=== PATIENT | female | born 1945 | race African-American/Black ===

== ENCOUNTER 2018-09-11 08:20 | Inpatient (IN) ==
--- NOTE | 2018-09-11 08:24 | Emergency Department Note ---
Disposition Clinical Impression: JEOVANY (acute kidney injury), Hypokalemia, Hypomagnesemia, Elevated troponin, Metabolic acidosis, Supratherapeutic INR Disposition: Admitted As Inpatient Condition: Serious Time of Disposition: 16:49 General Adult HPI - General Stated complaint: AMS Time Seen by Provider: 09/11/18 08:21 - Related Data Home Medications Medication Instructions Recorded Confirmed Adalimumab [Humira Pen 40 mg SQ Q14D 03/02/15 01/02/16 Crohn's-Uc-Hs] Alendronate Sodium [Fosamax] 70 mg PO CHA 03/02/15 01/02/16 Atorvastatin [Lipitor] 10 mg PO HS 03/02/15 01/02/16 Azelastine 0.1% Nasal [place] 137 mcg NS BID 03/02/15 01/02/16 [Astelin] Cetirizine HCl [Zyrtec] 10 mg PO DAILY 03/02/15 01/02/16 Cholecalciferol (Vitamin D3) 50,000 unit PO CHA 03/02/15 01/02/16 [Vitamin D3] Ferrous Sulfate [Iron] 325 mg PO DAILY 03/02/15 01/02/16 Glucosamine Sulfate Dipot Chlr 1,500 mg PO DAILY 03/02/15 01/02/16 [Glucosamine] Oxybutynin Chloride [Ditropan XL] 5 mg PO DAILY 03/02/15 01/02/16 Potassium Chloride [Klor-Con 10 meq PO DAILY 03/02/15 01/02/16 Sprinkle] Quetiapine Fumarate [SEROquel] 25 mg PO DAILY 03/02/15 01/02/16 Sertraline [Zoloft] 100 mg PO DAILY 03/02/15 01/02/16 Tizanidine HCl [Zanaflex] 4 - 8 mg PO HS PRN 03/02/15 01/02/16 Warfarin [Coumadin] 5 mg PO Q48H 03/02/15 01/02/16 Cholecalciferol (Vitamin D3) 2,000 unit PO DAILY 04/13/15 01/02/16 [Vitamin D] Warfarin [Coumadin] 4.5 mg PO Q48H 01/02/16 01/02/16 Allergies Allergy/AdvReac Type Severity Reaction Status Date / Time No Known Allergies Allergy Verified 01/02/16 11:33 Past Medical History - Past Medical History Medical history: Reports: arthritis, CVA, hepatitis, hyperlipidemia, renal disease Surgical history: Reports: cataract, colectomy Psychiatric history: Reports: no psych history - Social History Smoking Status: Never smoker Smokeless Tobacco Status: No Alcohol use: Reports: none Drug use: Reports: none Course Vital Signs Temperature 97.5 F L 09/11/18 08:26 Pulse Rate 85 09/11/18 08:26 Respiratory Rate 16 09/11/18 08:26 Blood Pressure 110/80 09/11/18 08:26 O2 Sat by Pulse Oximetry 100 09/11/18 08:26 Temperature 98.9 F 09/11/18 16:08 Pulse Rate 70 09/11/18 16:17 Respiratory Rate 16 09/11/18 16:17 Blood Pressure 112/63 09/11/18 16:17 O2 Sat by Pulse Oximetry 95 09/11/18 16:17 Oxygen Delivery Oxygen Delivery Room Air Medical Decision Making - Lab Data Result diagrams: 09/11/18 08:54 09/11/18 14:40 Lab Results 09/11/18 09/11/18 09/11/18 Range/Units 08:54 08:54 08:54 WBC 18.1 H (4.3-11.1) K/mcL RBC 3.56 L (3.82-4.97) M/mcL Hgb 9.7 L (11.5-15.4) g/dL Hct 29.8 L (35.3-44.9) % MCV 83.7 (83.0-100.0) fL MCH 27.2 L (28.0-33.3) pg MCHC 32.6 (31.6-35.5) g/dL RDW 16.4 H (11.5-14.5) % Plt Count 299 (140-400) K/mcL MPV 11.5 (9.4-12.4) fL PT 66.2 H* (9.4-12.1) Seconds INR 5.8 H* APTT 47.7 H (26.0-36.0) Seconds VBG pH (7.32-7.42) pH Units VBG pCO2 (41-51) mmHg VBG pO2 (25-50) mmHg VBG HCO3 (21-27) mEq/L Sodium (136-145) mEq/L Potassium (3.5-5.1) mEq/L Chloride (98-107) mEq/L Carbon Dioxide (23-29) mEq/L BUN (8-23) mg/dL Creatinine (0.60-1.20) mg/dL Est GFR ( Amer) (> 60) Est GFR (Non-Af Amer) (> 60) BUN/Creatinine Ratio (6-26) Glucose (70-105) mg/dL Calculated Osmolality (280-300) Calcium (8.6-10.3) mg/dL Magnesium (1.6-2.6) mg/dL Creatine Kinase (30-223) Units/L Troponin I (< 0.04) ng/mL Urine Color (Yellow) Urine Clarity (Clear) Urine pH (5.0-8.0) pH Units Ur Specific [place] (1.010-1.025) Urine Protein (Neg-Trace) mg/dL Urine Glucose (UA) (Normal) mg/dL Urine Ketones (Negative) mg/dL Urine Blood (Negative) Urine Nitrite (Negative) Urine Bilirubin (Negative) Urine Urobilinogen (Normal) mg/dL Ur Leukocyte Esterase (Negative) Urine Microscopic RBC (0-3) per hpf Urine Microscopic WBC (0-3) per hpf Ur Squamous Epith Cells (None-Few) per lpf Ur Transition Epith Cell (None-Few) per hpf Urine Bacteria (None-Few) per hpf Hyaline Casts (None-Few) per lpf Ur Culture Indicated? (NO) Urine Osmolality (300-1090) mOsm/kg Urine Creatinine mg/dL Urine Sodium mEq/L Urine Potassium mEq/L Urine Chloride mEq/L Urine Urea Nitrogen mg/dL Specimen Rejected Miscellaneous Person Notif of Crit 09/11/18 09/11/18 09/11/18 Range/Units 09:15 09:53 09:56 WBC (4.3-11.1) K/mcL RBC (3.82-4.97) M/mcL Hgb (11.5-15.4) g/dL Hct (35.3-44.9) % MCV (83.0-100.0) fL MCH (28.0-33.3) pg MCHC (31.6-35.5) g/dL RDW (11.5-14.5) % Plt Count (140-400) K/mcL MPV (9.4-12.4) fL PT 67.3 H* (9.4-12.1) Seconds INR 5.9 H* APTT (26.0-36.0) Seconds VBG pH (7.32-7.42) pH Units VBG pCO2 (41-51) mmHg VBG pO2 (25-50) mmHg VBG HCO3 (21-27) mEq/L Sodium 141 (136-145) mEq/L Potassium 1.7 L* (3.5-5.1) mEq/L Chloride 123 H (98-107) mEq/L Carbon Dioxide 6 L* (23-29) mEq/L BUN 31 H (8-23) mg/dL Creatinine 3.47 H (0.60-1.20) mg/dL Est GFR ( Amer) 16 L (> 60) Est GFR (Non-Af Amer) 13 L (> 60) BUN/Creatinine Ratio 9 (6-26) Glucose 87 (70-105) mg/dL Calculated Osmolality 298 (280-300) Calcium 6.5 L (8.6-10.3) mg/dL Magnesium 0.5 L (1.6-2.6) mg/dL Creatine Kinase 330 H (30-223) Units/L Troponin I 0.17 H* (< 0.04) ng/mL Urine Color Yellow (Yellow) Urine Clarity Cloudy A (Clear) Urine pH 6.0 (5.0-8.0) pH Units Ur Specific [place] 1.007 L (1.010-1.025) Urine Protein 30 H (Neg-Trace) mg/dL Urine Glucose (UA) Normal (Normal) mg/dL Urine Ketones Negative (Negative) mg/dL Urine Blood Large H (Negative) Urine Nitrite Negative (Negative) Urine Bilirubin Negative (Negative) Urine Urobilinogen Normal (Normal) mg/dL Ur Leukocyte Esterase Trace H (Negative) Urine Microscopic RBC 0-3 (0-3) per hpf Urine Microscopic WBC 3-5 H (0-3) per hpf Ur Squamous Epith Cells Many H (None-Few) per lpf Ur Transition Epith Cell Few (None-Few) per hpf Urine Bacteria None Seen (None-Few) per hpf Hyaline Casts None Seen (None-Few) per lpf Ur Culture Indicated? YES A (NO) Urine Osmolality (300-1090) mOsm/kg Urine Creatinine mg/dL Urine Sodium mEq/L Urine Potassium mEq/L Urine Chloride mEq/L Urine Urea Nitrogen mg/dL Specimen Rejected Person Notif of Crit 09/11/18 09/11/18 09/11/18 Range/Units 10:09 10:17 10:17 WBC (4.3-11.1) K/mcL RBC (3.82-4.97) M/mcL Hgb (11.5-15.4) g/dL Hct (35.3-44.9) % MCV (83.0-100.0) fL MCH (28.0-33.3) pg MCHC (31.6-35.5) g/dL RDW (11.5-14.5) % Plt Count (140-400) K/mcL MPV (9.4-12.4) fL PT (9.4-12.1) Seconds INR APTT (26.0-36.0) Seconds VBG pH 7.06 L* (7.32-7.42) pH Units VBG pCO2 18 L (41-51) mmHg VBG pO2 175 H (25-50) mmHg VBG HCO3 5 L (21-27) mEq/L Sodium (136-145) mEq/L Potassium (3.5-5.1) mEq/L Chloride (98-107) mEq/L Carbon Dioxide (23-29) mEq/L BUN (8-23) mg/dL Creatinine (0.60-1.20) mg/dL Est GFR ( Amer) (> 60) Est GFR (Non-Af Amer) (> 60) BUN/Creatinine Ratio (6-26) Glucose (70-105) mg/dL Calculated Osmolality (280-300) Calcium (8.6-10.3) mg/dL Magnesium (1.6-2.6) mg/dL Creatine Kinase (30-223) Units/L Troponin I (< 0.04) ng/mL Urine Color (Yellow) Urine Clarity (Clear) Urine pH (5.0-8.0) pH Units Ur Specific [place] (1.010-1.025) Urine Protein (Neg-Trace) mg/dL Urine Glucose (UA) (Normal) mg/dL Urine Ketones (Negative) mg/dL Urine Blood (Negative) Urine Nitrite (Negative) Urine Bilirubin (Negative) Urine Urobilinogen (Normal) mg/dL Ur Leukocyte Esterase (Negative) Urine Microscopic RBC (0-3) per hpf Urine Microscopic WBC (0-3) per hpf Ur Squamous Epith Cells (None-Few) per lpf Ur Transition Epith Cell (None-Few) per hpf Urine Bacteria (None-Few) per hpf Hyaline Casts (None-Few) per lpf Ur Culture Indicated? (NO) Urine Osmolality 143 L (300-1090) mOsm/kg Urine Creatinine 57 mg/dL Urine Sodium 16.9 mEq/L Urine Potassium mEq/L Urine Chloride mEq/L Urine Urea Nitrogen 168 mg/dL Specimen Rejected Person Notif of Pat SU 09/11/18 Range/Units 10:59 WBC (4.3-11.1) K/mcL RBC (3.82-4.97) M/mcL Hgb (11.5-15.4) g/dL Hct (35.3-44.9) % MCV (83.0-100.0) fL MCH (28.0-33.3) pg MCHC (31.6-35.5) g/dL RDW (11.5-14.5) % Plt Count (140-400) K/mcL MPV (9.4-12.4) fL PT (9.4-12.1) Seconds INR APTT (26.0-36.0) Seconds VBG pH (7.32-7.42) pH Units VBG pCO2 (41-51) mmHg VBG pO2 (25-50) mmHg VBG HCO3 (21-27) mEq/L Sodium (136-145) mEq/L Potassium (3.5-5.1) mEq/L Chloride (98-107) mEq/L Carbon Dioxide (23-29) mEq/L BUN (8-23) mg/dL Creatinine (0.60-1.20) mg/dL Est GFR ( Amer) (> 60) Est GFR (Non-Af Amer) (> 60) BUN/Creatinine Ratio (6-26) Glucose (70-105) mg/dL Calculated Osmolality (280-300) Calcium (8.6-10.3) mg/dL Magnesium (1.6-2.6) mg/dL Creatine Kinase (30-223) Units/L Troponin I (< 0.04) ng/mL Urine Color (Yellow) Urine Clarity (Clear) Urine pH (5.0-8.0) pH Units Ur Specific [place] (1.010-1.025) Urine Protein (Neg-Trace) mg/dL Urine Glucose (UA) (Normal) mg/dL Urine Ketones (Negative) mg/dL Urine Blood (Negative) Urine Nitrite (Negative) Urine Bilirubin (Negative) Urine Urobilinogen (Normal) mg/dL Ur Leukocyte Esterase (Negative) Urine Microscopic RBC (0-3) per hpf Urine Microscopic WBC (0-3) per hpf Ur Squamous Epith Cells (None-Few) per lpf Ur Transition Epith Cell (None-Few) per hpf Urine Bacteria (None-Few) per hpf Hyaline Casts (None-Few) per lpf Ur Culture Indicated? (NO) Urine Osmolality (300-1090) mOsm/kg Urine Creatinine mg/dL Urine Sodium mEq/L Urine Potassium 5.9 mEq/L Urine Chloride 29 mEq/L Urine Urea Nitrogen mg/dL Specimen Rejected Person Notif of Crit Critical Care Time Critical Care Time: Yes Total Critical Care Time: 35 Attestation: Critical care time 35 minutes, excluding separately billable procedures given the patient's acute metabolic derangements including acute kidney injury, severe metabolic acidosis and severe hypokalemia in conjunction with coordination with specialist and admission to the intensive care unit. Jim.[email or web address] - Melanie Situation: Demographics, MOA Background: Presenting Complaint, Relevant PMH, Meds, & Allergies Assessment: Course and respsone to treatment, Exam Concerns, Patient/Family Expectation, Pertinant Lab Results Recommendation: Barrier(s) to disposition, Recommendation based on pending studies, treatments, or consults [email or web address].[email or web address] Report Given to: Dr. Janet Navarro Repor Time: 12:42 Attestation Statement - Attestation Attestation: Stepan Delgado D.O., examined this patient and my medical decision-making was reviewed with the Resident Physician. I agree with the documented findings, disposition and treatment plan as described except to the extent set forth below. 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 Stroke alert was called upon arrival. The patient was home last night and laid herself down onto the ground. was unable to help move her. States she was last filling normal around 11 PM. On arrival she is complaining of weakness in both of her legs and just feels generally worn out. She reports her speech seems normal to her. Denies any head injury. She denies any pain in any place. No other complaints. General: Alert, no acute distress HENT: Normocephalic, Atraumatic Neck: No JVD Cardiovascular: Regular rate and rhythm. No appreciable murmurs Respiratory: Lungs CTAB. No wheezing/rhonchi Abdominal: Soft, non tender. No peritoneal findings Extremities: No peripheral edema Neuro: Alert, Mentating appropriately, answers questions appropriately. She has weakness with 4/5 motor strength in the upper and lower extremities. Sensation to light touch intact in the upper and lower extremities. Seems to have mild dysarthria. Skin: Warm, Dry Plan: Stroke alert, CT imaging, labs, consultation with [facility] neurology, admission. ED Procedure Note: EKG interpretation - I agree with the resident physician's documentation and interpretation of the patient's EKG. Sinus rhythm with premature atrial complexes with a rate of 67 bpm. Normal axis. Normal intervals. No gross ST elevations or depressions. No acute ischemic findings. Resident spoke with [facility] neurology. Stroke alert canceled. Labs reviewed. The patient had grossly abnormal chemistry which was recollec dwayne. On the chemistry she is noted to have a bicarbonate 7, potassium 1.7. She is also suffering from an JEOVANY with a creatinine of 3.47 which was reviewed in May was 1.58. This case was immediately discussed with nephrology, Dr. Lanza, who recommended to start half normal saline with 75mEq of sodium bicarbonate at a rate of 100 mL/hr Labs reviewed again. Her pH is 7.06. I discussed this again with the political science research assistant horizontal drill operator who recommends we start a bicarbonate drip with 150 mEq of sodium bicarbonate. He will be down to see the patient. Also recommends to start potassium replacement prior to starting bicarbonate. He agrees with expediting the patient's care with central access giving 20 mEq or potassium and 20 mEq IV potassium. States the patient might need dialysis sometime today. The patient is moved to the trauma bay for closer monitoring as she has had some ectopy on her rhythm strips. Plan to obtain femoral IV access given the patient's supratherapeutic INR. At this point the patient is deemed to be critically ill as she is having ectopy with electrolyte abnormalities and weakness to the point that she is unable to really move her legs. Although her INR is elevated I feel she is best served by having central access and initiating potassium replacement at a faster rate so we can also be in to treat her acidosis with bicarbonate. Central line was placed by the resident physician under my direct supervision. Please see their documentation for full details. No complications. We will begin to use CVC for potassium replacement. Case was discussed with the executive director contract shop, Dr. Gonzales and the patient is accepted to the intensive care unit for further management. 12:30.
--- NOTE | 2018-09-11 08:40 | Emergency Department Note ---
Disposition Clinical Impression: JEOVANY (acute kidney injury), Hypokalemia, Hypomagnesemia, Elevated troponin, Metabolic acidosis, Supratherapeutic INR Disposition: Admitted As Inpatient Condition: Critical Time of Disposition: 13:10 General Adult HPI - General Chief complaint: ED Neuro Symptoms/Deficit Stated complaint: AMS Time Seen by Provider: 09/11/18 08:21 Limitations: no limitations Nursing Notes Reviewed: Yes Vital Signs Reviewed: Yes - History of Present Illness HPI Narrative: 73-year-old female, with with a past medical history of a CVA, crohns disease, and chronic kidney disease presents with altered mental status, weakness, and neuro deficits. Patient laid down on her floor at 11 PM last night because she was too weak to to move. Patient presents via EMS, with increased weakness in her bilateral lower extremities, increased slurring of her speech, weakness in her right upper extremity. She has these deficits at baseline from a previous CVA. Pain Scale: 0 - Related Data Home Medications Medication Instructions Recorded Confirmed Adalimumab [Humira Pen 40 mg SQ Q14D 03/02/15 01/02/16 Crohn's-Uc-Hs] Alendronate Sodium [Fosamax] 70 mg PO CHA 03/02/15 01/02/16 Atorvastatin [Lipitor] 10 mg PO HS 03/02/15 01/02/16 Azelastine 0.1% Nasal [place] 137 mcg NS BID 03/02/15 01/02/16 [Astelin] Cetirizine HCl [Zyrtec] 10 mg PO DAILY 03/02/15 01/02/16 Cholecalciferol (Vitamin D3) 50,000 unit PO CHA 03/02/15 01/02/16 [Vitamin D3] Ferrous Sulfate [Iron] 325 mg PO DAILY 03/02/15 01/02/16 Glucosamine Sulfate Dipot Chlr 1,500 mg PO DAILY 03/02/15 01/02/16 [Glucosamine] Oxybutynin Chloride [Ditropan XL] 5 mg PO DAILY 03/02/15 01/02/16 Potassium Chloride [Klor-Con 10 meq PO DAILY 03/02/15 01/02/16 Sprinkle] Quetiapine Fumarate [SEROquel] 25 mg PO DAILY 03/02/15 01/02/16 Sertraline [Zoloft] 100 mg PO DAILY 03/02/15 01/02/16 Tizanidine HCl [Zanaflex] 4 - 8 mg PO HS PRN 03/02/15 01/02/16 Warfarin [Coumadin] 5 mg PO Q48H 03/02/15 01/02/16 Cholecalciferol (Vitamin D3) 2,000 unit PO DAILY 04/13/15 01/02/16 [Vitamin D] Warfarin [Coumadin] 4.5 mg PO Q48H 01/02/16 01/02/16 Allergies Allergy/AdvReac Type Severity Reaction Status Date / Time No Known Allergies Allergy Verified 01/02/16 11:33 All systems ED: reviewed and negative except as stated. Review of Systems: As Per HPI Constitutional: Reports: weakness. Denies: fever, chills Cardiovascular: Denies: chest pain Gastrointestinal: Denies: abdominal pain, nausea Musculoskeletal: Reports: other (weakness) Neurological: Reports: weakness, confusion. Denies: headache, numbness, paresthesias Endocrine: Reports: fatigue Past Medical History - Past Medical History Medical history: Reports: arthritis, CVA, hepatitis, hyperlipidemia, renal disease Surgical history: Reports: cataract, colectomy Psychiatric history: Reports: no psych history - Social History Smoking Status: Never smoker Smokeless Tobacco Status: No Alcohol use: Reports: none Drug use: Reports: none Physical Exam Vital signs noted, please see nurses notes. General: Well-developed, well-nourished patient lying in bed who appears non- toxic. Head: Atraumatic, nomrocephalic. Eyes: Sclera anicteric. ENT: Mucous membranes moist. Heart: Regular rate and rhythem, no appreciable murmur, gallops or rubs. Lungs: Clear to auscultation bilaterally with normal respiratory pattern, no respiratory distress. Abdomen: Soft, non-tender, non-distended, no guarding or peritoneal signs. Skin: Warm and dry, no appreciable rash. Neurologic: Awake, alert and oriented with normal mental status, GCS 15. Gait is untestable. Speech is slurred, no aphasia or dysarthria. Cranial nerves intact. Pupils equal, round, reactive to light. Motor and sensory function are intact and symmetrical in all nerve distributions in the extremities. Minimal pronator drift on the right upper extremity Cerebellar testing is normal. No focal deficits or lateralizing signs. Finger to nose dysmetria was not present. Heel-hein dysmetria was not present. No signs of vikas inattention or visual, tactical, auditory spatial, or personal neglect. NIH score is 3. There is increased weakness in the right upper extremity. Increased weakness bilaterally in the lower extremities Psychiatric: Normal mood and affect. Musculoskeletal: No signs of trauma or DVT. - General Limitations: no limitations General appearance: alert, in no apparent distress Course - Consultations Consultation #1: Spoke with [facility] neurology, they said that the the patient is not a TPA candidate, and they do not need to evaluate the patient via stroke camera. They stated that if the patient's creatinine is within reasonable limits a CTA is advised to rule out a large vessel occlusion, and a large vessel occlusion is found they would accept transfer. If no large vessel occlusion is found they r ecommended that she stay at [facility] for an inpatient workup with an MRI Time: 08:54 Consultation #2: Nephro, for metabolic derangements Time: 10:00 Vital Signs Temperature 97.5 F L 09/11/18 08:26 Pulse Rate 85 09/11/18 08:26 Respiratory Rate 16 09/11/18 08:26 Blood Pressure 110/80 09/11/18 08:26 O2 Sat by Pulse Oximetry 100 09/11/18 08:26 Temperature 98.9 F 09/11/18 16:08 Pulse Rate 70 09/11/18 16:17 Respiratory Rate 16 09/11/18 16:17 Blood Pressure 112/63 09/11/18 16:17 O2 Sat by Pulse Oximetry 95 09/11/18 16:17 Oxygen Delivery Oxygen Delivery Room Air Procedures - Central Line Placement Right Femoral Central Line Catheter Replacement*: No Central Line Insertion: emergent Consent Obtained: written consent Procedural Pause: verify patient name and date of , timeout performed per policy, vicky and assess the site, assemble equipment and verify supplies, perform hand hygiene Patient Placed on Monitor/Pulse Ox: Yes During the Procedure: clinician is wearing sterile gloves, cap, mask,& gown during insertion, sterile field and sterile technique are maintained, patient's face is covered with drape or mask and wearing a cap, everyone in room is wearing a mask Central Line Prep: Chlorhexidine scrub Prep the Procedure Site: apply chloraprep to the skin using a back and forth scrubbing motion, apply chloraprep for 30 seconds (upper body), 1-2 min (femoral sites), allow prep to dry, drape the patient with a full body drape Local Anesthetic: lidocaine 1% Amount of anesthesia used (mL): 5 Ultrasound Used for Placement: Yes Central Line Lumen Inserted: triple Patient Tolerated Procedure: well Complications: none Name of Clinician Inserting Central Line: Luis Alberto Drake Clinician Assisting/Completing Checklist: Orlin Delgado Date: 09/11/18 Time: 12:00 Medical Decision Making - MDM Narrative Medical decision making narrative: Patient was treated upon arrival to the emergency department, a thorough history and physical exam were performed, and initial assessment and NIH assessment were performed, and a stroke alert was called. Glucose was within normal limits. 2 IVs were placed, and cardiac monitoring was placed, and the patient was taken to the CT scan emergently. A noncontrast CT of the head was performed. CT did not show any signs of of hemorrhagic stroke. [facility] neurology was consulted with, and recommended based on the NIH score that a CTA be ordered to rule out large vessel occlusion if the patient's creatinine was wi thin normal limits. Except transfer, for retrieval if large vessel occlusion was found. Given the patient's score NIH score of 3, and clinical symptoms a large vessel occlusion is unlikely. Additionally the patient's chronic kidney disease makes IV contrast risky. The patient's labs were were redrawn, as there are multiple abnormalities that could not be explained. The redraw the labs also showed multiple critical values. The patient had multiple labs that were listed as critical including an acidotic pH, hypokalemia, extremely low bicarbonate, and other electrolyte abnormalities elevated troponin, and a markedly elevated PT and INR. Patient also was found to have ectopy on her EKG. she was found to have multiple PACs, PVCs, bigeminy, doublets and couplets. Given the patient's critical lab values, physical exam findings, we consulted with nephrology, and the intensive care unit. A central venous catheter was placed in the right groin, to replace her electrolytes. She was given prescription given 150 mEq of sodium bicarbonate, and 20 mEq of potassium chloride by mouth and 20 mEq of potassium chloride IV per nephrology recommendations. She was transferred to the care of the ICU for further management. - Medical Records Medical records reviewed: Yes I reviewed the patient's medical records. - Lab Data Lab results reviewed: Yes I reviewed the patient's lab results. Result diagrams: 09/11/18 08:54 09/11/18 14:40 Lab Results 09/11/18 09/11/18 09/11/18 Range/Units 08:54 08:54 08:54 WBC 18.1 H (4.3-11.1) K/mcL RBC 3.56 L (3.82-4.97) M/mcL Hgb 9.7 L (11.5-15.4) g/dL Hct 29.8 L (35.3-44.9) % MCV 83.7 (83.0-100.0) fL MCH 27.2 L (28.0-33.3) pg MCHC 32.6 (31.6-35.5) g/dL RDW 16.4 H (11.5-14.5) % Plt Count 299 (140-400) K/mcL MPV 11.5 (9.4-12.4) fL PT 66.2 H* (9.4-12.1) Seconds INR 5.8 H* APTT 47.7 H (26.0-36.0) Seconds VBG pH (7.32-7.42) pH Units VBG pCO2 (41-51) mmHg VBG pO2 (25-50) mmHg VBG HCO3 (21-27) mEq/L Sodium (136-145) mEq/L Potassium (3.5-5.1) mEq/L Chloride (98-107) mEq/L Carbon Dioxide (23-29) mEq/L BUN (8-23) mg/dL Creatinine (0.60-1.20) mg/dL Est GFR ( Amer) (> 60) Est GFR (Non-Af Amer) (> 60) BUN/Creatinine Ratio (6-26) Glucose (70-105) mg/dL Calculated Osmolality (280-300) Calcium (8.6-10.3) mg/dL Magnesium (1.6-2.6) mg/dL Creatine Kinase (30-223) Units/L Troponin I (< 0.04) ng/mL Urine Color (Yellow) Urine Clarity (Clear) Urine pH (5.0-8.0) pH Units Ur Specific [place] (1.010-1.025) Urine Protein (Neg-Trace) mg/dL Urine Glucose (UA) (Normal) mg/dL Urine Ketones (Negative) mg/dL Urine Blood (Negative) Urine Nitrite (Negative) Urine Bilirubin (Negative) Urine Urobilinogen (Normal) mg/dL Ur Leukocyte Esterase (Negative) Urine Microscopic RBC (0-3) per hpf Urine Microscopic WBC (0-3) per hpf Ur Squamous Epith Cells (None-Few) per lpf Ur Transition Epith Cell (None-Few) per hpf Urine Bacteria (None-Few) per hpf Hyaline Casts (None-Few) per lpf Ur Culture Indicated? (NO) Urine Osmolality (300-1090) mOsm/kg Urine Creatinine mg/dL Urine Sodium mEq/L Urine Potassium mEq/L Urine Chloride mEq/L Urine Urea Nitrogen mg/dL Specimen Rejected Miscellaneous Person Notif of Crit 09/11/18 09/11/18 09/11/18 Range/Units 09:15 09:53 09:56 WBC (4.3-11.1) K/mcL RBC (3.82-4.97) M/mcL Hgb (11.5-15.4) g/dL Hct (35.3-44.9) % MCV (83.0-100.0) fL MCH (28.0-33.3) pg MCHC (31.6-35.5) g/dL RDW (11.5-14.5) % Plt Count (140-400) K/mcL MPV (9.4-12.4) fL PT 67.3 H* (9.4-12.1) Seconds INR 5.9 H* APTT (26.0-36.0) Seconds VBG pH (7.32-7.42) pH Units VBG pCO2 (41-51) mmHg VBG pO2 (25-50) mmHg VBG HCO3 (21-27) mEq/L Sodium 141 (136-145) mEq/L Potassium 1.7 L* (3.5-5.1) mEq/L Chloride 123 H (98-107) mEq/L Carbon Dioxide 6 L* (23-29) mEq/L BUN 31 H (8-23) mg/dL Creatinine 3.47 H (0.60-1.20) mg/dL Est GFR ( Amer) 16 L (> 60) Est GFR (Non-Af Amer) 13 L (> 60) BUN/Creatinine Ratio 9 (6-26) Glucose 87 (70-105) mg/dL Calculated Osmolality 298 (280-300) Calcium 6.5 L (8.6-10.3) mg/dL Magnesium 0.5 L (1.6-2.6) mg/dL Creatine Kinase 330 H (30-223) Units/L Troponin I 0.17 H* (< 0.04) ng/mL Urine Color Yellow (Yellow) Urine Clarity Cloudy A (Clear) Urine pH 6.0 (5.0-8.0) pH Units Ur Specific [place] 1.007 L (1.010-1.025) Urine Protein 30 H (Neg-Trace) mg/dL Urine Glucose (UA) Normal (Normal) mg/dL Urine Ketones Negative (Negative) mg/dL Urine Blood Large H (Negative) Urine Nitrite Negative (Negative) Urine Bilirubin Negative (Negative) Urine Urobilinogen Normal (Normal) mg/dL Ur Leukocyte Esterase Trace H (Negative) Urine Microscopic RBC 0-3 (0-3) per hpf Urine Microscopic WBC 3-5 H (0-3) per hpf Ur Squamous Epith Cells Many H (None-Few) per lpf Ur Transition Epith Cell Few (None-Few) per hpf Urine Bacteria None Seen (None-Few) per hpf Hyaline Casts None Seen (None-Few) per lpf Ur Culture Indicated? YES A (NO) Urine Osmolality (300-1090) mOsm/kg Urine Creatinine mg/dL Urine Sodium mEq/L Urine Potassium mEq/L Urine Chloride mEq/L Urine Urea Nitrogen mg/dL Specimen Rejected Person Notif of Crit 09/11/18 09/11/18 09/11/18 Range/Units 10:09 10:17 10:17 WBC (4.3-11.1) K/mcL RBC (3.82-4.97) M/mcL Hgb (11.5-15.4) g/dL Hct (35.3-44.9) % MCV (83.0-100.0) fL MCH (28.0-33.3) pg MCHC (31.6-35.5) g/dL RDW (11.5-14.5) % Plt Count (140-400) K/mcL MPV (9.4-12.4) fL PT (9.4-12.1) Seconds INR APTT (26.0-36.0) Seconds VBG pH 7.06 L* (7.32-7.42) pH Units VBG pCO2 18 L (41-51) mmHg VBG pO2 175 H (25-50) mmHg VBG HCO3 5 L (21-27) mEq/L Sodium (136-145) mEq/L Potassium (3.5-5.1) mEq/L Chloride (98-107) mEq/L Carbon Dioxide (23-29) mEq/L BUN (8-23) mg/dL Creatinine (0.60-1.20) mg/dL Est GFR ( Amer) (> 60) Est GFR (Non-Af Amer) (> 60) BUN/Creatinine Ratio (6-26) Glucose (70-105) mg/dL Calculated Osmolality (280-300) Calcium (8.6-10.3) mg/dL Magnesium (1.6-2.6) mg/dL Creatine Kinase (30-223) Units/L Troponin I (< 0.04) ng/mL Urine Color (Yellow) Urine Clarity (Clear) Urine pH (5.0-8.0) pH Units Ur Specific [place] (1.010-1.025) Urine Protein (Neg-Trace) mg/dL Urine Glucose (UA) (Normal) mg/dL Urine Ketones (Negative) mg/dL Urine Blood (Negative) Urine Nitrite (Negative) Urine Bilirubin (Negative) Urine Urobilinogen (Normal) mg/dL Ur Leukocyte Esterase (Negative) Urine Microscopic RBC (0-3) per hpf Urine Microscopic WBC (0-3) per hpf Ur Squamous Epith Cells (None-Few) per lpf Ur Transition Epith Cell (None-Few) per hpf Urine Bacteria (None-Few) per hpf Hyaline Casts (None-Few) per lpf Ur Culture Indicated? (NO) Urine Osmolality 143 L (300-1090) mOsm/kg Urine Creatinine 57 mg/dL Urine Sodium 16.9 mEq/L Urine Potassium mEq/L Urine Chloride mEq/L Urine Urea Nitrogen 168 mg/dL Specimen Rejected Person Notif of Pat SU 09/11/18 Range/Units 10:59 WBC (4.3-11.1) K/mcL RBC (3.82-4.97) M/mcL Hgb (11.5-15.4) g/dL Hct (35.3-44.9) % MCV (83.0-100.0) fL MCH (28.0-33.3) pg MCHC (31.6-35.5) g/dL RDW (11.5-14.5) % Plt Count (140-400) K/mcL MPV (9.4-12.4) fL PT (9.4-12.1) Seconds INR APTT (26.0-36.0) Seconds VBG pH (7.32-7.42) pH Units VBG pCO2 (41-51) mmHg VBG pO2 (25-50) mmHg VBG HCO3 (21-27) mEq/L Sodium (136-145) mEq/L Potassium (3.5-5.1) mEq/L Chloride (98-107) mEq/L Carbon Dioxide (23-29) mEq/L BUN (8-23) mg/dL Creatinine (0.60-1.20) mg/dL Est GFR ( Amer) (> 60) Est GFR (Non-Af Amer) (> 60) BUN/Creatinine Ratio (6-26) Glucose (70-105) mg/dL Calculated Osmolality (280-300) Calcium (8.6-10.3) mg/dL Magnesium (1.6-2.6) mg/dL Creatine Kinase (30-223) Units/L Troponin I (< 0.04) ng/mL Urine Color (Yellow) Urine Clarity (Clear) Urine pH (5.0-8.0) pH Units Ur Specific [place] (1.010-1.025) Urine Protein (Neg-Trace) mg/dL Urine Glucose (UA) (Normal) mg/dL Urine Ketones (Negative) mg/dL Urine Blood (Negative) Urine Nitrite (Negative) Urine Bilirubin (Negative) Urine Urobilinogen (Normal) mg/dL Ur Leukocyte Esterase (Negative) Urine Microscopic RBC (0-3) per hpf Urine Microscopic WBC (0-3) per hpf Ur Squamous Epith Cells (None-Few) per lpf Ur Transition Epith Cell (None-Few) per hpf Urine Bacteria (None-Few) per hpf Hyaline Casts (None-Few) per lpf Ur Culture Indicated? (NO) Urine Osmolality (300-1090) mOsm/kg Urine Creatinine mg/dL Urine Sodium mEq/L Urine Potassium 5.9 mEq/L Urine Chloride 29 mEq/L Urine Urea Nitrogen mg/dL Specimen Rejected Person Notif of Crit - Radiology Data Radiology results reviewed: Yes I reviewed the patient's radiology results. Head CT 09/11/18 08:27 IMPRESSION: Patchy areas of old infarctions in the right cerebellar hemisphere extending to the right middle cerebellar peduncle. More recent infarction at the margin of the old infarction is less likely but cannot be excluded. Small old lacunar infarct in the right thalamus. Results were reported to Dr. Sung at 8:46 a.m. on September 11, 2018. D/ / Nikhil Romero MD / Nikhil Romero MD Interpreting Provider: Nikhil Romero MD Chest X-Ray 09/11/18 08:28 IMPRESSION: No acute process. D/ / Yanelis Page MD / Yanelis Page MD Interpreting Provider: Yanelis Page MD - EKG Data EKG #1 EKG results narrative: EKG was interpreted by me. The rhythm is normal sinus rhythm, the rate is regular and 67. The axis is normal. There is no evidence of heart block. The HI interval is 146 The QRS duration is within normal limits and 111 the QTC is within normal limits and 359 . There are no ST elevations. There are nonspecific ST depressions in lateral leads, and inferior leads. No T-wave i nversions or hyper acuity. There is no evidence of pathologic Q waves. There is no evidence of WPW, Brugada, HOCM. There is a PAC Attestation Statement - Attestation Attestation: Stepan Delgado D.O., examined this patient and my medical decision-making was reviewed with the Resident Physician. I agree with the documented findings, disposition and treatment plan as described except to the extent set forth b deborah. NIH Stroke Scale - Level of Consciousness LOC: Alert - LOC Questions LOC Questions: Answers both correctly - LOC Commands LOC Commands: Performs both correctly - Best Gaze Best Gaze: Normal - Visual Visual: No visual loss - Facial Palsy Facial Palsy: Minor asymmetry on smiling, flattened nasolabial fold - Motor Arms Motor Arm-Left: No drift for 10 seconds Motor Arm-Right: Drift, does NOT hit bed - Motor Legs Motor Leg-Left: No drift for 5 seconds Motor Leg-Right: No drift for 5 seconds - Limb Ataxia Limb Ataxia: Absent of affected limb too weak to perform exam - Sensory Sensory: Normal - Best Language Best Language: No aphasia - Dysarthria Dysarthria: Mild, slurs some words - Extinction and Inattention Extinction and Inattention: Normal - NIHSS Total Score NIHSS Total Score: 3
[2018-09-11 09:11] LABS: Hematocrit 29.8 % (35.3-44.9); Hemoglobin 9.7 g/dL (11.5-15.4); Mean Corpuscular HGB Conc 32.6 g/dL (31.6-35.5); Mean Corpuscular Hemoglobin 27.2 pg (28.0-33.3); Mean Corpuscular Volume 83.7 fL (83.0-100.0); Mean Platelet Volume 11.5 fL (9.4-12.4); Platelet Count 299 K/mcL (140-400); Red Blood Count 3.56 M/mcL (3.82-4.97); Red Cell Distribution Width 16.4 % (11.5-14.5); White Blood Count 18.1 K/mcL (4.3-11.1)
[2018-09-11 09:25] LABS: Activated Partial Thrombo Time 47.7 Seconds (26.0-36.0)
[2018-09-11 09:29] LABS: INR 5.8; Prothrombin Time 66.2 Seconds (9.4-12.1)
[2018-09-11 09:34] LABS: Bacteria,Urine None Seen per hpf (None-Few); Bilirubin,Urine Negative (Negative); Blood,Urine Large (Negative); Clarity,Urine Cloudy (Clear); Color,Urine Yellow (Yellow); Glucose,Urine (UA) Normal (Normal); Hyaline Casts,Urine None Seen per lpf (None-Few); Ketones,Urine Negative (Negative); Leukocyte Esterase,Urine Trace (Negative); Nitrite,Urine Negative (Negative); Protein,Urine 30 mg/dL (Neg-Trace); RBC,Urine 0-3 per hpf (0-3); Specific Gravity,Urine 1.007 (1.010-1.025); Squamous Epithelial Cell,Urine Many per lpf (None-Few); Urobilinogen,Urine Normal (Normal)
[2018-09-11 09:45] LABS: Transitional Epi Cells,Urine Few per hpf (None-Few)
[2018-09-11 10:15] LABS: VBG HCO3 5 mEq/L (21-27); VBG PCO2 18 mmHg (41-51); VBG PH 7.06 pH Units (7.32-7.42); VBG PO2 175 mmHg (25-50)
[2018-09-11] MEDS ORDERED: Sodium Bicarbonate 75 MEQ in 0.45 % Sodium Chloride 1,000 ML IVC SCH (10:15)
[2018-09-11 10:27] LABS: INR 5.9; Prothrombin Time 67.3 Seconds (9.4-12.1)
[2018-09-11] MEDS ORDERED: Sodium Bicarbonate 150 MEQ in 0.45 % Sodium Chloride 1,000 ML IVC SCH (10:30)
[2018-09-11] MEDS ORDERED: Potassium Chloride Elixir 20 MEQ/15 ML UDC PO ONE (10:32)
[2018-09-11 11:09] LABS: Calcium 6.5 mg/dL (8.6-10.3); Magnesium 0.5 mg/dL (1.6-2.6); Potassium 1.7 mEq/L (3.5-5.1); Troponin I 0.17 ng/mL (< 0.04)
[2018-09-11 11:30] LABS: Potassium,Urine 5.9 mEq/L
[2018-09-11 12:31] LABS: Sodium, Urine 16.9 mEq/L
[2018-09-11] MEDS ORDERED: Naloxone 0.4 MG/ML INJ IVP PRN (13:34)
--- NOTE | 2018-09-11 13:45 | Pulmonology History & Physical ---
<Sally Syed - Last Filed: 09/11/18 15:47> Date of Encounter: 09/11/18 Time of Encounter: 13:42 Assessment and Plan (1) Metabolic acidosis Current visit: Yes Status: Acute pH 7.06 on arrival with a bicarb of 6 No prior history of metabolic acidosis Not diabetic and no gap No obvious medical causes Hx of vomiting and diarrhea but not likely the sole cause of metabolic acidosis Nephro following Bicarb drip in sterile water due to hypokalemia Continue to monitor Will order urine studies CT scan abd/pelvis showed possible small bowel inflammation consistent with Hx of Crohn's disease but no other acute findings LFTs with no acute abnormalities (2) Acute kidney injury superimposed on CKD Current visit: Yes Status: Acute Baseline creatinine 1.5 - sees Dr. Perez as an outpatient Creatinine today 3.47 Likely secondary to volume depletion but there could be worsening intrinsic kidney disease Nephro following - appreciate recommendations CT scan abd/pelvis ordered and pending (3) Hypokalemia Current visit: Yes Status: Acute Potassium 1.7 on arrival Nephro consulted and following Will replace potassium and continue to trend levels (4) Hypomagnesemia Current visit: Yes Status: Acute Mag 0.5 on admission - 2g mag ordered for transfusion Continue to trend and replace as needed (5) Elevated troponin Current visit: Yes Status: Acute Troponin 0.17 No ACS history EKG without ACS findings Pt denies chest pain Likely secondary to JEOVANY on CKD Continue to trend troponins (6) Supratherapeutic INR Current visit: Yes Status: Acute INR at 5.9 on admission Hold home Coumadin until therapeutic Continue to monitor (7) DVT prophylaxis Current visit: Yes Status: Acute Pt takes Coumadin at home Hold Coumadin until INR is therapeutic History of Present Illness HPI: Ms. Kaur is a 73 year old female with PMHx of CKD, stroke, hepatitis presents to the emergency department today for a general illness that has lasted for the past 3 days, resulting in her falling last night and being unable to get up since 11am. The patient sees Dr. Perez as an outpatient for her kidney disease. Her stroke left her with chronic left-sided weakness. Upon arrival to the emergency department a stroke alert was called due to generalized weakness and slurring of the speech. Head CT obtained did not demonstrate an acute stroke and EKG was obtained which showed U waves. Once all Y panels back it was determined that the patient was severely hypokalemic and hypomagnesemic as well as acidotic at 7.06. Her renal function had severely worsened with her creatinine at 47. Creatinine kinase is 330 and troponin is elevated at 0.17. The patient states that she does not think that she has ever had problems with her electrolytes or becoming acidotic in the past. She admits to some diarrhea and intermittant vomiting over the past several weeks. She does have a past medical history of Crohn's disease. She has not been urinating as much lately as normal. She also complains of diffuse muscle cramping at this time. She follows with Dr. Thornton for GI and with Dr. Hamilton as a PCP. She has not taken Humira in over a year and has not started any new medications. The patient is full code. Past Med Surg Social Fam HX - Past Medical History Attestation: Yes The following information was validated with the patient. Medical history: arthritis, CVA, hepatitis, hyperlipidemia, renal disease Additional medical history: Stroke. Crohns Psychiatric history: no psych history - Past Surgical History Surgical History: cataract, colectomy Additional surgical history: Tubal Ligation. Colon resection small bowel - Social History Smoking Status: Never smoker Smokeless Tobacco Status: No Alcohol use: none Drug use: none - Family History Mother Living Status: Age at : 85 Cause of : heart disease Hx Family Cardiac Disorders: Yes Father Age at : 83 Cause of : heart disease Hx Family Cardiac Disorders: Yes Medications and Allergies Adalimumab [Humira Pen Crohn's-Uc-Hs] 40 mg SQ Q14D 03/02/15 [History] Alendronate Sodium [Fosamax] 70 mg PO CHA 03/02/15 [History] Atorvastatin [Lipitor] 10 mg PO HS 03/02/15 [History] Azelastine 0.1% Nasal [place] [Astelin] 137 mcg NS BID 03/02/15 [History] Cetirizine HCl [Zyrtec] 10 mg PO DAILY 03/02/15 [History] Cholecalciferol (Vitamin D3) [Vitamin D3] 50,000 unit PO CHA 03/02/15 [History] Ferrous Sulfate [Iron] 325 mg PO DAILY 03/02/15 [History] Glucosamine Sulfate Dipot Chlr [Glucosamine] 1,500 mg PO DAILY 03/02/15 [History] Oxybutynin Chloride [Ditropan XL] 5 mg PO DAILY 03/02/15 [History] Potassium Chloride [Klor-Con Sprinkle] 10 meq PO DAILY 03/02/15 [History] Quetiapine Fumarate [SEROquel] 25 mg PO DAILY 03/02/15 [History] Sertraline [Zoloft] 100 mg PO DAILY 03/02/15 [History] Tizanidine HCl [Zanaflex] 4 - 8 mg PO HS PRN 03/02/15 [History] Warfarin [Coumadin] 5 mg PO Q48H 03/02/15 [History] Cholecalciferol (Vitamin D3) [Vitamin D] 2,000 unit PO DAILY 04/13/15 [History] Warfarin [Coumadin] 4.5 mg PO Q48H 01/02/16 [History] Allergy/AdvReac Type Severity Reaction Status Date / Time No Known Allergies Allergy Verified 01/02/16 11:33 All Systems: The remainder of the systems were reviewed and are negative - Constitutional Constitutional: fatigue, no fever(s) - EENT Nose, mouth and throat: no dizziness, no vertigo - Cardiovascular Cardiovascular: no chest pain, no dyspnea, no dyspnea on exertion - Respiratory Respiratory: no cough, no dyspnea, no wheezing - Gastrointestinal Gastrointestinal: abdominal pain, diarrhea, vomiting - Genitourinary Genitourinary: other (decreased urination), no dysuria, no hematuria - Musculoskeletal Musculoskeletal: weakness, myalgias, other (cramping), no numbness - Integumentary Integumentary: no rash - Neurological Neurological: weakness, no confusion, no dizziness Physical Examination Vital Signs: Vital Signs, Last 4 Hours Pulse Resp BP Pulse Ox 09/11/18 13:25 71 16 117/74 98 09/11/18 12:34 76 16 104/86 97 09/11/18 11:24 68 16 103/71 100 09/11/18 10:59 70 16 108/60 100 09/11/18 09:58 69 16 106/66 100 General appearance: no acute distress, alert Eyes: nonicteric Neck: supple Effort: normal Auscultation: bilateral: clear Cardiovascular: regular rate and rhythm Gastrointestinal: soft, non-tender Integumentary: normal Extremities: no edema, pink and warm normal mental status, pupils equal and round, other (left hand and arm weakness) mood appropriate, affect normal Results - Laboratory Findings CBC and BMP: 09/11/18 08:54 09/11/18 14:40 PT/INR, D-dimer PT 67.3 Seconds (9.4-12.1) H* 09/11/18 09:53 Abnormal lab findings: Abnormal lab results WBC 18.1 K/mcL (4.3-11.1) H 09/11/18 08:54 RBC 3.56 M/mcL (3.82-4.97) L 09/11/18 08:54 Hgb 9.7 g/dL (11.5-15.4) L 09/11/18 08:54 Hct 29.8 % (35.3-44.9) L 09/11/18 08:54 MCH 27.2 pg (28.0-33.3) L 09/11/18 08:54 RDW 16.4 % (11.5-14.5) H 09/11/18 08:54 PT 67.3 Seconds (9.4-12.1) H* 09/11/18 09:53 INR 5.9 H* 09/11/18 09:53 APTT 47.7 Seconds (26.0-36.0) H 09/11/18 08:54 VBG pH 7.06 pH Units (7.32-7.42) L* 09/11/18 10:09 VBG pCO2 18 mmHg (41-51) L 09/11/18 10:09 VBG pO2 175 mmHg (25-50) H 09/11/18 10:09 VBG HCO3 5 mEq/L (21-27) L 09/11/18 10:09 Potassium 1.7 mEq/L (3.5-5.1) L* 09/11/18 09:56 Chloride 123 mEq/L (98-107) H 09/11/18 09:56 Carbon Dioxide 6 mEq/L (23-29) L* 09/11/18 09:56 BUN 31 mg/dL (8-23) H 09/11/18 09:56 Creatinine 3.47 mg/dL (0.60-1.20) H 09/11/18 09:56 Est GFR ( Amer) 16 (> 60) L 09/11/18 09:56 Est GFR (Non-Af Amer) 13 (> 60) L 09/11/18 09:56 Calcium 6.5 mg/dL (8.6-10.3) L 09/11/18 09:56 Magnesium 0.5 mg/dL (1.6-2.6) L 09/11/18 09:56 Creatine Kinase 330 Units/L (30-223) H 09/11/18 09:56 Troponin I 0.17 ng/mL (< 0.04) H* 09/11/18 09:56 Urine Clarity Cloudy (Clear) A 09/11/18 09:15 Ur Specific Cherry Log 1.007 (1.010-1.025) L 09/11/18 09:15 Urine Protein 30 mg/dL (Neg-Trace) H 09/11/18 09:15 Urine Blood Large (Negative) H 09/11/18 09:15 Ur Leukocyte Esterase Trace (Negative) H 09/11/18 09:15 Urine Microscopic WBC 3-5 per hpf (0-3) H 09/11/18 09:15 Ur Squamous Epith Cells Many per lpf (None-Few) H 09/11/18 09:15 Ur Culture Indicated? YES (NO) A 09/11/18 09:15 Urine Osmolality 143 mOsm/kg (300-1090) L 09/11/18 10:17 <Luly Gonzales M - Last Filed: 09/12/18 08:19> Date of Encounter: 09/11/18 History of Present Illness HPI: Ms. Kaur is a 73 year old female All Systems: The remainder of the systems were reviewed and are negative Physical Examination Vital Signs: Vital Signs, Last 4 Hours Temp Pulse Resp BP Pulse Ox 09/11/18 16:08 98.9 F 09/11/18 14:00 71 16 126/86 99 09/11/18 13:25 71 16 117/74 98 09/11/18 12:34 76 16 104/86 97 Results - Laboratory Findings CBC and BMP: 09/12/18 04:00 09/12/18 04:00 PT/INR, D-dimer PT 67.3 Seconds (9.4-12.1) H* 09/11/18 09:53 Abnormal lab findings: Abnormal lab results WBC 18.1 K/mcL (4.3-11.1) H 09/11/18 08:54 RBC 3.56 M/mcL (3.82-4.97) L 09/11/18 08:54 Hgb 9.7 g/dL (11.5-15.4) L 09/11/18 08:54 Hct 29.8 % (35.3-44.9) L 09/11/18 08:54 MCH 27.2 pg (28.0-33.3) L 09/11/18 08:54 RDW 16.4 % (11.5-14.5) H 09/11/18 08:54 PT 67.3 Seconds (9.4-12.1) H* 09/11/18 09:53 INR 5.9 H* 09/11/18 09:53 APTT 47.7 Seconds (26.0-36.0) H 09/11/18 08:54 VBG pH 7.06 pH Units (7.32-7.42) L* 09/11/18 10:09 VBG pCO2 18 mmHg (41-51) L 09/11/18 10:09 VBG pO2 175 mmHg (25-50) H 09/11/18 10:09 VBG HCO3 5 mEq/L (21-27) L 09/11/18 10:09 Potassium 1.7 mEq/L (3.5-5.1) L* 09/11/18 14:40 Chloride 124 mEq/L (98-107) H 09/11/18 14:40 Carbon Dioxide 10 mEq/L (23-29) L* 09/11/18 14:40 BUN 32 mg/dL (8-23) H 09/11/18 14:40 Creatinine 3.38 mg/dL (0.60-1.20) H 09/11/18 14:40 Est GFR ( Amer) 16 (> 60) L 09/11/18 14:40 Est GFR (Non-Af Amer) 13 (> 60) L 09/11/18 14:40 Calcium 6.5 mg/dL (8.6-10.3) L 09/11/18 14:40 Magnesium 0.5 mg/dL (1.6-2.6) L 09/11/18 09:56 Creatine Kinase 330 Units/L (30-223) H 09/11/18 09:56 Troponin I 0.19 ng/mL (< 0.04) H* 09/11/18 14:40 Serum Total Protein 5.4 g/dL (6.4-8.9) L 09/11/18 14:40 Albumin 2.6 g/dL (3.5-5.7) L 09/11/18 14:40 Albumin/Globulin Ratio 0.9 (1.1-2.2) L 09/11/18 14:40 Urine Clarity Cloudy (Clear) A 09/11/18 09:15 Ur Specific [place] 1.007 (1.010-1.025) L 09/11/18 09:15 Urine Protein 30 mg/dL (Neg-Trace) H 09/11/18 09:15 Urine Blood Large (Negative) H 09/11/18 09:15 Ur Leukocyte Esterase Trace (Negative) H 09/11/18 09:15 Urine Microscopic WBC 3-5 per hpf (0-3) H 09/11/18 09:15 Ur Squamous Epith Cells Many per lpf (None-Few) H 09/11/18 09:15 Ur Culture Indicated? YES (NO) A 09/11/18 09:15 Urine Osmolality 143 mOsm/kg (300-1090) L 09/11/18 10:17 - Attending Attestation I examined this patient and my medical decision-making was reviewed with the Resident Physician. I agree with the documented findings, disposition and treatment plan as described except to the extent set forth below. Patient seen and examined. I was called by the emergency room physician regarding this patient to be admitted to ICU with her severe hypokalemia and EKG changes. She was seen in examining the intensive care unit. Labs, radiology, chart personally reviewed. Agree with resident's history and physical, assessment, plan with following comments: PROCESS EXPERT: Patient follows commands, Pulmonary: Acceptable oxygenation and ventilation Cardiovascular: Relatively stable stable . Patient has severe hypokalemia and EKG changes is very concerning and she has been given potassium replacement with magnesium which hopefully will prevent any significant arrhythmias. GI: Nutrition per dietary and GI prophylaxis per routine. Patient has history of Crohn's disease and according to the family that she has been having nausea and vomiting for about 2 months and patient has seen progressive die maker in the past. Will have CT chest without contrast because of her renal function and pos sible consult based on the findings. However she will need to follow up with gastroenterology. Patient seems to be protein calorie malnourished which seems to be severe in nature and nutrition evaluation will be important. Heme: DVT prophylaxis per routine. Patient at risk of bleeding with her co agulopathy which is most likely from medication side effects as well as I suspect with her poor nutrition status that she needs vitamin K. Will monitor her coagulation and H&H closely. ID: There is no obvious source of infection. Renal; urine out put and renal function reviewed. Appreciate gas cutter input and management regarding Electrolytes and metabolic non-gap acidosis. Patient is going to have sodium bicarbonate drip, however be careful and plan to recheck Electrolytes frequently and tell stabilize. Endorcine: blood glucose is monitored Lines: all lines checked and no evidence of infections Skin: skin care to prevent pressure ulcers per nursing routine care Dispo: ICU Code: Full. Prognosis. Guarded I have discussed this with the son at the bedside. I spent 40 min of Critical Care time with this patient. It involved decision making of high complexity to assess, manipulate, and support vital organ system failure and/or to prevent further life threatening deterioration of the patient's condition. The time involved in the performance of separately reportable procedures was not counted toward critical care time.
--- NOTE | 2018-09-11 13:50 | Electrocardiograph Report ---
[facility] Test Date: 2018-09-11 Pat Name: Yarelis Kaur Department: EXAM1 Room: 10 Gender: F Heel Coverer: : 1945 Requested By: Iggy Sung Order Number: [id number] Reading MD: Chucho Garza Measurements Intervals Erin Rate: 67 P: 84 NJ: 146 QRS: 76 QRSD: 111 T: 268 QT: 340 QTc: 359 Interpretive Statements Sinus rhythm Ventricular premature complex Repol abnrm suggests ischemia, inferior leads Electronically Signed On 09-11-2018 13:48:59 EDT by Chucho Garza
[2018-09-11] MEDS: Sodium Bicarbonate 150 MEQ in Water for inj. (sterile) 1,000 ML IVC SCH (14:22)
--- NOTE | 2018-09-11 14:51 | Nephrology Consult Note ---
Date of Encounter: 09/11/18 Time of Encounter: 12:00 Assessment and Plan (1) JEOVANY (acute kidney injury) Current Visit: Yes Status: Acute Severe acute kidney from chronic kidney disease stage III, but she does not require urgent initiation of renal placement therapy today. Earlier today I recommended replacing potassium initially IV and orally as tolerated. She required follow up labs to ensure she is correcting the hypokalemia. Then she was to be started on a bicarbonate drip, ideally avoiding insulin and dextrose so as to minimize the risk provoking further hypokalemia. I suspect that her diminished oral intake, and history of Crohn's disease may be contributing to this JEOVANY on CKD, but she may also have a renal tubular acidosis. She will need urine studies assessed through check urine pH, and urine electrolytes. Thank you for consultation [facility] on this very pleasant patient who required a high degree of medical decision-making and evaluation and management. My colleague Dr. Kent will be on-call started tomorrow and I will provide a thorough handoff. Thank you. (2) Failure to thrive Current Visit: Yes Status: Acute This could be contributing to hypokalemia, and JEOVANY / CKD. Qualifiers: Failure to thrive age range: in adult Qualified Code(s): R62.7 - Adult failure to thrive (3) Hypocalcemia Current Visit: Yes Status: Acute Replete. Sometimes a bicarbonate drip exacerbate hypocalcemia. (4) Hypokalemia Current Visit: Yes Status: Acute (5) Hypomagnesemia Current Visit: Yes Status: Acute Replete (6) Metabolic acidosis Current Visit: Yes Status: Acute See above, regarding the bicarbonate drip. (7) Crohn disease Current Visit: No Status: Chronic As per primary Qualifiers: Gastrointestinal tract location: unspecified location Digestive disease complication type: other complication Qualified Code(s): K50.918 - Crohn's disease, unspecified, with other complication History of Present Illness - Reason for Consult Consult date: 09/11/18 Acute Kidney Injury, Chronic Kidney Disease, hyponatremia, hypokalemia Requesting physician: Orlin Delgado - Chief Complaint Fatigue with findings of hypokalemia, metabolic acidosis and JEOVANY/CKD - History of Present Illness The patient is a very pleasant 73-year-old female with a past medical history of chronic kidney disease stage IIIb (she follows with me in the clinic), hypertension, and et al who presented with severe hypokalemia, JEOVANY on chronic kidney disease and impressive metabolic acidosis. Nephrology was consulted, and I spoke with the ER earlier in the day. The patient was seen in the ICU, and reported several weeks of diminished appetite, episodic nausea and vomiting. She denied having previous renal stones, or taking [id number] NSAIDs. She did not report hospitalization and any other facilities, or recent surgeries or IV contrast exposure. She affirmed having diminished appetite, and very little oral consumption. Family history: She did not affirm having any first degree relatives with history of ESRD Past Med Surg Social Fam HX - Past Medical History Medical history: arthritis, CVA, hepatitis, hyperlipidemia, renal disease Additional medical history: Stroke. Crohns Psychiatric history: no psych history - Past Surgical History Surgical History: cataract, colectomy Additional surgical history: Tubal Ligation. Colon resection small bowel - Social History Smoking Status: Never smoker Smokeless Tobacco Status: No Alcohol use: none Drug use: none - Family History Mother Living Status: Age at : 85 Cause of : heart disease Hx Family Cardiac Disorders: Yes Father Age at : 83 Cause of : heart disease Hx Family Cardiac Disorders: Yes Medications and Allergies Adalimumab [Humira Pen Crohn's-Uc-Hs] 40 mg SQ Q14D 03/02/15 [History] Alendronate Sodium [Fosamax] 70 mg PO CHA 03/02/15 [History] Atorvastatin [Lipitor] 10 mg PO HS 03/02/15 [History] Azelastine 0.1% Nasal [place] [Astelin] 137 mcg NS BID 03/02/15 [History] Cetirizine HCl [Zyrtec] 10 mg PO DAILY 03/02/15 [History] Cholecalciferol (Vitamin D3) [Vitamin D3] 50,000 unit PO CHA 03/02/15 [History] Ferrous Sulfate [Iron] 325 mg PO DAILY 03/02/15 [History] Glucosamine Sulfate Dipot Chlr [Glucosamine] 1,500 mg PO DAILY 03/02/15 [History] Oxybutynin Chloride [Ditropan XL] 5 mg PO DAILY 03/02/15 [History] Potassium Chloride [Klor-Con Sprinkle] 10 meq PO DAILY 03/02/15 [History] Quetiapine Fumarate [SEROquel] 25 mg PO DAILY 03/02/15 [History] Sertraline [Zoloft] 100 mg PO DAILY 03/02/15 [History] Tizanidine HCl [Zanaflex] 4 - 8 mg PO HS PRN 03/02/15 [History] Warfarin [Coumadin] 5 mg PO Q48H 03/02/15 [History] Cholecalciferol (Vitamin D3) [Vitamin D] 2,000 unit PO DAILY 04/13/15 [History] Warfarin [Coumadin] 4.5 mg PO Q48H 01/02/16 [History] Allergy/AdvReac Type Severity Reaction Status Date / Time No Known Allergies Allergy Verified 01/02/16 11:33 Review of Systems All Systems: reviewed and no additional remarkable complaints except as stated Exam - Vital Signs Vital signs: Initial Vital Signs Temp Pulse Resp BP Pulse Ox 97.5 F L 85 16 110/80 100 09/11/18 08:26 09/11/18 08:26 09/11/18 08:26 09/11/18 08:26 09/11/18 08:26 Vital Signs - Last 8 Hours Temp Pulse Resp BP Pulse Ox 09/11/18 13:25 71 16 117/74 98 09/11/18 12:34 76 16 104/86 97 09/11/18 11:24 68 16 103/71 100 09/11/18 10:59 70 16 108/60 100 09/11/18 09:58 69 16 106/66 100 09/11/18 09:30 79 16 102/69 100 09/11/18 09:00 83 16 100/71 100 09/11/18 08:26 97.5 F L 85 16 110/80 100 Intake and Output 09/10/18 09/11/18 09/11/18 23:59 07:59 15:59 Other: Weight 54.431 kg Blood Glucose* 93 Patient Weight 09/11/18 23:59 Weight 54.431 kg - General Appearance General appearance: well-developed, cachectic, chronically ill, fatigue, frail EENT: ATNC, PERRL, mucous membranes dry Neck: no JVD, supple Respiratory: no kyphosis, clear Cardiology: edema, regular rate, regular rhythm, normal S1, normal S2 Gastrointestinal: normoactive bowel sounds, no tenderness, no guarding Integumentary: no rash, warm and dry Neurologic: no focal deficit, no asterixis, alert and oriented x3 Musculoskeletal: no deformities, no cyanosis, no clubbing Psychiatric: mood/affect appropriate Results - Lab Results 09/12/18 04:00 09/12/18 04:00 Most recent lab results 09/11/18 09/11/18 09:56 10:17 Calcium 6.5 L Magnesium 0.5 L Urine Creatinine 57 Urine Sodium 16.9 Consult Discharge Plan - Plan Referrals: Varinder Hamilton MD [Primary Care Provider] -
[2018-09-11 15:39] LABS: Albumin 2.6 g/dL (3.5-5.7); Albumin/Globulin Ratio 0.9 (1.1-2.2); Bilirubin,Total 0.3 mg/dL (0.3-1.0); Calcium 6.5 mg/dL (8.6-10.3); Globulin 2.8 g/dL (2.4-3.5); Potassium 1.7 mEq/L (3.5-5.1); Thyroid Stimulating Hormone 3.108 mcIU/mL (0.340-5.600); Total Protein 5.4 g/dL (6.4-8.9); Troponin I 0.19 ng/mL (< 0.04)
[2018-09-11 18:45] LABS: ABG Base Excess -21 mEq/L (-2 to 3); ABG HCO3 6 mEq/L (21-27); ABG Oxygen Saturation 97 % (95-98); ABG PCO2 18 mmHg (35-45); ABG PH 7.15 pH Units (7.32-7.45); ABG PO2 108 mmHg (85-104); ABG TCO2 7 mEq/L (20-26)
[2018-09-11 19:27] LABS: Calcium 6.4 mg/dL (8.6-10.3); Magnesium 1.2 mg/dL (1.6-2.6); Phosphorous 1.5 mg/dL (2.7-4.5); Potassium 1.8 mEq/L (3.5-5.1)
[2018-09-11] MEDS ORDERED: Potassium Chloride Elixir 20 MEQ/15 ML UDC PO STA ×2 (19:38→23:59)
[2018-09-11 23:35] LABS: VBG HCO3 8 mEq/L (21-27); VBG PCO2 23 mmHg (41-51); VBG PH 7.12 pH Units (7.32-7.42); VBG PO2 143 mmHg (25-50)
[2018-09-11 23:55] LABS: Calcium 6.2 mg/dL (8.6-10.3)
[2018-09-12] MEDS ORDERED: Potassium Chloride Elixir 20 MEQ/15 ML UDC PO ONE (00:01)
[2018-09-12 00:28] LABS: Magnesium 1.9 mg/dL (1.6-2.6)
[2018-09-12] MEDS: Sodium Bicarbonate 150 MEQ in Water for inj. (sterile) 1,000 ML IVC SCH ×2 (03:32→15:35)
[2018-09-12 04:58] LABS: ABG Base Excess -16 mEq/L (-2 to 3); ABG HCO3 9 mEq/L (21-27); ABG Oxygen Saturation 97 % (95-98); ABG PCO2 21 mmHg (35-45); ABG PH 7.27 pH Units (7.32-7.45); ABG PO2 99 mmHg (85-104); ABG TCO2 10 mEq/L (20-26)
[2018-09-12 05:33] LABS: Basophils % 0.1 %; Eosinophils % 0.1 %; Hematocrit 24.3 % (35.3-44.9); Hemoglobin 8.3 g/dL (11.5-15.4); Immature Granulocytes % 0.5 % (0-4); Lymphocytes # 1.5 K/mcL (0.6-4.6); Lymphocytes % 8.5 %; Mean Corpuscular HGB Conc 34.2 g/dL (31.6-35.5); Mean Corpuscular Hemoglobin 27.2 pg (28.0-33.3); Mean Corpuscular Volume 79.7 fL (83.0-100.0); Monocytes # 0.6 K/mcL (0.0-1.3); Monocytes % 3.7 %; Neutrophils # 15.2 K/mcL (1.6-8.9); Nucleated Red Blood Cells 0.1 /100 WBC (0); Platelet Count 271 K/mcL (140-400); Red Blood Count 3.05 M/mcL (3.82-4.97); Red Cell Distribution Width 15.9 % (11.5-14.5); Segmented Neutrophils % 87.1 %; White Blood Count 17.4 K/mcL (4.3-11.1)
[2018-09-12 05:52] LABS: Magnesium 2.4 mg/dL (1.6-2.6); Phosphorous 3.5 mg/dL (2.7-4.5); Potassium 2.9 mEq/L (3.5-5.1); Prothrombin Time 120.6 Seconds (9.4-12.1)
[2018-09-12 05:53] LABS: INR 10.6
[2018-09-12] MEDS ORDERED: Potassium Phosphate 44 MEQ in 0.9 % Sodium Chloride 250 ML IVPB PRN (06:09)
[2018-09-12] MEDS: Potassium Chloride 40 MEQ/200 ML BAG IVPB PRN ×3 (06:25→21:06)
[2018-09-12] MEDS: Calcium Gluconate 1gm/50mL 1 GM/50 ML BAG IVPB PRN ×3 (06:25→21:06)
--- NOTE | 2018-09-12 06:51 | Pulmonology Progress Note ---
<Sally Syed - Last Filed: 09/12/18 13:58> Date of Encounter: 09/12/18 Time of Encounter: 06:50 Assessment and Plan (1) Metabolic acidosis Current Visit: Yes Status: Acute pH 7.06 on arrival with a bicarb of 6 No prior history of metabolic acidosis Not diabetic and no gap No obvious medical causes Hx of vomiting and diarrhea but not likely the sole cause of metabolic acidosis Nephro following Bicarb drip in sterile water due to hypokalemia Continue to monitor Will order urine studies CT scan abd/pelvis showed possible small bowel inflammation consistent with Hx of Crohn's disease but no other acute findings LFTs with no acute abnormalities 09/12 - pH is shown significant improvement to 7.27 with a bicarbonate drip Continue the bicarbonate drip until patient's bicarbonate has improved (2) Acute kidney injury superimposed on CKD Current Visit: Yes Status: Acute Baseline creatinine 1.5 - sees Dr. Perez as an outpatient Creatinine today 2.95 Likely secondary to volume depletion but there could be worsening intrinsic kidney disease Nephro following - appreciate recommendations CT scan abd/pelvis did not demonstrate any acute renal abnormalities Kidney function appears to be improving with bicarbonate drip Continue hydration (3) Hypokalemia Current Visit: Yes Status: Acute Potassium 1.7 on arrival Nephro consulted and following Will replace potassium and continue to trend levels Potassium has increased to 2.9 after 340 mEq of potassium have been given Continue to replace (4) Hypomagnesemia Current Visit: Yes Status: Acute Mag 0.5 on admission - 2g mag ordered for transfusion Continue to trend and replace as needed Magnesium increased to 2.4 after a total of 6 g given Continue to monitor and replace as needed (5) Hypocalcemia Current Visit: Yes Status: Acute Calcium low on presentation at 6.5 Most recent lab draw potassium had decreased to 5.8 Replace as per electrolyte protocol (6) Elevated troponin Current Visit: Yes Status: Acute Troponin 0.17 No ACS history EKG without ACS findings Pt denies chest pain Likely secondary to JEOVANY on CKD Continue to trend troponins Troponins flat at 0.15 at last draw (7) Supratherapeutic INR Current Visit: Yes Status: Acute INR at 5.9 on admission Hold home Coumadin until therapeutic Continue to monitor 09/12 - INR increased to 10.6, 4 units of FFP and vitamin K were ordered Recheck INR after FFP given (8) Crohn disease Current Visit: No Status: Chronic A shunt with a history of Crohn's disease Sees Dr. Thornton as an outpatient CT scan of abdomen shows evidence of bowel inflammation pt complains of several weeks of diarrhea Will consult GI for further help with her Crohn's dx - appreciate recommendations GI recs Solu-medrol 60mg QD, stool samples, and expedited outpatient colonoscopy due to her supratherapeutic INR Qualifiers: Gastrointestinal tract location: unspecified location Digestive disease complication type: other complication Qualified Code(s): K50.918 - Crohn's disease, unspecified, with other complication (9) Failure to thrive Current Visit: Yes Status: Acute Patient presented with severe electrolyte abnormalities due to malnutrition and diarrhea Patient does have a history of Crohn's disease Reported history of weight loss greater than 30 pounds Patient appears frail and weak and does not look like she is very active at home Nutrition consulted and following PT/OT consults placed for ADLs Qualifiers: Failure to thrive age range: in adult Qualified Code(s): R62.7 - Adult failure to thrive (10) DVT prophylaxis Current Visit: Yes Status: Acute Pt takes Coumadin at home Hold Coumadin until INR is therapeutic Subjective Interval history: Patient had significant improvement in her electrolytes overnight, her potassium is now 2.9, magnesium is 2.4, and pH is 7.27. The patient has received a total of 6 g of magnesium and 340 meq of potassium. Patient is still on the bicarbonate drip. Patient's INR increased from 5.9-10.6, therefore 4 units of fresh frozen plasma and vitamin K were ordered to reverse her INR. Patient is feeling better today and states that she is hungry and wishing to eat. She also states that she has been trying to see Dr. Thornton over the past several days for a potential Crohn's flare but has not been able to get in to visit him. Patient does admit now that this has happened to her before at [facility] many years ago. She also admits that she has not been eating or drinking anything at home and has had some pretty significant diarrhea over the past several weeks. Patient admits that she has lost approximately 30 pounds over the past 3 months due to decreased eating since food taste different to her. Patient will have blood cultures drawn as she had a high white count and central line in place upon admission although she did not meet any other sepsis criteria. Objective PUL Vital signs: Last Vital Signs Temp 97.3 F L 09/12/18 03:52 Pulse 75 09/12/18 06:00 Resp 16 09/12/18 06:00 BP 91/64 09/12/18 06:00 Pulse Ox 100 09/12/18 06:00 General appearance: no acute distress, alert Eyes: nonicteric Effort: normal Auscultation: bilateral: diminished breath sounds Cardiovascular: regular rate and rhythm Gastrointestinal: soft, non-tender Integumentary: normal Extremities: no edema, pink and warm normal mental status, non-focal exam, pupils equal and round mood appropriate, affect normal Results - Laboratory Findings CBC and BMP: 09/12/18 04:00 09/12/18 12:27 ABG ABG pH 7.27 pH Units (7.32-7.45) L 09/12/18 04:55 ABG pCO2 21 mmHg (35-45) L 09/12/18 04:55 ABG pO2 99 mmHg (85-104) 09/12/18 04:55 ABG O2 Saturation 97 % (95-98) 09/12/18 04:55 PT/INR, D-dimer PT 120.6 Seconds (9.4-12.1) H* D 09/12/18 04:00 Abnormal lab findings: Abnormal lab results WBC 17.4 K/mcL (4.3-11.1) H 09/12/18 04:00 RBC 3.05 M/mcL (3.82-4.97) L 09/12/18 04:00 Hgb 8.3 g/dL (11.5-15.4) L 09/12/18 04:00 Hct 24.3 % (35.3-44.9) L 09/12/18 04:00 MCV 79.7 fL (83.0-100.0) L 09/12/18 04:00 MCH 27.2 pg (28.0-33.3) L 09/12/18 04:00 RDW 15.9 % (11.5-14.5) H 09/12/18 04:00 Neutrophils # 15.2 K/mcL (1.6-8.9) H 09/12/18 04:00 Nucleated RBCs/100 WBC 0.1 /100 WBC (0) H 09/12/18 04:00 PT 120.6 Seconds (9.4-12.1) H* D 09/12/18 04:00 INR 10.6 H* D 09/12/18 04:00 APTT 47.7 Seconds (26.0-36.0) H 09/11/18 08:54 ABG pH 7.27 pH Units (7.32-7.45) L 09/12/18 04:55 ABG pCO2 21 mmHg (35-45) L 09/12/18 04:55 ABG pO2 108 mmHg (85-104) H 09/11/18 18:40 ABG HCO3 9 mEq/L (21-27) L 09/12/18 04:55 ABG Total CO2 10 mEq/L (20-26) L 09/12/18 04:55 ABG Base Excess -16 mEq/L (-2 to 3) L 09/12/18 04:55 VBG pH 7.12 pH Units (7.32-7.42) L* 09/11/18 23:27 VBG pCO2 23 mmHg (41-51) L 09/11/18 23:27 VBG pO2 143 mmHg (25-50) H 09/11/18 23:27 VBG HCO3 8 mEq/L (21-27) L 09/11/18 23:27 Potassium 2.9 mEq/L (3.5-5.1) L D 09/12/18 04:00 Chloride 124 mEq/L (98-107) H 09/12/18 04:00 Carbon Dioxide 10 mEq/L (23-29) L* 09/12/18 04:00 BUN 28 mg/dL (8-23) H 09/12/18 04:00 Creatinine 2.95 mg/dL (0.60-1.20) H 09/12/18 04:00 Est GFR ( Amer) 19 (> 60) L 09/12/18 04:00 Est GFR (Non-Af Amer) 16 (> 60) L 09/12/18 04:00 Glucose 111 mg/dL (70-105) H 09/11/18 23:12 Calculated Osmolality 303 (280-300) H 09/12/18 04:00 Calcium 5.8 mg/dL (8.6-10.3) L* 09/12/18 04:00 Phosphorus 1.5 mg/dL (2.7-4.5) L 09/11/18 18:45 Magnesium 1.2 mg/dL (1.6-2.6) L 09/11/18 18:45 Creatine Kinase 330 Units/L (30-223) H 09/11/18 09:56 Troponin I 0.15 ng/mL (< 0.04) H* 09/11/18 20:39 Serum Total Protein 5.4 g/dL (6.4-8.9) L 09/11/18 14:40 Albumin 2.6 g/dL (3.5-5.7) L 09/11/18 14:40 Albumin/Globulin Ratio 0.9 (1.1-2.2) L 09/11/18 14:40 Urine Clarity Cloudy (Clear) A 09/11/18 09:15 Ur Specific [place] 1.007 (1.010-1.025) L 09/11/18 09:15 Urine Protein 30 mg/dL (Neg-Trace) H 09/11/18 09:15 Urine Blood Large (Negative) H 09/11/18 09:15 Ur Leukocyte Esterase Trace (Negative) H 09/11/18 09:15 Urine Microscopic WBC 3-5 per hpf (0-3) H 09/11/18 09:15 Ur Squamous Epith Cells Many per lpf (None-Few) H 09/11/18 09:15 Ur Culture Indicated? YES (NO) A 09/11/18 09:15 Urine Osmolality 143 mOsm/kg (300-1090) L 09/11/18 10:17 - Microbiology Findings Microbiology Findings: Microbiology, Last 48 Hours 09/11/18 09:15 Urine Culture - Preliminary Urine,Catheterized (Straight) Culture is incubating. - Clinical Findings Intake & Output: Intake & Output 09/11/18 09/11/18 09/12/18 15:59 23:59 07:59 Intake Total 104 / 1088 984 / 1088 2534 / 2534 Output Total 450 / 450 500 / 500 Balance 104 / 638 534 / 638 2033 / 2033 Weight 54.431 kg 54.2 kg Consult Discharge Plan - Plan Referrals: Varinder Hamilton MD [Primary Care Provider] - <Luly Gonzales - Last Filed: 09/12/18 14:50> Date of Encounter: 09/12/18 Objective PUL Vital signs: Last Vital Signs Temp 97.5 F L 09/12/18 08:30 Pulse 80 09/12/18 09:00 Resp 18 09/12/18 09:00 BP 91/79 09/12/18 09:00 Pulse Ox 99 09/12/18 09:00 Results - Laboratory Findings CBC and BMP: 09/12/18 04:00 09/12/18 12:27 ABG ABG pH 7.27 pH Units (7.32-7.45) L 09/12/18 04:55 ABG pCO2 21 mmHg (35-45) L 09/12/18 04:55 ABG pO2 99 mmHg (85-104) 09/12/18 04:55 ABG O2 Saturation 97 % (95-98) 09/12/18 04:55 PT/INR, D-dimer PT 120.6 Seconds (9.4-12.1) H* D 09/12/18 04:00 Abnormal lab findings: Abnormal lab results WBC 17.4 K/mcL (4.3-11.1) H 09/12/18 04:00 RBC 3.05 M/mcL (3.82-4.97) L 09/12/18 04:00 Hgb 8.3 g/dL (11.5-15.4) L 09/12/18 04:00 Hct 24.3 % (35.3-44.9) L 09/12/18 04:00 MCV 79.7 fL (83.0-100.0) L 09/12/18 04:00 MCH 27.2 pg (28.0-33.3) L 09/12/18 04:00 RDW 15.9 % (11.5-14.5) H 09/12/18 04:00 Neutrophils # 15.2 K/mcL (1.6-8.9) H 09/12/18 04:00 Nucleated RBCs/100 WBC 0.1 /100 WBC (0) H 09/12/18 04:00 PT 120.6 Seconds (9.4-12.1) H* D 09/12/18 04:00 INR 10.6 H* D 09/12/18 04:00 APTT 47.7 Seconds (26.0-36.0) H 09/11/18 08:54 ABG pH 7.27 pH Units (7.32-7.45) L 09/12/18 04:55 ABG pCO2 21 mmHg (35-45) L 09/12/18 04:55 ABG pO2 108 mmHg (85-104) H 09/11/18 18:40 ABG HCO3 9 mEq/L (21-27) L 09/12/18 04:55 ABG Total CO2 10 mEq/L (20-26) L 09/12/18 04:55 ABG Base Excess -16 mEq/L (-2 to 3) L 09/12/18 04:55 VBG pH 7.12 pH Units (7.32-7.42) L* 09/11/18 23:27 VBG pCO2 23 mmHg (41-51) L 09/11/18 23:27 VBG pO2 143 mmHg (25-50) H 09/11/18 23:27 VBG HCO3 8 mEq/L (21-27) L 09/11/18 23:27 Potassium 2.9 mEq/L (3.5-5.1) L D 09/12/18 04:00 Chloride 124 mEq/L (98-107) H 09/12/18 04:00 Carbon Dioxide 10 mEq/L (23-29) L* 09/12/18 04:00 BUN 28 mg/dL (8-23) H 09/12/18 04:00 Creatinine 2.95 mg/dL (0.60-1.20) H 09/12/18 04:00 Est GFR ( Amer) 19 (> 60) L 09/12/18 04:00 Est GFR (Non-Af Amer) 16 (> 60) L 09/12/18 04:00 Glucose 111 mg/dL (70-105) H 09/11/18 23:12 Calculated Osmolality 303 (280-300) H 09/12/18 04:00 Calcium 5.8 mg/dL (8.6-10.3) L* 09/12/18 04:00 Phosphorus 1.5 mg/dL (2.7-4.5) L 09/11/18 18:45 Magnesium 1.2 mg/dL (1.6-2.6) L 09/11/18 18:45 Creatine Kinase 330 Units/L (30-223) H 09/11/18 09:56 Troponin I 0.15 ng/mL (< 0.04) H* 09/11/18 20:39 Serum Total Protein 5.4 g/dL (6.4-8.9) L 09/11/18 14:40 Albumin 2.6 g/dL (3.5-5.7) L 09/11/18 14:40 Albumin/Globulin Ratio 0.9 (1.1-2.2) L 09/11/18 14:40 Urine Clarity Cloudy (Clear) A 09/11/18 09:15 Ur Specific [place] 1.007 (1.010-1.025) L 09/11/18 09:15 Urine Protein 30 mg/dL (Neg-Trace) H 09/11/18 09:15 Urine Blood Large (Negative) H 09/11/18 09:15 Ur Leukocyte Esterase Trace (Negative) H 09/11/18 09:15 Urine Microscopic WBC 3-5 per hpf (0-3) H 09/11/18 09:15 Ur Squamous Epith Cells Many per lpf (None-Few) H 09/11/18 09:15 Ur Culture Indicated? YES (NO) A 09/11/18 09:15 Urine Osmolality 143 mOsm/kg (300-1090) L 09/11/18 10:17 - Microbiology Findings Microbiology Findings: Microbiology, Last 48 Hours 09/11/18 09:15 Urine Culture - Preliminary Urine,Catheterized (Straight) Culture is incubating. - Clinical Findings Intake & Output: Intake & Output 09/11/18 09/12/18 09/12/18 23:59 07:59 15:59 Intake Total 984 / 1088 2824 / 3075 251 / 3075 Output Total 450 / 450 600 / 625 25 / 625 Balance 534 / 638 2224 / 2450 226 / 2450 Weight 54.2 kg - Attending Attestation I examined this patient and my medical decision-making was reviewed with the Resident Physician. I agree with the documented findings, disposition and treatment plan as described except to the extent set forth below. Patient seen and examined. Labs, radiology, chart personally reviewed. Agree with resident's history and physical, assessment, plan with following comments: IT PORTFOLIO MANAGER: Patient follows commands, Pulmonary: Acceptable oxygenation and ventilation Cardiovascular: Relatively stable patient still have significant electrolytes abnormalities which overall is getting better, however still at risk of arrhythmias and close monitoring is necessary with actively replacement and electrolytes. GI: Nutrition per dietary and GI prophylaxis per routine. GI consultation and needs an evaluation. Dietary has evaluated the patient. There is concern for the refeeding syndrome. Heme: DVT prophylaxis per routine and patient to receive 4 FFP and vit K. Patient is coagulopathic mainly because of side effect of medication as well as nutrition reasons and will need to replace electrolytes as well as vitamin K. ID: No evidence of any active infection. Renal; urine out put and renal function reviewed and replace electrolytes based on protocol. Nephrology is following. We will continue fluid. Will consider changing sodium bicarbonate to oral since she is significantly deficit of the electrolytes. Endorcine: blood glucose is monitored Lines: all lines checked and no evidence of infections Skin: skin care to prevent pressure ulcers per nursing routine care Dispo:possible transfer to floor if her INR improves and remains stable. Code: Full. Prognosis. Guarded to fair I spent 33 min of Critical Care time with this patient. It involved decision making of high complexity to assess, manipulate, and support vital organ system failure and/or to prevent further life threatening deterioration of the patient's condition. The time involved in the performance of separately reportable procedures was not counted toward critical care time.
[2018-09-12 06:57] LABS: Calcium 5.8 mg/dL (8.6-10.3)
[2018-09-12] MEDS ORDERED: 0.9 % Sodium Chloride 500 ML ONE ×4 (08:02→16:57)
--- NOTE | 2018-09-12 11:31 | Gastroenterology Consult Note ---
<Alexandra Mejia - Last Filed: 09/12/18 15:04> Date of Encounter: 09/12/18 Time of Encounter: 11:15 - Assessment and plan (1) Crohn disease Current Visit: No Status: Chronic Assessment and plan: 73-year-old female who presents with severe metabolic acidosis. She has history of Crohn's disease. CT of the abdomen showed some acute inflammation. She does report increased diarrhea. We will start IV Solu-Medrol. Will check stool studies for C. difficile. Last colonoscopy showed mild Crohn's at the anastomosis. She can follow up in the office with Dr. Thornton at discharge to discuss restarting Humira or other treatment for the Crohn's. Qualifiers: Gastrointestinal tract location: unspecified location Digestive disease complication type: other complication Qualified Code(s): K50.918 - Crohn's disease, unspecified, with other complication (2) CKD (chronic kidney disease) Current Visit: No Status: Chronic Qualifiers: Chronic kidney disease stage: stage 3 (moderate) Qualified Code(s): N18.3 - Chronic kidney disease, stage 3 (moderate) (3) Hypokalemia Current Visit: Yes Status: Acute (4) Metabolic acidosis Current Visit: Yes Status: Acute (5) Supratherapeutic INR Current Visit: Yes Status: Acute - Time Spent With Patient Total time spent is greater than 50% in coordination of care (as documented) at patient's floor/unit and/or counseling patient: GI History of Present Illness - Data of Consult Patient: known to practice within the last 3 years Consult date: 09/12/18 Requesting Physician: Luly Gonzales MD - Consult Narrative Reason for consult: crohns disease History of present illness: Ms. Kaur is a 73 year old female with PMHx of CKD, stroke with left sided weak ness, hepatitis and crohns disease. She presents to the emergency department today for a general illness that has lasted for the past 3 days, resulting in her falling last night and being unable to get up since 11am. The patient sees Dr. Perez as an outpatient for her kidney disease. Upon arrival to the emergency department a stroke alert was called due to generalized weakness and slurring of the speech. Head CT obtained did not demonstrate an acute stroke. Labs showed acidosis with a Ph of 7.06. Her renal function had severely worsened with her creatinine at 47. Creatinine kinase is 330 and troponin is elevated at 0.17. She has not taken Humira in over a year and has not started any new medications. Patient has an outpatient appointment with Dr. Thornton on 10/02/2018 and was in the process of getting a sooner appointment as Dr. Hamilton's office had reported a 19 pound weight loss in the past 3 months. Review of her labs show severely low potassium at 2.0 is up to 2.9 today, CO2 10, creatinine 2.95, calcium 5.8, magnesium 2.4, INR currently 10.6. She reports increased diarrhea at home, 5-6 times a day when her normal is 4-5 times a day. However she expressed to the resident that she had been having constant diarrhea. She denies increased abdominal pain, but complains of rectal pain from rectal fissure. She states she has had poor appetite and some nausea with eating. Colonoscopy 12/11/[address] Thornton showed normal mucosa in entire colon, mild Crohn's disease at the anastomosis. Internal hemorrhoids. Stricture at the ileocolonic anastomosis, dilated. EGD 12/11/2017 showed gastritis, salmon- colored mucosa, gastritis Anticoagulants: Coumadin Past Med Surg Social Fam HX - Past Medical History Medical history: arthritis, CVA, hepatitis, hyperlipidemia, renal disease Additional medical history: Stroke. Crohns Psychiatric history: no psych history - Past Surgical History Surgical History: cataract, colectomy Additional surgical history: Tubal Ligation. Colon resection small bowel - Social History Smoking Status: Never smoker Smokeless Tobacco Status: No Alcohol use: none Drug use: none - Family History Mother Living Status: Age at : 85 Cause of : heart disease Hx Family Cardiac Disorders: Yes Father Age at : 83 Cause of : heart disease Hx Family Cardiac Disorders: Yes Review of Systems: GI: as per [place] GENERAL: denies fever, has some chills EYES: denies yellow discoloration ENT: denies pain with swallowing or difficulty swallowing CARDIO: denies chest pain, palpitations RESP: Shortness of breath with exertion : denies change in color of urine NEURO: weakness HEME: Denies any bruising MS: denies joint pain, joint swelling or back pain. DERM: denies rash or itching PSYCH: Denies history of anxiety or depression - Constitutional Vitals: Temp Pulse Resp BP Pulse Ox 97.9 F 89 18 99/74 100 09/12/18 10:45 09/12/18 10:52 09/12/18 10:45 09/12/18 10:45 09/12/18 10:45 Exam: CONSTITUTIONAL:alert, no acute distress.HEAD:normocephalic.EYES:no jaundice.NECK:no obvious swelling.HEART:regular rate and rhythm, no murmurs.LUNGS:bilateral fair air entry.ABDOMEN:non distended, soft, non tender, no masses palpable, no organomegaly, scars noted.RECTAL EXAM:large ex ternal hemorrhoids noted.EXTREMITIES:no clubbing, cyanosis or edema.SKIN:pallor noted, no stigmata of chronic liver disease.NEUROLOGIC:no obvious focal defect Results - Labs CBC & Chem 7: 09/12/18 04:00 09/12/18 12:27 Labs: Last Result 09/11/18 09/12/18 23:12 04:00 Calcium 6.2 L 5.8 L* Entire Visit 09/12/18 09/12/18 04:00 04:00 Hgb 8.3 L Hct 24.3 L PT 120.6 H* D - ABG ABG results: ABG ABG pH 7.27 pH Units (7.32-7.45) L 09/12/18 04:55 ABG pCO2 21 mmHg (35-45) L 09/12/18 04:55 ABG pO2 99 mmHg (85-104) 09/12/18 04:55 ABG O2 Saturation 97 % (95-98) 09/12/18 04:55 PT/INR, D-dimer PT 120.6 Seconds (9.4-12.1) H* D 09/12/18 04:00 - Impressions Impressions Abdomen/Pelvis CT 09/11/18 14:42 IMPRESSION: Loss of haustration of the sigmoid colon compatible with history of Crohn's disease. Postsurgical changes at the right colon/terminal ileum junction. Fat stranding and increased vascularity surrounding a long segment of the terminal ileum which could represent active inflammation. 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 Cholelithiasis. Nephrolithiasis. Tiny focus of air in the urinary bladder. Correlate for recent intervention. D/ / 09/11/2018 15:35:59 Matt Webb / robert Interpreting Provider: Matt Webb Consult Discharge Plan - Plan Referrals: Varinder Hamilton MD [Primary Care Provider] - <Adriana Thornton - Last Filed: 09/12/18 23:35> Date of Encounter: 09/12/18 - Time Spent With Patient Total time spent is greater than 50% in coordination of care (as documented) at patient's floor/unit and/or counseling patient: GI History of Present Illness - Data of Consult Requesting Physician: Luly Gonzales MD - Consult Narrative History of present illness: Ms. Kaur is a 73 year old female - Constitutional Vitals: Temp Pulse Resp BP Pulse Ox 97.8 F 73 14 104/92 99 09/12/18 19:09 09/12/18 23:00 09/12/18 23:00 09/12/18 23:00 09/12/18 23:00 Results - Labs CBC & Chem 7: 09/12/18 04:00 09/12/18 20:21 Labs: Last Result 09/12/18 09/12/18 12:27 20:21 Calcium 6.1 L 6.3 L Entire Visit 09/12/18 20:23 PT 14.3 H D - ABG ABG results: ABG ABG pH 7.27 pH Units (7.32-7.45) L 09/12/18 04:55 ABG pCO2 21 mmHg (35-45) L 09/12/18 04:55 ABG pO2 99 mmHg (85-104) 09/12/18 04:55 ABG O2 Saturation 97 % (95-98) 09/12/18 04:55 PT/INR, D-dimer PT 14.3 Seconds (9.4-12.1) H D 09/12/18 20:23 - Attending Attestation I have personally performed a face to face evaluation on this patient. I have reviewed and agree with the care plan. History and Exam by me shows: Pt seen, has been complaining of Inc stool freq in last few weeks. O/E: Abd soft, perianal area large skin tags, no ulcers. A; Pt with Hx of Crohn with CT showing old hemicolectomy with inflammation of TI. Rec: IV solumedrol. Entyvio as out pt as did not do well on Humira in past
[2018-09-12 12:50] LABS: VBG Ionized Calcium 0.94 mmol/L (1.15-1.35)
[2018-09-12 13:04] LABS: Calcium 6.1 mg/dL (8.6-10.3); Potassium 2.8 mEq/L (3.5-5.1)
[2018-09-12] MEDS: methylPREDNISolone 125 MG/2 ML VIAL IVP SCH (13:55)
[2018-09-12 17:16] LABS: Adenovirus F 40/41 PCR Not detected (Not detect); Astrovirus PCR Not detected (Not detect); C.difficile Toxin A/B Gene PCR Not detected (Not detect); Campylobacter by PCR Not detected (Not detect); Cryptosporidium by PCR Not detected (Not detect); Cyclospora cayetanensis PCR Not detected (Not detect); E. coli O157 by PCR Not detected (Not detect); Entamoeba histolytica PCR Not detected (Not detect); Enteroaggregative E.coli(EAEC) Not detected (Not detect); Enteropathogenic E.coli(EPEC) Not detected (Not detect); Enterotoxigenic E.coli (ETEC) Not detected (Not detect); Giardia lamblia PCR Not detected (Not detect); Norovirus GI/GII PCR Not detected (Not detect); Plesiomonas shigelloides PCR Not detected (Not detect); Rotavirus A PCR Not detected (Not detect); Salmonella PCR Not detected (Not detect); Sapovirus PCR Not detected (Not detect); Shig/EnteroinvasiveE coli EIEC Not detected (Not detect); Shigalike tox-prod E coli STEC Not detected (Not detect); Vibrio PCR Not detected (Not detect); Vibrio cholerae PCR Not detected (Not detect); Yersinia enterocolitica PCR Not detected (Not detect)
--- NOTE | 2018-09-12 18:32 | Nephrology Progress Note ---
Date of Encounter: 09/12/18 - Assessment and Plan (1) Crohn disease Current Visit: No Status: Chronic Qualifiers: Gastrointestinal tract location: unspecified location Digestive disease complication type: other complication Qualified Code(s): K50.918 - Crohn's disease, unspecified, with other complication (2) JEOVANY (acute kidney injury) Current Visit: Yes Status: Acute (3) Hypokalemia Current Visit: Yes Status: Acute (4) Hypomagnesemia Current Visit: Yes Status: Acute (5) Metabolic acidosis Current Visit: Yes Status: Acute (6) Hypocalcemia Current Visit: Yes Status: Acute (7) Failure to thrive Current Visit: Yes Status: Acute Qualifiers: Failure to thrive age range: in adult Qualified Code(s): R62.7 - Adult failure to thrive Objective - Vital Signs Vital signs: Vital Signs Temp Pulse Resp BP Pulse Ox 09/12/18 18:00 79 18 102/69 96 09/12/18 17:20 97.8 F 81 18 103/82 100 09/12/18 17:05 97.6 F 87 18 101/76 100 09/12/18 17:02 97.6 F 80 16 102/75 100 09/12/18 17:00 82 18 101/76 100 09/12/18 16:00 85 18 106/82 100 09/12/18 15:26 97.8 F 09/12/18 15:00 87 18 99/77 97 09/12/18 14:41 97.8 F 88 18 118/79 100 09/12/18 14:00 97.8 F 83 18 103/70 97 09/12/18 13:00 86 18 99/65 97 09/12/18 12:00 85 18 95/68 97 09/12/18 11:00 97.3 F L 90 18 99/61 97 09/12/18 10:52 89 09/12/18 10:45 97.9 F 75 18 99/74 100 09/12/18 10:20 97.6 F 84 16 101/70 100 09/12/18 10:00 82 16 101/70 100 09/12/18 09:00 80 18 91/79 99 09/12/18 08:30 97.5 F L 80 16 106/76 95 09/12/18 08:15 97.2 F L 80 16 114/79 93 09/12/18 08:00 81 18 106/76 98 09/12/18 07:30 97.2 F L 09/12/18 07:00 82 16 106/82 99 09/12/18 06:00 75 16 91/64 100 09/12/18 05:00 70 14 107/73 100 09/12/18 04:00 71 18 108/67 100 09/12/18 03:52 97.3 F L 09/12/18 03:30 63 09/12/18 03:00 63 16 98/67 100 09/12/18 02:00 67 16 105/84 100 09/12/18 01:00 63 18 87/56 100 09/12/18 00:00 60 14 85/62 100 09/11/18 23:30 59 09/11/18 23:16 96.6 F L 09/11/18 23:00 66 16 107/75 100 09/11/18 22:00 60 16 84/53 100 09/11/18 21:00 67 16 104/72 100 09/11/18 20:00 64 18 109/73 100 09/11/18 19:30 66 09/11/18 19:02 97.0 F L 09/11/18 19:00 64 16 103/77 100 Intake and Output 09/12/18 09/12/18 09/12/18 07:59 15:59 23:59 Intake Total 2824 / 5465 1901 / 5465 740 / 5465 Output Total 600 / 935 275 / 935 60 / 935 Balance 2224 / 4530 1626 / 4530 680 / 4530 Intake: IV Fluids 1864 / 3515 1401 / 3515 250 / 3515 Sodium Bicarbonate 150 MEQ In 1150 / 2300 1150 / 2300 Water for inj. (sterile) 1,000 ML @ 100 mls/hr IVC .[id number] ANJELICA Rx#:[id number] Calcium Gluconate 1gm/50mL 1 gm 50 / 100 50 / 100 In 50 ml @ 50 mls/hr IVPB Q6HR PRN Rx#:[id number] Magnesium Sulfate 2 GM In 0.9 % 104 / 104 Sodium Chloride 100 ML @ 104 mls/hr IVPB ONCE ONE Rx#: [id number] AquaMephyton 10 MG In 0.9 % 51 / 51 Sodium Chloride 50 ML @ 100 mls /hr IVPB ONCE ONE Rx#: [id number] Potassium Chloride 20 mEq/100 300 / 700 200 / 700 200 / 700 mL 40 meq In 200 ml @ 100 mls/ hr IVPB Q1H PRN Rx#:[id number] Sodium Phosphate 30 MMOL In 0.9 260 / 260 % Sodium Chloride 250 ML @ 42 mls/hr IVPB ONCE ONE Rx#: [id number] Oral 960 / 1200 240 / 1200 Blood Product 500 / 750 250 / 750 Plasma Unit [id number] 0 / 0 Plasma Unit [id number] 250 / 250 Plasma Unit [id number] 0 / 250 250 / 250 Plasma Unit [id number] 250 / 250 Output: Urine 600 / 935 275 / 935 60 / 935 Other: Meal Breakfast Dinner Percent of Meal Consumed 100% 75% Stool Size Small Moderate Moderate Stool Consistency loose liquid liquid liquid Stool Color Brown Brown Brown Yellow # Bowel Movements 1 1 Blood Glucose* 92 - Lab 09/12/18 04:00 09/12/18 12:27 Most recent lab results 09/12/18 09/12/18 04:00 12:27 Calcium 5.8 L* 6.1 L Consult Discharge Plan - Plan Referrals: Varinder Hamilton MD [Primary Care Provider] -
[2018-09-12 20:41] LABS: VBG Ionized Calcium 0.92 mmol/L (1.15-1.35)
[2018-09-12 20:56] LABS: Calcium 6.3 mg/dL (8.6-10.3); Potassium 2.6 mEq/L (3.5-5.1)
[2018-09-12 21:22] LABS: INR 1.3; Prothrombin Time 14.3 Seconds (9.4-12.1)
[2018-09-13 01:55] LABS: VBG Ionized Calcium 0.88 mmol/L (1.15-1.35)
[2018-09-13] MEDS: Calcium Gluconate 1gm/50mL 1 GM/50 ML BAG IVPB PRN ×4 (02:13→23:53)
[2018-09-13] MEDS: Potassium Chloride 40 MEQ/200 ML BAG IVPB PRN ×2 (02:13→05:58)
[2018-09-13] MEDS: Sodium Bicarbonate 150 MEQ in Water for inj. (sterile) 1,000 ML IVC SCH (03:24)
[2018-09-13] MEDS ORDERED: Potassium Chloride Elixir 20 MEQ/15 ML UDC PO ONE (05:47)
--- NOTE | 2018-09-13 07:17 | Pulmonology Progress Note ---
<LindaLuly gordillo M - Last Filed: 09/13/18 09:54> Date of Encounter: 09/13/18 Objective PUL Vital signs: Last Vital Signs Temp 97.7 F 09/13/18 06:52 Pulse 95 09/13/18 09:00 Resp 16 09/13/18 09:00 BP 104/75 09/13/18 09:00 Pulse Ox 96 09/13/18 09:00 Results - Laboratory Findings CBC and BMP: 09/12/18 04:00 09/13/18 01:30 ABG ABG pH 7.27 pH Units (7.32-7.45) L 09/12/18 04:55 ABG pCO2 21 mmHg (35-45) L 09/12/18 04:55 ABG pO2 99 mmHg (85-104) 09/12/18 04:55 ABG O2 Saturation 97 % (95-98) 09/12/18 04:55 PT/INR, D-dimer PT 14.3 Seconds (9.4-12.1) H D 09/12/18 20:23 Abnormal lab findings: Abnormal lab results WBC 17.4 K/mcL (4.3-11.1) H 09/12/18 04:00 RBC 3.05 M/mcL (3.82-4.97) L 09/12/18 04:00 Hgb 8.3 g/dL (11.5-15.4) L 09/12/18 04:00 Hct 24.3 % (35.3-44.9) L 09/12/18 04:00 MCV 79.7 fL (83.0-100.0) L 09/12/18 04:00 MCH 27.2 pg (28.0-33.3) L 09/12/18 04:00 RDW 15.9 % (11.5-14.5) H 09/12/18 04:00 Neutrophils # 15.2 K/mcL (1.6-8.9) H 09/12/18 04:00 Nucleated RBCs/100 WBC 0.1 /100 WBC (0) H 09/12/18 04:00 PT 14.3 Seconds (9.4-12.1) H D 09/12/18 20:23 INR 10.6 H* D 09/12/18 04:00 APTT 47.7 Seconds (26.0-36.0) H 09/11/18 08:54 ABG pH 7.27 pH Units (7.32-7.45) L 09/12/18 04:55 ABG pCO2 21 mmHg (35-45) L 09/12/18 04:55 ABG pO2 108 mmHg (85-104) H 09/11/18 18:40 ABG HCO3 9 mEq/L (21-27) L 09/12/18 04:55 ABG Total CO2 10 mEq/L (20-26) L 09/12/18 04:55 ABG Base Excess -16 mEq/L (-2 to 3) L 09/12/18 04:55 VBG pH 7.12 pH Units (7.32-7.42) L* 09/11/18 23:27 VBG pCO2 23 mmHg (41-51) L 09/11/18 23:27 VBG pO2 143 mmHg (25-50) H 09/11/18 23:27 VBG HCO3 8 mEq/L (21-27) L 09/11/18 23:27 Sodium 146 mEq/L (136-145) H 09/12/18 20:21 Potassium 2.8 mEq/L (3.5-5.1) L 09/13/18 01:30 Chloride 120 mEq/L (98-107) H 09/12/18 20:21 Carbon Dioxide 17 mEq/L (23-29) L 09/12/18 20:21 BUN 24 mg/dL (8-23) H 09/12/18 12:27 Creatinine 2.50 mg/dL (0.60-1.20) H 09/12/18 20:21 Est GFR ( Amer) 23 (> 60) L 09/12/18 20:21 Est GFR (Non-Af Amer) 19 (> 60) L 09/12/18 20:21 Glucose 119 mg/dL (70-105) H 09/12/18 20:21 Calculated Osmolality 306 (280-300) H 09/12/18 20:21 Calcium 6.3 mg/dL (8.6-10.3) L 09/12/18 20:21 Venous Ioniz Calcium 0.88 mmol/L (1.15-1.35) L 09/13/18 01:52 Phosphorus 1.5 mg/dL (2.7-4.5) L 09/11/18 18:45 Magnesium 1.2 mg/dL (1.6-2.6) L 09/11/18 18:45 Creatine Kinase 330 Units/L (30-223) H 09/11/18 09:56 Troponin I 0.15 ng/mL (< 0.04) H* 09/11/18 20:39 Serum Total Protein 5.4 g/dL (6.4-8.9) L 09/11/18 14:40 Albumin 2.6 g/dL (3.5-5.7) L 09/11/18 14:40 Albumin/Globulin Ratio 0.9 (1.1-2.2) L 09/11/18 14:40 Urine Clarity Cloudy (Clear) A 09/11/18 09:15 Ur Specific [place] 1.007 (1.010-1.025) L 09/11/18 09:15 Urine Protein 30 mg/dL (Neg-Trace) H 09/11/18 09:15 Urine Blood Large (Negative) H 09/11/18 09:15 Ur Leukocyte Esterase Trace (Negative) H 09/11/18 09:15 Urine Microscopic WBC 3-5 per hpf (0-3) H 09/11/18 09:15 Ur Squamous Epith Cells Many per lpf (None-Few) H 09/11/18 09:15 Ur Culture Indicated? YES (NO) A 09/11/18 09:15 Urine Osmolality 143 mOsm/kg (300-1090) L 09/11/18 10:17 - Microbiology Findings Microbiology Findings: Microbiology, Last 48 Hours 09/12/18 09:45 Blood Culture - Preliminary Peripheral Venipuncture Culture is incubating and being continuously monitored for growth. Final report to follow. 09/11/18 09:15 Urine Culture - Preliminary Urine,Catheterized (Straight) Escherichia coli - Clinical Findings Intake & Output: Intake & Output 09/12/18 09/13/18 09/13/18 23:59 07:59 15:59 Intake Total 1560 / 6285 1650 / 1900 250 / 1900 Output Total 60 / 935 100 / 100 Balance 1500 / 5350 1550 / 1800 250 / 1800 Weight 57.7 kg Consult Discharge Plan - Plan Referrals: Varinder Hamilton MD [Primary Care Provider] - - Attending Attestation I examined this patient and my medical decision-making was reviewed with the Resident Physician. I agree with the documented findings, disposition and treatment plan as described except to the extent set forth below. Patient seen and examined. Labs, radiology, chart personally reviewed. Agree with resident's history and physical, assessment, plan with following comments: MANAGING DIRECTOR: Patient follows commands, patient was on Coumadin supposedly after he had a stroke, however she was coagulopathic and will hold Coumadin for now and aspirin Pulmonary: Acceptable oxygenation and ventilation Cardiovascular: stable and listed correcting electrolytes. GI: Nutrition per dietary and GI prophylaxis per routine. Patient has significant diarrhea is most likely secondary to her underlying rheumatoid lung disease and cuff turner machine operator started her on steroid. She needs to follow up with cuff turner machine operator. Heme: DVT prophylaxis per routine Renal; urine out put and renal function reviewed. Continue replacement of electrolytes. Endorcine: blood glucose is monitored Lines: all lines checked and no evidence of infections Skin: skin care to prevent pressure ulcers per nursing routine care Dispo: Transferred to floor. Code: Full. Prognosis. Fair <Sally Syed - Last Filed: 09/13/18 11:55> Date of Encounter: 09/13/18 Time of Encounter: 07:17 Assessment and Plan (1) Metabolic acidosis Current Visit: Yes Status: Acute pH 7.06 on arrival with a bicarb of 6 No prior history of metabolic acidosis Not diabetic and no gap No obvious medical causes Hx of vomiting and diarrhea but not likely the sole cause of metabolic acidosis Nephro following Bicarb drip in sterile water due to hypokalemia Continue to monitor Will order urine studies CT scan abd/pelvis showed possible small bowel inflammation consistent with Hx of Crohn's disease but no other acute findings LFTs with no acute abnormalities 09/12 - pH is shown significant improvement to 7.27 with a bicarbonate drip DC the bicarbonate drip 09/13 (2) Acute kidney injury superimposed on CKD Current Visit: Yes Status: Acute Baseline creatinine 1.5 - sees Dr. Perez as an outpatient Creatinine today 2.27 Likely secondary to volume depletion but there could be worsening intrinsic kidney disease Nephro following - appreciate recommendations CT scan abd/pelvis did not demonstrate any acute renal abnormalities Kidney function appears to be improving with bicarbonate drip Continue hydration (3) Hypokalemia Current Visit: Yes Status: Acute Potassium 1.7 on arrival Nephro consulted and following Will replace potassium and continue to trend levels Potassium has increased to 2.9 after 340 mEq of potassium have been given Continue to replace K now 3.6 Continue to replace with continued diarrhea (4) Hypomagnesemia Current Visit: Yes Status: Acute Mag 0.5 on admission - 2g mag ordered for transfusion Continue to trend and replace as needed Magnesium increased to 2.4 after a total of 6 g given Continue to monitor and replace as needed (5) Hypocalcemia Current Visit: Yes Status: Acute Calcium low on presentation at 6.5 Most recent lab draw potassium had decreased to 6.6 Replace as per electrolyte protocol (6) Elevated troponin Current Visit: Yes Status: Acute Troponin 0.17 No ACS history EKG without ACS findings Pt denies chest pain Likely secondary to JEOVANY on CKD Continue to trend troponins Troponins flat at 0.15 at last draw (7) Hypophosphatemia Current Visit: Yes Status: Acute Phos 1.5 initially Increased to 3.5 after administration of K-phos Decreased to 1.9 today Will continue to monitor and replace (8) Supratherapeutic INR Current Visit: Yes Status: Acute INR at 5.9 on admission Hold home Coumadin until therapeutic Continue to monitor 09/12 - INR increased to 10.6, 4 units of FFP and vitamin K were ordered Recheck INR after FFP given 09/13 - INR corrected to 1.1 Continue to hold Coumadin (9) Crohn disease Current Visit: No Status: Chronic A shunt with a history of Crohn's disease Sees Dr. Thornton as an outpatient CT scan of abdomen shows evidence of bowel inflammation pt complains of several weeks of diarrhea Will consult GI for further help with her Crohn's dx - appreciate recommendations GI recs Solu-medrol 60mg QD, stool samples, and expedited outpatient colonoscopy due to her supratherapeutic INR Stool samples without signs of infection Qualifiers: Gastrointestinal tract location: unspecified location Digestive disease complication type: other complication Qualified Code(s): K50.918 - Crohn's disease, unspecified, with other complication (10) Failure to thrive Current Visit: Yes Status: Acute Patient presented with severe electrolyte abnormalities due to malnutrition and diarrhea Patient does have a history of Crohn's disease Reported history of weight loss greater than 30 pounds Patient appears frail and weak and does not look like she is very active at home Nutrition consulted and following PT/OT consults placed for ADLs Qualifiers: Failure to thrive age range: in adult Qualified Code(s): R62.7 - Adult failure to thrive (11) DVT prophylaxis Current Visit: Yes Status: Acute INR now subtherapeutic EPCDs Subjective Interval history: Patient continues to do well with electrolyte replacement, her potassium is now 3.6. Phos and mag will be replaced again today. She is having significant diarrhea and her stool cultures do not show signs of infection. We will administer lomotil and start her on scheduled bentyl for abdominal pain and further decrease her stool output. She was started on steroids yesterday per GI and has had a slight leukocytosis likely secondary to this. Sodium Bicarb drip is still running and will be discontinued. Her hemoglobin has dropped since admission which is likely secondary to dilution but we will continue to monitor and transfuse for hgb less than 7. Her INR corrected last night after administration of FFP. Recommend she no longer take Coumadin due to her malnutrition and severely supratherapeutic levels and would recommend a daily aspirin instead. Pt will be stepped down to 2N to continue electrolyte protocol today. Objective PUL Vital signs: Last Vital Signs Temp 97.7 F 09/13/18 06:52 Pulse 80 09/13/18 06:00 Resp 16 09/13/18 06:00 BP 109/57 09/13/18 06:00 Pulse Ox 96 09/13/18 06:00 General appearance: no acute distress, alert Eyes: nonicteric Effort: normal Auscultation: bilateral: clear Cardiovascular: regular rate and rhythm Gastrointestinal: soft, tender (generalized tenderness) Integumentary: normal Extremities: no edema, pink and warm normal mental status, non-focal exam, pupils equal and round mood appropriate, affect normal Results - Laboratory Findings CBC and BMP: 09/13/18 09:57 09/13/18 09:57 ABG ABG pH 7.27 pH Units (7.32-7.45) L 09/12/18 04:55 ABG pCO2 21 mmHg (35-45) L 09/12/18 04:55 ABG pO2 99 mmHg (85-104) 09/12/18 04:55 ABG O2 Saturation 97 % (95-98) 09/12/18 04:55 PT/INR, D-dimer PT 14.3 Seconds (9.4-12.1) H D 09/12/18 20:23 Abnormal lab findings: Abnormal lab results WBC 17.4 K/mcL (4.3-11.1) H 09/12/18 04:00 RBC 3.05 M/mcL (3.82-4.97) L 09/12/18 04:00 Hgb 8.3 g/dL (11.5-15.4) L 09/12/18 04:00 Hct 24.3 % (35.3-44.9) L 09/12/18 04:00 MCV 79.7 fL (83.0-100.0) L 09/12/18 04:00 MCH 27.2 pg (28.0-33.3) L 09/12/18 04:00 RDW 15.9 % (11.5-14.5) H 09/12/18 04:00 Neutrophils # 15.2 K/mcL (1.6-8.9) H 09/12/18 04:00 Nucleated RBCs/100 WBC 0.1 /100 WBC (0) H 09/12/18 04:00 PT 14.3 Seconds (9.4-12.1) H D 09/12/18 20:23 INR 10.6 H* D 09/12/18 04:00 APTT 47.7 Seconds (26.0-36.0) H 09/11/18 08:54 ABG pH 7.27 pH Units (7.32-7.45) L 09/12/18 04:55 ABG pCO2 21 mmHg (35-45) L 09/12/18 04:55 ABG pO2 108 mmHg (85-104) H 09/11/18 18:40 ABG HCO3 9 mEq/L (21-27) L 09/12/18 04:55 ABG Total CO2 10 mEq/L (20-26) L 09/12/18 04:55 ABG Base Excess -16 mEq/L (-2 to 3) L 09/12/18 04:55 VBG pH 7.12 pH Units (7.32-7.42) L* 09/11/18 23:27 VBG pCO2 23 mmHg (41-51) L 09/11/18 23:27 VBG pO2 143 mmHg (25-50) H 09/11/18 23:27 VBG HCO3 8 mEq/L (21-27) L 09/11/18 23:27 Sodium 146 mEq/L (136-145) H 09/12/18 20:21 Potassium 2.8 mEq/L (3.5-5.1) L 09/13/18 01:30 Chloride 120 mEq/L (98-107) H 09/12/18 20:21 Carbon Dioxide 17 mEq/L (23-29) L 09/12/18 20:21 BUN 24 mg/dL (8-23) H 09/12/18 12:27 Creatinine 2.50 mg/dL (0.60-1.20) H 09/12/18 20:21 Est GFR ( Amer) 23 (> 60) L 09/12/18 20:21 Est GFR (Non-Af Amer) 19 (> 60) L 09/12/18 20:21 Glucose 119 mg/dL (70-105) H 09/12/18 20:21 Calculated Osmolality 306 (280-300) H 09/12/18 20:21 Calcium 6.3 mg/dL (8.6-10.3) L 09/12/18 20:21 Venous Ioniz Calcium 0.88 mmol/L (1.15-1.35) L 09/13/18 01:52 Phosphorus 1.5 mg/dL (2.7-4.5) L 09/11/18 18:45 Magnesium 1.2 mg/dL (1.6-2.6) L 09/11/18 18:45 Creatine Kinase 330 Units/L (30-223) H 09/11/18 09:56 Troponin I 0.15 ng/mL (< 0.04) H* 09/11/18 20:39 Serum Total Protein 5.4 g/dL (6.4-8.9) L 09/11/18 14:40 Albumin 2.6 g/dL (3.5-5.7) L 09/11/18 14:40 Albumin/Globulin Ratio 0.9 (1.1-2.2) L 09/11/18 14:40 Urine Clarity Cloudy (Clear) A 09/11/18 09:15 Ur Specific [place] 1.007 (1.010-1.025) L 09/11/18 09:15 Urine Protein 30 mg/dL (Neg-Trace) H 09/11/18 09:15 Urine Blood Large (Negative) H 09/11/18 09:15 Ur Leukocyte Esterase Trace (Negative) H 09/11/18 09:15 Urine Microscopic WBC 3-5 per hpf (0-3) H 09/11/18 09:15 Ur Squamous Epith Cells Many per lpf (None-Few) H 09/11/18 09:15 Ur Culture Indicated? YES (NO) A 09/11/18 09:15 Urine Osmolality 143 mOsm/kg (300-1090) L 09/11/18 10:17 - Microbiology Findings Microbiology Findings: Microbiology, Last 48 Hours 09/11/18 09:15 Urine Culture - Preliminary Urine,Catheterized (Straight) Gram Negative Gordon - Clinical Findings Intake & Output: Intake & Output 09/12/18 09/12/18 09/13/18 15:59 23:59 07:59 Intake Total 1901 / 6285 1560 / 6285 1450 / 1450 Output Total 275 / 935 60 / 935 100 / 100 Balance 1626 / 5350 1500 / 5350 1350 / 1350 Weight 57.7 kg
[2018-09-13] MEDS ORDERED: Diphenoxylate/Atropine 1 TAB TABLET PO ONE (08:47)
[2018-09-13] MEDS ORDERED: cefTRIAXone 1,000 MG in Water for inj. (sterile) 10 ML IVP ONE (08:51)
[2018-09-13] MEDS: methylPREDNISolone 125 MG/2 ML VIAL IVP SCH (09:02)
[2018-09-13] MEDS ORDERED: Ondansetron 4 MG/2 ML VIAL ONE (09:50)
[2018-09-13] MEDS ORDERED: Loratadine 10 MG TABLET PO PRN (09:52)
[2018-09-13] MEDS ORDERED: NON-FORMULARY MEDICATION 1 EACH EACH (Cholecalciferol (Vitamin D3) [Vitamin D3] 10,000 UNI PO SCH (09:52)
[2018-09-13] MEDS ORDERED: Famotidine 20 MG TABLET PO PRN (09:52)
[2018-09-13] MEDS ORDERED: Naloxone 0.4 MG/ML INJ IVP PRN (09:52)
[2018-09-13] MEDS ORDERED: Ondansetron 4 MG/2 ML VIAL IVP PRN (09:53)
[2018-09-13 10:08] LABS: Basophils % 0.1 %; Eosinophils % 0.1 %; Hematocrit 20.4 % (35.3-44.9); Hemoglobin 7.1 g/dL (11.5-15.4); Immature Granulocytes % 0.6 % (0-4); Lymphocytes # 1.9 K/mcL (0.6-4.6); Lymphocytes % 9.9 %; Mean Corpuscular HGB Conc 34.8 g/dL (31.6-35.5); Mean Corpuscular Hemoglobin 27.4 pg (28.0-33.3); Mean Corpuscular Volume 78.8 fL (83.0-100.0); Mean Platelet Volume 11.7 fL (9.4-12.4); Monocytes # 0.8 K/mcL (0.0-1.3); Monocytes % 4.1 %; Neutrophils # 16.2 K/mcL (1.6-8.9); Nucleated Red Blood Cells 0.2 /100 WBC (0); Platelet Count 241 K/mcL (140-400); Red Blood Count 2.59 M/mcL (3.82-4.97); Red Cell Distribution Width 14.8 % (11.5-14.5); Segmented Neutrophils % 85.2 %
[2018-09-13 10:16] LABS: INR 1.1; Prothrombin Time 12.4 Seconds (9.4-12.1)
[2018-09-13 10:38] LABS: Calcium 6.6 mg/dL (8.6-10.3); Magnesium 1.5 mg/dL (1.6-2.6); Phosphorous 1.9 mg/dL (2.7-4.5); Potassium 3.6 mEq/L (3.5-5.1)
[2018-09-13] MEDS: Potassium Phosphate 44 MEQ in 0.9 % Sodium Chloride 250 ML IVPB PRN (11:38)
--- NOTE | 2018-09-13 13:30 | Nephrology Progress Note ---
Date of Encounter: 09/13/18 Time of Encounter: 13:00 - Assessment and Plan (1) JEOVANY (acute kidney injury) Current Visit: Yes Status: Acute SCr improving at 2.27, GFR 21, continue fluids whether po or iv Continue to avoid nephrotoxins if possible UOP noted at 935cc in the past 24hrs (2) Crohn disease Current Visit: No Status: Chronic As per primary and GI Qualifiers: Gastrointestinal tract location: unspecified location Digestive disease c omplication type: other complication Qualified Code(s): K50.918 - Crohn's disease, unspecified, with other complication (3) Hypokalemia Current Visit: Yes Status: Acute Improved at 3.6 but still concerning for drop if diarrhea persists Continue repletion (4) Hypomagnesemia Current Visit: Yes Status: Acute Magneisum noted at 1.5, continue repletion via iv as po would aggravate diarrhea (5) Metabolic acidosis Current Visit: Yes Status: Acute can switch to po bicarb (6) Hypocalcemia Current Visit: Yes Status: Acute fair at 6.6, will monitor (7) Failure to thrive Current Visit: Yes Status: Acute This could be contributing to hypokalemia, and JEOVANY / CKD. Qualifiers: Failure to thrive age range: in adult Qualified Code(s): R62.7 - Adult failure to thrive Subjective Interval history: Pt seen and examined still with diarrhea but improving Objective - Vital Signs Vital signs: Vital Signs Temp Pulse Resp BP Pulse Ox 09/13/18 12:00 81 16 109/83 95 09/13/18 11:54 98.1 F 09/13/18 11:00 75 16 100/75 96 09/13/18 10:00 78 17 121/76 98 09/13/18 09:00 95 16 104/75 96 09/13/18 08:00 90 16 107/77 97 09/13/18 07:00 76 17 122/85 93 09/13/18 06:52 97.7 F 09/13/18 06:00 80 16 109/57 96 09/13/18 05:00 74 14 98/84 98 09/13/18 04:00 97.6 F 74 16 110/70 99 09/13/18 03:00 72 14 110/73 98 09/13/18 02:00 64 16 100/70 98 09/13/18 01:00 57 18 83/56 100 09/13/18 00:08 97.6 F 09/13/18 00:00 77 16 101/85 99 09/12/18 23:00 73 14 104/92 99 09/12/18 22:00 71 18 106/86 94 09/12/18 21:00 67 14 88/68 98 09/12/18 20:00 74 16 99/74 97 09/12/18 19:09 97.8 F 75 18 103/74 99 09/12/18 19:00 70 14 100/74 100 09/12/18 18:00 79 18 102/69 96 09/12/18 17:20 97.8 F 81 18 103/82 100 09/12/18 17:05 97.6 F 87 18 101/76 100 09/12/18 17:02 97.6 F 80 16 102/75 100 09/12/18 17:00 82 18 101/76 100 09/12/18 16:00 85 18 106/82 100 09/12/18 15:26 97.8 F 09/12/18 15:00 87 18 99/77 97 09/12/18 14:41 97.8 F 88 18 118/79 100 09/12/18 14:00 97.8 F 83 18 103/70 97 Intake and Output 09/12/18 09/13/18 09/13/18 23:59 07:59 15:59 Intake Total 1560 / 6285 1650 / 1900 250 / 1900 Output Total 60 / 935 100 / 300 200 / 300 Balance 1500 / 5350 1550 / 1600 50 / 1600 Intake: IV Fluids 500 / 3765 1650 / 1660 10 / 1660 Sodium Bicarbonate 150 MEQ In 1150 / 1150 Water for inj. (sterile) 1,000 ML @ 100 mls/hr IVC .[id number] ANJELICA Rx#:[id number] Rocephin 1,000 MG In Water for 10 / 10 inj. (sterile) 10 ML @ 600 mls/ hr IVP ONCE ONE Rx#:[id number] Calcium Gluconate 1gm/50mL 1 gm 100 / 150 100 / 100 In 50 ml @ 50 mls/hr IVPB Q6HR PRN Rx#:[id number] Potassium Chloride 20 mEq/100 400 / 600 400 / 400 mL 40 meq In 200 ml @ 100 mls/ hr IVPB Q1H PRN Rx#:[id number] Oral 560 / 1520 240 / 240 Blood Product 500 / 1000 Plasma Unit [id number] 250 / 250 Plasma Unit [id number] 250 / 250 Output: Urine 60 / 935 100 / 300 200 / 300 Other: Meal Dinner Breakfast Percent of Meal Consumed 50% 5% Stool Size Large Small Stool Consistency liquid liquid Stool Characteristics Foamy Stool Color Brown Yellow Yellow # Voids 1 # Bowel Movements 1 1 Weight 57.7 kg Patient Weight 09/13/18 23:59 Weight 57.7 kg - Lab 09/13/18 09:57 09/13/18 09:57 Most recent lab results 09/13/18 09:57 Calcium 6.6 L Phosphorus 1.9 L Magnesium 1.5 L Consult Discharge Plan - Plan Referrals: Varinder Hamilton MD [Primary Care Provider] -
[2018-09-13 14:54] LABS: Hematocrit 18.8 % (35.3-44.9); Hemoglobin 6.5 g/dL (11.5-15.4)
[2018-09-13 23:32] LABS: VBG Ionized Calcium 0.91 mmol/L (1.15-1.35)
[2018-09-13 23:38] LABS: Calcium 6.2 mg/dL (8.6-10.3); Magnesium 1.9 mg/dL (1.6-2.6); Phosphorous 4.9 mg/dL (2.7-4.5); Potassium 3.8 mEq/L (3.5-5.1)
[2018-09-13 23:41] LABS: Hematocrit 24.4 % (35.3-44.9)
[2018-09-13 23:43] LABS: Hemoglobin 8.3 g/dL (11.5-15.4)
[2018-09-14] MEDS: Potassium Chloride 40 MEQ/200 ML BAG IVPB PRN ×3 (00:01→06:51)
[2018-09-14 06:22] LABS: Basophils % 0.1 %; Eosinophils % 0.2 %; Hematocrit 24.9 % (35.3-44.9); Hemoglobin 8.3 g/dL (11.5-15.4); Immature Granulocytes % 0.8 % (0-4); Lymphocytes # 2.3 K/mcL (0.6-4.6); Mean Corpuscular HGB Conc 33.3 g/dL (31.6-35.5); Mean Corpuscular Hemoglobin 27.6 pg (28.0-33.3); Mean Corpuscular Volume 82.7 fL (83.0-100.0); Mean Platelet Volume 11.5 fL (9.4-12.4); Monocytes # 0.8 K/mcL (0.0-1.3); Neutrophils # 13.1 K/mcL (1.6-8.9); Nucleated Red Blood Cells 0.1 /100 WBC (0); Platelet Count 196 K/mcL (140-400); Red Blood Count 3.01 M/mcL (3.82-4.97); Red Cell Distribution Width 15.4 % (11.5-14.5); Segmented Neutrophils % 79.9 %; White Blood Count 16.3 K/mcL (4.3-11.1)
[2018-09-14 06:26] LABS: VBG Ionized Calcium 0.93 mmol/L (1.15-1.35)
[2018-09-14 06:28] LABS: Prothrombin Time 11.7 Seconds (9.4-12.1)
[2018-09-14] MEDS: Calcium Gluconate 1gm/50mL 1 GM/50 ML BAG IVPB PRN (06:39)
[2018-09-14 06:42] LABS: Calcium 6.4 mg/dL (8.6-10.3); Magnesium 1.7 mg/dL (1.6-2.6); Phosphorous 3.8 mg/dL (2.7-4.5); Potassium 3.6 mEq/L (3.5-5.1)
[2018-09-14] MEDS: methylPREDNISolone 125 MG/2 ML VIAL IVP SCH (08:24)
[2018-09-14] MEDS: cefTRIAXone 1,000 MG in Water for inj. (sterile) 10 ML IVP SCH (08:24)
[2018-09-14] MEDS ORDERED: Ergocalciferol (VIT D2) 50,000 UNIT (1.25MG) CAP PO SCH (08:48)
--- NOTE | 2018-09-14 09:04 | Nephrology Progress Note ---
Date of Encounter: 09/14/18 Time of Encounter: 10:00 - Assessment and Plan (1) JEOVANY (acute kidney injury) Current Visit: Yes Status: Acute SCr still improving at 2.06, GFR 24, continue fluids whether po or iv Continue to avoid nephrotoxins if possible UOP noted at 600cc in the past 24hrs (2) Crohn disease Current Visit: No Status: Chronic Qualifiers: Gastrointestinal tract location: unspecified location Digestive disease complication type: other complication Qualified Code(s): K50.918 - Crohn's dis ease, unspecified, with other complication (3) Hypokalemia Current Visit: Yes Status: Acute Improved and stable at 3.6 but still concerning for drop if diarrhea persists Continue repletion as needed (4) Hypomagnesemia Current Visit: Yes Status: Acute Magnesium normalized after repletion (5) Metabolic acidosis Current Visit: Yes Status: Acute Bicarb noted at 17, continue bicarb tabs (6) Hypocalcemia Current Visit: Yes Status: Acute (7) Failure to thrive Current Visit: Yes Status: Acute Qualifiers: Failure to thrive age range: in adult Qualified Code(s): R62.7 - Adult failure to thrive Subjective Interval history: Pt seen and examined Objective - Vital Signs Vital signs: Vital Signs Temp Pulse Resp BP Pulse Ox 09/14/18 08:00 78 09/14/18 04:21 68 20 115/84 96 09/14/18 04:00 98.0 F 09/13/18 23:19 98.0 F 66 16 120/86 97 09/13/18 20:00 97.8 F 09/13/18 19:57 72 18 101/72 98 09/13/18 18:20 97.6 F 64 16 122/83 98 09/13/18 18:00 66 16 122/83 99 09/13/18 17:00 64 16 112/83 97 09/13/18 16:00 66 16 96/73 97 09/13/18 15:55 98 F 70 17 96/73 98 09/13/18 15:40 97.6 F 62 16 85/70 96 09/13/18 15:19 97.6 F 09/13/18 15:18 57 09/13/18 15:00 64 17 93/67 97 09/13/18 14:00 60 16 94/67 96 09/13/18 13:00 60 16 91/61 96 09/13/18 12:00 81 16 109/83 95 09/13/18 11:54 98.1 F 09/13/18 11:00 75 16 100/75 96 09/13/18 10:00 78 17 121/76 98 Intake and Output 09/13/18 09/14/18 09/14/18 23:59 07:59 15:59 Intake Total 1200 / 4404 1300 / 1310 10 / 1310 Output Total 150 / 600 200 / 200 Balance 1050 / 3804 1100 / 1110 10 / 1110 Intake: IV Fluids 260 / 3224 1300 / 1310 10 / 1310 0.45% Sodium Chloride 1,000 ML 1000 / 1000 @ 100 mls/hr IVC .Q10H ANJELICA Rx#: [id number] Rocephin 1,000 MG In Water for inj. (sterile) 10 ML @ 600 mls/ hr IVP DAILY ANJELICA Rx#:[id number] Calcium Gluconate 1gm/50mL 1 gm 100 / 100 In 50 ml @ 50 mls/hr IVPB Q6HR PRN Rx#:[id number] Potassium Chloride 20 mEq/100 200 / 200 mL 40 meq In 200 ml @ 100 mls/ hr IVPB Q1H PRN Rx#:[id number] Potassium Phosphate 44 MEQ In 0 260 / 260 .9 % Sodium Chloride 250 ML @ 40 mls/hr IVPB Q10H PRN Rx#: [id number] Oral 640 / 880 Blood Product 300 / 300 Rbcs Leuko Poor As-1 Unit 300 / 300 [id number] Output: Urine 150 / 600 200 / 200 Other: Meal Dinner Percent of Meal Consumed 50% Stool Size Small Stool Consistency liquid Stool Color Brown # Voids 1 Weight 61.8 kg Patient Weight 09/14/18 23:59 Weight 61.8 kg - Lab 09/14/18 06:02 09/14/18 06:02 Most recent lab results 09/13/18 09/14/18 23:03 06:02 Calcium 6.2 L 6.4 L Phosphorus 4.9 H 3.8 Magnesium 1.9 1.7 Consult Discharge Plan - Plan Referrals: Varinder Hamilton MD [Primary Care Provider] -
--- NOTE | 2018-09-14 12:03 | Electrocardiograph Report ---
[address] [place], [place] [address] Test Date: 2018-09-11 Pat Name: Yarelis Kaur Department: [id number] Room: 2N03 Gender: F Order To Delivery Supervisor: : [id number] Requested By: Elkin Julien Order Number: [id number] Reading MD: Eliza Sen Measurements Intervals [place] Rate: 70 P: 78 CT: 150 QRS: 79 QRSD: 109 T: 54 QT: 538 QTc: 581 Interpretive Statements Sinus rhythm Nonspecific repol abnormality, diffuse leads Prolonged QT interval Electronically Signed On 09-14-2018 12:02:28 EDT by Eliza Sen
--- NOTE | 2018-09-14 12:39 | Internal Med Progress Note ---
Hospitalist Progress Note - Encounter Date of Encounter: 09/14/18 Time of Encounter: 11:30 - Subjective Interval History: Patient presented to the hospital with generalized weakness, found to have severe hyperkalemia with EKG changes. Admitted to the ICU for intervention. Electrolytes were repleted, acute kidney injury, metabolic acidosis, hyperkalemia and hypomagnesemia were monitored. His transferred to normal floor today. She denies any acute complaints at this point. He was having severe diarrhea before the presentation, now only had 1 episode yesterday, no diarrhea today. Deies fever, chills, rigors. Has been feelign much better. - Exam Vitals: Temp Pulse Resp BP Pulse Ox 98.6 F 73 18 118/80 95 09/14/18 11:30 09/14/18 11:30 09/14/18 11:30 09/14/18 11:30 09/14/18 11:30 Exam: General: Alert and oriented, no physical distress, able to follow commands. HEENT: No thyromegaly, no lymphadenopathy, no discharge. Eyes: No discharge. Respiratory: Normal vesicular breathing, no added sounds, breathing equal in both sides. CVS: Normal heart sounds, no murmurs, no edema. Extremities: No peripheral edema, peripheral pulses intact. Lymph nodes: No lymphadenopathy Gastrointestinal: Soft, nontender abdomen, normal abdominal sounds. No distent ion noted. Genitourinary: No paravertebral tenderness. Neurological: Alert and oriented. No focal deficits. Cranial nerves II-XII intact. - Assessment and Plan (1) JEOVANY (acute kidney injury) Current Visit: Yes Status: Acute Assessment and Plan: -Likely secondary to diarrhea with low oral intake. -Improving -Cr of 2.02 today -Currently on IV lfudis -Nephrology on [facility] -Defer the continuatio/discontinuation of IV fludis to nephro -Monitor kidney functions -Appreicate oral intake -Diarrhea resolving - (2) DVT prophylaxis Current Visit: Yes Status: Acute Assessment and Plan: -Will restart coumadin (3) Hypocalcemia Current Visit: Yes Status: Acute Assessment and Plan: -Low calcium still persisting -Replace as per protocol with calcium gluconate (4) Hypokalemia Current Visit: Yes Status: Acute Assessment and Plan: -K of 3.6 today -Was given IV replacement -COntinue to monitor and replace as per protocol (5) Hypomagnesemia Current Visit: Yes Status: Acute Assessment and Plan: -Mag of 1.7 -Was givne 2g today -Continue to monitor and replace as per protocol (6) Hypophosphatemia Current Visit: Yes Status: Acute Assessment and Plan: -Continue to monitor and replace as per protool (7) Metabolic acidosis Current Visit: Yes Status: Acute Assessment and Plan: -Nrmal anion gap metabolic acidosos -CO2 of 17 today -On sodium bicarbonate -Likely related to JEOVANY and severe diarrhea -Nephro on board -Appreciate recommendations (8) Supratherapeutic INR Current Visit: Yes Status: Acute Assessment and Plan: -Pesented with the INR of 5.9 -Most recent is 1.0 -Will restart on comadin now (9) Crohn disease Current Visit: No Status: Chronic Assessment and Plan: -Hx of crohn for 20 year with complications s/p small bowel resection -Usure about the home meds -had darrhea likely due to crohn exacerbation as Stool panel is neative -Currnetly on prednsione for the exacerbation -GI on board -Outpt colonscopy will be needed (10) UTI (urinary tract infection) Current Visit: Yes Status: Acute Assessment and Plan: -Urine growing E. Coli -COntinue ceftriaxone (11) Atrial fibrillation Current Visit: No Status: Chronic Assessment and Plan: Hx of atrial fibrillation -COntinue the AC with coumadin - Time Spent with Patient Total time spent is greater than 50% in coordination of care (as documented) at patient's floor/unit and/or counseling patient: Internal Medicine: Result - Labs CBC & Chem 7: 09/14/18 06:02 09/14/18 06:02 Labs: Short CBC 09/13/18 09/13/18 09/14/18 Range/Units 14:41 23:03 06:02 WBC 16.3 H (4.3-11.1) K/mcL Hgb 6.5 L 8.3 L D 8.3 L (11.5-15.4) g/dL Hct 18.8 L 24.4 L 24.9 L (35.3-44.9) % Plt Count 196 (140-400) K/mcL Neutrophils # 13.1 H (1.6-8.9) K/mcL BMP 09/13/18 09/14/18 23:03 06:02 Sodium 142 141 Potassium 3.8 3.6 Chloride 115 H 115 H Carbon Dioxide 17 L 17 L BUN 17 16 Creatinine 2.06 H 2.02 H Glucose 125 H 91 Calcium 6.2 L 6.4 L - ABG Interpretation ABG results: ABG ABG pH 7.27 pH Units (7.32-7.45) L 09/12/18 04:55 ABG pCO2 21 mmHg (35-45) L 09/12/18 04:55 ABG pO2 99 mmHg (85-104) 09/12/18 04:55 ABG O2 Saturation 97 % (95-98) 09/12/18 04:55 PT/INR, D-dimer PT 11.7 Seconds (9.4-12.1) 09/14/18 06:02 Consult Discharge Plan - Plan Referrals: Varinder Hamilton MD [Primary Care Provider] - (9) Crohn disease Qualifiers: Gastrointestinal tract location: unspecified location Digestive disease complication type: other complication Qualified Code(s): K50.918 - Crohn's disease, unspecified, with other complication (10) UTI (urinary tract infection) Qualifiers: Urinary tract infection type: acute cystitis Hematuria presence: with hematuria Qualified Code(s): N30.01 - Acute cystitis with hematuria (11) Atrial fibrillation Qualifiers: Atrial fibrillation type: paroxysmal Qualified Code(s): I48.0 - Paroxysmal a trial fibrillation
[2018-09-14 14:43] LABS: VBG Ionized Calcium 0.95 mmol/L (1.15-1.35)
[2018-09-14 14:59] LABS: Magnesium 1.9 mg/dL (1.6-2.6); Potassium 4.2 mEq/L (3.5-5.1)
[2018-09-14] MEDS ORDERED: *HR* Warfarin 4 MG TABLET PO ONE (18:00)
[2018-09-14] MEDS ORDERED: Warfarin perPT PO PRN (18:00)
[2018-09-15 04:17] LABS: Basophils % 0.1 %; Eosinophils % 0.1 %; Hematocrit 25.1 % (35.3-44.9); Hemoglobin 8.3 g/dL (11.5-15.4); Immature Granulocytes % 0.7 % (0-4); Lymphocytes # 2.5 K/mcL (0.6-4.6); Lymphocytes % 13.8 %; Mean Corpuscular HGB Conc 33.1 g/dL (31.6-35.5); Mean Corpuscular Hemoglobin 27.9 pg (28.0-33.3); Mean Corpuscular Volume 84.2 fL (83.0-100.0); Mean Platelet Volume 11.5 fL (9.4-12.4); Monocytes # 0.9 K/mcL (0.0-1.3); Monocytes % 5.3 %; Neutrophils # 14.2 K/mcL (1.6-8.9); Nucleated Red Blood Cells 0.1 /100 WBC (0); Platelet Count 182 K/mcL (140-400); Red Blood Count 2.98 M/mcL (3.82-4.97); Red Cell Distribution Width 15.8 % (11.5-14.5); White Blood Count 17.7 K/mcL (4.3-11.1)
[2018-09-15 04:26] LABS: Prothrombin Time 11.3 Seconds (9.4-12.1)
[2018-09-15 04:41] LABS: Calcium 5.9 mg/dL (8.6-10.3); Magnesium 1.6 mg/dL (1.6-2.6); Phosphorous 2.5 mg/dL (2.7-4.5); Potassium 3.3 mEq/L (3.5-5.1)
[2018-09-15] MEDS: Potassium Chloride 40 MEQ/200 ML BAG IVPB PRN (06:51)
[2018-09-15] MEDS: Calcium Gluconate 1gm/50mL 1 GM/50 ML BAG IVPB PRN ×3 (06:53→21:22)
[2018-09-15] MEDS: methylPREDNISolone 125 MG/2 ML VIAL IVP SCH (08:48)
[2018-09-15] MEDS: cefTRIAXone 1,000 MG in Water for inj. (sterile) 10 ML IVP SCH (08:48)
[2018-09-15] MEDS: Potassium Phosphate 44 MEQ in 0.9 % Sodium Chloride 250 ML IVPB PRN (08:50)
--- NOTE | 2018-09-15 09:11 | Internal Med Progress Note ---
Hospitalist Progress Note - Encounter Date of Encounter: 09/15/18 Time of Encounter: 08:15 - Subjective Interval History: Seen at bedside. Looking much comfortable. Eating her breakfast. Denies any chest pain, shortness of breath. Denied any fever, chills. Had 2-4 episodes of watery bowel movements yesterday. Had 1 bowel movement today which according to the nurse was less watery and semisolid consistency. Denies any blood in the stools. Denies hematemesis. No acute events overnight. - Exam Vitals: Temp Pulse Resp BP Pulse Ox 98.4 F 86 18 134/87 95 09/15/18 08:02 09/15/18 08:02 09/15/18 08:02 09/15/18 08:02 09/15/18 08:02 Exam: General: Alert and oriented, no physical distress, able to follow commands. Respiratory: Normal vesicular breathing, no added sounds, breathing equal in both sides. CVS: Normal heart sounds, no murmurs, no edema. Extremities: No peripheral edema, peripheral pulses intact. Lymph nodes: No lymphadenopathy Gastrointestinal: Soft, nontender abdomen, normal abdominal sounds. No distention noted. Genitourinary: No paravertebral tenderness. Neurological: Alert and oriented. No focal deficits. Cranial nerves II-XII intact. - Assessment and Plan (1) JEOVANY (acute kidney injury) Current Visit: Yes Status: Acute Assessment and Plan: -Likely secondary to diarrhea with low oral intake. -Improving -Cr of 1.57 today -Currently on IV lfudis -Nephrology on [facility] -Defer the continuatio/discontinuation of IV fludis to nephro -Monitor kidney functions -Appreicate oral intake -Diarrhea resolving - (2) DVT prophylaxis Current Visit: Yes Status: Acute Assessment and Plan: -Got the sign out from the ICU that she Was not srarted on coumadin as the nutiotionla inatake is poor. WIll discuss the needd to restarted once she is stable and doing well. (3) Hypocalcemia Current Visit: Yes Status: Acute Assessment and Plan: -Low calcium still persisting. Toady reported to be ionized ca of 0.9 -Replace as per protocol with calcium gluconate (4) Hypokalemia Current Visit: Yes Status: Acute Assessment and Plan: -K of 3.3 today -Was given IV replacement -COntinue to monitor and replace as per protocol (5) Hypomagnesemia Current Visit: Yes Status: Acute Assessment and Plan: -Mag of 1.7 -Given 2g today -Continue to monitor and replace as per protocol (6) Hypophosphatemia Current Visit: Yes Status: Acute Assessment and Plan: -Phosphorous low today with 2.5 -Continue to monitor and replace as per protocol (7) Metabolic acidosis Current Visit: Yes Status: Acute Assessment and Plan: -Nrmal anion gap metabolic acidosos -CO2 of 15 today -On sodium bicarbonate -Likely related to JEOVANY and severe diarrhea -Nephro on board -Appreciate recommendations (8) Supratherapeutic INR Current Visit: Yes Status: Acute Assessment and Plan: -Pesented with the INR of 5.9 -Most recent is 1.0 Hold coumadin for the reasons mentined above (9) Crohn disease Current Visit: No Status: Chronic Assessment and Plan: -Hx of crohn for 20 year with complications s/p small bowel resection -Usure about the home meds -had darrhea likely due to crohn exacerbation as Stool panel is neative -Currnetly on prednsione for the exacerbation -GI on board -Outpt colonscopy will be needed (10) UTI (urinary tract infection) Current Visit: Yes Status: Acute Assessment and Plan: -Urine growing E. Coli, sensitivites noted -COntinue ceftriaxone (11) Atrial fibrillation Current Visit: No Status: Chronic Assessment and Plan: Hx of atrial fibrillation -HR controlled at this point - Time Spent with Patient Total time spent is greater than 50% in coordination of care (as documented) at patient's floor/unit and/or counseling patient: Internal Medicine: Result - Labs CBC & Chem 7: 09/15/18 03:53 09/15/18 03:53 Labs: Short CBC 09/15/18 Range/Units 03:53 WBC 17.7 H (4.3-11.1) K/mcL Hgb 8.3 L (11.5-15.4) g/dL Hct 25.1 L (35.3-44.9) % Plt Count 182 (140-400) K/mcL Neutrophils # 14.2 H (1.6-8.9) K/mcL BMP 09/14/18 09/15/18 14:00 03:53 Sodium 141 Potassium 4.2 3.3 L Chloride 117 H Carbon Dioxide 15 L BUN 14 Creatinine 1.57 H Glucose 80 Calcium 5.9 L* - ABG Interpretation ABG results: ABG ABG pH 7.27 pH Units (7.32-7.45) L 09/12/18 04:55 ABG pCO2 21 mmHg (35-45) L 09/12/18 04:55 ABG pO2 99 mmHg (85-104) 09/12/18 04:55 ABG O2 Saturation 97 % (95-98) 09/12/18 04:55 PT/INR, D-dimer PT 11.3 Seconds (9.4-12.1) 09/15/18 03:53 Consult Discharge Plan - Plan Referrals: Varinder Hamilton MD [Primary Care Provider] - (9) Crohn disease Qualifiers: Gastrointestinal tract location: unspecified location Digestive disease complication type: other complication Qualified Code(s): K50.918 - Crohn's disease, unspecified, with other complication (10) UTI (urinary tract infection) Qualifiers: Urinary tract infection type: acute cystitis Hematuria presence: with hematuria Qualified Code(s): N30.01 - Acute cystitis with hematuria (11) Atrial fibrillation Qualifiers: Atrial fibrillation type: paroxysmal Qualified Code(s): I48.0 - Paroxysmal atrial fibrillation
[2018-09-15] MEDS: *HR* Heparin 5,000 UNIT/ML VIAL SQ SCH ×2 (11:33→17:10)
[2018-09-15 12:03] LABS: VBG Ionized Calcium 0.95 mmol/L (1.15-1.35)
[2018-09-15] MEDS ORDERED: Calcium Gluconate 1gm/50mL 1 GM/50 ML BAG IVPB ONE (13:45)
--- NOTE | 2018-09-15 14:36 | Nephrology Progress Note ---
Date of Encounter: 09/15/18 Time of Encounter: 14:34 - Assessment and Plan (1) JEOVANY (acute kidney injury) Current Visit: Yes Status: Acute SCr and GFR both improved at 1.57, GFR 32. Encourage PO intake. Continue to avoid nephrotoxins if possible UOP noted at 400 cc in the past 24hrs and 1350 for today. (2) Crohn disease Current Visit: No Status: Chronic As per primary and GI Qualifiers: Gastrointestinal tract location: unspecified location Digestive disease complication type: other complication Qualified Code(s): K50.918 - Crohn's disease, unspecified, with other complication (3) Hypokalemia Current Visit: Yes Status: Acute Continue repletion, is 3.3 at this time. (4) Hypomagnesemia Current Visit: Yes Status: Acute Magnesium normalized after repletion, continue to correct if indicated. (5) Metabolic acidosis Current Visit: Yes Status: Acute Sodium bicarb tabs increased to TID. Carbon dioxide is 15. (6) Hypocalcemia Current Visit: Yes Status: Acute 2 grams ordered for replacement per electrolyte protocol. Ionized Ca noted at .95 today. Vitamin D and PTH ordered for tomorrow. Consider adding calcium acetate tomorrow. (7) Failure to thrive Current Visit: Yes Status: Acute This could be contributing to hypokalemia, and JEOVANY / CKD. Qualifiers: Failure to thrive age range: in adult Qualified Code(s): R62.7 - Adult failure to thrive Subjective Principal diagnosis: AMS Interval history: Pt seen and examined, doing well. States overall she feels better. Denies nausea, vomiting, admits to 1 episode of diarrhea in the last couple of hours. Denies chest pain or shortness of breath. Objective - Vital Signs Vital signs: Vital Signs Temp Pulse Resp BP Pulse Ox 09/15/18 12:10 98.5 F 69 18 136/88 95 09/15/18 08:02 98.4 F 86 18 134/87 95 09/15/18 04:04 98.5 F 73 17 132/85 96 09/14/18 23:52 98.3 F 71 18 125/98 94 09/14/18 20:13 98.3 F 82 17 148/94 96 09/14/18 16:16 97.7 F 60 18 125/85 96 Intake and Output 0709/15/18 09/15/18 23:59 07:59 15:59 Intake Total 1120 / 3974 1963 / 1964 Output Total 1100 / 2200 1100 / 2200 Balance 1120 / 3324 -1100 / -236 864 / -236 Intake: IV Fluids 1000 / 3614 1364 / 1364 0.45% Sodium Chloride 1,000 ML 1000 / 3000 1000 / 1000 @ 100 mls/hr IVC .Q10H ANJELICA Rx#: [id number] Rocephin 1,000 MG In Water for inj. (sterile) 10 ML @ 600 mls/ hr IVP DAILY ANJELICA Rx#:[id number] Calcium Gluconate 1gm/50mL 1 gm 50 / 50 In 50 ml @ 50 mls/hr IVPB Q6HR PRN Rx#:[id number] Magnesium Sulfate 2 GM In 0.9 % 104 / 104 Sodium Chloride 100 ML @ 104 mls/hr IVPB ONCE PRN Rx#: [id number] Potassium Chloride 20 mEq/100 200 / 200 mL 40 meq In 200 ml @ 100 mls/ hr IVPB Q1H PRN Rx#:[id number] Oral 120 / 360 600 / 600 Output: Urine 250 / 1350 1100 / 1350 Urine/Stool Mix 850 / 850 Other: Meal Dinner Lunch Percent of Meal Consumed 100% 15% Stool Size Moderate Small Stool Consistency liquid loose Stool Characteristics Normal for Patient Stool Color Brown Brown Yellow # Voids 1 1 # Bowel Movements 1 Weight 67.8 kg Patient Weight 09/15/18 23:59 Weight 67.8 kg - General Appearance General appearance: Present: well-developed, well-nourished EENT: Present: ATNC, hearing intact, vision intact Neck: Present: supple Respiratory: Present: clear Cardiology: Present: no edema, normal S1, normal S2 Gastrointestinal: Present: normoactive bowel sounds, no tenderness, no guarding Integumentary: Present: no rash, warm and dry Neurologic: Present: alert and oriented x3 Musculoskeletal: Present: no deformities, no erythema Psychiatric: Present: mood/affect appropriate, cooperative - Lab 09/15/18 03:53 09/15/18 14:07 Most recent lab results 09/15/18 03:53 Calcium 5.9 L* Phosphorus 2.5 L Magnesium 1.6 Consult Discharge Plan - Plan Referrals: Viktor Greenberg MD [Partnered Physician] - 09/25/18 10:15 am (Dr. Hamilton is out of the office this week) Adriana Thornton MD [Partnered Physician] - 10/01/18 4:10 pm
[2018-09-15 20:44] LABS: VBG Ionized Calcium 1.01 mmol/L (1.15-1.35)
[2018-09-16 03:01] LABS: VBG Ionized Calcium 1.06 mmol/L (1.15-1.35)
[2018-09-16] MEDS: Calcium Gluconate 1gm/50mL 1 GM/50 ML BAG IVPB PRN ×2 (03:53→12:57)
[2018-09-16] MEDS: *HR* Heparin 5,000 UNIT/ML VIAL SQ SCH ×2 (04:52→17:56)
[2018-09-16 05:04] LABS: Basophils % 0.1 %; Eosinophils % 0.2 %; Hematocrit 27.3 % (35.3-44.9); Hemoglobin 8.8 g/dL (11.5-15.4); Immature Granulocytes % 0.7 % (0-4); Lymphocytes # 2.4 K/mcL (0.6-4.6); Lymphocytes % 14.3 %; Mean Corpuscular HGB Conc 32.2 g/dL (31.6-35.5); Mean Corpuscular Hemoglobin 27.4 pg (28.0-33.3); Mean Platelet Volume 12.2 fL (9.4-12.4); Monocytes # 0.9 K/mcL (0.0-1.3); Monocytes % 5.3 %; Neutrophils # 13.3 K/mcL (1.6-8.9); Platelet Count 180 K/mcL (140-400); Red Blood Count 3.21 M/mcL (3.82-4.97); Red Cell Distribution Width 15.9 % (11.5-14.5); Segmented Neutrophils % 79.4 %; White Blood Count 16.8 K/mcL (4.3-11.1)
[2018-09-16 05:12] LABS: INR 0.9; Prothrombin Time 10.5 Seconds (9.4-12.1)
[2018-09-16 05:21] LABS: VBG Ionized Calcium 1.15 mmol/L (1.15-1.35)
[2018-09-16 05:22] LABS: Calcium 7.4 mg/dL (8.6-10.3); Phosphorous 3.8 mg/dL (2.7-4.5); Potassium 3.2 mEq/L (3.5-5.1)
[2018-09-16] MEDS: Potassium Chloride 40 MEQ/200 ML BAG IVPB PRN ×3 (05:35→17:56)
[2018-09-16] MEDS: methylPREDNISolone 125 MG/2 ML VIAL IVP SCH (08:25)
[2018-09-16] MEDS: cefTRIAXone 1,000 MG in Water for inj. (sterile) 10 ML IVP SCH (08:27)
[2018-09-16 10:56] LABS: VBG Ionized Calcium 0.99 mmol/L (1.15-1.35)
--- NOTE | 2018-09-16 11:53 | Internal Med Progress Note ---
Hospitalist Progress Note - Encounter Date of Encounter: 09/16/18 Time of Encounter: 08:40 - Subjective Interval History: Seen at bedside. Looking much more comfortable today. Denies any pain. Chest pain, shortness of breath. Denies any fever, chills. Had 3-4 episodes of watery bowel movements yesterday. Denies any abdominal pain at this point. - Exam Vitals: Temp Pulse Resp BP Pulse Ox 98.4 F 69 14 140/108 95 09/16/18 07:24 09/16/18 07:24 09/16/18 07:24 09/16/18 07:24 09/16/18 07:24 Exam: General: Alert and oriented, no physical distress, able to follow commands. Respiratory: Normal vesicular breathing, no added sounds, breathing equal in gabriella th sides. CVS: Normal heart sounds, no murmurs, no edema. Extremities: No peripheral edema, peripheral pulses intact. Lymph nodes: No lymphadenopathy Gastrointestinal: Soft, nontender abdomen, normal abdominal sounds. No distention noted. Genitourinary: No paravertebral tenderness. Neurological: Alert and oriented. No focal deficits. Cranial nerves II-XII intact. - Assessment and Plan (1) JEOVANY (acute kidney injury) Current Visit: Yes Status: Acute Assessment and Plan: -Likely secondary to diarrhea with low oral intake. -Improving -Cr of 1.25 today -Currently on IV lfudis -Nephrology on [facility] [place] -Defer the continuatio/discontinuation of IV fludis to nephro -Monitor kidney functions -Appreicate oral intake -Diarrhea resolving - (2) DVT prophylaxis Current Visit: Yes Status: Acute Assessment and Plan: -Restarted on coumadin (3) Hypocalcemia Current Visit: Yes Status: Acute Assessment and Plan: -Low calcium still persisting. Toady reported to be ionized ca of 0.99 -Replace as per protocol with calcium gluconate (4) Hypokalemia Current Visit: Yes Status: Acute Assessment and Plan: -K of 3.2 today -Was given IV replacement -COntinue to monitor and replace as per protocol (5) Hypomagnesemia Current Visit: Yes Status: Acute Assessment and Plan: -Mag of 2.8 -Continue to monitor and replace as per protocol (6) Hypophosphatemia Current Visit: Yes Status: Acute Assessment and Plan: -Phosphorous 3.8 -Continue to monitor and replace as per protocol (7) Metabolic acidosis Current Visit: Yes Status: Acute Assessment and Plan: -Nrmal anion gap metabolic acidosos -CO2 of 15 today -On sodium bicarbonate -Likely related to JEOVANY and severe diarrhea -Nephro on board -Appreciate recommendations (8) Supratherapeutic INR Current Visit: Yes Status: Acute Assessment and Plan: -Pesented with the INR of 5.9 -Most recent is 1.0 -Restart the pt backon coumadin (9) Crohn disease Current Visit: No Status: Chronic Assessment and Plan: -Hx of crohn for 20 year with complications s/p small bowel resection -Usure about the home meds -had darrhea likely due to crohn exacerbation as Stool panel is neative -Currnetly on prednsione for the exacerbation -GI on board, defer the dose of prednsione to GI -Outpt colonscopy will be needed (10) UTI (urinary tract infection) Current Visit: Yes Status: Acute Assessment and Plan: -Urine growing E. Coli, sensitivites noted -COntinue ceftriaxone, day 3, will prefer to do 5 days (11) Atrial fibrillation Current Visit: No Status: Chronic Assessment and Plan: Hx of atrial fibrillation -HR controlled at this point -Restart coumadin (12) Malnourished Current Visit: Yes Status: Acute Assessment and Plan: -Pt seems malnourished with severe electrolyte abnormalities. -COuld be related ti the pt crohn disease -COntinue to replace electrolytes (13) Anemia Current Visit: Yes Status: Acute Assessment and Plan: -During the hospitalization , came with the hgb of 8.3 which dropped t0 6.[address] day 1, etiolgoy unclear. Could be dilutonal or preocedural blood loss. -PT hgb improved after 1 unit of PRBCs and has been stable since -NO active signs of bleeding -OUtpt follow up recommeded - Time Spent with Patient Total time spent is greater than 50% in coordination of care (as documented) at patient's floor/unit and/or counseling patient: Internal Medicine: Result - Labs CBC & Chem 7: 09/16/18 04:38 09/16/18 04:38 Labs: Short CBC 09/16/18 Range/Units 04:38 WBC 16.8 H (4.3-11.1) K/mcL Hgb 8.8 L (11.5-15.4) g/dL Hct 27.3 L (35.3-44.9) % Plt Count 180 (140-400) K/mcL Neutrophils # 13.3 H (1.6-8.9) K/mcL BMP 09/15/18 09/16/18 14:07 04:38 Sodium 143 Potassium 4.1 3.2 L Chloride 114 H Carbon Dioxide 15 L BUN 11 Creatinine 1.25 H Glucose 87 Calcium 7.4 L - ABG Interpretation ABG results: ABG ABG pH 7.27 pH Units (7.32-7.45) L 09/12/18 04:55 ABG pCO2 21 mmHg (35-45) L 09/12/18 04:55 ABG pO2 99 mmHg (85-104) 09/12/18 04:55 ABG O2 Saturation 97 % (95-98) 09/12/18 04:55 PT/INR, D-dimer PT 10.5 Seconds (9.4-12.1) 09/16/18 04:38 Consult Discharge Plan - Plan Referrals: Viktor Greenberg MD [Partnered Physician] - 09/25/18 10:15 am (Dr. Hamilton is out of the office this week) Adriana Thornton MD [Partnered Physician] - 10/01/18 4:10 pm (9) Crohn disease Qualifiers: Gastrointestinal tract location: unspecified location Digestive disease complication type: other complication Qualified Code(s): K50.918 - Crohn's disease, unspecified, with other complication (10) UTI (urinary tract infection) Qualifiers: Urinary tract infection type: acute cystitis Hematuria presence: with hematuria Qualified Code(s): N30.01 - Acute cystitis with hematuria (11) Atrial fibrillation Qualifiers: Atrial fibrillation type: paroxysmal Qualified Code(s): I48.0 - Paroxysmal atrial fibrillation (12) Malnourished Qualifiers: Malnutrition type: unspecified type Qualified Code(s): E46 - Unspecified protein-calorie malnutrition (13) Anemia Qualifiers: Anemia type: unspecified type Qualified Code(s): D64.9 - Anemia, unspecified
--- NOTE | 2018-09-16 14:23 | Nephrology Progress Note ---
Date of Encounter: 09/16/18 Time of Encounter: 14:23 - Assessment and Plan (1) JEOVANY (acute kidney injury) Current Visit: Yes Status: Acute SCr and GFR both improved at 1.25 and 42. Encourage PO intake. Continue to avoid nephrotoxins if possible Uop adequate at 1750 for 24 hour period yesterday. F/U with Dr. Lanza in 4-6 weeks. BMP 7 days after discharge. (2) Crohn disease Current Visit: No Status: Chronic As per primary and GI Qualifiers: Gastrointestinal tract location: unspecified location Digestive disease complication type: other complication Qualified Code(s): K50.918 - Crohn's disease, unspecified, with other complication (3) Hypokalemia Current Visit: Yes Status: Acute 3.2, continue repletion. (4) Hypomagnesemia Current Visit: Yes Status: Acute Magnesium normalized after repletion, continue to correct if indicated. (5) Metabolic acidosis Current Visit: Yes Status: Acute Sodium bicarb tabs increased to TID. Carbon dioxide is 15. (6) Hypocalcemia Current Visit: Yes Status: Acute Ionized Ca noted at 1.15 today. Vitamin D 46. PTH 274.7 Calcitriol started today. (7) Failure to thrive Current Visit: Yes Status: Acute This could be contributing to hypokalemia, and JEOVANY / CKD. Qualifiers: Failure to thrive age range: in adult Qualified Code(s): R62.7 - Adult fa ilure to thrive Subjective Principal diagnosis: AMS Interval history: Pt seen and examined, doing well. States overall she feels better. Denies nausea, vomiting, admits to 3-4 episodes of diarrhea today. Denies chest pain or shortness of breath. Objective - Vital Signs Vital signs: Vital Signs Temp Pulse Resp BP Pulse Ox 09/16/18 12:19 98.6 F 70 14 137/90 95 09/16/18 07:24 98.4 F 69 14 140/108 95 09/15/18 23:30 98.3 F 63 16 135/89 95 09/15/18 20:08 70 09/15/18 16:24 98.3 F 95 18 138/86 95 Intake and Output 09/15/18 09/16/18 09/16/18 23:59 07:59 15:59 Intake Total 1704 / 3718 1230 / 1240 10 / 1240 Output Total 400 / 2600 950 / 950 Balance 1304 / 1118 1230 / 290 -940 / 290 Intake: IV Fluids 1464 / 2878 1230 / 1240 10 / 1240 0.45% Sodium Chloride 1,000 ML 1000 / 2000 980 / 980 @ 100 mls/hr IVC .Q10H ANJELICA Rx#: [id number] Rocephin 1,000 MG In Water for inj. (sterile) 10 ML @ 600 mls/ hr IVP DAILY ANJELICA Rx#:[id number] Calcium Gluconate 1gm/50mL 1 gm 100 / 150 50 / 50 In 50 ml @ 50 mls/hr IVPB Q6HR PRN Rx#:[id number] Magnesium Sulfate 2 GM In 0.9 % 104 / 208 Sodium Chloride 100 ML @ 104 mls/hr IVPB ONCE PRN Rx#: [id number] Potassium Chloride 20 mEq/100 200 / 200 mL 40 meq In 200 ml @ 100 mls/ hr IVPB Q1H PRN Rx#:[id number] Potassium Phosphate 44 MEQ In 0 260 / 260 .9 % Sodium Chloride 250 ML @ 40 mls/hr IVPB Q10H PRN Rx#: [id number] Oral 240 / 840 Output: Urine 400 / 1750 950 / 950 Other: Stool Size Large Small Stool Consistency liquid loose Stool Color Yellow Yellow # Voids 1 - General Appearance General appearance: Present: well-developed, well-nourished EENT: Present: ATNC, hearing intact, vision intact Neck: Present: supple Respiratory: Present: clear Cardiology: Present: no edema, normal S1, normal S2 Gastrointestinal: Present: normoactive bowel sounds, no tenderness, no guarding Integumentary: Present: no rash, warm and dry Neurologic: Present: alert and oriented x3 Musculoskeletal: Present: no deformities, no erythema Psychiatric: Present: mood/affect appropriate, cooperative - Lab 09/16/18 04:38 09/16/18 11:20 Most recent lab results 09/16/18 04:38 Calcium 7.4 L Phosphorus 3.8 Magnesium 2.0 Consult Discharge Plan - Plan Referrals: Viktor Greenberg MD [Partnered Physician] - 09/25/18 10:15 am (Dr. Hamilton is out of the office this week) Adriana Thornton MD [Partnered Physician] - 10/01/18 4:10 pm
[2018-09-16] MEDS ORDERED: *HR* Warfarin 1 MG TABLET PO ONE (18:00)
[2018-09-16] MEDS ORDERED: Warfarin perPT PO PRN (18:00)
[2018-09-16 18:56] LABS: VBG Ionized Calcium 1.17 mmol/L (1.15-1.35)
[2018-09-17 05:12] LABS: VBG Ionized Calcium 1.18 mmol/L (1.15-1.35)
[2018-09-17 05:12] LABS: Basophils % 0.1 %; Eosinophils % 0.1 %; Hematocrit 26.8 % (35.3-44.9); Hemoglobin 8.8 g/dL (11.5-15.4); Immature Granulocytes % 0.5 % (0-4); Lymphocytes % 10.1 %; Mean Corpuscular HGB Conc 32.8 g/dL (31.6-35.5); Mean Corpuscular Hemoglobin 27.8 pg (28.0-33.3); Mean Corpuscular Volume 84.5 fL (83.0-100.0); Mean Platelet Volume 12.3 fL (9.4-12.4); Monocytes # 1.3 K/mcL (0.0-1.3); Monocytes % 6.3 %; Neutrophils # 16.6 K/mcL (1.6-8.9); Platelet Count 170 K/mcL (140-400); Red Blood Count 3.17 M/mcL (3.82-4.97); Red Cell Distribution Width 15.7 % (11.5-14.5); Segmented Neutrophils % 82.9 %; White Blood Count 20.1 K/mcL (4.3-11.1)
[2018-09-17 05:18] LABS: Prothrombin Time 11.1 Seconds (9.4-12.1)
[2018-09-17 05:32] LABS: BUN/Creatinine Ratio 11 (6-26); Blood Urea Nitrogen 11 mg/dL (8-23); Calcium 7.7 mg/dL (8.6-10.3); Carbon Dioxide 14 mEq/L (23-29); Chloride 117 mEq/L (98-107); Glucose 81 mg/dL (70-105); Magnesium 1.5 mg/dL (1.6-2.6); Osmolality,Calculated 286 (280-300); Phosphorous 2.8 mg/dL (2.7-4.5); Potassium 3.2 mEq/L (3.5-5.1); Sodium 139 mEq/L (136-145); eGFR For African Americans > 60 (> 60); eGFR For Non-African Americans 52 (> 60)
[2018-09-17] MEDS: cefTRIAXone 1,000 MG in Water for inj. (sterile) 10 ML IVP SCH (07:46)
[2018-09-17] MEDS: methylPREDNISolone 125 MG/2 ML VIAL IVP SCH (07:49)
[2018-09-17 10:32] LABS: Magnesium 2.1 mg/dL (1.6-2.6); Phosphorous 3.3 mg/dL (2.7-4.5)
--- NOTE | 2018-09-17 10:54 | Discharge Summary ---
- NOTES TO OUTPATIENT PROVIDER Notes to Outpatient Provider: Patient was admitted to the hospital for Crohn's disease exacerbation and found to have supratherapeutic INR. Warfarin was hold and then restarted back. Patient will need repeat INR checkup done within 1 week. Patient will also need repeat of potassium, magnesium and phosphorus level. Orders not resulted at time of discharge: Pending orders 09/12/18 09:52 Culture,Blood [BC] Stat Date of Encounter: 09/17/18 Time of Encounter: 10:52 - Discharge Diagnosis (1) Crohn disease Priority: Primary Status: Chronic Qualifiers: Gastrointestinal tract location: unspecified location Digestive disease complication type: other complication Qualified Code(s): K50.918 - Crohn's disease, unspecified, with other complication (2) JEOVANY (acute kidney injury) Priority: Secondary Status: Resolved (3) Hypokalemia Priority: Secondary Status: Chronic (4) Hypomagnesemia Priority: Secondary Status: Resolved (5) Metabolic acidosis Priority: Secondary Status: Resolved (6) Supratherapeutic INR Priority: Secondary Status: Resolved (7) DVT prophylaxis Priority: Secondary Status: Resolved (8) Hypocalcemia Priority: Secondary Status: Chronic (9) Hypophosphatemia Priority: Secondary Status: Resolved (10) UTI (urinary tract infection) Priority: Secondary Status: Resolved Qualifiers: Urinary tract infection type: acute cystitis Hematuria presence: with hem aturia Qualified Code(s): N30.01 - Acute cystitis with hematuria (11) Atrial fibrillation Priority: Secondary Status: Chronic Qualifiers: Atrial fibrillation type: paroxysmal Qualified Code(s): I48.0 - Paroxysmal atrial fibrillation (12) Malnourished Priority: Secondary Status: Chronic Qualifiers: Malnutrition type: unspecified type Qualified Code(s): E46 - Unspecified protein-calorie malnutrition (13) Anemia Priority: Secondary Status: Chronic Qualifiers: Anemia type: unspecified type Qualified Code(s): D64.9 - Anemia, unspecified Hospital course: Ms. Kaur is a 73 year old female with past medical history of Crohn's disease and atrial fibrillation presented to the hospital with complaining of weakness and diarrhea for few days. Patient was found to be in Crohn's disease exacerbation. Patient was severely malnourished. And patient also found to have electrolyte abnormalities on presentation. Patient's hospital course was complicated by acute kidney injury and acidosis which was due to diarrhea and volume loss. Patient got adequate electrolyte replacement and fluid replacement. Patient found to have supratherapeutic INR on admission so Coumadin was held. Patient did not have any bleed from supratherapeutic INR. Coumadin was restarted back again and INR at the time of discharge was around 1. Patient was advised to continue her home warfarin regimen. And follow-up with primary care provider within one week to get INR checked. Patient is to follow-up with primary care provider within one week to repeat INR label. Patient also need to follow up with primary care provider for repeat electrolyte and chem panel. Patient was discharged home in stable condition. Discharge discussed with: patient, family, nurse - Time Spent with Patient Total time spent providing and/or coordinating discharge services: 40 Time spent: Greater than 30 minutes - Discharge Medications Prescriptions: New Dicyclomine [Bentyl] 20 mg PO TID #21 capsule PredniSONE [Deltasone] 10 mg PO DAILY #41 tablet Potassium Chloride 20 meq PO DAILY #10 tab.er.prt Continued Sertraline [Zoloft] 100 mg PO DAILY Glucosamine Sulfate Dipot Chlr [Glucosamine] 1,000 mg PO DAILY Cetirizine HCl [Zyrtec] 10 mg PO DAILY PRN PRN Reason: Allergy Symptoms Atorvastatin [Lipitor] 10 mg PO DAILY Colesevelam HCl [Welchol] 1,250 mg PO DAILY Ipratropium [place] 1 spray NS BID Cholecalciferol (Vitamin D3) [Vitamin D3] 10,000 unit PO DAILY Ergocalciferol (VITAMIN D2) [Vitamin D2] 50,000 unit PO CHA Ferrous Sulfate 325 mg PO DAILY Lisinopril 2.5 mg PO DAILY Famotidine [Pepcid] 20 mg PO DAILY PRN PRN Reason: GERD Warfarin [Coumadin] 2 mg PO DAILY Discontinued Potassium Chloride [K-Tab ER] 20 meq PO DAILY Home Medications: Atorvastatin [Lipitor] 10 mg PO DAILY 03/02/15 [History] Cetirizine HCl [Zyrtec] 10 mg PO DAILY PRN 03/02/15 [History] Glucosamine Sulfate Dipot Chlr [Glucosamine] 1,000 mg PO DAILY 03/02/15 [History] Sertraline [Zoloft] 100 mg PO DAILY 03/02/15 [History] Cholecalciferol (Vitamin D3) [Vitamin D3] 10,000 unit PO DAILY 09/12/18 [History] Colesevelam HCl [Welchol] 1,250 mg PO DAILY 09/12/18 [History] Ergocalciferol (VITAMIN D2) [Vitamin D2] 50,000 unit PO CHA 09/12/18 [History] Famotidine [Pepcid] 20 mg PO DAILY PRN 09/12/18 [History] Ferrous Sulfate 325 mg PO DAILY 09/12/18 [History] Ipratropium [place] 1 spray NS BID 09/12/18 [History] Lisinopril 2.5 mg PO DAILY 09/12/18 [History] Warfarin [Coumadin] 2 mg PO DAILY 09/15/18 [History] Dicyclomine [Bentyl] 20 mg PO TID #21 capsule 09/17/18 [Rx] Potassium Chloride 20 meq PO DAILY #10 tab.er.prt 09/17/18 [Rx] PredniSONE [Deltasone] 10 mg PO DAILY #41 tablet 09/17/18 [Rx] Allergies/Adverse Reactions: Allergy/AdvReac Type Severity Reaction Status Date / Time No Known Allergies Allergy Verified 09/12/18 17:58 Date of admission: 09/11/18 12:31 Primary care physician: Varinder Hamilton MD Consults: 09/11/18 11:59 Consult to Nephrology [CONS] Stat Consulting Provider: Kidney Marilin/YECENIA/BERNY/MANUEL Reason for Consult: JEOVANY, Acidosis, Hypokalemia Call Completed: Yes 09/11/18 14:13 Consult to Nutrition [CONS] Routine Comment: Consulting Provider: NUTRITION Reason for Dietary Consult: Other 09/12/18 09:58 Consult to Occupational Therapy [CONS] Stat Comment: Evaluate, develop and implement POC Reason for Consult: evaluate ADLs Does patient have active BEDREST order?: No Is patient medically & hemodynamically stable?: Yes Consult to Physical Therapy [CONS] Stat Comment: Evaluate, develop and implement POC Reason for Consult: evaluate ADLs Does patient have active BEDREST order?: No Is patient medically & hemodynamically stable?: Yes 09/12/18 10:43 Consult to Gastroenterology [CONS] Stat Consulting Provider: [facility] [place] Reason for Consult: Hx crohn's, metabolic acidosis with diarrhea, FTT Call Completed: Yes Discharging clinician: Julio C Ray Anticipated date of discharge: 09/17/18 - Constitutional Vitals: Temp Pulse Resp BP Pulse Ox 98.5 F 98 18 146/103 97 09/17/18 07:33 09/17/18 07:33 09/17/18 07:33 09/17/18 07:33 09/17/18 07:33 General appearance: Present: cooperative, A&O X 3 Exam: General: Alert and oriented, no physical distress, able to follow commands. Respiratory: Normal vesicular breathing, no added sounds, breathing equal in both sides. CVS: Normal heart sounds, no murmurs, no edema. Extremities: No peripheral edema, peripheral pulses intact. Gastrointestinal: Soft, nontender abdomen, normal abdominal sounds. No distention noted. Genitourinary: No paravertebral tenderness. Neurological: Alert and oriented. No focal deficits. Cranial nerves II-XII intact. - Head Head exam: Present: atraumatic - Patient Status Disposition: Home, Self-Care Condition: Good Functional capacity at discharge: independent ambulation Overall status at discharge: patient is progressing back to baseline - Discharge Instructions Follow Up With: Viktor Greenberg MD [Partnered Physician] - 09/25/18 10:15 am (Dr. Hamilton is out of the office this week) Adriana Thornton MD [Partnered Physician] - 10/01/18 4:10 pm Additional Instructions: Patient is to follow up with primary care provider in 1 week to get her INR recheck and also electrolyte to be checked with chem panel. - Diet and Activity Activity: increase activity as tolerated Diet: advance to your usual diet
[2018-09-17 11:57] VITALS: BP 136/79
== END 2018-09-17 13:48 | disposition home or self-care (01) | DRG 385 ==
LOC: EMEROOARM 08:20 → SUATTDRO 12:31 → ICNU 12:31 → 2NNU 09-14 07:50
PROVIDERS: ADMIT Internal Medicine Pulmonary Disease; ATTEND Family Medicine

== ENCOUNTER 2018-10-29 14:39 | Inpatient (IN) ==
[2018-10-29] MEDS ORDERED: 0.9 % Sodium Chloride 1,000 ML IVC ONE (15:02)
--- NOTE | 2018-10-29 15:26 | Emergency Department Note ---
Disposition Clinical Impression: JEOVANY (acute kidney injury), Hypokalemia, Elevated troponin, Dehydration Leukocytosis Qualifiers: Leukocytosis type: other Qualified Code(s): D72.828 - Other elevated white blood cell count Anemia Qualifiers: Anemia type: unspecified type Qualified Code(s): D64.9 - Anemia, unspecified Failure to thrive Qualifiers: Failure to thrive age range: in adult Qualified Code(s): R62.7 - Adult failure to thrive Disposition: Admitted As Inpatient Condition: Critical Time of Disposition: 23:00 Weakness HPI - General Chief complaint: ED Weakness Stated complaint: ams Time Seen by Provider: 10/29/18 14:44 Source: patient, EMS Limitations: altered mental status Nursing Notes Reviewed: Yes Vital Signs Reviewed: Yes - History of Present Illness HPI Narrative: Patient is 73-year-old female who presents with concerns of 4 days of generalized weakness, decreased appetite, chills, multiple doses of nonbloody diarrhea as well as increasing difficulty with ambulation secondary to generalized weakness. The patient states that she was also hospitalized about 2 weeks ago for similar symptoms. She does admit to chills, denies taking her temperature. She is also unsure of any recent sick contacts. She denies any recent traumas or falls. She denies any associated chest pain, shortness of breath, abdominal pain, nausea or vomiting. Pain Scale: 0 - Related Data Home Medications Medication Instructions Recorded Confirmed Atorvastatin [Lipitor] 10 mg PO DAILY 03/02/15 10/29/18 Cetirizine HCl [Zyrtec] 10 mg PO DAILY PRN 03/02/15 10/29/18 Glucosamine Sulfate Dipot Chlr 1,000 mg PO DAILY 03/02/15 10/29/18 [Glucosamine] Sertraline [Zoloft] 100 mg PO DAILY 03/02/15 10/29/18 Colesevelam HCl [Welchol] 1,250 mg PO DAILY 09/12/18 10/29/18 Ergocalciferol (VITAMIN D2) 50,000 unit PO CHA 09/12/18 10/29/18 [Vitamin D2] Famotidine [Pepcid] 20 mg PO DAILY PRN 09/12/18 10/29/18 Ferrous Sulfate 325 mg PO DAILY 09/12/18 10/29/18 Ipratropium [place] 2 spray NS BID 09/12/18 10/29/18 Lisinopril 2.5 mg PO DAILY 09/12/18 10/29/18 Warfarin [Coumadin] 2 mg PO AD 09/15/18 09/15/18 Sodium Bicarbonate 325 mg PO BID 10/29/18 10/29/18 Tizanidine HCl [Zanaflex] 4 - 8 mg PO HS 10/29/18 10/29/18 Previous Rx's Medication Instructions Recorded Dicyclomine [Bentyl] 20 mg PO TID #21 capsule 09/17/18 Potassium Chloride 20 meq PO DAILY #10 tab.er.prt 09/17/18 Allergies Allergy/AdvReac Type Severity Reaction Status Date / Time No Known Allergies Allergy Verified 09/12/18 17:58 Review of Systems: REVIEW OF SYSTEMS: Constitutional: Admits to generalized fatigue, chills Eye: No acute visual changes HENT: No sore throat, No rhinorrhea Resp: No SOB, No cough Cardio: No palpitations, No chest pain GI: No abdominal pain, No nausea, No vomiting, No constipation, No diarrhea, No melena or hematochezia : No dysuria, No hematuria Musculoskeletal: No new joint swelling, No back pain Neuro: No isolated numbness or weakness, No headaches Skin: No skin yellowing/jaundice, No pruritus Past Medical History - Past Medical History Attestation: Yes The following information was validated with the patient. Medical history: Reports: arthritis, CVA, hepatitis, hyperlipidemia, renal disease Surgical history: Reports: cataract, colectomy Psychiatric history: Reports: no psych history - Social History Smoking Status: Never smoker Smokeless Tobacco Status: No Alcohol use: Reports: none Drug use: Reports: none Physical Exam PHYSICAL EXAM: Constitutional: Cachectic appearing, Stated Age HENT: NC/AT, Mucous membranes moist Eyes: No scleral icterus, No photophobia, EOMI Neck: No nuchal rigidity, Supple, Trachea midline Cardiac: Regular rate and rhythm, S1 and S2 normal, no S3, S4, no murmurs gallops or rubs Thorax & Lungs: Clear to auscultation bilaterally, no wheezes, crackles or rhonchi, No chest tenderness Abdomen: Soft, non-tender, non-distended, no rebound or guarding Skin: Warm, dry, pink, No mottling Extremities: No deformities Musculoskeletal: Normal tone Neurologic: CN II-XII intact, negative Romberg, sensory and motor strength fully intact in all extremities, no aphasia or dysarthria Psychiatric: appropriately oriented for baseline - General Limitations: altered mental status General appearance: alert, in no apparent distress Course Vital Signs Temperature 98.3 F 10/29/18 14:41 Pulse Rate 77 10/29/18 14:41 Respiratory Rate 16 10/29/18 14:41 Blood Pressure 114/75 10/29/18 14:41 O2 Sat by Pulse Oximetry 98 10/29/18 14:41 Temperature 98.3 F 10/29/18 14:41 Pulse Rate 82 10/29/18 23:48 Respiratory Rate 13 10/29/18 23:00 Blood Pressure 121/77 10/29/18 23:00 O2 Sat by Pulse Oximetry 100 10/29/18 23:00 Oxygen Delivery Oxygen Delivery Room Air Weakness - MDM Narrative Medical decision making narrative: Patient is a 73-year-old female who presents today with concerns of generalized weakness, confusion, decreased appetite and difficulty with stimulation today to weakness over the past 4 days. On physical exam, she is calm and cooperative at appearing. She is afebrile, hemodynamically stable. On workup as performed today, she did have an irritable leukocytosis as well as was found to be anemic at 7.7. She had multiple I upper maladies including hypokalemia and low calcium. She had a notable metabolic acidosis as well as an JEOVANY. She was given normal saline IV fluids as well as ultralight repletion. Based on the patient's overall concerning workup as performed today, do feel that she warrants hospitalization, the hospitalist was contacted and the patient will be hospitalized in the ICU at this time for continued evaluation and management. - Lab Data Result diagrams: 10/29/18 20:38 10/29/18 20:38 Lab Results 10/29/18 10/29/18 10/29/18 Range/Units 15:20 15:20 17:41 WBC 16.5 H (4.3-11.1) K/mcL RBC 3.17 L (3.82-4.97) M/mcL Hgb 8.7 L (11.5-15.4) g/dL Hct 26.1 L (35.3-44.9) % MCV 82.3 L (83.0-100.0) fL MCH 27.4 L (28.0-33.3) pg MCHC 33.3 (31.6-35.5) g/dL RDW 17.2 H (11.5-14.5) % Plt Count 248 (140-400) K/mcL MPV 12.1 (9.4-12.4) fL Immature Gran % 0.5 (0-4) % Seg Neutrophils % 86.5 % Lymphocytes % 8.8 % Monocytes % 4.1 % Eosinophils % 0.0 % Basophils % 0.1 % Neutrophils # 14.2 H (1.6-8.9) K/mcL Lymphocytes # 1.5 (0.6-4.6) K/mcL Monocytes # 0.7 (0.0-1.3) K/mcL Eosinophils # 0.0 (0.0-0.6) K/mcL Basophils # 0.0 (0.0-0.2) K/mcL Nucleated RBCs/100 WBC 0.2 H (0) /100 WBC PT (9.4-12.1) Seconds INR VBG pH (7.32-7.42) pH Units VBG pCO2 (41-51) mmHg VBG pO2 (25-50) mmHg VBG HCO3 (21-27) mEq/L Sodium 146 H (136-145) mEq/L Potassium 2.2 L* (3.5-5.1) mEq/L Chloride 125 H (98-107) mEq/L Carbon Dioxide 8 L* (23-29) mEq/L BUN 42 H (8-23) mg/dL Creatinine 3.53 H (0.60-1.20) mg/dL Est GFR ( Amer) 15 L (> 60) Est GFR (Non-Af Amer) 13 L (> 60) BUN/Creatinine Ratio 12 (6-26) Glucose 99 (70-105) mg/dL Calculated Osmolality 313 H (280-300) Lactic Acid (0.5-2.2) mmol/L Calcium 5.9 L* (8.6-10.3) mg/dL Venous Ioniz Calcium (1.15-1.35) mmol/L Magnesium 0.5 L (1.6-2.6) mg/dL Troponin I 0.11 H* (< 0.04) ng/mL TSH 6.246 H (0.340-5.600) mcIU/mL Urine Color (Yellow) Urine Clarity (Clear) Urine pH (5.0-8.0) pH Units Ur Specific [place] (1.010-1.025) Urine Protein (Neg-Trace) mg/dL Urine Glucose (UA) (Normal) mg/dL Urine Ketones (Negative) mg/dL Urine Blood (Negative) Urine Nitrite (Negative) Urine Bilirubin (Negative) Urine Urobilinogen (Normal) mg/dL Ur Leukocyte Esterase (Negative) Urine Microscopic RBC (0-3) per hpf Urine Microscopic WBC (0-3) per hpf Ur Squamous Epith Cells (None-Few) per lpf Ur Renal Epithelial Cell (None-Few) per hpf Amorphous Sediment (Few) Urine Bacteria (None-Few) per hpf Hyaline Casts (None-Few) per lpf Urine Mucus (Few) Ur Oval Fat Bodies (Not Present) Ur Culture Indicated? (NO) Person Notif of Crit 10/29/18 10/29/18 10/29/18 Range/Units 17:41 17:41 18:01 WBC (4.3-11.1) K/mcL RBC (3.82-4.97) M/mcL Hgb (11.5-15.4) g/dL Hct (35.3-44.9) % MCV (83.0-100.0) fL MCH (28.0-33.3) pg MCHC (31.6-35.5) g/dL RDW (11.5-14.5) % Plt Count (140-400) K/mcL MPV (9.4-12.4) fL Immature Gran % (0-4) % Seg Neutrophils % % Lymphocytes % % Monocytes % % Eosinophils % % Basophils % % Neutrophils # (1.6-8.9) K/mcL Lymphocytes # (0.6-4.6) K/mcL Monocytes # (0.0-1.3) K/mcL Eosinophils # (0.0-0.6) K/mcL Basophils # (0.0-0.2) K/mcL Nucleated RBCs/100 WBC (0) /100 WBC PT 70.0 H* (9.4-12.1) Seconds INR 6.1 H* VBG pH 7.06 L* (7.32-7.42) pH Units VBG pCO2 15 L (41-51) mmHg VBG pO2 129 H (25-50) mmHg VBG HCO3 4 L (21-27) mEq/L Sodium (136-145) mEq/L Potassium (3.5-5.1) mEq/L Chloride (98-107) mEq/L Carbon Dioxide (23-29) mEq/L BUN (8-23) mg/dL Creatinine (0.60-1.20) mg/dL Est GFR ( Amer) (> 60) Est GFR (Non-Af Amer) (> 60) BUN/Creatinine Ratio (6-26) Glucose (70-105) mg/dL Calculated Osmolality (280-300) Lactic Acid 0.7 (0.5-2.2) mmol/L Calcium (8.6-10.3) mg/dL Venous Ioniz Calcium (1.15-1.35) mmol/L Magnesium (1.6-2.6) mg/dL Troponin I (< 0.04) ng/mL TSH (0.340-5.600) mcIU/mL Urine Color (Yellow) Urine Clarity (Clear) Urine pH (5.0-8.0) pH Units Ur Specific [place] (1.010-1.025) Urine Protein (Neg-Trace) mg/dL Urine Glucose (UA) (Normal) mg/dL Urine Ketones (Negative) mg/dL Urine Blood (Negative) Urine Nitrite (Negative) Urine Bilirubin (Negative) Urine Urobilinogen (Normal) mg/dL Ur Leukocyte Esterase (Negative) Urine Microscopic RBC (0-3) per hpf Urine Microscopic WBC (0-3) per hpf Ur Squamous Epith Cells (None-Few) per lpf Ur Renal Epithelial Cell (None-Few) per hpf Amorphous Sediment (Few) Urine Bacteria (None-Few) per hpf Hyaline Casts (None-Few) per lpf Urine Mucus (Few) Ur Oval Fat Bodies (Not Present) Ur Culture Indicated? (NO) Person Notif of Pat REECE 10/29/18 10/29/18 Range/Units 18:12 18:40 WBC (4.3-11.1) K/mcL RBC (3.82-4.97) M/mcL Hgb (11.5-15.4) g/dL Hct (35.3-44.9) % MCV (83.0-100.0) fL MCH (28.0-33.3) pg MCHC (31.6-35.5) g/dL RDW (11.5-14.5) % Plt Count (140-400) K/mcL MPV (9.4-12.4) fL Immature Gran % (0-4) % Seg Neutrophils % % Lymphocytes % % Monocytes % % Eosinophils % % Basophils % % Neutrophils # (1.6-8.9) K/mcL Lymphocytes # (0.6-4.6) K/mcL Monocytes # (0.0-1.3) K/mcL Eosinophils # (0.0-0.6) K/mcL Basophils # (0.0-0.2) K/mcL Nucleated RBCs/100 WBC (0) /100 WBC PT (9.4-12.1) Seconds INR VBG pH (7.32-7.42) pH Units VBG pCO2 (41-51) mmHg VBG pO2 (25-50) mmHg VBG HCO3 (21-27) mEq/L Sodium (136-145) mEq/L Potassium (3.5-5.1) mEq/L Chloride (98-107) mEq/L Carbon Dioxide (23-29) mEq/L BUN (8-23) mg/dL Creatinine (0.60-1.20) mg/dL Est GFR ( Amer) (> 60) Est GFR (Non-Af Amer) (> 60) BUN/Creatinine Ratio (6-26) Glucose (70-105) mg/dL Calculated Osmolality (280-300) Lactic Acid (0.5-2.2) mmol/L Calcium (8.6-10.3) mg/dL Venous Ioniz Calcium 0.68 L (1.15-1.35) mmol/L Magnesium (1.6-2.6) mg/dL Troponin I (< 0.04) ng/mL TSH (0.340-5.600) mcIU/mL Urine Color Yellow (Yellow) Urine Clarity Cloudy A (Clear) Urine pH 6.0 (5.0-8.0) pH Units Ur Specific [place] 1.009 L (1.010-1.025) Urine Protein 30 H (Neg-Trace) mg/dL Urine Glucose (UA) Normal (Normal) mg/dL Urine Ketones Negative (Negative) mg/dL Urine Blood Large H (Negative) Urine Nitrite Negative (Negative) Urine Bilirubin Negative (Negative) Urine Urobilinogen Normal (Normal) mg/dL Ur Leukocyte Esterase Large H (Negative) Urine Microscopic RBC 30-50 H (0-3) per hpf Urine Microscopic WBC 5-15 H (0-3) per hpf Ur Squamous Epith Cells Many H (None-Few) per lpf Ur Renal Epithelial Cell Few (None-Few) per hpf Amorphous Sediment Moderate H (Few) Urine Bacteria Moderate H (None-Few) per hpf Hyaline Casts None Seen (None-Few) per lpf Urine Mucus Few (Few) Ur Oval Fat Bodies Present A (Not Present) Ur Culture Indicated? YES A (NO) Person Notif of Crit
[2018-10-29 15:34] LABS: Basophils % 0.1 %; Hematocrit 26.1 % (35.3-44.9); Hemoglobin 8.7 g/dL (11.5-15.4); Immature Granulocytes % 0.5 % (0-4); Lymphocytes # 1.5 K/mcL (0.6-4.6); Lymphocytes % 8.8 %; Mean Corpuscular HGB Conc 33.3 g/dL (31.6-35.5); Mean Corpuscular Hemoglobin 27.4 pg (28.0-33.3); Mean Corpuscular Volume 82.3 fL (83.0-100.0); Mean Platelet Volume 12.1 fL (9.4-12.4); Monocytes # 0.7 K/mcL (0.0-1.3); Monocytes % 4.1 %; Neutrophils # 14.2 K/mcL (1.6-8.9); Nucleated Red Blood Cells 0.2 /100 WBC (0); Platelet Count 248 K/mcL (140-400); Red Blood Count 3.17 M/mcL (3.82-4.97); Red Cell Distribution Width 17.2 % (11.5-14.5); Segmented Neutrophils % 86.5 %; White Blood Count 16.5 K/mcL (4.3-11.1)
[2018-10-29 16:03] LABS: Calcium 5.9 mg/dL (8.6-10.3); Potassium 2.2 mEq/L (3.5-5.1)
[2018-10-29 16:05] LABS: Troponin I 0.11 ng/mL (< 0.04)
[2018-10-29] MEDS ORDERED: Ringers Solution, Lactated 1,000 ML IVC ONE (16:11)
[2018-10-29 16:12] LABS: Thyroid Stimulating Hormone 6.246 mcIU/mL (0.340-5.600)
[2018-10-29] MEDS ORDERED: Calcium Gluconate 1gm/50mL 1 GM/50 ML BAG IVPB ONE ×2 (16:13→16:28)
[2018-10-29 18:09] LABS: VBG HCO3 4 mEq/L (21-27); VBG PCO2 15 mmHg (41-51); VBG PH 7.06 pH Units (7.32-7.42); VBG PO2 129 mmHg (25-50)
[2018-10-29 18:10] LABS: INR 6.1
[2018-10-29 18:15] LABS: VBG Ionized Calcium 0.68 mmol/L (1.15-1.35)
[2018-10-29 18:51] LABS: Bilirubin,Urine Negative (Negative); Clarity,Urine Cloudy (Clear); Color,Urine Yellow (Yellow); Glucose,Urine (UA) Normal (Normal); Ketones,Urine Negative (Negative); Specific Gravity,Urine 1.009 (1.010-1.025)
[2018-10-29 18:52] LABS: Blood,Urine Large (Negative); Leukocyte Esterase,Urine Large (Negative); Nitrite,Urine Negative (Negative); Protein,Urine 30 mg/dL (Neg-Trace); Urobilinogen,Urine Normal (Normal)
[2018-10-29 18:55] LABS: Bacteria,Urine Moderate per hpf (None-Few); Hyaline Casts,Urine None Seen per lpf (None-Few); RBC,Urine 30-50 per hpf (0-3); Squamous Epithelial Cell,Urine Many per lpf (None-Few)
[2018-10-29 19:08] LABS: Renal Epithelial Cells,Urine Few per hpf (None-Few)
[2018-10-29 19:09] LABS: Amorphous Sediment,Urine Moderate (Few); Mucus,Urine Few (Few); Oval Fat Bodies,Urine Present (Not Present)
[2018-10-29] MEDS ORDERED: Sodium Bicarbonate 150 MEQ in D5% in Water 1,000 ML IVC SCH (19:45)
[2018-10-29] MEDS ORDERED: Ondansetron ODT 4 MG TAB.RAPDIS SL PRN (19:48)
[2018-10-29] MEDS ORDERED: Naloxone 0.4 MG/ML INJ IVP PRN (19:48)
--- NOTE | 2018-10-29 20:15 | Internal Med History&Physical ---
Date of Encounter: 10/30/18 Time of Encounter: 20:11 Internal Medicine - H&P: HPI Chief complaint: Weakness Admitted From: Home Plans for Post Hospital Care: Home History of present illness: Ms. Kaur is a 73 year old female with past medical history of Crohn's disease status post ileal resection, CKD, CVA presented to the ED for weakness. [id number] encounter of : 7:45 PM Patient reported about 1 year ago she has had ileal resection on 7 feet and since then has been having at least 5 bowel movements are mostly watery. Patient reported 30 pounds of weight loss. Last colonoscopy done in November was normal patient reported on the past 1 week she has not been eating or drinking and staying in bed due to concern for fall. Patient reported that the fluid has tasted very different and thus did not eat. The weakness has been progressing for over a year worsening and is now unable to ambulate even stand up. Patient lives at home, with her spouse and feels safe. Patient denied smoking, drinking or drugs. Personally reviewed patient's past medical, surgical, family and social history. CODE STATUS was discussed and the patient proceeded with a focal. Past Med Surg Social Fam HX - Past Medical History Medical history: arthritis, CVA, hepatitis, hyperlipidemia, renal disease Additional medical history: Stroke. Crohns Psychiatric history: no psych history - Past Surgical History Surgical History: cataract, colectomy Additional surgical history: Tubal Ligation. Colon resection small bowel - Social History Smoking Status: Never smoker Smokeless Tobacco Status: No Alcohol use: none Drug use: none - Family History Mother Living Status: Hx Family Cardiac Disorders: Yes Father Hx Family Cardiac Disorders: Yes Internal Medicine - H&P: Meds Atorvastatin [Lipitor] 10 mg PO DAILY 03/02/15 [History] Cetirizine HCl [Zyrtec] 10 mg PO DAILY PRN 03/02/15 [History] Glucosamine Sulfate Dipot Chlr [Glucosamine] 1,000 mg PO DAILY 03/02/15 [History] Sertraline [Zoloft] 100 mg PO DAILY 03/02/15 [History] Colesevelam HCl [Welchol] 1,250 mg PO DAILY 09/12/18 [History] Ergocalciferol (VITAMIN D2) [Vitamin D2] 50,000 unit PO CHA 09/12/18 [History] Famotidine [Pepcid] 20 mg PO DAILY PRN 09/12/18 [History] Ferrous Sulfate 325 mg PO DAILY 09/12/18 [History] Ipratropium [place] 2 spray NS BID 09/12/18 [History] Lisinopril 2.5 mg PO DAILY 09/12/18 [History] Warfarin [Coumadin] 2 mg PO AD 09/15/18 [History] Dicyclomine [Bentyl] 20 mg PO TID #21 capsule 09/17/18 [Rx] Potassium Chloride 20 meq PO DAILY #10 tab.er.prt 09/17/18 [Rx] Sodium Bicarbonate 325 mg PO BID 10/29/18 [History] Tizanidine HCl [Zanaflex] 4 - 8 mg PO HS 10/29/18 [History] Allergy/AdvReac Type Severity Reaction Status Date / Time No Known Allergies Allergy Verified 09/12/18 17:58 All Systems PM: A 10-system review of systems was performed and is negative for pertinent findings except as documented above in the HPI. Review of systems: General: + unintentional weightloss, No fever Head: No headahce, No injury. Ears: No discharge, No earache Eyes: No drainage, No eye pain Mouth and Throat: No new ulcers, No pain Nose and Sinus: No new congestion, No pain, Respiratory: No cough, No sputum production, No dyspnea Cardiovascular: No chest pain, No palpitations. Gastrointestinal: No nausea, No vomiting. No abdominal pain. Genital Tract: No discharge, No pain Urinary Tract: No dysuria, No discharge. MSK: No new/worsening joint pain, No new/worsening muscle ache. Endocrine: No cold intolerance, No polyuria Psychological: No suicidal, No homocidal ideation. - Constitutional Vitals: Temp Pulse Resp BP Pulse Ox 98.3 F 74 18 119/80 98 10/29/18 14:41 10/29/18 19:25 10/29/18 19:25 10/29/18 19:25 10/29/18 19:25 Exam: General Appearance: Appearing older than age, malnourished frail Head: Atraumatic normocephalic Skin: Normal texture, normal turgor, warm, dry. Eyes: Conjunctivae not pale with no erythema, drainage, or ulcers. Anicteric. Neck: No Lymphadenopathy in the anterior/posterior cervical chain. No thyromegaly, masses or ulcers. Trachea midline. Heart: RRR, no murmurs. Capillary refill 3 seconds Lungs: No accessory muscle usage, lungs clear to auscultation bilaterally, no wheezes or crackles. Extremities: No pitting edema, No clubbing, No cyanosis. Abdomen: Non-distended, normoactive bowel sounds. non-tender to palpation, no hepatomegally. No guarding. Neuro: AOx3 with no new sensory loss or focal deficits. MSK: Strength 5/5 Upper extremity equal bilaterally. Strength 5/5 Lower extremity equal bilaterally Internal Med - H&P Results - Labs CBC & Chem 7: 10/30/18 04:00 10/30/18 04:00 Labs: Short CBC 10/29/18 Range/Units 15:20 WBC 16.5 H (4.3-11.1) K/mcL Hgb 8.7 L (11.5-15.4) g/dL Hct 26.1 L (35.3-44.9) % Plt Count 248 (140-400) K/mcL Neutrophils # 14.2 H (1.6-8.9) K/mcL BMP 10/29/18 15:20 Sodium 146 H Potassium 2.2 L* Chloride 125 H Carbon Dioxide 8 L* BUN 42 H Creatinine 3.53 H Glucose 99 Calcium 5.9 L* Cardiac Enzymes 10/29/18 Range/Units 15:20 Troponin I 0.11 H* (< 0.04) ng/mL Urine 10/29/18 Range/Units 18:40 Urine Color Yellow (Yellow) Urine Clarity Cloudy A (Clear) Urine pH 6.0 (5.0-8.0) pH Units Ur Specific [place] 1.009 L (1.010-1.025) Urine Protein 30 H (Neg-Trace) mg/dL Urine Glucose (UA) Normal (Normal) mg/dL - ABG Interpretation ABG results: 10/29/18 18:01 VBG pH 7.06 L* VBG pCO2 15 L VBG pO2 129 H VBG HCO3 4 L - Impressions ITS Impressions Chest X-Ray 10/29/18 15:02 IMPRESSION: No radiographic evidence of acute cardiopulmonary disease. D/ / Asad Rangel / Asad Rangel Interpreting Provider: Asad Rangel - Summary of Assessment and Plan Summary of Assessment and Plan: 1. Severe Hypokalemia: Secondary to Metabolic acidosis, malbsorption(chrons), and low oral intake. Replacing IV and oral K separate from Bicarb. 2.Mixed NAG and AG metabolic acidosis with respiratory alkalosis: Mixed etiology. Salicylate ordered. No OG. Fluid with (Bicarb/Mg/K) at a low dose 50ml/hr with BMP q2hour. 3.Acute renal failure on CKD stage 3 : Continue IVF. Nephrology consultation. 4.HypoCalcemia: IV replacing. 5.HypoMagnesium: replaced. 6.High risk of refeeding syndrome Continue recheck phospharus and replace as needed. 7.Elevated INR: no evidence of bleeding Hold warfarin. 8.Anemia: Chronic disease. Retic count pending. 9.elevated troponin: demand ischemia. no chest pain,or sob. Continue to monitor. DVT prophyalxi: not indicated Dispo: > 2 day stay. - Time Spent With Patient Total time spent is greater than 39 minutes 50% in coordination of care (as documented) at patient's floor/unit and/or counseling patient: Greater than 35 minutes - VTE Reasons for not Prescribing Prophylaxis: Not indicated-Anticoagulated or INR therapeutic
[2018-10-29] MEDS ORDERED: Potassium Chloride Elixir 20 MEQ/15 ML UDC PO ONE (20:20)
[2018-10-29] MEDS: Calcium Gluconate 1gm/50mL 1 GM/50 ML BAG IVPB SCH ×3 (20:36→21:36)
[2018-10-29 20:53] LABS: ABG Base Excess -20 mEq/L (-2 to 3); ABG HCO3 6 mEq/L (21-27); ABG Oxygen Saturation 98 % (95-98); ABG PCO2 14 mmHg (35-45); ABG PH 7.22 pH Units (7.32-7.45); ABG PO2 120 mmHg (85-104); ABG TCO2 6 mEq/L (20-26)
[2018-10-29 20:55] LABS: Basophils % 0.1 %; Hematocrit 23.2 % (35.3-44.9); Hemoglobin 7.7 g/dL (11.5-15.4); Immature Granulocytes % 0.5 % (0-4); Lymphocytes # 3.6 K/mcL (0.6-4.6); Lymphocytes % 19.9 %; Mean Corpuscular HGB Conc 33.2 g/dL (31.6-35.5); Mean Corpuscular Hemoglobin 27.6 pg (28.0-33.3); Mean Corpuscular Volume 83.2 fL (83.0-100.0); Mean Platelet Volume 11.6 fL (9.4-12.4); Monocytes # 0.8 K/mcL (0.0-1.3); Monocytes % 4.4 %; Neutrophils # 13.5 K/mcL (1.6-8.9); Platelet Count 233 K/mcL (140-400); Red Blood Count 2.79 M/mcL (3.82-4.97); Red Cell Distribution Width 17.2 % (11.5-14.5); Segmented Neutrophils % 75.1 %; White Blood Count 17.9 K/mcL (4.3-11.1)
[2018-10-29 21:14] LABS: Phosphorous 4.4 mg/dL (2.7-4.5)
[2018-10-29 21:17] LABS: Albumin 2.4 g/dL (3.5-5.7); Albumin/Globulin Ratio 1.1 (1.1-2.2); Bilirubin,Total 0.3 mg/dL (0.3-1.0); Calcium 5.9 mg/dL (8.6-10.3); Globulin 2.1 g/dL (2.4-3.5); Potassium 2.7 mEq/L (3.5-5.1); Total Protein 4.5 g/dL (6.4-8.9)
[2018-10-29 21:29] LABS: Triiodothyronine (T3) Free 1.42 pg/mL (2.50-3.90)
[2018-10-29] MEDS: MAGNESIUM SULFATE IVC SCH (22:22)
[2018-10-29] MEDS: POTASSIUM CHLORIDE IVC SCH (22:22)
[2018-10-29] MEDS: [UNRECOGNIZED DRUG - OTHER] IVC SCH (22:22)
[2018-10-29] MEDS: SODIUM BICARBONATE IVC SCH (22:22)
[2018-10-30] MEDS: SODIUM BICARBONATE IVC SCH (00:10)
[2018-10-30] MEDS: POTASSIUM CHLORIDE IVC SCH (00:10)
[2018-10-30] MEDS: MAGNESIUM SULFATE IVC SCH (00:10)
[2018-10-30] MEDS: [UNRECOGNIZED DRUG - OTHER] IVC SCH (00:10)
[2018-10-30 01:30] LABS: Albumin 2.5 g/dL (3.5-5.7); Albumin/Globulin Ratio 1.3 (1.1-2.2); Bilirubin,Total 0.4 mg/dL (0.3-1.0); Calcium 6.1 mg/dL (8.6-10.3); Magnesium 1.5 mg/dL (1.6-2.6); Phosphorous 3.7 mg/dL (2.7-4.5); Total Protein 4.5 g/dL (6.4-8.9)
[2018-10-30] MEDS ORDERED: Potassium Chloride Elixir 20 MEQ/15 ML UDC PO ONE (01:45)
[2018-10-30] MEDS ORDERED: Calcium Gluconate 1gm/50mL 1 GM/50 ML BAG IVPB ONE ×2 (01:47→06:55)
[2018-10-30 03:08] LABS: Bilirubin,Urine Negative (Negative); Blood,Urine Moderate (Negative); Clarity,Urine Clear (Clear); Color,Urine Yellow (Yellow); Glucose,Urine (UA) Normal (Normal); Ketones,Urine Negative (Negative); Leukocyte Esterase,Urine Negative (Negative); Nitrite,Urine Negative (Negative); Protein,Urine 30 mg/dL (Neg-Trace); Urobilinogen,Urine Normal (Normal)
[2018-10-30 03:10] LABS: Bacteria,Urine None Seen per hpf (None-Few); Hyaline Casts,Urine None Seen per lpf (None-Few); RBC,Urine 0-3 per hpf (0-3); Squamous Epithelial Cell,Urine Few per lpf (None-Few); WBC,Urine 0-3 per hpf (0-3)
[2018-10-30 04:49] LABS: Basophils % 0.1 %; Eosinophils % 0.1 %; Hematocrit 22.1 % (35.3-44.9); Hemoglobin 7.3 g/dL (11.5-15.4); Immature Granulocytes % 0.5 % (0-4); Lymphocytes # 2.2 K/mcL (0.6-4.6); Lymphocytes % 13.8 %; Mean Corpuscular Hemoglobin 27.9 pg (28.0-33.3); Mean Corpuscular Volume 84.4 fL (83.0-100.0); Mean Platelet Volume 11.6 fL (9.4-12.4); Monocytes # 0.8 K/mcL (0.0-1.3); Monocytes % 4.9 %; Nucleated Red Blood Cells 0.1 /100 WBC (0); Platelet Count 207 K/mcL (140-400); Red Blood Count 2.62 M/mcL (3.82-4.97); Red Cell Distribution Width 17.2 % (11.5-14.5); Segmented Neutrophils % 80.6 %; White Blood Count 16.1 K/mcL (4.3-11.1)
[2018-10-30 05:08] LABS: INR 5.1; Prothrombin Time 57.8 Seconds (9.4-12.1)
[2018-10-30 05:28] LABS: Albumin 2.4 g/dL (3.5-5.7); Albumin/Globulin Ratio 1.3 (1.1-2.2); Bilirubin,Total 0.3 mg/dL (0.3-1.0); Calcium 6.4 mg/dL (8.6-10.3); Globulin 1.9 g/dL (2.4-3.5); Magnesium 1.5 mg/dL (1.6-2.6); Phosphorous 3.1 mg/dL (2.7-4.5); Potassium 3.1 mEq/L (3.5-5.1); Total Protein 4.3 g/dL (6.4-8.9)
[2018-10-30] MEDS ORDERED: SODIUM BICARBONATE IVC SCH (06:22)
[2018-10-30] MEDS ORDERED: MAGNESIUM SULFATE IVC SCH (06:22)
[2018-10-30] MEDS ORDERED: POTASSIUM CHLORIDE IVC SCH (06:22)
[2018-10-30] MEDS ORDERED: [UNRECOGNIZED DRUG - OTHER] IVC SCH (06:22)
[2018-10-30] MEDS: Folic Acid 1 MG TABLET PO SCH (08:56)
[2018-10-30] MEDS: Vitamin B Complex/Vit C/Vit E 1 EACH TABLET PO SCH (08:56)
[2018-10-30] MEDS: Thiamine (B-1) 100 MG TABLET PO SCH (08:56)
--- NOTE | 2018-10-30 09:10 | Nephrology Consult Note ---
Date of Encounter: 10/30/18 Time of Encounter: 08:48 Assessment and Plan (1) JEOVANY (acute kidney injury) Current Visit: Yes Status: Acute Currently has D5 with 150 meq bicarb, 2gm Mg, and 40 meq K+ running at 50ml/hour. When current IVF bag complete advise D5 with 150 meq bicarb to run at 100m//hour Continue BMP every 2 hours Encourage patient to push water intake when p.o. (2) CKD (chronic kidney disease) stage 3, GFR 30-59 ml/min Current Visit: Yes Status: Acute Baseline Scr 1.[address] Lanza (3) Hypokalemia Current Visit: Yes Status: Chronic Being replaced (4) Hypocalcemia Current Visit: No Status: Chronic Being replaced (5) Hypomagnesemia Current Visit: No Status: Resolved Being replaced (6) Crohn disease Current Visit: No Status: Chronic per primary team Qualifiers: Gastrointestinal tract location: unspecified location Digestive disease complication type: other complication Qualified Code(s): K50.918 - Crohn's disease, unspecified, with other complication History of Present Illness - Reason for Consult Consult date: 10/30/18 - Chief Complaint weakness, CKD stage 3 - History of Present Illness Ms. Kaur is a 73 year old female who follows with Dr Hess for her CKD stage 3, with past medical history of Crohn's disease status post ileal resection, CKD, CVA who presented to the ED for weakness. Patient reported about 1 year ago she has had ileal resection on 7 feet and since then has been having at least 5 bowel movements are mostly watery. Patient reported 30 pounds of weight loss. For past week she has not been eating or drinking and staying in bed due to concern for fall. Patient developed an JEOVANY on CKD and nephrology has been consulted to manage this. Past Med Surg Social Fam HX - Past Medical History Medical history: arthritis, CVA, hepatitis, hyperlipidemia, renal disease Additional medical history: Stroke. Crohns Psychiatric history: no psych history - Past Surgical History Surgical History: cataract, colectomy Additional surgical history: Tubal Ligation. Colon resection small bowel - Social History Smoking Status: Never smoker Smokeless Tobacco Status: No Alcohol use: none Drug use: none - Family History Mother Living Status: Hx Family Cardiac Disorders: Yes Father Hx Family Cardiac Disorders: Yes Medications and Allergies Atorvastatin [Lipitor] 10 mg PO DAILY 03/02/15 [History] Cetirizine HCl [Zyrtec] 10 mg PO DAILY PRN 03/02/15 [History] Glucosamine Sulfate Dipot Chlr [Glucosamine] 1,000 mg PO DAILY 03/02/15 [History] Sertraline [Zoloft] 100 mg PO DAILY 03/02/15 [History] Colesevelam HCl [Welchol] 1,250 mg PO DAILY 09/12/18 [History] Ergocalciferol (VITAMIN D2) [Vitamin D2] 50,000 unit PO CHA 09/12/18 [History] Famotidine [Pepcid] 20 mg PO DAILY PRN 09/12/18 [History] Ferrous Sulfate 325 mg PO DAILY 09/12/18 [History] Ipratropium [place] 2 spray NS BID 09/12/18 [History] Lisinopril 2.5 mg PO DAILY 09/12/18 [History] Warfarin [Coumadin] 2 mg PO AD 09/15/18 [History] Dicyclomine [Bentyl] 20 mg PO TID #21 capsule 09/17/18 [Rx] Potassium Chloride 20 meq PO DAILY #10 tab.er.prt 09/17/18 [Rx] Sodium Bicarbonate 325 mg PO BID 10/29/18 [History] Tizanidine HCl [Zanaflex] 4 - 8 mg PO HS 10/29/18 [History] Allergy/AdvReac Type Severity Reaction Status Date / Time No Known Allergies Allergy Verified 09/12/18 17:58 Review of Systems All Systems: reviewed and no additional remarkable complaints except as stated Constitutional: anorexia, weakness, weight loss Cardiovascular: no chest pain Neurological: no confusion Exam - Vital Signs Vital signs: Initial Vital Signs Temp Pulse Resp BP Pulse Ox 98.3 F 77 16 114/75 98 10/29/18 14:41 10/29/18 14:41 10/29/18 14:41 10/29/18 14:41 10/29/18 14:41 Vital Signs - Last 8 Hours Temp Pulse Resp BP Pulse Ox 10/30/18 08:00 82 15 112/70 100 10/30/18 07:28 97.4 F L 10/30/18 07:00 81 18 94/64 99 10/30/18 06:01 70 16 118/78 100 10/30/18 05:03 65 15 93/58 100 10/30/18 04:00 71 15 102/66 100 10/30/18 03:07 97.4 F L 76 12 112/77 100 10/30/18 02:51 82 10/30/18 02:00 75 16 117/88 99 10/30/18 01:03 81 16 121/102 100 Intake and Output 10/29/18 10/30/18 10/30/18 23:59 07:59 15:59 Intake Total 2795 / 2795 1487 / 1487 Output Total 550 / 550 Balance 2795 / 2795 937 / 937 Intake: IV Fluids 2595 / 2595 1287 / 1287 0.9 % Sodium Chloride 1,000 ML 1000 / 1000 @ 500 mls/hr IVC .Q2H ONE Rx#: [id number] Lactated Ringers 1,000 ML @ 999 1000 / 1000 mls/hr IVC .Q1H1M ONE Rx#: [id number] Sodium Bicarbonate 150 MEQ 637 / 637 Potassium Chloride 40 MEQ Magnesium Sulfate 2 GM In Dextrose 5% 1,000 ML @ 100 mls/ hr IVC .[id number] [facility] Rx#: [id number] Calcium Gluconate 1gm/50mL 1 gm 150 / 150 50 / 50 In 50 ml @ 50 mls/hr IVPB ONCE ONE Rx#:[id number] Magnesium Sulfate Premix 2gm/ 50 / 50 50mL 2 gm In 50 ml @ 25 mls/hr IVPB Q6H PRN Rx#:[id number] Potassium Chloride 10 mEq/100mL 200 / 200 600 / 600 10 meq In 100 ml @ 100 mls/hr IVPB Q1H [facility] Rx#:[id number] Potassium Phosphate 22 MEQ In 0 195 / 195 .9 % Sodium Chloride 250 ML @ 40 mls/hr IVPB ONCE ONE Rx#: [id number] Oral 200 / 200 200 / 200 Output: Catheter 550 / 550 Other: Weight 51.9 kg Blood Glucose* 75 Patient Weight 10/30/18 23:59 Weight 51.9 kg - General Appearance General appearance: cachectic EENT: ATNC, mucous membranes moist, hearing intact, vision intact Neck: supple Respiratory: clear Cardiology: no edema, normal S1, normal S2 Gastrointestinal: no tenderness Neurologic: alert and oriented x3 Results - Lab Results 10/30/18 04:00 10/30/18 04:00 Most recent lab results 10/29/18 10/29/18 10/29/18 20:38 20:38 20:40 ABG pH 7.22 L ABG pCO2 14 L* ABG pO2 120 H ABG HCO3 6 L ABG O2 Saturation 98 Calcium 5.9 L* Phosphorus 4.4 Magnesium Urine Creatinine Urine Sodium 10/30/18 10/30/18 10/30/18 00:55 02:25 04:00 ABG pH ABG pCO2 ABG pO2 ABG HCO3 ABG O2 Saturation Calcium 6.1 L 6.4 L Phosphorus 3.7 3.1 Magnesium 1.5 L 1.5 L Urine Creatinine 38 Urine Sodium 58.0 Consult Discharge Plan - Plan Referrals: Varinder Hamilton MD [Primary Care Provider] -
--- NOTE | 2018-10-30 09:49 | Pulmonology Consult Note ---
<Juan M Meyer - Last Filed: 10/30/18 11:21> Date of Encounter: 10/30/18 Time of Encounter: 09:48 Assessment and Plan (1) Failure to thrive Current Visit: Yes Status: Acute Presented with failure to thrive, multiple electrolyte deficiencies. Likely malabsorption d/t Crohn's disease and chronic diarrhea. Also poor PO intake. Monitor for increased risk of refeeding syndrome. EPIV placed for improved access. Plan: - Repleting with MIVFs with bicarb/mg/K - Started electrolyte protocol - Trending BMP q4hrs - Nutrition consulted Qualifiers: Failure to thrive age range: in adult Qualified Code(s): R62.7 - Adult failure to thrive (2) Metabolic acidosis Current Visit: Yes Status: Acute Metabolic acidosis with resp alkalosis. No anion gap. Salicylates negative. Plan: - Giving fluids with bicarb (3) Anemia Current Visit: Yes Status: Chronic Chronic issue. No source of active bleeding. Plan: - Cont to monitor - Transfuse if hgb <7 - F/u retic count Qualifiers: Anemia type: unspecified type Qualified Code(s): D64.9 - Anemia, unspecified (4) Supratherapeutic INR Current Visit: Yes Status: Acute Takes warfarin at home. Plan: - Hold warfarin for now - Reverse with 5mg vit K (5) CKD (chronic kidney disease) Current Visit: Yes Status: Chronic Plan: - Cont IVFs - Nephrology consulted Qualifiers: Chronic kidney disease stage: stage 3 (moderate) Qualified Code(s): N18.3 - Chronic kidney disease, stage 3 (moderate) (6) Crohn disease Current Visit: Yes Status: Chronic Stable, likely contributing to diarrhea and malabsorption. Plan: - Cont to monitor Qualifiers: Gastrointestinal tract location: unspecified location Digestive disease complication type: other complication Qualified Code(s): K50.918 - Crohn's disease, unspecified, with other complication (7) Hypokalemia Current Visit: Yes Status: Acute Plan: - Cont to monitor - On electrolyte protocol (8) Hypocalcemia Current Visit: Yes Status: Acute Plan: - Cont to monitor - On electrolyte protocol (9) Hypomagnesemia Current Visit: Yes Status: Acute Plan: - Cont to monitor - On electrolyte protocol (10) Atrial fibrillation Current Visit: Yes Status: Chronic Chronic issue. On warfarin. Plan: - Supratherapeutic INR - Holding warfarin for now - Gave 5mg vit K to reverse Qualifiers: Atrial fibrillation type: paroxysmal Qualified Code(s): I48.0 - Paroxysmal atrial fibrillation (11) Elevated troponin Current Visit: Yes Status: Acute Likely demand ischemia, no chest pain/palps/dyspnea. Plan: - Cont to trend/monitor (12) DVT prophylaxis Current Visit: Yes Status: Acute Plan: - Hold warfarin for now History of Present Illness Consult date: 10/30/18 Requesting physician: Mari Aparicio Reason for consult: other Chief complaint: weakness History of present illness: Patient is a 73-year-old female with a past medical history of CAD, Crohn's disease that is post ileal resection, remote CVA, atrial fibrillation presents with failure to thrive, severe hypokalemia, supratherapeutic INR. She initially endorsed approximately 4 days of generalized weakness, decreased appetite, chills, chronic diarrhea due to her Crohn's disease. She says that she has about 5-6 bowel movements per day. She was also expressing increasing difficulty with ambulation secondary to generalized weakness. She was hospitalized about 2 weeks ago for similar symptoms. Denies having any recent sick contacts. Did not endorse any recent traumas or falls. Otherwise no chest pain, palpitations, syncope, dyspnea, abdominal pain, nausea or vomiting. Upon admission the previous night, patient was started on maintenance fluids with bicarbonate/MG/K to replete her electrolytes. She was found to have a metabolic acidosis with respiratory alkalosis. Likely due to poor oral intake, malabsorption. She also had a supratherapeutic INR of 6.1. Significant labs WBC 16, Hgb 7.3, PLT 207, pH 7.22, bicarbonate 6, potassium of 2.7. At bedside this morning, patient reports improvement in her symptoms. However she continues to endorse a decreased appetite and does not feel like eating food. She also mentions that she has not taken many of her medications, except for her warfarin. She denies any smoking, alcohol use or recreational drug use. She lives at home with her spouse who helps keep track of her medications with her. Past Med Surg Social Fam HX - Past Medical History Attestation: Yes The following information was validated with the patient. Source: patient Medical history: arthritis, CVA, hepatitis, hyperlipidemia, renal disease Additional medical history: Stroke. Crohns Psychiatric history: no psych history - Past Surgical History Surgical History: cataract, colectomy Additional surgical history: Tubal Ligation. Colon resection small bowel - Social History Smoking Status: Never smoker Smokeless Tobacco Status: No Alcohol use: none Drug use: none - Family History Mother Living Status: Hx Family Cardiac Disorders: Yes Father Hx Family Cardiac Disorders: Yes Medications and Allergies Atorvastatin [Lipitor] 10 mg PO DAILY 03/02/15 [History] Cetirizine HCl [Zyrtec] 10 mg PO DAILY PRN 03/02/15 [History] Glucosamine Sulfate Dipot Chlr [Glucosamine] 1,000 mg PO DAILY 03/02/15 [History] Sertraline [Zoloft] 100 mg PO DAILY 03/02/15 [History] Colesevelam HCl [Welchol] 1,250 mg PO DAILY 09/12/18 [History] Ergocalciferol (VITAMIN D2) [Vitamin D2] 50,000 unit PO CHA 09/12/18 [History] Famotidine [Pepcid] 20 mg PO DAILY PRN 09/12/18 [History] Ferrous Sulfate 325 mg PO DAILY 09/12/18 [History] Ipratropium [place] 2 spray NS BID 09/12/18 [History] Lisinopril 2.5 mg PO DAILY 09/12/18 [History] Warfarin [Coumadin] 2 mg PO AD 09/15/18 [History] Dicyclomine [Bentyl] 20 mg PO TID #21 capsule 09/17/18 [Rx] Potassium Chloride 20 meq PO DAILY #10 tab.er.prt 09/17/18 [Rx] Sodium Bicarbonate 325 mg PO BID 10/29/18 [History] Tizanidine HCl [Zanaflex] 4 - 8 mg PO HS 10/29/18 [History] Allergy/AdvReac Type Severity Reaction Status Date / Time No Known Allergies Allergy Verified 09/12/18 17:58 All Systems: The remainder of the systems were reviewed and are negative - Constitutional Constitutional: as per HPI - EENT Eyes: as per HPI Ears: as per HPI Nose, mouth and throat: no disequilibrium, no dizziness, no headache(s) - Cardiovascular Cardiovascular: no chest pain, no dyspnea, no dyspnea on exertion - Respiratory Respiratory: no cough, no dyspnea, no hemoptysis - Gastrointestinal Gastrointestinal: no abdominal pain, no cramping, no diarrhea - Genitourinary Genitourinary: no difficulty urinating, no difficulty voiding, no dysuria - Musculoskeletal Musculoskeletal: no abnormal gait, no arthralgias, no back pain - Integumentary Integumentary: no erythema, no rash, no jaundice - Neurological Neurological: no abnormal gait, no confusion, no dizziness - Psychiatric Psychiatric: no anxiety, no depression, no mood swings - Endocrine Endocrine: fatigue, no polydipsia, no polyphagia, no polyuria - Hematologic/Lymphatic Hematologic/Lymphatic: no easy bleeding, no easy bruising, no lymphadenopathy Physical Examination Vital Signs: Vital Signs, Last 4 Hours Temp Pulse Resp BP Pulse Ox 10/30/18 09:00 71 16 126/84 100 10/30/18 08:00 71 15 112/70 100 10/30/18 07:28 97.4 F L 10/30/18 07:00 81 18 94/64 99 10/30/18 06:01 70 16 118/78 100 General appearance: no acute distress Eyes: nonicteric ENT: oropharynx moist Neck: supple Effort: normal Inspection: normal Auscultation: bilateral: clear Cardiovascular: regular rate and rhythm Gastrointestinal: normoactive bowel sounds, non-distended Integumentary: normal Extremities: no cyanosis, no edema, no clubbing Musculoskeletal: no deformities, ROM normal normal mental status, non-focal exam mood appropriate, affect normal Results - Laboratory Findings CBC and BMP: 10/30/18 04:00 10/30/18 09:10 ABG ABG pH 7.22 pH Units (7.32-7.45) L 10/29/18 20:40 ABG pCO2 14 mmHg (35-45) L* 10/29/18 20:40 ABG pO2 120 mmHg (85-104) H 10/29/18 20:40 ABG O2 Saturation 98 % (95-98) 10/29/18 20:40 PT/INR, D-dimer PT 57.8 Seconds (9.4-12.1) H* 10/30/18 04:00 Abnormal lab findings: Abnormal lab results WBC 16.1 K/mcL (4.3-11.1) H 10/30/18 04:00 RBC 2.62 M/mcL (3.82-4.97) L 10/30/18 04:00 Hgb 7.3 g/dL (11.5-15.4) L 10/30/18 04:00 Hct 22.1 % (35.3-44.9) L 10/30/18 04:00 MCV 82.3 fL (83.0-100.0) L 10/29/18 15:20 MCH 27.9 pg (28.0-33.3) L 10/30/18 04:00 RDW 17.2 % (11.5-14.5) H 10/30/18 04:00 Neutrophils # 13.0 K/mcL (1.6-8.9) H 10/30/18 04:00 Nucleated RBCs/100 WBC 0.1 /100 WBC (0) H 10/30/18 04:00 PT 57.8 Seconds (9.4-12.1) H* 10/30/18 04:00 INR 5.1 H* 10/30/18 04:00 ABG pH 7.22 pH Units (7.32-7.45) L 10/29/18 20:40 ABG pCO2 14 mmHg (35-45) L* 10/29/18 20:40 ABG pO2 120 mmHg (85-104) H 10/29/18 20:40 ABG HCO3 6 mEq/L (21-27) L 10/29/18 20:40 ABG Total CO2 6 mEq/L (20-26) L 10/29/18 20:40 ABG Base Excess -20 mEq/L (-2 to 3) L 10/29/18 20:40 VBG pH 7.06 pH Units (7.32-7.42) L* 10/29/18 18:01 VBG pCO2 15 mmHg (41-51) L 10/29/18 18:01 VBG pO2 129 mmHg (25-50) H 10/29/18 18:01 VBG HCO3 4 mEq/L (21-27) L 10/29/18 18:01 Sodium 148 mEq/L (136-145) H 10/30/18 00:55 Potassium 3.1 mEq/L (3.5-5.1) L 10/30/18 04:00 Chloride 126 mEq/L (98-107) H 10/30/18 04:00 Carbon Dioxide 8 mEq/L (23-29) L* 10/30/18 04:00 BUN 37 mg/dL (8-23) H 10/30/18 04:00 Creatinine 2.92 mg/dL (0.60-1.20) H 10/30/18 04:00 Est GFR ( Amer) 19 (> 60) L 10/30/18 04:00 Est GFR (Non-Af Amer) 16 (> 60) L 10/30/18 04:00 Glucose 110 mg/dL (70-105) H 10/30/18 04:00 Calculated Osmolality 309 (280-300) H 10/30/18 04:00 Calcium 6.4 mg/dL (8.6-10.3) L 10/30/18 04:00 Venous Ioniz Calcium 0.68 mmol/L (1.15-1.35) L 10/29/18 18:12 Magnesium 1.5 mg/dL (1.6-2.6) L 10/30/18 04:00 Alkaline Phosphatase 123 Units/L (34-104) H 10/30/18 04:00 Troponin I 0.09 ng/mL (< 0.04) H* 10/30/18 00:55 Serum Total Protein 4.3 g/dL (6.4-8.9) L 10/30/18 04:00 Albumin 2.4 g/dL (3.5-5.7) L 10/30/18 04:00 Globulin 1.9 g/dL (2.4-3.5) L 10/30/18 04:00 TSH 6.246 mcIU/mL (0.340-5.600) H 10/29/18 15:20 Free T4 0.54 ng/dl (0.70-2.00) L 10/29/18 20:38 Free T3 1.42 pg/mL (2.50-3.90) L 10/29/18 20:38 Urine Clarity Cloudy (Clear) A 10/29/18 18:40 Ur Specific Chama 1.009 (1.010-1.025) L 10/29/18 18:40 Urine Protein 30 mg/dL (Neg-Trace) H 10/30/18 02:25 Urine Blood Moderate (Negative) H 09/12/19 02:25 Ur Leukocyte Esterase Large (Negative) H 10/29/18 18:40 Urine Microscopic RBC 30-50 per hpf (0-3) H 10/29/18 18:40 Urine Microscopic WBC 5-15 per hpf (0-3) H 10/29/18 18:40 Ur Squamous Epith Cells Many per lpf (None-Few) H 10/29/18 18:40 Amorphous Sediment Moderate (Few) H 10/29/18 18:40 Urine Bacteria Moderate per hpf (None-Few) H 10/29/18 18:40 Ur Oval Fat Bodies Present (Not Present) A 10/29/18 18:40 Ur Culture Indicated? YES (NO) A 10/29/18 18:40 - Microbiology Findings Microbiology Findings: Microbiology, Last 48 Hours 10/29/18 18:40 Urine Culture - Preliminary Urine,Clean Catch Culture is incubating. 10/29/18 16:25 Blood Culture - Preliminary Peripheral Venipuncture Culture is incubating and being continuously monit ored for growth. Final report to follow. 10/29/18 16:30 Blood Culture - Preliminary Peripheral Venipuncture Culture is incubating and being continuously monitored for growth. Final report to follow. - Clinical Findings Intake & Output: Intake & Output 10/29/18 10/30/18 10/30/18 23:59 07:59 15:59 Intake Total 2795 / 2795 1487 / 1587 100 / 1587 Output Total 550 / 550 Balance 2795 / 2795 937 / 1037 100 / 1037 Weight 51.9 kg Consult Discharge Plan - Plan Referrals: Varinder Hamilton MD [Primary Care Provider] - <Marita Holbrook - Last Filed: 10/30/18 22:40> Date of Encounter: 10/30/18 All Systems: The remainder of the systems were reviewed and are negative Physical Examination Vital Signs: Vital Signs, Last 4 Hours Temp Pulse Resp BP Pulse Ox 10/30/18 22:00 77 18 99/62 96 10/30/18 21:00 86 18 117/75 96 10/30/18 20:00 97.4 F L 83 18 148/85 96 10/30/18 19:00 81 16 102/89 100 Results - Laboratory Findings CBC and BMP: 10/30/18 11:55 10/30/18 11:55 ABG ABG pH 7.22 pH Units (7.32-7.45) L 10/29/18 20:40 ABG pCO2 14 mmHg (35-45) L* 10/29/18 20:40 ABG pO2 120 mmHg (85-104) H 10/29/18 20:40 ABG O2 Saturation 98 % (95-98) 10/29/18 20:40 PT/INR, D-dimer PT 57.8 Seconds (9.4-12.1) H* 10/30/18 04:00 Abnormal lab findings: Abnormal lab results WBC 17.7 K/mcL (4.3-11.1) H 10/30/18 11:55 RBC 2.90 M/mcL (3.82-4.97) L 10/30/18 11:55 Hgb 8.0 g/dL (11.5-15.4) L 10/30/18 11:55 Hct 23.9 % (35.3-44.9) L 10/30/18 11:55 MCV 82.4 fL (83.0-100.0) L 10/30/18 11:55 MCH 27.6 pg (28.0-33.3) L 10/30/18 11:55 RDW 17.2 % (11.5-14.5) H 10/30/18 11:55 Neutrophils # 14.3 K/mcL (1.6-8.9) H 10/30/18 11:55 Nucleated RBCs/100 WBC 0.2 /100 WBC (0) H 10/30/18 11:55 PT 57.8 Seconds (9.4-12.1) H* 10/30/18 04:00 INR 5.1 H* 10/30/18 04:00 ABG pH 7.22 pH Units (7.32-7.45) L 10/29/18 20:40 ABG pCO2 14 mmHg (35-45) L* 10/29/18 20:40 ABG pO2 120 mmHg (85-104) H 10/29/18 20:40 ABG HCO3 6 mEq/L (21-27) L 10/29/18 20:40 ABG Total CO2 6 mEq/L (20-26) L 10/29/18 20:40 ABG Base Excess -20 mEq/L (-2 to 3) L 10/29/18 20:40 VBG pH 7.11 pH Units (7.32-7.42) L* 10/30/18 09:35 VBG pCO2 26 mmHg (41-51) L 10/30/18 09:35 VBG pO2 152 mmHg (25-50) H 10/30/18 09:35 VBG HCO3 8 mEq/L (21-27) L 10/30/18 09:35 Sodium 146 mEq/L (136-145) H 10/30/18 09:10 Potassium 3.3 mEq/L (3.5-5.1) L 10/30/18 11:55 Chloride 125 mEq/L (98-107) H 10/30/18 11:55 Carbon Dioxide 10 mEq/L (23-29) L* 10/30/18 11:55 BUN 35 mg/dL (8-23) H 10/30/18 11:55 Creatinine 2.82 mg/dL (0.60-1.20) H 10/30/18 11:55 Est GFR ( Amer) 20 (> 60) L 10/30/18 11:55 Est GFR (Non-Af Amer) 17 (> 60) L 10/30/18 11:55 Glucose 145 mg/dL (70-105) H 10/30/18 11:55 Calculated Osmolality 311 (280-300) H 10/30/18 11:55 Calcium 6.6 mg/dL (8.6-10.3) L 10/30/18 11:55 Venous Ioniz Calcium 1.14 mmol/L (1.15-1.35) L 10/30/18 12:18 Phosphorus 2.3 mg/dL (2.7-4.5) L 10/30/18 11:55 Magnesium 1.5 mg/dL (1.6-2.6) L 10/30/18 04:00 Alkaline Phosphatase 123 Units/L (34-104) H 10/30/18 04:00 Troponin I 0.07 ng/mL (< 0.04) H* 10/30/18 09:10 Serum Total Protein 4.3 g/dL (6.4-8.9) L 10/30/18 04:00 Albumin 2.4 g/dL (3.5-5.7) L 10/30/18 04:00 Globulin 1.9 g/dL (2.4-3.5) L 10/30/18 04:00 TSH 6.246 mcIU/mL (0.340-5.600) H 10/29/18 15:20 Free T4 0.54 ng/dl (0.70-2.00) L 10/29/18 20:38 Free T3 1.42 pg/mL (2.50-3.90) L 10/29/18 20:38 Urine Clarity Cloudy (Clear) A 10/29/18 18:40 Ur Specific Chama 1.009 (1.010-1.025) L 10/29/18 18:40 Urine Protein 30 mg/dL (Neg-Trace) H 10/30/18 02:25 Urine Blood Moderate (Negative) H 10/30/18 02:25 Ur Leukocyte Esterase Large (Negative) H 10/29/18 18:40 Urine Microscopic RBC 30-50 per hpf (0-3) H 10/29/18 18:40 Urine Microscopic WBC 5-15 per hpf (0-3) H 10/29/18 18:40 Ur Squamous Epith Cells Many per lpf (None-Few) H 10/29/18 18:40 Amorphous Sediment Moderate (Few) H 10/29/18 18:40 Urine Bacteria Moderate per hpf (None-Few) H 10/29/18 18:40 Ur Oval Fat Bodies Present (Not Present) A 10/29/18 18:40 Ur Culture Indicated? YES (NO) A 10/29/18 18:40 Salicylates < 2.5 mg/dL (15.0-30.0) L 10/30/18 09:10 - Microbiology Findings Microbiology Findings: Microbiology, Last 48 Hours 10/29/18 18:40 Urine Culture - Preliminary Urine,Clean Catch Gram Negative Gordon 10/29/18 16:25 Blood Culture - Preliminary Peripheral Venipuncture Culture is incubating and being continuously monitored for growth. Final report to follow. 10/29/18 16:30 Blood Culture - Preliminary Peripheral Venipuncture Culture is incubating and being continuously monitored for growth. Final report to follow. - Clinical Findings Intake & Output: Intake & Output 10/30/18 10/30/18 10/30/18 07:59 15:59 23:59 Intake Total 1487 / 3124.5 1050.5 / 3124.5 587 / 3124.5 Output Total 550 / 800 250 / 800 Balance 937 / 2324.5 800.5 / 2324.5 587 / 2324.5 Weight 51.9 kg - Attending Attestation I saw and evaluated this patient and my medical decision-making was reviewed with the Resident Physician. I agree with the documented findings, disposition and treatment plan as described except to the extent set forth below. We i ndependently had [id number] contact with the patient Patient seen and examined at bedside Labs, radiology, chart personally reviewed. Management was reviewed during multidisciplinary critical care rounds. STAFF MECHANICAL ENGINEER: Patient conscious oriented 3 no evidence of focal neurological deficit no evidence of encephalopathy. Pulm: Patient has acceptable oxygenation and ventilation no evidence of pn eumonia or hydrostatic pulmonary edema Cards: Patient is hemodynamically stable. FEN-GI: Patient has significant chronic disease with a high output diarrhea causing this multiple electrolytes abnormalities with the non-gap acidosis. Renal: Patient has acute on chronic kidney injury with multiple electrolyte abnormalities as read non-gap acidosis ID: No active infectious issues will culture the stool for possible any gastrointestinal infection Heme/Onc: Patient has chronic anemia most likely due to kidney disease will monitor hemoglobin any bleeding. Endo: Glucose Monitored Integ/MSK: Skin Care per routine ICU Nursing Protocol to prevent ulcers. Lines: All lines examined without evidence of infection : Dispo: to stay in the ICU for multiple electrolyte abnormalities once stable we will transfer her out CODE: Full Code
[2018-10-30 09:50] LABS: VBG HCO3 8 mEq/L (21-27); VBG PCO2 26 mmHg (41-51); VBG PH 7.11 pH Units (7.32-7.42); VBG PO2 152 mmHg (25-50)
[2018-10-30 09:56] LABS: Salicylate < 2.5 mg/dL (15.0-30.0)
[2018-10-30 10:10] LABS: BUN/Creatinine Ratio 13 (6-26); Blood Urea Nitrogen 36 mg/dL (8-23); Calcium 6.3 mg/dL (8.6-10.3); Carbon Dioxide 8 mEq/L (23-29); Chloride 126 mEq/L (98-107); Glucose 100 mg/dL (70-105); Osmolality,Calculated 310 (280-300); Potassium 3.7 mEq/L (3.5-5.1); Sodium 146 mEq/L (136-145); Troponin I 0.07 ng/mL (< 0.04); eGFR For African Americans 20 (> 60); eGFR For Non-African Americans 17 (> 60)
[2018-10-30] MEDS ORDERED: Calcium Gluconate 1gm/50mL 1 GM/50 ML BAG IVPB PRN (10:50)
[2018-10-30] MEDS ORDERED: Potassium Phosphate 44 MEQ in 0.9 % Sodium Chloride 250 ML IVPB PRN (10:50)
[2018-10-30] MEDS: Pantoprazole 40 MG VIAL IVP SCH (11:59)
[2018-10-30 12:16] LABS: Basophils % 0.2 %; Eosinophils % 0.1 %; Hematocrit 23.9 % (35.3-44.9); Immature Granulocytes % 0.7 % (0-4); Lymphocytes # 2.4 K/mcL (0.6-4.6); Lymphocytes % 13.8 %; Mean Corpuscular HGB Conc 33.5 g/dL (31.6-35.5); Mean Corpuscular Hemoglobin 27.6 pg (28.0-33.3); Mean Corpuscular Volume 82.4 fL (83.0-100.0); Mean Platelet Volume 11.9 fL (9.4-12.4); Monocytes # 0.8 K/mcL (0.0-1.3); Monocytes % 4.6 %; Neutrophils # 14.3 K/mcL (1.6-8.9); Nucleated Red Blood Cells 0.2 /100 WBC (0); Platelet Count 179 K/mcL (140-400); Red Cell Distribution Width 17.2 % (11.5-14.5); Segmented Neutrophils % 80.6 %; White Blood Count 17.7 K/mcL (4.3-11.1)
[2018-10-30 12:21] LABS: VBG Ionized Calcium 1.14 mmol/L (1.15-1.35)
[2018-10-30 12:42] LABS: Calcium 6.6 mg/dL (8.6-10.3); Magnesium 1.6 mg/dL (1.6-2.6); Phosphorous 2.3 mg/dL (2.7-4.5); Potassium 3.3 mEq/L (3.5-5.1)
--- NOTE | 2018-10-30 17:48 | Electrocardiograph Report ---
[place] [id number] Test Date: 2018-10-29 Pat Name: Yarelis Kaur Department: EXAM20 Room: [facility] Gender: F Warp Tester: : 1945 Requested By: [id number] Order Number: [id number] Reading MD: Eliza Sen Measurements Intervals [place] Rate: 80 P: 67 [place]: 125 QRS: 74 QRSD: 98 T: -70 QT: 363 QTc: 419 Interpretive Statements Sinus rhythm Borderline repolarization abnormality Baseline wander Electronically Signed On 10-30-2018 17:46:42 EDT by Eliza Sen
[2018-10-30] MEDS: Sodium Bicarbonate 150 MEQ in D5% in Water 1,000 ML IVC SCH (20:54)
[2018-10-31 03:26] LABS: Basophils % 0.1 %; Eosinophils # 0.1 K/mcL (0.0-0.6); Eosinophils % 0.4 %; Hematocrit 21.9 % (35.3-44.9); Hemoglobin 7.4 g/dL (11.5-15.4); Immature Granulocytes % 0.4 % (0-4); Lymphocytes # 3.2 K/mcL (0.6-4.6); Lymphocytes % 19.2 %; Mean Corpuscular HGB Conc 33.8 g/dL (31.6-35.5); Mean Corpuscular Hemoglobin 27.3 pg (28.0-33.3); Mean Corpuscular Volume 80.8 fL (83.0-100.0); Mean Platelet Volume 11.3 fL (9.4-12.4); Monocytes # 0.8 K/mcL (0.0-1.3); Monocytes % 4.6 %; Neutrophils # 12.4 K/mcL (1.6-8.9); Nucleated Red Blood Cells 0.1 /100 WBC (0); Platelet Count 197 K/mcL (140-400); Red Blood Count 2.71 M/mcL (3.82-4.97); Red Cell Distribution Width 16.4 % (11.5-14.5); Segmented Neutrophils % 75.3 %; White Blood Count 16.4 K/mcL (4.3-11.1)
[2018-10-31 03:34] LABS: VBG Ionized Calcium 1.04 mmol/L (1.15-1.35)
[2018-10-31 03:37] LABS: INR 1.7; Prothrombin Time 18.9 Seconds (9.4-12.1)
[2018-10-31 03:53] LABS: Albumin 2.2 g/dL (3.5-5.7); Albumin/Globulin Ratio 1.2 (1.1-2.2); Bilirubin,Total 0.6 mg/dL (0.3-1.0); Calcium 6.1 mg/dL (8.6-10.3); Globulin 1.9 g/dL (2.4-3.5); Magnesium 1.9 mg/dL (1.6-2.6); Phosphorous 3.6 mg/dL (2.7-4.5); Potassium 3.2 mEq/L (3.5-5.1); Total Protein 4.1 g/dL (6.4-8.9)
[2018-10-31 03:58] LABS: Troponin I 0.04 ng/mL (< 0.04)
[2018-10-31] MEDS ORDERED: Potassium Chloride 40 MEQ, Lidocaine 1% 2 ML in 0.9 % Sodium Chloride 500 ML IVPB ONE (07:46)
[2018-10-31] MEDS: Sodium Bicarbonate 150 MEQ in D5% in Water 1,000 ML IVC SCH ×2 (08:33→20:23)
[2018-10-31] MEDS: Thiamine (B-1) 100 MG TABLET PO SCH (08:33)
[2018-10-31] MEDS: Pantoprazole 40 MG VIAL IVP SCH (08:33)
[2018-10-31] MEDS: Vitamin B Complex/Vit C/Vit E 1 EACH TABLET PO SCH (08:33)
[2018-10-31] MEDS: Folic Acid 1 MG TABLET PO SCH (08:33)
--- NOTE | 2018-10-31 09:54 | Nephrology Progress Note ---
Date of Encounter: 10/31/18 Time of Encounter: 09:53 - Assessment and Plan (1) JEOVANY (acute kidney injury) Current Visit: Yes Status: Acute The patient multifactorial acute kidney injury superimposed on chronic kidney disease. Her renal function appears to be improving slightly. She still has a metabolic acidosis and I recommend continuing hydration and continue with bicarbonate supplementation. Replace potassium as needed. She is not acutely need dialysis. We will continue to monitor.. (2) Crohn disease Current Visit: Yes Status: Chronic Qualifiers: Gastrointestinal tract location: unspecified location Digestive disease complication type: other complication Qualified Code(s): K50.918 - Crohn's disease, unspecified, with other complication (3) Hypokalemia Current Visit: Yes Status: Acute Being replaced (4) Hypomagnesemia Current Visit: Yes Status: Acute (5) CKD (chronic kidney disease) stage 3, GFR 30-59 ml/min Current Visit: Yes Status: Acute Baseline Scr 1.[address] Lanza (6) Hypocalcemia Current Visit: Yes Status: Acute Subjective Principal diagnosis: jeovany/ckd Interval history: The patient was seen. She feels better. She denies chest pain or shortness of breath. Review of system otherwise appears to be stable. Objective - Vital Signs Vital signs: Vital Signs Temp Pulse Resp BP Pulse Ox 10/31/18 09:00 79 12 104/69 91 10/31/18 08:50 75 10/31/18 08:16 77 13 122/98 100 10/31/18 07:45 97.5 F L 68 8 100/67 100 10/31/18 06:00 66 12 94/65 100 10/31/18 05:00 64 12 84/57 100 10/31/18 04:00 97.5 F L 79 12 89/59 100 10/31/18 03:28 81 10/31/18 03:00 69 12 83/58 100 10/31/18 02:00 75 18 89/56 96 10/31/18 01:00 76 18 95/65 96 10/31/18 00:00 79 18 87/67 96 10/30/18 23:56 85 10/30/18 23:00 77 18 79/65 96 10/30/18 22:00 77 18 99/62 96 10/30/18 21:00 86 18 117/75 96 10/30/18 20:00 97.4 F L 83 18 148/85 96 10/30/18 19:00 81 16 102/89 100 10/30/18 18:00 79 16 123/92 100 10/30/18 17:17 72 15 118/96 98 10/30/18 15:51 71 10/30/18 15:00 79 15 103/70 100 10/30/18 14:00 72 16 108/95 100 10/30/18 13:00 71 17 108/66 100 10/30/18 12:00 72 15 100 10/30/18 11:45 97.2 F L 70 10/30/18 11:00 70 14 136/80 96 10/30/18 10:00 74 14 110/73 98 Intake and Output 10/30/18 10/31/18 10/31/18 23:59 07:59 15:59 Intake Total 847 / 3384.5 640 / 1740 1100 / 1740 Output Total 150 / 950 900 / 900 Balance 697 / 2434.5 -260 / 840 1100 / 840 Intake: IV Fluids 847 / 2434.5 400 / 1500 1100 / 1500 Sodium Bicarbonate 150 MEQ In 1000 / 1000 Dextrose 5% 1,000 ML @ 100 mls/ hr IVC .[id number] [facility] Rx#: [id number] Sodium Bicarbonate 150 MEQ 537 / 1174 Potassium Chloride 40 MEQ Magnesium Sulfate 2 GM In Dextrose 5% 1,000 ML @ 100 mls/ hr IVC .[id number] [facility] Rx#: [id number] Calcium Gluconate 1gm/50mL 1 gm 50 / 50 In 50 ml @ 50 mls/hr IVPB Q6HR PRN Rx#:[id number] Magnesium Sulfate Premix 2gm/ 50 / 50 50 / 50 50mL 2 gm In 50 ml @ 25 mls/hr IVPB Q6H PRN Rx#:[id number] Potassium Chloride 10 mEq/100mL 300 / 400 100 / 400 10 meq In 100 ml @ 100 mls/hr IVPB Q1H PRN Rx#:[id number] Potassium Phosphate 44 MEQ In 0 260 / 260 .9 % Sodium Chloride 250 ML @ 40 mls/hr IVPB Q10H PRN Rx#: [id number] Oral 240 / 240 Output: Catheter 150 / 950 900 / 900 Other: Stool Size Moderate Small Stool Consistency liquid formed Stool Color Brown # Bowel Movements 1 Weight 53 kg Patient Weight 10/31/18 23:59 Weight 53 kg - General Appearance General appearance: Present: well-developed, well-nourished EENT: Present: ATNC Neck: Present: supple Respiratory: Present: course breath sounds Cardiology: Present: regular rate Neurologic: Present: alert and oriented x3 Psychiatric: Present: mood/affect appropriate - Lab 10/31/18 03:18 10/31/18 09:52 Most recent lab results 10/31/18 03:18 Calcium 6.1 L Phosphorus 3.6 Magnesium 1.9 - VTE Reasons for not Prescribing Prophylaxis: Not indicated-Anticoagulated or INR therapeutic Consult Discharge Plan - Plan Referrals: Varinder Hamilton MD [Primary Care Provider] -
[2018-10-31] MEDS ORDERED: cefTRIAXone 2,000 MG in Water for inj. (sterile) 20 ML IVP SCH (10:00)
[2018-10-31 10:31] LABS: Calcium 6.7 mg/dL (8.6-10.3); Magnesium 2.7 mg/dL (1.6-2.6); Potassium 3.7 mEq/L (3.5-5.1)
[2018-10-31] MEDS ORDERED: Sodium Bicarbonate 150 MEQ in D5% in Water 1,000 ML IVC SCH (10:53)
[2018-10-31] MEDS ORDERED: Potassium Chloride Elixir 20 MEQ/15 ML UDC PO PRN (11:30)
[2018-10-31] MEDS ORDERED: Water for inj. (sterile) 20 ML IV ONE (11:34)
[2018-10-31] MEDS ORDERED: *HR* Heparin 5,000 UNIT/ML VIAL SQ SCH (14:00)
--- NOTE | 2018-10-31 15:32 | Internal Med Progress Note ---
Hospitalist Progress Note - Encounter Date of Encounter: 10/31/18 Time of Encounter: 09:25 - Subjective Interval History: Patient denies any complaints other than chronic diarrhea/loose BM's. She has history of Crohn's and had bowel resection in the 1969's She has lost weight unintentionally over the years. She does not follow with GI. She denies any GI bleeding. Hgb drop likely due to dilutional effect. Patient is hungry and would like to try to eat something. I asked dietary to suggest formula/supplement and dietary guidance given her short gut. Patient remains hemodynamically stable and can transfer to step down unit. - Exam Vitals: Temp Pulse Resp BP Pulse Ox 97.0 F L 81 13 115/87 91 10/31/18 12:09 10/31/18 14:23 10/31/18 14:23 10/31/18 14:23 10/31/18 14:23 Exam: General: NAD; cachectic HEENT: neck supple, dry mucosa Chest: CTA B, No WRRR, RRR, NO MTR Abd: soft, NT, ND, NO HSMG, + hyperactive BS Ext: no calf pain, No CCE, equal pulses Skin: warm, dry Neuro: no focal deficits, A&Ox3 - Assessment and Plan (1) Failure to thrive Current Visit: Yes Status: Acute Assessment and Plan: 1. Continue IVF. 2. Dietary consultation for nutrition guidance in the setting of short gut syndrome. 3. Consult GI for assistance given Crohns and short gut syndrome. 4. Transfer to step down unit for ongoing care. (2) Metabolic acidosis Current Visit: Yes Status: Acute Assessment and Plan: 1. Non-gap acidosis due to GI losses. 2. On IVF with Bicarb per nephrology. 3. Monitor electrolytes and correct as necessary. (3) Acute kidney injury superimposed on CKD Current Visit: Yes Status: Acute Assessment and Plan: 1. Nephrology following. 2. IVF and bicarbonate infusion per nephrology. 3. Monitor renal function closely. (4) Malnourished Current Visit: Yes Status: Chronic Assessment and Plan: 1. Will start feeds per nutrition guidance. 2. Consult GI for assistance given her history of Crohn's and short gut. (5) DVT prophylaxis Current Visit: Yes Status: Acute Assessment and Plan: 1. Heparin SQ. - Time Spent with Patient Total time spent is greater than 50% in coordination of care (as documented) at patient's floor/unit and/or counseling patient: Plan of Care Discussed with: other (Dr. Holbrook and MDR team) Internal Medicine: Result - Labs CBC & Chem 7: 10/31/18 03:18 10/31/18 09:52 Labs: Short CBC 10/31/18 Range/Units 03:18 WBC 16.4 H (4.3-11.1) K/mcL Hgb 7.4 L (11.5-15.4) g/dL Hct 21.9 L (35.3-44.9) % Plt Count 197 (140-400) K/mcL Neutrophils # 12.4 H (1.6-8.9) K/mcL BMP 10/31/18 10/31/18 03:18 09:52 Sodium 146 H 146 H Potassium 3.2 L 3.7 Chloride 125 H 119 H Carbon Dioxide 12 L 15 L BUN 30 H 28 H Creatinine 2.46 H 2.22 H Glucose 116 H 138 H Calcium 6.1 L 6.7 L Cardiac Enzymes 10/31/18 Range/Units 03:18 Troponin I 0.04 H* (< 0.04) ng/mL Liver Function 10/31/18 Range/Units 03:18 Total Bilirubin 0.6 (0.3-1.0) mg/dL AST 17 (13-39) Units/L ALT 22 (7-52) Units/L Alkaline Phosphatase 119 H (34-104) Units/L Albumin 2.2 L (3.5-5.7) g/dL - ABG Interpretation ABG results: ABG ABG pH 7.22 pH Units (7.32-7.45) L 10/29/18 20:40 ABG pCO2 14 mmHg (35-45) L* 10/29/18 20:40 ABG pO2 120 mmHg (85-104) H 10/29/18 20:40 ABG O2 Saturation 98 % (95-98) 10/29/18 20:40 PT/INR, D-dimer PT 18.9 Seconds (9.4-12.1) H D 10/31/18 03:18 - VTE Reasons for not Prescribing Prophylaxis: Not indicated-Anticoagulated or INR therapeutic Consult Discharge Plan - Plan Referrals: Varinder Hamilton MD [Primary Care Provider] - (1) Failure to thrive Qualifiers: Failure to thrive age range: in adult Qualified Code(s): R62.7 - Adult failure to thrive (4) Malnourished Qualifiers: Malnutrition type: unspecified type Qualified Code(s): E46 - Unspecified protein-calorie malnutrition
[2018-10-31] MEDS ORDERED: 0.9 % Sodium Chloride 250 ML ONE (18:26)
[2018-10-31] MEDS ORDERED: Ondansetron ODT 4 MG TAB.RAPDIS SL PRN (20:54)
[2018-10-31] MEDS ORDERED: Naloxone 0.4 MG/ML INJ IVP PRN (20:54)
[2018-10-31] MEDS: *HR* Heparin 5,000 UNIT/ML VIAL SQ SCH (23:25)
[2018-11-01 00:58] LABS: VBG Ionized Calcium 1.03 mmol/L (1.15-1.35)
[2018-11-01] MEDS: Calcium Gluconate 1gm/50mL 1 GM/50 ML BAG IVPB PRN ×4 (01:37→23:19)
[2018-11-01] MEDS: Potassium Chloride Elixir 20 MEQ/15 ML UDC PO PRN ×2 (01:51→09:11)
[2018-11-01] MEDS: *HR* Heparin 5,000 UNIT/ML VIAL SQ SCH ×3 (06:08→20:26)
[2018-11-01] MEDS: Sodium Bicarbonate 150 MEQ in D5% in Water 1,000 ML IVC SCH ×3 (06:08→23:10)
[2018-11-01 06:32] LABS: Hematocrit 27.6 % (35.3-44.9); Mean Corpuscular HGB Conc 34.4 g/dL (31.6-35.5); Mean Corpuscular Hemoglobin 27.6 pg (28.0-33.3); Mean Corpuscular Volume 80.2 fL (83.0-100.0); Mean Platelet Volume 12.8 fL (9.4-12.4); Platelet Count 171 K/mcL (140-400); Red Blood Count 3.44 M/mcL (3.82-4.97); Red Cell Distribution Width 15.7 % (11.5-14.5)
[2018-11-01 06:34] LABS: Calcium 6.5 mg/dL (8.6-10.3); Potassium 3.2 mEq/L (3.5-5.1)
[2018-11-01 06:42] LABS: Hemoglobin 9.5 g/dL (11.5-15.4)
[2018-11-01 07:46] LABS: Magnesium 1.9 mg/dL (1.6-2.6); Phosphorous 2.9 mg/dL (2.7-4.5)
[2018-11-01] MEDS: Pantoprazole 40 MG VIAL IVP SCH (09:04)
[2018-11-01] MEDS: Vitamin B Complex/Vit C/Vit E 1 EACH TABLET PO SCH (09:05)
[2018-11-01] MEDS: Folic Acid 1 MG TABLET PO SCH (09:05)
[2018-11-01] MEDS: Thiamine (B-1) 100 MG TABLET PO SCH (09:05)
[2018-11-01] MEDS: cefTRIAXone 2,000 MG in Water for inj. (sterile) 20 ML IVP SCH (09:05)
[2018-11-01] MEDS: Potassium Phosphate 44 MEQ in 0.9 % Sodium Chloride 250 ML IVPB PRN (10:27)
--- NOTE | 2018-11-01 11:37 | Internal Med Progress Note ---
Hospitalist Progress Note - Encounter Date of Encounter: 11/01/18 Time of Encounter: 11:34 - Subjective Interval History: Patient seen and examined. Patient states she has no acute complaints. She says she is feeling better and eating a little better. Nutrition is seeing the patient. - Exam Vitals: Temp Pulse Resp BP Pulse Ox 97.8 F 75 16 109/77 99 11/01/18 07:16 11/01/18 07:16 11/01/18 07:16 11/01/18 07:16 11/01/18 07:16 Exam: General: NAD; poorly nourished HEENT: neck supple, dry mucosa Chest: CTA B, No WRRR, RRR, NO MTR Abd: soft, NT, ND, NO HSMG, + hyperactive BS Ext: no calf pain, No CCE, equal pulses Skin: warm, dry Neuro: no focal deficits, A&Ox3 - Assessment and Plan (1) Failure to thrive Current Visit: Yes Status: Acute Assessment and Plan: Patient presenting with several week history of extremely poor oral intake Several electrolyte abnormalities on admission Significant weight loss in the last year 1. Continue IVF. 2. Dietary consultation for nutrition guidance in the setting of short gut syndrome. 3. Consult GI for assistance given Crohns and short gut syndrome. 4. Monitor closely for refeeding syndrome: recheck and replace phosphorous as needed (2) Metabolic acidosis Current Visit: Yes Status: Acute Assessment and Plan: Patient presenting with metabolic acidosis Nephrology has been consulted: continue bicarb GTT for now (3) Acute kidney injury superimposed on CKD Current Visit: Yes Status: Acute Assessment and Plan: On admission, Cr was 3.1 which has improved to 1.94; likely 2/2 severe dehydration Continue IVF Nephrology on board (4) Hypocalcemia Current Visit: Yes Status: Acute (5) Hypokalemia Current Visit: Yes Status: Acute Assessment and Plan: Replace and monitor per electrolyte replacement protocol (6) Hypomagnesemia Current Visit: Yes Status: Acute Assessment and Plan: Replace and monitor per electrolyte replacement protocol (7) Supratherapeutic INR Current Visit: Yes Status: Acute Assessment and Plan: INR on admission 6.1 has now normalized Patient is on sub q heprain for DVT prophylaxis (8) Atrial fibrillation Current Visit: Yes Status: Chronic Assessment and Plan: see above (9) Elevated troponin Current Visit: Yes Status: Acute Assessment and Plan: Patient's troponins 0.09, 0.07, 0.04; likely 2/2 demand ischemia; no chest pain or other symptoms suggestive of cardiac etiology Continue to monitor clinical picture (10) DVT prophylaxis Current Visit: Yes Status: Acute Assessment and Plan: Replace and monitor per electrolyte replacement protocol - Time Spent with Patient Total time spent is greater than 50% in coordination of care (as documented) at patient's floor/unit and/or counseling patient: 45 Plan of Care Discussed with: patient Internal Medicine: Result - Labs CBC & Chem 7: 11/01/18 06:00 11/01/18 06:00 Labs: Short CBC 11/01/18 Range/Units 06:00 WBC 17.0 H (4.3-11.1) K/mcL Hgb 9.5 L D (11.5-15.4) g/dL Hct 27.6 L (35.3-44.9) % Plt Count 171 (140-400) K/mcL BMP 10/31/18 11/01/18 23:20 06:00 Sodium 145 Potassium 3.1 L 3.2 L Chloride 118 H Carbon Dioxide 17 L BUN 24 H Creatinine 1.94 H Glucose 106 H Calcium 6.5 L - ABG Interpretation ABG results: ABG ABG pH 7.22 pH Units (7.32-7.45) L 10/29/18 20:40 ABG pCO2 14 mmHg (35-45) L* 10/29/18 20:40 ABG pO2 120 mmHg (85-104) H 10/29/18 20:40 ABG O2 Saturation 98 % (95-98) 10/29/18 20:40 PT/INR, D-dimer PT 18.9 Seconds (9.4-12.1) H D 10/31/18 03:18 - VTE Reasons for not Prescribing Prophylaxis: Not indicated-Anticoagulated or INR therapeutic Consult Discharge Plan - Plan Referrals: Varinder Hamilton MD [Primary Care Provider] - (1) Failure to thrive Qualifiers: Failure to thrive age range: in adult Qualified Code(s): R62.7 - Adult failure to thrive (8) Atrial fibrillation Qualifiers: Atrial fibrillation type: paroxysmal Qualified Code(s): I48.0 - Paroxysmal atrial fibrillation
--- NOTE | 2018-11-01 11:43 | Nephrology Progress Note ---
Date of Encounter: 11/01/18 Time of Encounter: 11:43 - Assessment and Plan (1) JEOVANY (acute kidney injury) Current Visit: Yes Status: Acute The patient multifactorial acute kidney injury superimposed on chronic kidney disease. Her renal function appears to be improving slightly. She still has a metabolic acidosis and I recommend continuing hydration and continue with bicarbonate supplementation. Replace potassium as needed. She does not acutely need dialysis. We will continue to monitor.. (2) Crohn disease Current Visit: Yes Status: Chronic Qualifiers: Gastrointestinal tract location: unspecified location Digestive disease complication type: other complication Qualified Code(s): K50.918 - Crohn's disease, unspecified, with other complication (3) Hypokalemia Current Visit: Yes Status: Acute (4) Hypomagnesemia Current Visit: Yes Status: Acute (5) CKD (chronic kidney disease) stage 3, GFR 30-59 ml/min Current Visit: Yes Status: Acute (6) Hypocalcemia Current Visit: Yes Status: Acute Subjective Principal diagnosis: jeovany/ckd Interval history: The patient was seen. She was asleep. Objective - Vital Signs Vital signs: Vital Signs Temp Pulse Resp BP Pulse Ox 11/01/18 11:40 99.2 F 97 16 118/84 99 11/01/18 07:16 97.8 F 75 16 109/77 99 10/31/18 23:26 98.7 F 80 20 126/101 92 10/31/18 21:40 97.7 F 84 18 105/74 99 10/31/18 19:52 97.7 F 83 20 122/83 100 10/31/18 19:03 98.7 F 85 18 119/88 97 10/31/18 19:02 98.7 F 85 18 119/88 97 10/31/18 18:48 98.0 F 83 18 133/97 100 10/31/18 17:21 90 10/31/18 14:23 81 13 115/87 91 10/31/18 12:09 97.0 F L 10/31/18 11:52 71 10/31/18 11:46 68 16 113/90 100 Intake and Output 10/31/18 11/01/18 11/01/18 23:59 07:59 15:59 Intake Total 777 / 2997 1050 / 1120 70 / 1120 Balance 777 / 1797 1050 / 1120 70 / 1120 Intake: IV Fluids 1050 / 1120 70 / 1120 Sodium Bicarbonate 150 MEQ In 1000 / 1000 Dextrose 5% 1,000 ML @ 150 mls/ hr IVC .Q7H40M [facility] Rx#: [id number] Rocephin 2,000 MG In Water for 20 / 20 inj. (sterile) 20 ML @ 600 mls/ hr IVP Q24H [facility] Rx#:[id number] Calcium Gluconate 1gm/50mL 1 gm 50 / 100 50 / 100 In 50 ml @ 50 mls/hr IVPB Q6HR PRN Rx#:[id number] Oral 120 / 840 Blood Product 657 / 657 Rbcs Leuko Poor As-1 Unit 657 / 657 [id number] Other: Stool Size Large Stool Consistency liquid Stool Characteristics Normal for Patient Stool Color Pale # Voids 6 # Bowel Movements 3 Weight 60.1 kg Patient Weight 11/01/18 23:59 Weight 60.1 kg - General Appearance General appearance: Present: well-developed, well-nourished EENT: Present: ATNC Neck: Present: supple Cardiology: Present: regular rate Integumentary: Present: warm and dry - Lab 11/01/18 06:00 11/01/18 06:00 Most recent lab results 11/01/18 06:00 Calcium 6.5 L Phosphorus 2.9 Magnesium 1.9 - VTE Reasons for not Prescribing Prophylaxis: Not indicated-Anticoagulated or INR therapeutic Consult Discharge Plan - Plan Referrals: Varinder Hamilton MD [Primary Care Provider] -
[2018-11-01 15:42] LABS: VBG Ionized Calcium 0.94 mmol/L (1.15-1.35)
[2018-11-01 22:06] LABS: VBG Ionized Calcium 0.89 mmol/L (1.15-1.35)
[2018-11-02 03:53] LABS: Hematocrit 25.8 % (35.3-44.9); Hemoglobin 8.8 g/dL (11.5-15.4); Mean Corpuscular HGB Conc 34.1 g/dL (31.6-35.5); Mean Corpuscular Hemoglobin 27.5 pg (28.0-33.3); Mean Corpuscular Volume 80.6 fL (83.0-100.0); Mean Platelet Volume 12.4 fL (9.4-12.4); Platelet Count 115 K/mcL (140-400); White Blood Count 14.6 K/mcL (4.3-11.1)
[2018-11-02 03:58] LABS: VBG Ionized Calcium 0.89 mmol/L (1.15-1.35)
[2018-11-02 04:17] LABS: Calcium 5.7 mg/dL (8.6-10.3); Potassium 2.8 mEq/L (3.5-5.1)
[2018-11-02] MEDS: Calcium Gluconate 1gm/50mL 1 GM/50 ML BAG IVPB PRN ×3 (05:10→21:45)
[2018-11-02] MEDS: Potassium Chloride Elixir 20 MEQ/15 ML UDC PO PRN (05:15)
[2018-11-02] MEDS: Levothyroxine 25 MCG TABLET PO SCH (05:16)
[2018-11-02] MEDS: *HR* Heparin 5,000 UNIT/ML VIAL SQ SCH ×3 (05:16→19:53)
[2018-11-02] MEDS: Sodium Bicarbonate 150 MEQ in D5% in Water 1,000 ML IVC SCH ×3 (07:23→19:54)
--- NOTE | 2018-11-02 08:59 | Nephrology Progress Note ---
Date of Encounter: 11/02/18 Time of Encounter: 08:57 - Assessment and Plan (1) JEOVANY (acute kidney injury) Current Visit: Yes Status: Acute The patient multifactorial acute kidney injury superimposed on chronic kidney disease. Her renal function appears to be improving Her metabolic acidosis has resolved. Okay to discontinue supplemental intraveno us fluid. Replace potassium as needed. She does not acutely need dialysis. We will continue to monitor.. (2) Crohn disease Current Visit: Yes Status: Chronic Qualifiers: Gastrointestinal tract location: unspecified location Digestive disease complication type: other complication Qualified Code(s): K50.918 - Crohn's disease, unspecified, with other complication (3) Hypokalemia Current Visit: Yes Status: Acute Being replaced (4) Hypomagnesemia Current Visit: Yes Status: Acute (5) CKD (chronic kidney disease) stage 3, GFR 30-59 ml/min Current Visit: Yes Status: Acute (6) Hypocalcemia Current Visit: Yes Status: Acute Subjective Principal diagnosis: jeovany/ckd Interval history: The patient was seen. She was asleep. Objective - Vital Signs Vital signs: Vital Signs Temp Pulse Resp BP Pulse Ox 11/02/18 07:04 98.0 F 82 16 129/76 94 11/02/18 04:04 97.4 F L 90 16 107/70 94 11/02/18 00:37 99.2 F 80 16 113/64 98 11/01/18 19:31 98.8 F 85 16 115/85 96 11/01/18 15:55 99.9 F H 106 18 116/85 96 11/01/18 11:40 99.2 F 97 16 118/84 99 Intake and Output 11/01/18 11/02/18 11/02/18 23:59 07:59 15:59 Intake Total 1460 / 3780 1300 / 1300 Balance 1460 / 3780 1300 / 1300 Intake: IV Fluids 1460 / 3780 1300 / 1300 Sodium Bicarbonate 150 MEQ In 1150 / 3300 1150 / 1150 Dextrose 5% 1,000 ML @ 150 mls/ hr IVC .Q7H40M [facility] Rx#: [id number] Calcium Gluconate 1gm/50mL 1 gm 50 / 150 50 / 50 In 50 ml @ 50 mls/hr IVPB Q6HR PRN Rx#:[id number] Potassium Chloride 10 mEq/100mL 100 / 100 10 meq In 100 ml @ 100 mls/hr IVPB Q1H PRN Rx#:[id number] Potassium Phosphate 44 MEQ In 0 260 / 260 .9 % Sodium Chloride 250 ML @ 40 mls/hr IVPB Q10H PRN Rx#: [id number] Other: Stool Size Small Moderate Stool Consistency liquid liquid soft Stool Color Brown Yellow # Voids 1 # Bowel Movement Diapers 1 Weight 59.6 kg Patient Weight 11/02/18 23:59 Weight 59.6 kg - General Appearance General appearance: Present: well-developed, well-nourished EENT: Present: ATNC Cardiology: Present: regular rate - Lab 11/02/18 03:34 11/02/18 03:34 Most recent lab results 11/01/18 11/02/18 11/02/18 21:30 03:34 03:34 Calcium 5.7 L* Phosphorus 4.0 Magnesium 1.8 - VTE Reasons for not Prescribing Prophylaxis: Not indicated-Anticoagulated or INR therapeutic Consult Discharge Plan - Plan Referrals: Varinder Hamilton MD [Primary Care Provider] -
--- NOTE | 2018-11-02 09:42 | Internal Med Progress Note ---
Hospitalist Progress Note - Encounter Date of Encounter: 11/02/18 Time of Encounter: 09:40 - Subjective Interval History: Patient seen and examined. No acute events overnight. Patient still having diarrhea. Patient reports she is feeling better. Tolerating PO diet well. - Exam Vitals: Temp Pulse Resp BP Pulse Ox 98.0 F 82 16 129/76 94 11/02/18 07:04 11/02/18 07:04 11/02/18 07:04 11/02/18 07:04 11/02/18 07:04 Exam: General: NAD; poorly nourished HEENT: neck supple, dry mucosa Chest: CTA B, No WRRR, RRR, NO MTR Abd: soft, NT, ND, NO HSMG, + hyperactive BS Ext: no calf pain, No CCE, equal pulses Skin: warm, dry Neuro: no focal deficits, A&Ox3 - Assessment and Plan (1) Failure to thrive Current Visit: Yes Status: Acute Assessment and Plan: Patient presenting with several week history of extremely poor oral intake Several electrolyte abnormalities on admission Significant weight loss in the last year 1. Continue IVF. 2. Dietary consultation for nutrition guidance in the setting of short gut syndrome. 3. Consult GI for assistance given Crohns and short gut syndrome. 4. Monitor closely for refeeding syndrome: recheck and replace phosphorous as needed (2) Metabolic acidosis Current Visit: Yes Status: Acute Assessment and Plan: Patient presenting with metabolic acidosis; now resolved; Fluids stopped per nephro Plan: nephrology on board (3) Acute kidney injury superimposed on CKD Current Visit: Yes Status: Acute Assessment and Plan: On admission, Cr was 3.1 which has improved to 1.94; likely 2/2 severe dehydration Nephrology on board (4) Crohns disease Current Visit: Yes Status: Acute Assessment and Plan: Patient with history of Crohn's Persistent diarrhea during admission Malabsoroption complicating electorlyte disturbances Plan: GI on board Check C. diff (5) Hypocalcemia Current Visit: Yes Status: Acute Assessment and Plan: Persistent hypocalcemia (see Crohn's above) Replace and monitor per electrolyte replacement protocol (6) Hypokalemia Current Visit: Yes Status: Acute Assessment and Plan: Replace and monitor per electrolyte replacement protocol (7) Hypomagnesemia Current Visit: Yes Status: Acute Assessment and Plan: Replace and monitor per electrolyte replacement protocol (8) Supratherapeutic INR Current Visit: Yes Status: Acute Assessment and Plan: INR on admission 6.1 has now normalized Patient is on sub q heprain for DVT prophylaxis (9) Atrial fibrillation Current Visit: Yes Status: Chronic Assessment and Plan: see above (10) Elevated troponin Current Visit: Yes Status: Acute Assessment and Plan: Patient's troponins 0.09, 0.07, 0.04; likely 2/2 demand ischemia; no chest pain or other symptoms suggestive of cardiac etiology Continue to monitor clinical picture (11) DVT prophylaxis Current Visit: Yes Status: Acute Assessment and Plan: Subq heprain - Time Spent with Patient Total time spent is greater than 50% in coordination of care (as documented) at patient's floor/unit and/or counseling patient: 35 minutes Plan of Care Discussed with: patient Internal Medicine: Result - Labs CBC & Chem 7: 11/02/18 03:34 11/02/18 03:34 Labs: Short CBC 11/02/18 Range/Units 03:34 WBC 14.6 H (4.3-11.1) K/mcL Hgb 8.8 L (11.5-15.4) g/dL Hct 25.8 L (35.3-44.9) % Plt Count 115 L (140-400) K/mcL BMP 11/01/18 11/02/18 21:30 03:34 Sodium 146 H Potassium 3.2 L 2.8 L Chloride 113 H Carbon Dioxide 24 BUN 17 Creatinine 1.49 H Glucose 110 H Calcium 5.7 L* - ABG Interpretation ABG results: ABG ABG pH 7.22 pH Units (7.32-7.45) L 10/29/18 20:40 ABG pCO2 14 mmHg (35-45) L* 10/29/18 20:40 ABG pO2 120 mmHg (85-104) H 10/29/18 20:40 ABG O2 Saturation 98 % (95-98) 10/29/18 20:40 PT/INR, D-dimer PT 18.9 Seconds (9.4-12.1) H D 10/31/18 03:18 - VTE Reasons for not Prescribing Prophylaxis: Not indicated-Anticoagulated or INR therapeutic Consult Discharge Plan - Plan Referrals: Varinder Hamilton MD [Primary Care Provider] - (1) Failure to thrive Qualifiers: Failure to thrive age range: in adult Qualified Code(s): R62.7 - Adult failure to thrive (9) Atrial fibrillation Qualifiers: Atrial fibrillation type: paroxysmal Qualified Code(s): I48.0 - Paroxysmal atrial fibrillation
[2018-11-02] MEDS: Thiamine (B-1) 100 MG TABLET PO SCH (09:43)
[2018-11-02] MEDS: Folic Acid 1 MG TABLET PO SCH (09:44)
[2018-11-02] MEDS: Vitamin B Complex/Vit C/Vit E 1 EACH TABLET PO SCH (09:44)
[2018-11-02] MEDS: Pantoprazole 40 MG VIAL IVP SCH (09:45)
[2018-11-02] MEDS: cefTRIAXone 2,000 MG in Water for inj. (sterile) 20 ML IVP SCH (09:45)
[2018-11-02] MEDS ORDERED: Ergocalciferol (VIT D2) 50,000 UNIT (1.25MG) CAP PO SCH (10:10)
[2018-11-02 11:12] LABS: VBG Ionized Calcium 0.84 mmol/L (1.15-1.35)
[2018-11-02 11:22] LABS: Potassium 3.3 mEq/L (3.5-5.1)
[2018-11-02 17:56] LABS: Potassium 3.5 mEq/L (3.5-5.1)
[2018-11-02 18:12] LABS: Calcium 6.4 mg/dL (8.6-10.3)
[2018-11-02 21:08] LABS: VBG Ionized Calcium 0.93 mmol/L (1.15-1.35)
[2018-11-03] MEDS ORDERED: 0.9 % Sodium Chloride 500 ML IV ONE (01:25)
[2018-11-03 04:00] LABS: VBG Ionized Calcium 1.02 mmol/L (1.15-1.35)
[2018-11-03 04:18] LABS: Calcium 6.5 mg/dL (8.6-10.3); Magnesium 1.8 mg/dL (1.6-2.6); Phosphorous 2.5 mg/dL (2.7-4.5); Potassium 3.9 mEq/L (3.5-5.1)
--- NOTE | 2018-11-03 05:13 | Event Note ---
Date of Encounter: 11/02/18 Time of Encounter: 19:44 Alerted by pts. nurse JEFFERSON Billings the patient was admitted for AMS and electrolyte imbalance. Patient is currently experiencing Crohn's flareup. Reports from today recommend DC fluids which have now been DCd. Alerted by pts. nurse at 21:25 that the pt. was having repeated episodes of diarrhea r/t her Crohn's disease. Pt. stated she did not want to eat or drink d/t repeated diarrhea episodes. I reviewed current research regarding the use of Imodium in Crohn's patients experiencing flareups with diarrhea and electrolyte imbalances. Recommendation that Imodium may help these patients reabsorb electrolytes better and reduce imbalances. One time dose of 2 mg Imodium ordered which helped to slow the pts diarrhea and volume loss. Pt. was hypotensive overnight and closely monitored. Nurse instructed to hold all BP and opioid pain medications if BP <120/70. No boluses given d/t pts. current 2+ pitting edema in LEs. Nurse instructed to cycle BPs Q15MIN and give me the results. Patient maintained 80s over 50s overnight w/no acute changes in assessments. Imodium 2 mg ordered Q8HR. Will continue to monitor output and electrolytes in f/u labs. Nurse instructed to continue monitoring this pt. very closely and alert me immediately of any adverse changes or increases in diarrhea.
[2018-11-03] MEDS: Calcium Gluconate 1gm/50mL 1 GM/50 ML BAG IVPB PRN (05:18)
[2018-11-03] MEDS: Potassium Phosphate 44 MEQ in 0.9 % Sodium Chloride 250 ML IVPB PRN (06:06)
[2018-11-03] MEDS: *HR* Heparin 5,000 UNIT/ML VIAL SQ SCH ×3 (06:10→20:27)
[2018-11-03] MEDS: Levothyroxine 25 MCG TABLET PO SCH (06:15)
[2018-11-03 08:09] LABS: Hematocrit 25.2 % (35.3-44.9); Hemoglobin 8.4 g/dL (11.5-15.4); Mean Corpuscular HGB Conc 33.3 g/dL (31.6-35.5); Mean Corpuscular Hemoglobin 27.6 pg (28.0-33.3); Mean Corpuscular Volume 82.9 fL (83.0-100.0); Mean Platelet Volume 13.4 fL (9.4-12.4); Platelet Count 112 K/mcL (140-400); Red Blood Count 3.04 M/mcL (3.82-4.97); Red Cell Distribution Width 16.2 % (11.5-14.5); White Blood Count 13.8 K/mcL (4.3-11.1)
[2018-11-03] MEDS: Thiamine (B-1) 100 MG TABLET PO SCH (08:33)
[2018-11-03] MEDS: Vitamin B Complex/Vit C/Vit E 1 EACH TABLET PO SCH (08:33)
[2018-11-03] MEDS: Folic Acid 1 MG TABLET PO SCH (08:33)
[2018-11-03] MEDS: Pantoprazole 40 MG VIAL IVP SCH (08:34)
--- NOTE | 2018-11-03 10:08 | Gastroenterology Consult Note ---
<Montse Kaura - Last Filed: 11/03/18 14:34> Date of Encounter: 11/03/18 Time of Encounter: 09:58 - Assessment and plan (1) Crohn disease Current Visit: Yes Status: Chronic Assessment and plan: History of Crohn's disease diagnosis over 20 years ago Colonoscopy on 12/12/17 which showed mild inflammation throughout colon Complaining of 6-7 episodes of watery diarrhea ongoing since her discharge from the hospital on 09/17/18 Denies any hematochezia or melena Due to ongoing episodes of diarrhea will start IV Solu-Medrol Continue to replete electrolytes given low calcium, potassium and phosphorus Continue protein replacement supplemental drinks given significant weight loss due to poor oral intake prior to admission Plan for EGD and colonoscopy tomorrow to rule out Crohn's flare Fecal calprotectin ordered Qualifiers: Gastrointestinal tract location: unspecified location Digestive disease complication type: other complication Qualified Code(s): K50.918 - Crohn's disease, unspecified, with other complication (2) Malnourished Current Visit: Yes Status: Chronic Assessment and plan: Likely secondary to poor oral intake and prefuse diarrhea Reports 30 pound unintentional weight loss due to poor appetite Continue nutritional supplement Continue electrolyte repletion Plan for EGD and colonoscopy tomorrow Qualifiers: Malnutrition type: unspecified type Qualified Code(s): E46 - Unspecified protein-calorie malnutrition - Time Spent With Patient Total time spent is greater than 50% in coordination of care (as documented) at patient's floor/unit and/or counseling patient: GI History of Present Illness - Data of Consult Requesting Physician: Jacky Culp MD - Consult Narrative History of present illness: Ms. Kaur is a 73 year old female with past medical history of Crohn's, CTD stage III, CVA, hyperlipidemia who presented to the ED on 10/19/18 complaining of diffuse weakness. She has history of hemicolectomy with ileocolonic anastomosis. Reported her the past 2 weeks she has had decreased oral intake due to loss of appetite. Also complaining of 6-7 watery bowel movements daily ongoing since her discharge from hospital on 09/17/18. She had colonoscopy and EGD on 12/12/17, colonoscopy showed mild inflammation. She reports diagnosis of Crohn's for the past 20 years used to be on Humira 2 years to call but stopped taking it 6 months ago. Does report Wilver aided in having decreased frequency of bowel movements when she did take it. She is denying any hematochezia or melena. Outpatient she followed with Dr. Thornton on 10/13/18 was recommended to obtain fecal count protected and pancreatic elastase. Additionally during previous colonoscopy she was noted to have external hemorrhoids was recommended to follow outpatient with colorectal surgeon to Dr. Tafoya. She denies following outpatient with [facility] at this point. At this time she is continuing to complain of bowel frequent episodes of watery bowel movement, poor appetite as well as 30 pound weight loss. Denying any emesis, hematochezia, melena, abdominal pain, chest pain or shortness of breath. Past Med Surg Social Fam HX - Past Medical History Medical history: arthritis, CVA, hepatitis, hyperlipidemia, renal disease Additional medical history: Stroke. Crohns Psychiatric history: no psych history - Past Surgical History Surgical History: cataract, colectomy Additional surgical history: Tubal Ligation. Colon resection small bowel - Social History Smoking Status: Never smoker Smokeless Tobacco Status: No Alcohol use: none Drug use: none - Family History Mother Living Status: Hx Family Cardiac Disorders: Yes Father Hx Family Cardiac Disorders: Yes - Gastrointestinal Gastrointestinal: Present: diarrhea, other (decreased appetite). Absent: abdominal pain, melena, nausea, vomiting - Constitutional Constitutional: anorexia, weight loss (30 lbs, unintentional), no fatigue - EENT Nose, mouth and throat: Absent: dysphagia, sore throat - Cardiovascular Cardiovascular ROS: Absent: chest pain, palpitations - Respiratory Respiratory IM: Absent: cough, dyspnea, wheezing - Neurological ROS Neurological GI: Present: weakness (diffuse). Absent: confusion, frequent falls - Hematologic/Lymphatic Hematologic/Lymphatic pediatric: Absent: easy bleeding - Musculoskeletal Musculoskeletal ROS GI: Absent: back pain - Integumentary Integumentary GI: Absent: pruritis, rash - Constitutional Vitals: Temp Pulse Resp BP Pulse Ox 98.3 F 73 18 103/82 95 11/03/18 07:28 11/03/18 08:55 11/03/18 07:28 11/03/18 07:28 11/03/18 07:28 - Head Head exam: Present: atraumatic, normal inspection - Eye Eye exam: Present: EOMI, normal appearance, sclera anicteric - ENT ENT exam: Present: mucous membranes moist, normal oropharynx - Neck Neck exam general surgery: Present: trachea midline. Absent: tenderness - Respiratory Respiratory exam: Present: CTAB. Absent: rhonchi, wheezes - Cardiovascular Cardiovascular exam: Present: RRR, +S1, +S2 - GI/Abdominal GI/Abdominal exam: Present: normal bowel sounds, soft. Absent: firm, tenderness - Psychiatric Psychiatric exam: Present: flat affect, normal affect - Skin Skin exam: Present: dry, intact Results - Labs CBC & Chem 7: 11/03/18 03:45 11/03/18 03:45 Labs: Last Result 11/03/18 03:45 Calcium 6.5 L Entire Visit 11/03/18 03:45 Hgb 8.4 L Hct 25.2 L - ABG ABG results: ABG ABG pH 7.22 pH Units (7.32-7.45) L 10/29/18 20:40 ABG pCO2 14 mmHg (35-45) L* 10/29/18 20:40 ABG pO2 120 mmHg (85-104) H 10/29/18 20:40 ABG O2 Saturation 98 % (95-98) 10/29/18 20:40 PT/INR, D-dimer PT 18.9 Seconds (9.4-12.1) H D 10/31/18 03:18 Consult Discharge Plan - Plan Referrals: Varinder Hamilton MD [Primary Care Provider] - <NorbertoAdriana - Last Filed: 11/03/18 14:47> Date of Encounter: 11/03/18 Time of Encounter: 13:00 - Time Spent With Patient Total time spent is greater than 50% in coordination of care (as documented) at patient's floor/unit and/or counseling patient: GI History of Present Illness - Data of Consult Requesting Physician: Jacky Culp MD - Consult Narrative History of present illness: Ms. Kaur is a 73 year old female - Constitutional Vitals: Temp Pulse Resp BP Pulse Ox 98.4 F 90 16 98/74 95 11/03/18 11:18 11/03/18 11:18 11/03/18 11:18 11/03/18 11:18 11/03/18 11:18 Results - Labs CBC & Chem 7: 11/03/18 03:45 11/03/18 03:45 Labs: Last Result 11/03/18 03:45 Calcium 6.5 L Entire Visit 11/03/18 03:45 Hgb 8.4 L Hct 25.2 L - ABG ABG results: ABG ABG pH 7.22 pH Units (7.32-7.45) L 10/29/18 20:40 ABG pCO2 14 mmHg (35-45) L* 10/29/18 20:40 ABG pO2 120 mmHg (85-104) H 10/29/18 20:40 ABG O2 Saturation 98 % (95-98) 10/29/18 20:40 PT/INR, D-dimer PT 18.9 Seconds (9.4-12.1) H D 10/31/18 03:18 - Attending Attestation I have personally performed a face to face evaluation on this patient. I have reviewed and agree with the care plan. History and Exam by me shows: Patient with a history of Crohn disease she is having the intractable diarrhea on and off for the last couple of months. Examination abdomen is benign. Assessment: Patient will have enteroscopy and colonoscopy to make sure she does not have active Crohn disease.
--- NOTE | 2018-11-03 10:17 | Nephrology Progress Note ---
Date of Encounter: 11/03/18 Time of Encounter: 10:15 - Assessment and Plan (1) JEOVANY (acute kidney injury) Current Visit: Yes Status: Acute The patient multifactorial acute kidney injury superimposed on chronic kidney disease. Her renal function appears to be improving Her metabolic acidosis has resolved. Okay to discontinue supplemental intraveno us fluid. Replace potassium as needed. She does not acutely need dialysis. We will continue to monitor.. Patient also has periodic low blood pressures. We will check an echocardiogram. Patient's multiple electrolyte abnormalities the potassium is being replaced the calcium is being replaced will check magnesium as well as parathyroid hormone and vitamin D levels. (2) Crohn disease Current Visit: Yes Status: Chronic Qualifiers: Qualified Code(s): K50.918 - Crohn's disease, unspecified, with other complication (3) Hypokalemia Current Visit: Yes Status: Acute Being replaced (4) Hypomagnesemia Current Visit: Yes Status: Acute (5) CKD (chronic kidney disease) stage 3, GFR 30-59 ml/min Current Visit: Yes Status: Acute (6) Hypocalcemia Current Visit: Yes Status: Acute Being replaced Check vitamin D and parathyroid hormone Subjective Principal diagnosis: jeovany/ckd Interval history: The patient was seen. She has no new complaint. Objective - Vital Signs Vital signs: Vital Signs Temp Pulse Resp BP Pulse Ox 11/03/18 08:55 73 11/03/18 07:28 98.3 F 83 18 103/82 95 11/03/18 05:15 85 88/65 11/03/18 04:33 88 91/61 11/03/18 04:00 85 93/60 11/03/18 03:47 99.1 F 84 16 82/59 92 11/03/18 03:17 85 88/56 11/03/18 03:00 85 80/57 11/03/18 02:45 80 82/54 11/03/18 02:30 80 88/52 11/03/18 02:15 85 84/56 11/03/18 02:00 84 86/57 11/03/18 01:45 83 80/52 11/03/18 01:30 79 73/50 11/03/18 01:15 79 78/58 11/03/18 01:00 89 84/62 11/03/18 00:45 80 85/54 11/03/18 00:30 98.1 F 88 16 88/60 96 11/02/18 20:00 97.6 F 84 16 101/64 94 11/02/18 16:44 98.3 F 81 18 94/62 95 11/02/18 15:55 81 11/02/18 12:50 84 11/02/18 11:40 98.1 F 83 18 139/92 96 Intake and Output 11/02/18 11/03/18 11/03/18 23:59 07:59 15:59 Intake Total 835 / 3705 600 / 960 360 / 960 Balance 835 / 2780 600 / 960 360 / 960 Intake: IV Fluids 595 / 3465 600 / 600 0.9 % Sodium Chloride 500 ML @ 500 / 500 500 mls/hr IV ONCE ONE Rx#: [id number] Calcium Gluconate 1gm/50mL 1 gm 100 / 200 50 / 50 In 50 ml @ 50 mls/hr IVPB Q6HR PRN Rx#:[id number] Magnesium Sulfate Premix 2gm/ 50 / 50 50mL 2 gm In 50 ml @ 25 mls/hr IVPB Q6H PRN Rx#:[id number] Potassium Chloride 10 mEq/100mL 495 / 895 10 meq In 100 ml @ 100 mls/hr IVPB Q1H PRN Rx#:[id number] Oral 240 / 240 360 / 360 Other: Meal Dinner Breakfast Percent of Meal Consumed 10% Stool Size Moderate Moderate Stool Consistency liquid liquid Stool Color Brown Brown # Bowel Movements 1 - General Appearance General appearance: Present: well-developed, well-nourished EENT: Present: ATNC Cardiology: Present: regular rate Neurologic: Present: alert and oriented x3 Musculoskeletal: Present: no cyanosis Psychiatric: Present: mood/affect appropriate - Lab 11/03/18 03:45 11/03/18 03:45 Most recent lab results 11/03/18 03:45 Calcium 6.5 L Phosphorus 2.5 L Magnesium 1.8 - VTE Reasons for not Prescribing Prophylaxis: Not indicated-Anticoagulated or INR the rapeutic Consult Discharge Plan - Plan Referrals: Varinder Hamilton MD [Primary Care Provider] -
[2018-11-03] MEDS ORDERED: Calcium Gluconate 2,000 MG in 0.9 % Sodium Chloride 100 ML IVPB ONE (10:20)
[2018-11-03] MEDS: MethylPREDNISolone 40 MG/ML VIAL IVP SCH (11:19)
[2018-11-03] MEDS: cefTRIAXone 2,000 MG in Water for inj. (sterile) 20 ML IVP SCH (11:20)
[2018-11-03 12:51] LABS: VBG Ionized Calcium 1.09 mmol/L (1.15-1.35)
--- NOTE | 2018-11-03 13:15 | Internal Med Progress Note ---
Hospitalist Progress Note - Encounter Date of Encounter: 11/03/18 Time of Encounter: 13:13 - Subjective Interval History: Patient seen and examined. Patient did have multiple episodes of diarrhea overnight as well as some low BP. Patient was started on immodium and midodrine. BP and diarrhea have improved. Patient states she feels better. - Exam Vitals: Temp Pulse Resp BP Pulse Ox 98.4 F 90 16 98/74 95 11/03/18 11:18 11/03/18 11:18 11/03/18 11:18 11/03/18 11:18 11/03/18 11:18 Exam: General: NAD; poorly nourished HEENT: neck supple, dry mucosa Chest: CTA B, No WRRR, RRR, NO MTR Abd: soft, NT, ND, NO HSMG, + hyperactive BS Ext: no calf pain, No CCE, equal pulses Skin: warm, dry Neuro: no focal deficits, A&Ox3 - Assessment and Plan (1) Crohns disease Current Visit: Yes Status: Acute Assessment and Plan: Patient with history of Crohn's Persistent diarrhea during admission; improved with immodium Patient deniies any melena or hematochezia Malabsoroption complicating electorlyte disturbances Patient has reportedly been on Humira in the past Plan: GI on board: started methylprednisolone Check C. diff (2) Failure to thrive Current Visit: Yes Status: Acute Assessment and Plan: Patient presenting with several week history of extremely poor oral intake Several electrolyte abnormalities on admission Significant weight loss in the last year Patient is now eating and tolerating diet but with significant diarrhea (see above) 1. IVF discontinued per nephro 2. Dietary consultation for nutrition guidance in the setting of short gut synd tawanda. 4. Monitor closely for refeeding syndrome: recheck and replace phosphorous as needed (3) Metabolic acidosis Current Visit: Yes Status: Acute Assessment and Plan: Patient presenting with metabolic acidosis; now resolved; Fluids stopped per nephro Plan: nephrology on board (4) Acute kidney injury superimposed on CKD Current Visit: Yes Status: Acute Assessment and Plan: On admission, Cr was 3.1; likely 2/2 severe dehydration Cr improving daily; IVF have been discontinued as acidosis has resolved Continue electrolyte imbalances (see below) Nephrology on board (5) Hypocalcemia Current Visit: Yes Status: Acute Assessment and Plan: Persistent hypocalcemia (see Crohn's above) Replace and monitor per electrolyte replacement protocol (6) Hypokalemia Current Visit: Yes Status: Acute Assessment and Plan: Replace and monitor per electrolyte replacement protocol (7) Hypomagnesemia Current Visit: Yes Status: Acute Assessment and Plan: Replace and monitor per electrolyte replacement protocol (8) Supratherapeutic INR Current Visit: Yes Status: Acute Assessment and Plan: INR on admission 6.1 has now normalized Patient is on sub q heprain for DVT prophylaxis Consider transition to coumadin as we get closer to discharge (9) Atrial fibrillation Current Visit: Yes Status: Chronic Assessment and Plan: stable; continue home meds (10) DVT prophylaxis Current Visit: Yes Status: Acute Assessment and Plan: Subq heprain - Time Spent with Patient Total time spent is greater than 50% in coordination of care (as documented) at patient's floor/unit and/or counseling patient: 45 minutes Plan of Care Discussed with: patient Internal Medicine: Result - Labs CBC & Chem 7: 11/03/18 03:45 11/03/18 03:45 Labs: Short CBC 11/03/18 Range/Units 03:45 WBC 13.8 H (4.3-11.1) K/mcL Hgb 8.4 L (11.5-15.4) g/dL Hct 25.2 L (35.3-44.9) % Plt Count 112 L (140-400) K/mcL BMP 11/02/18 11/03/18 17:09 03:45 Sodium 143 143 Potassium 3.5 3.9 Chloride 107 110 H Carbon Dioxide 29 28 BUN 14 14 Creatinine 1.59 H 1.57 H Glucose 128 H 81 Calcium 6.4 L 6.5 L - ABG Interpretation ABG results: ABG ABG pH 7.22 pH Units (7.32-7.45) L 10/29/18 20:40 ABG pCO2 14 mmHg (35-45) L* 10/29/18 20:40 ABG pO2 120 mmHg (85-104) H 10/29/18 20:40 ABG O2 Saturation 98 % (95-98) 10/29/18 20:40 PT/INR, D-dimer PT 18.9 Seconds (9.4-12.1) H D 10/31/18 03:18 - VTE Reasons for not Prescribing Prophylaxis: Not indicated-Anticoagulated or INR therapeutic Consult Discharge Plan - Plan Referrals: Varinder Hamilton MD [Primary Care Provider] - (2) Failure to thrive Qualifiers: Failure to thrive age range: in adult Qualified Code(s): R62.7 - Adult failure to thrive (9) Atrial fibrillation Qualifiers: Atrial fibrillation type: paroxysmal Qualified Code(s): I48.0 - Paroxysmal atrial fibrillation
[2018-11-03] MEDS ORDERED: SODIUM CHLORIDE/NAHCO3/KCL/PEG 4,000 ML SOLN.RECON PO ONE (17:00)
[2018-11-03 17:53] LABS: Phosphorous 4.8 mg/dL (2.7-4.5); Potassium 4.5 mEq/L (3.5-5.1)
[2018-11-03 20:35] LABS: VBG Ionized Calcium 1.19 mmol/L (1.15-1.35)
[2018-11-04 06:08] LABS: Hemoglobin 9.4 g/dL (11.5-15.4); Red Cell Distribution Width 15.8 % (11.5-14.5)
[2018-11-04 06:10] LABS: VBG Ionized Calcium 1.27 mmol/L (1.15-1.35)
[2018-11-04 06:10] LABS: Hematocrit 29.3 % (35.3-44.9); Immature Platelets 18.9 % (1.1-6.1); Immature Reticulocyte % 10.9 % (11.0-38.0); Mean Corpuscular HGB Conc 32.1 g/dL (31.6-35.5); Mean Corpuscular Hemoglobin 27.3 pg (28.0-33.3); Mean Corpuscular Volume 85.2 fL (83.0-100.0); Platelet Count 105 K/mcL (140-400); Red Blood Count 3.44 M/mcL (3.82-4.97); Retculocyte # 0.04 M/mcL (0.05-0.10); White Blood Count 24.4 K/mcL (4.3-11.1)
[2018-11-04 06:47] LABS: Creatine Kinase 22 Units/L (30-223); Ferritin 783 ng/mL (10-120); Iron 80 mcg/dL (50-170); Magnesium 2.1 mg/dL (1.6-2.6); Transferrin < 75 mg/dL (203-362)
[2018-11-04 08:12] LABS: Folate 8.7 ng/mL (3.0-16.0)
[2018-11-04] MEDS: Levothyroxine 25 MCG TABLET PO SCH (08:27)
[2018-11-04] MEDS: *HR* Heparin 5,000 UNIT/ML VIAL SQ SCH (08:27)
[2018-11-04] MEDS: Folic Acid 1 MG TABLET PO SCH (08:28)
[2018-11-04] MEDS: MethylPREDNISolone 40 MG/ML VIAL IVP SCH (08:28)
[2018-11-04] MEDS: Pantoprazole 40 MG VIAL IVP SCH (08:28)
[2018-11-04] MEDS: Vitamin B Complex/Vit C/Vit E 1 EACH TABLET PO SCH (08:28)
[2018-11-04] MEDS: Thiamine (B-1) 100 MG TABLET PO SCH (08:29)
[2018-11-04 09:51] LABS: Albumin/Globulin Ratio 1.1 (1.1-2.2); Bilirubin,Total 0.5 mg/dL (0.3-1.0); Calcium 8.2 mg/dL (8.6-10.3); Globulin 1.9 g/dL (2.4-3.5); Phosphorous 4.7 mg/dL (2.7-4.5); Potassium 3.8 mEq/L (3.5-5.1); Total Protein 3.9 g/dL (6.4-8.9)
[2018-11-04] MEDS ORDERED: Propofol 500 MG/50 ML INFUS..BTL ONE (12:36)
[2018-11-04] MEDS ORDERED: Lidocaine -MPF 2% 2 ML VIAL ONE (12:36)
[2018-11-04] MEDS: cefTRIAXone 2,000 MG in Water for inj. (sterile) 20 ML IVP SCH (12:55)
--- NOTE | 2018-11-04 13:08 | Internal Med Progress Note ---
Hospitalist Progress Note - Encounter Date of Encounter: 11/04/18 Time of Encounter: 13:06 - Subjective Interval History: Patient seen and examined. No acute events overnight. Patient has no acute complaints. She is hungry and has not eaten in anticipation of EGD/colonoscopy per GI. - Exam Vitals: Temp Pulse Resp BP Pulse Ox 98.2 F 71 16 90/68 93 11/04/18 11:09 11/04/18 11:11/04/18 11:09 11/04/18 11:11/04/18 11:09 Exam: General: NAD; poorly nourished HEENT: neck supple, dry mucosa Chest: CTA B, No WRRR, RRR, NO MTR Abd: soft, NT, ND, NO HSMG, + hyperactive BS Ext: no calf pain, No CCE, equal pulses Skin: warm, dry Neuro: no focal deficits, A&Ox3 - Assessment and Plan (1) Crohns disease Current Visit: Yes Status: Acute Assessment and Plan: Patient with history of Crohn's Persistent diarrhea during admission; improved with immodium Patient deniies any melena or hematochezia Malabsoroption complicating electorlyte disturbances Patient has reportedly been on Humira in the past C. diff negative Plan: GI on board: started methylprednisolone; EGD/Colonoscopy today (2) Failure to thrive Current Visit: Yes Status: Acute Assessment and Plan: Patient presenting with several week history of extremely poor oral intake Several electrolyte abnormalities on admission Significant weight loss in the last year Patient is now eating and tolerating diet; NPO right now for EGD/Colonoscopy -Dietary consultation for nutrition guidance in the setting of short gut syndrome. (3) Metabolic acidosis Current Visit: Yes Status: Acute Assessment and Plan: Patient presenting with metabolic acidosis; now resolved; Fluids stopped per nephro Plan: nephrology on board (4) Acute kidney injury superimposed on CKD Current Visit: Yes Status: Acute Assessment and Plan: On admission, Cr was 3.1; likely 2/2 severe dehydration Cr initially improving daily but today trending back up; IVF have been discontinued as acidosis has resolved; patient has had diarrhea since admission Continue electrolyte imbalances (see below) Nephrology on board (5) Hypocalcemia Current Visit: Yes Status: Acute Assessment and Plan: Persistent hypocalcemia (see Crohn's above) PTH found to be elevated: potentially secondary to CKD Replace and monitor per electrolyte replacement protocol Follow nephro recommendations with regards to PTH (6) Hypokalemia Current Visit: Yes Status: Acute Assessment and Plan: Replace and monitor per electrolyte replacement protocol (7) Atrial fibrillation Current Visit: Yes Status: Chronic Assessment and Plan: stable; continue home meds (8) DVT prophylaxis Current Visit: Yes Status: Acute Assessment and Plan: Subq heprain (9) Leukocytosis Current Visit: Yes Status: Acute Assessment and Plan: Worsening leukocytosis this am at 24.4 Patient was started on methylprednisolone yesterday but this jump is still quite exaggerated no fever; vitals stable Plan: check ESR, CRP, repeat UA (10) UTI (urinary tract infection) Current Visit: No Status: Resolved Assessment and Plan: Patient admitted with UA showing UTI Urine culture grew E. Coli Patient has completed course of rocephin after today No further urinary symptoms - Time Spent with Patient Total time spent is greater than 50% in coordination of care (as documented) at patient's floor/unit and/or counseling patient: 40 minutes Plan of Care Discussed with: patient Internal Medicine: Result - Labs CBC & Chem 7: 11/04/18 05:51 11/04/18 09:19 Labs: Short CBC 11/04/18 Range/Units 05:51 WBC 24.4 H D (4.3-11.1) K/mcL Hgb 9.4 L (11.5-15.4) g/dL Hct 29.3 L (35.3-44.9) % Plt Count 105 L (140-400) K/mcL BMP 11/03/18 11/04/18 17:01 09:19 Sodium 140 Potassium 4.5 3.8 Chloride 108 H Carbon Dioxide 25 BUN 15 Creatinine 1.89 H Glucose 79 Calcium 8.2 L Liver Function 11/04/18 Range/Units 09:19 Total Bilirubin 0.5 (0.3-1.0) mg/dL AST 15 (13-39) Units/L ALT 20 (7-52) Units/L Alkaline Phosphatase 111 H (34-104) Units/L Albumin 2.0 L (3.5-5.7) g/dL - ABG Interpretation ABG results: ABG ABG pH 7.22 pH Units (7.32-7.45) L 10/29/18 20:40 ABG pCO2 14 mmHg (35-45) L* 10/29/18 20:40 ABG pO2 120 mmHg (85-104) H 10/29/18 20:40 ABG O2 Saturation 98 % (95-98) 10/29/18 20:40 PT/INR, D-dimer PT 18.9 Seconds (9.4-12.1) H D 10/31/18 03:18 - Impressions Impressions Echocardiogram 11/04/18 10:15 Impressions: LVEF 65%. Indeterminate diastolic function. Normal right ventricular structure and function. Mild tricuspid regurgitation. No pulmonary hypertension. Left Ventricular Wall Motion: Rest Echo Findings All wall segments showed normal motion. Findings: Study Quality * Technically adequate exam. ECG Findings * Normal sinus rhythm. Left Ventricle * LVEF 65%. * Normal LV chamber size, wall thickness and function. * Indeterminate diastolic function. Right Ventricle * Normal right ventricular structure and function. Left Atrium * Mildly dilated left atrium. Right Atrium * Normal right atrial size. Mitral Valve * Normal mitral valve structure. * No mitral stenosis. * No mitral regurgitation. Aortic Valve * No aortic regurgitation. * Trileaflet aortic valve. * Mildly thickened aortic valve leaflets. * No aortic stenosis. Tricuspid Valve * Normal tricuspid valve structure. * Mild tricuspid regurgitation. * Estimated RA pressure is 3 mmHg. * Estimated RVSP is 26 mmHg. * No pulmonary hypertension. Pulmonic Valve * Pulmonic valve is not well visualized. * No pulmonic stenosis. * Trace pulmonic regurgitation. Pulmonary Artery * Pulmonary artery not well visualized. Aorta * Normally sized aortic root. Pericardium * There is no pericardial effusion present. Interatrial Septum * No evidence of PFO by color Doppler. IVC * Normal IVC dimensions and inspiratory collapse. - VTE Reasons for not Prescribing Prophylaxis: Not indicated-Anticoagulated or INR therapeutic Consult Discharge Plan - Plan Referrals: Varinder Hamilton MD [Primary Care Provider] - (2) Failure to thrive Qualifiers: Failure to thrive age range: in adult Qualified Code(s): R62.7 - Adult failure to thrive (7) Atrial fibrillation Qualifiers: Atrial fibrillation type: paroxysmal Qualified Code(s): I48.0 - Paroxysmal atrial fibrillation (10) UTI (urinary tract infection) Qualifiers: Urinary tract infection type: acute cystitis Hematuria presence: with hematuria Qualified Code(s): N30.01 - Acute cystitis with hematuria
--- NOTE | 2018-11-04 13:29 | Anesthesia Evaluation PreOp ---
Date of Encounter: 11/04/18 Time of Encounter: 13:27 - Past History Planned Operation: EGD Cardiac History: HTN, Hyperlipidemia Pulmonary History: Denies Any Significant HX DISTRICT CLAIMS MANAGER History: CVA (denies residual deficit) Other Medical History: Hepatic, Renal (stage 3 CKD), Thyroid, GERD Anesthesia History: No Prior Anesthetic Complications, Past Anesthesia Alcohol Use: none Drug use: none Medications and Allergies Atorvastatin [Lipitor] 10 mg PO DAILY 03/02/15 [History] Cetirizine HCl [Zyrtec] 10 mg PO DAILY PRN 03/02/15 [History] Glucosamine Sulfate Dipot Chlr [Glucosamine] 1,000 mg PO DAILY 03/02/15 [History] Sertraline [Zoloft] 100 mg PO DAILY 03/02/15 [History] Colesevelam HCl [Welchol] 1,250 mg PO DAILY 09/12/18 [History] Ergocalciferol (VITAMIN D2) [Vitamin D2] 50,000 unit PO CHA 09/12/18 [History] Famotidine [Pepcid] 20 mg PO DAILY PRN 09/12/18 [History] Ferrous Sulfate 325 mg PO DAILY 09/12/18 [History] Ipratropium [place] 2 spray NS BID 09/12/18 [History] Lisinopril 2.5 mg PO DAILY 09/12/18 [History] Warfarin [Coumadin] 2 mg PO AD 09/15/18 [History] Dicyclomine [Bentyl] 20 mg PO TID #21 capsule 09/17/18 [Rx] Potassium Chloride 20 meq PO DAILY #10 tab.er.prt 09/17/18 [Rx] Sodium Bicarbonate 325 mg PO BID 10/29/18 [History] Tizanidine HCl [Zanaflex] 4 - 8 mg PO HS 10/29/18 [History] Allergy/AdvReac Type Severity Reaction Status Date / Time No Known Allergies Allergy Verified 09/12/18 17:58 - Meds/Allergy Pre-op Review Medications Reviewed: Yes Allergies Reviewed: Yes Beta Blockers on Current Med List: No Anesthesia Results - Labs 11/04/18 05:51 11/04/18 09:19 - Imaging EKG: report reviewed (10/29/2018 Sinus rhythm Borderline repolarization abnormality Baseline wander) Additional studies: 11/04/2018 Echo Impressions: LVEF 65%. Indeterminate diastolic function. Normal right ventricular structure and function. Mild tricuspid regurgitation. No pulmonary hypertension. Anesthesia Exam Vital Signs/O2 Sat/Glucose, Most Recent Temp Pulse Resp BP Pulse Ox 98.2 F 71 16 90/68 93 11/04/18 11:09 11/04/18 11:09 11/04/18 11:09 11/04/18 11:09 11/04/18 11:09 Blood Glucose* 75 Blood glucose: 97 Height: 5'6''/1.68m Weight: 131 lbs/59.6 kg NPO (# of Hours): 8 Pain Scale: 0 Pain Scale Used: Numeric (1 - 10) - HEENT Pupil (Motor): EOMI Mallampati: II Teeth: Normal Oral Opening: Greater than 3 - DISTRICT CLAIMS MANAGER LOC: Oriented DISTRICT CLAIMS MANAGER Motor: Normal RUE, Normal LUE, Normal RLE, Normal LLE, Normal Face DISTRICT CLAIMS MANAGER Sensory: Normal: RUE, LUE, RLE, LLE, Face - Cardiac Rhythm: Regular Murmur: None - Pulmonary Breath Sounds: bilateral Clear Respiratory Effort: Symmetrical Anesthesia Assess/Plan ASA Score: 3 Level of consciousness: Cooperative, Oriented, Tranquil Anesthetic Plan: MAC Monitoring Plan: Standard Monitors
[2018-11-04] MEDS: Potassium Chloride Elixir 20 MEQ/15 ML UDC PO PRN (16:26)
--- NOTE | 2018-11-04 23:42 | Nephrology Progress Note ---
Date of Encounter: 11/04/18 Time of Encounter: 23:39 - Assessment and Plan (1) JEOVANY (acute kidney injury) Current Visit: Yes Status: Acute The patient multifactorial acute kidney injury superimposed on chronic kidney disease. Her renal function appears to be improving until today, but this may be related to NPO status. Will resume iv fluid. Her metabolic acidosis has resolved. Replace potassium as needed. She does not acutely need dialysis. We will continue to monitor.. Patient also has periodic low blood pressures. We will check an echocardiogram. Patient's multiple electrolyte abnormalities the potassium is being replaced the calcium is being replaced will check magnesium as well as parathyroid hormone and vitamin D levels. (2) Crohn disease Current Visit: Yes Status: Chronic Qualifiers: Gastrointestinal tract location: unspecified location Digestive disease complication type: other complication Qualified Code(s): K50.918 - Crohn's disease, unspecified, with other complication (3) Hypokalemia Current Visit: Yes Status: Acute (4) Hypomagnesemia Current Visit: Yes Status: Acute (5) CKD (chronic kidney disease) stage 3, GFR 30-59 ml/min Current Visit: Yes Status: Acute (6) Hypocalcemia Current Visit: Yes Status: Acute Subjective Principal diagnosis: jeovany/ckd Interval history: The patient was seen. She has no new complaint. Objective - Vital Signs Vital signs: Vital Signs Temp Pulse Resp BP Pulse Ox 11/04/18 20:25 65 11/04/18 19:06 97.9 F 76 18 104/72 95 11/04/18 14:53 97.4 F L 65 16 110/74 95 11/04/18 13:33 71 16 96/58 92 11/04/18 11:30 71 11/04/18 11:09 98.2 F 71 16 90/68 93 11/04/18 08:30 75 11/04/18 07:32 97.9 F 84 16 93/61 93 11/04/18 04:44 98.3 F 65 16 87/62 92 11/04/18 00:19 98.3 F 67 18 99/68 94 Intake and Output 11/04/18 11/04/18 11/04/18 07:59 15:59 23:59 Intake Total 20 / 500 480 / 500 Balance / 480 / 500 Intake: IV Fluids Rocephin 2,000 MG In Water for 20 / 20 inj. (sterile) 20 ML @ 600 mls/ hr IVP Q24H [facility] Rx#:[id number] Oral 480 / 480 Other: Stool Size Moderate Moderate Stool Consistency loose liquid # Voids 1 1 # Bowel Movements 1 1 Blood Glucose* 97 - General Appearance General appearance: Present: well-developed, well-nourished EENT: Present: ATNC Neck: Present: supple Respiratory: Present: course breath sounds Cardiology: Present: edema (trace edema), regular rate Additional Comments: sinus on telemetry Gastrointestinal: Present: no tenderness Integumentary: Present: warm and dry Neurologic: Present: alert and oriented x3 Musculoskeletal: Present: no cyanosis Psychiatric: Present: mood/affect appropriate - Lab 11/04/18 05:51 11/04/18 09:19 - VTE Reasons for not Prescribing Prophylaxis: Not indicated-Anticoagulated or INR therapeutic Consult Discharge Plan - Plan Referrals: Varinder Hamilton MD [Primary Care Provider] -
[2018-11-05] MEDS: 0.9 % Sodium Chloride 1,000 ML IVC SCH ×2 (00:11→09:35)
[2018-11-05] MEDS: *HR* Heparin 5,000 UNIT/ML VIAL SQ SCH ×3 (00:11→13:31)
[2018-11-05 04:52] LABS: Hematocrit 24.9 % (35.3-44.9); Mean Corpuscular HGB Conc 31.3 g/dL (31.6-35.5); Mean Corpuscular Hemoglobin 27.2 pg (28.0-33.3); Mean Corpuscular Volume 86.8 fL (83.0-100.0); Mean Platelet Volume 13.8 fL (9.4-12.4); Platelet Count 116 K/mcL (140-400); Red Blood Count 2.87 M/mcL (3.82-4.97); White Blood Count 15.5 K/mcL (4.3-11.1)
[2018-11-05 04:54] LABS: Hemoglobin 7.8 g/dL (11.5-15.4)
[2018-11-05 05:06] LABS: Calcium 7.8 mg/dL (8.6-10.3); Potassium 3.9 mEq/L (3.5-5.1)
[2018-11-05] MEDS: Levothyroxine 25 MCG TABLET PO SCH (06:28)
[2018-11-05] MEDS: Potassium Chloride Elixir 20 MEQ/15 ML UDC PO PRN (06:28)
[2018-11-05 06:39] LABS: VBG Ionized Calcium 1.19 mmol/L (1.15-1.35)
[2018-11-05] MEDS: Vitamin B Complex/Vit C/Vit E 1 EACH TABLET PO SCH (07:50)
[2018-11-05] MEDS: Thiamine (B-1) 100 MG TABLET PO SCH (07:50)
[2018-11-05] MEDS: Folic Acid 1 MG TABLET PO SCH (07:50)
[2018-11-05] MEDS: Pantoprazole 40 MG VIAL IVP SCH (07:50)
[2018-11-05] MEDS: MethylPREDNISolone 40 MG/ML VIAL IVP SCH (07:50)
[2018-11-05 09:10] LABS: Hematocrit 28.7 % (35.3-44.9); Hemoglobin 8.9 g/dL (11.5-15.4)
--- NOTE | 2018-11-05 11:38 | Discharge Summary ---
- NOTES TO OUTPATIENT PROVIDER Notes to Outpatient Provider: Presented with altered mental status; found to have UTI as well as diarrhea and dehydration w several electrolyte abnormalities; rehydrated/repleted and will d/c to SNF for rehab. Needs follow up for renal function and electrolytes. Also had new hypothyroidism and is now on synthroid; recheck TFTs 4 weeks. Also had elevated PTH and needs Neph follow up. Orders not resulted at time of discharge: Pending orders 11/03/18 14:33 Calprotectin, Fecal Routine 11/04/18 14:17 Surgical Pathology [PTH] Routine Date of Encounter: 11/05/18 Time of Encounter: 11:33 Hospital course: Dear Doctors, I recently had the opportunity to care for this patient during their recent hospital stay at [facility]. Yarelis Kaur is a 73 F w hx Crohn's, CKD4, A-Fib on AC, CVA without deficits, who presented at time of admission with weakness in the context of several days poor PO and worsening diarrhea. She was found to have JEOVANY and several electrolyte abnormalities; these were repleted and pt was rehydrated with improvement in Cr and symptoms. Also had UTI treated with 5 days Rocephin. Nephrology and GI were consulted. GI tood patient for colonoscopy which showed anastomotic ulcers at site of previous ileal resection for Crohn's but without other inflammation. On day of discharge, patient able to maintain PO, not having significant diarrhea, and able to ambulate with minimal assistance. She will transition to SNF for rehab. Dx: generalized weakness, chronic diarrhea possibly 2/2 Crohn's, dehydration, hypokalemia, hypocalcemia, metabolic acidosis, UTI, secondary hyperparathyroidism Pertinent tests/consults: GI performed EGD/colon on 11/04, Neph consulted Follow up: - to SNF - PCP 1 week - GI 2 weeks - Neph 3-4 weeks Tests pending: - SurgPath from colonoscopy biopsies - fecal calprotectin Med changes: - new calcium carbonate 500 mg tid - increase potassium from 20 to 40 meq daily - new multivitamin - new Synthroid 88 mcg daily, needs outpatient TFTs in ~4 weeks - continue warfarin - decrease bentyl from 20 tid to 10 tid - stop zyrtec Mental status: awake, fully oriented Code status: Full code Time spent on discharge: 35 minutes It has been my pleasure participating in this patient's care. Please contact me with any questions or concerns regarding their hospital stay. Sincerely, Brent Tamayo MD - Discharge Medications Prescriptions: New Levothyroxine Sodium 88 mcg PO DAILY #30 tablet Multivitamin [One Daily] 1 each PO DAILY #30 tablet Calcium Carbonate [Tums] 500 mg PO TID #90 tab.chew Continued Sertraline [Zoloft] 100 mg PO DAILY Glucosamine Sulfate Dipot Chlr [Glucosamine] 1,000 mg PO DAILY Atorvastatin [Lipitor] 10 mg PO DAILY Colesevelam HCl [Welchol] 1,250 mg PO DAILY Ipratropium [place] 2 spray NS BID Ferrous Sulfate 325 mg PO DAILY Lisinopril 2.5 mg PO DAILY Famotidine [Pepcid] 20 mg PO DAILY PRN PRN Reason: GERD Warfarin [Coumadin] 2 mg PO AD Sodium Bicarbonate 325 mg PO BID Changed Dicyclomine [Bentyl] 10 mg PO TID #21 capsule Potassium Chloride 40 meq PO DAILY #10 tab.er.prt Discontinued Cetirizine HCl [Zyrtec] 10 mg PO DAILY PRN PRN Reason: Allergy Symptoms Ergocalciferol (VITAMIN D2) [Vitamin D2] 50,000 unit PO CHA Tizanidine HCl [Zanaflex] 4 - 8 mg PO HS Home Medications: Atorvastatin [Lipitor] 10 mg PO DAILY 03/02/15 [History] Glucosamine Sulfate Dipot Chlr [Glucosamine] 1,000 mg PO DAILY 03/02/15 [History] Sertraline [Zoloft] 100 mg PO DAILY 03/02/15 [History] Colesevelam HCl [Welchol] 1,250 mg PO DAILY 09/12/18 [History] Famotidine [Pepcid] 20 mg PO DAILY PRN 09/12/18 [History] Ferrous Sulfate 325 mg PO DAILY 09/12/18 [History] Ipratropium [place] 2 spray NS BID 09/12/18 [History] Lisinopril 2.5 mg PO DAILY 09/12/18 [History] Warfarin [Coumadin] 2 mg PO AD 09/15/18 [History] Sodium Bicarbonate 325 mg PO BID 10/29/18 [History] Calcium Carbonate [Tums] 500 mg PO TID #90 tab.chew 11/05/18 [Rx] Dicyclomine [Bentyl] 10 mg PO TID #21 capsule 11/05/18 [Rx] Levothyroxine Sodium 88 mcg PO DAILY #30 tablet 11/05/18 [Rx] Multivitamin [One Daily] 1 each PO DAILY #30 tablet 11/05/18 [Rx] Potassium Chloride 40 meq PO DAILY #10 tab.er.prt 11/05/18 [Rx] Allergies/Adverse Reactions: Allergy/AdvReac Type Severity Reaction Status Date / Time No Known Allergies Allergy Verified 09/12/18 17:58 Date of admission: 10/29/18 18:42 Primary care physician: Varinder Hamilton MD Consults: 10/29/18 20:00 Consult to Dialysis [CONS] ONCE 10/30/18 06:00 Consult to Nephrology [CONS] Routine Consulting Provider: Kidney Marilin/YECENIA/BERNY/MANUEL Reason for Consult: ESRD, anemia Call Completed: No 10/30/18 09:28 Consult to Nutrition [CONS] Routine Comment: Poor appetite, hx of crohns, diarrhea Consulting Provider: NUTRITION Reason for Dietary Consult: Diet Education 10/30/18 16:07 Consult to Pulmonology [CONS] Routine Consulting Provider: Pulm Crit Care & Sleep [place] Reason for Consult: medical managment in icu Call Completed: No 10/31/18 15:33 Consult to Gastroenterology [CONS] Routine Consulting Provider: Gastroenterology Marilin Reason for Consult: Crohns with short gut syndrome Call Completed: No 11/01/18 09:32 Consult to Occupational Therapy [CONS] Routine Comment: Evaluate, develop and implement POC Reason for Consult: discharge planning Does patient have active BEDREST order?: No Is patient medically & hemodynamically stable?: Yes Patient assessed for mobility or mobilized this visit?: Yes Consult to Physical Therapy [CONS] Routine Comment: Evaluate, develop and implement POC Reason for Consult: discharge planning Does patient have active BEDREST order?: No Is patient medically & hemodynamically stable?: Yes Patient assessed for mobility or mobilized this visit?: Yes - Constitutional Vitals: Temp Pulse Resp BP Pulse Ox 97.9 F 78 18 111/74 91 11/05/18 06:44 11/05/18 08:02 11/05/18 06:44 11/05/18 06:44 11/05/18 06:44 Exam: General: NAD; poorly nourished HEENT: neck supple, dry mucosa Chest: CTA B, No WRRR, RRR, NO MTR Abd: soft, NT, ND, no HSMG, normal BS Ext: no calf pain, no edema, equal pulses Skin: warm, dry Neuro: no focal deficits, A&Ox3, able to ambulate well w 1p assistance - Patient Status Disposition: Transfer SNF Condition: Fair Functional capacity at discharge: uses cane/walker Overall status at discharge: patient is progressing back to baseline - Discharge Instructions Instructions: Levothyroxine (By mouth), Warfarin (By mouth), Multivitamins, Adult Formula (By mouth), Calcium Supplement (By mouth), Atrial Fibrillation (DC), Acute Kidney Injury (DC), Urinary Tract Infection in Women (DC), Vitamin K in Foods (DC), Anemia (GEN) Follow Up With: Varinder Hamilton MD [Primary Care Provider] - (Patient is going to [facility] no PCP appointment) Adriana Thornton MD [Partnered Physician] - (2 weeks Sent Web request on 11-05-18 @ [phone]) Maxx Sung MD [Partnered Physician] - (3-4 weeks) - Diet and Activity Activity: as per physical therapy, increase activity as tolerated Diet: advance to your usual diet - VTE Reasons for not Prescribing Prophylaxis: Not indicated-Anticoagulated or INR therapeutic
[2018-11-05 11:42] VITALS: BP 105/71
--- NOTE | 2018-11-05 15:24 | Physician Discharge Referral ---
ExtendedCare Referral Info Transfer To: SNF Provider in Charge after Transfer: PCP Institutional Level of Care: Skilled Prognosis: Good - Transfer Medications Prescriptions: Levothyroxine Sodium 88 mcg PO DAILY #30 tablet Multivitamin [One Daily] 1 each PO DAILY #30 tablet Calcium Carbonate [Tums] 500 mg PO TID #90 tab.chew Home Medications: Atorvastatin [Lipitor] 10 mg PO DAILY 03/02/15 [History] Glucosamine Sulfate Dipot Chlr [Glucosamine] 1,000 mg PO DAILY 03/02/15 [History] Sertraline [Zoloft] 100 mg PO DAILY 03/02/15 [History] Colesevelam HCl [Welchol] 1,250 mg PO DAILY 09/12/18 [History] Famotidine [Pepcid] 20 mg PO DAILY PRN 09/12/18 [History] Ferrous Sulfate 325 mg PO DAILY 09/12/18 [History] Ipratropium [place] 2 spray NS BID 09/12/18 [History] Lisinopril 2.5 mg PO DAILY 09/12/18 [History] Warfarin [Coumadin] 2 mg PO AD 09/15/18 [History] Sodium Bicarbonate 325 mg PO BID 10/29/18 [History] Calcium Carbonate [Tums] 500 mg PO TID #90 tab.chew 11/05/18 [Rx] Dicyclomine [Bentyl] 10 mg PO TID #21 capsule 11/05/18 [Rx] Levothyroxine Sodium 88 mcg PO DAILY #30 tablet 11/05/18 [Rx] Multivitamin [One Daily] 1 each PO DAILY #30 tablet 11/05/18 [Rx] Potassium Chloride 40 meq PO DAILY #10 tab.er.prt 11/05/18 [Rx] Allergies/Adverse Reactions: Allergy/AdvReac Type Severity Reaction Status Date / Time No Known Allergies Allergy Verified 09/12/18 17:58 - Respiratory Orders Smoking Cessation: Smoking cessation has been advised. For more information, call the [employer] Tobacco Quit Line at 8-555-SWMM-NOW. - Ancillary Orders May use pressure relief devices daily prn, May go on KEN w/family/respon alliance party w/meds at nurse discretion PRN, May consult with Dentist, Ink Grinder, Office Messenger Helper PRN - Advance Directives Code Status: Full Code - Mobility Orders Ambulate - Rehabiliation Orders Rehab Potential: Good Rehab Orders: Evaluation for Physical Therapy, Evaluation for Occupational Therapy - Treatments Skin tear care topically daily PRN per policy - Diet Orders Regular CERTIFICATION: I certify that the transfer of the above named patient to an Extended Care Facility is necessary for the continuing treatment of the diagnosis listed. The above information is true and accurate reflection of patient's current condition. Confidential - Redisclosure prohibited without a patient's written consent.
--- NOTE | 2018-11-05 17:38 | Nephrology Progress Note ---
Date of Encounter: 11/05/18 Time of Encounter: 12:00 - Assessment and Plan (1) JEOVANY (acute kidney injury) Status: Acute The patient multifactorial acute kidney injury superimposed on chronic kidney disease. Scr fairly stable today at 1.92, GFR 26, will monitor Lytes stabilized Continue to avoid nephrotoxins if possible Continue fluids whether iv or po as tolerated Followup with nephrology on discharge (2) Crohn disease Status: Chronic per primary team Qualifiers: Gastrointestinal tract location: unspecified location Digestive disease complication type: other complication Qualified Code(s): K50.918 - Crohn's disease, unspecified, with other complication (3) Hypokalemia Status: Acute Normalized, continue supplements (4) Hypomagnesemia Status: Acute Normalized, continue supplements (5) CKD (chronic kidney disease) stage 3, GFR 30-59 ml/min Status: Acute Baseline Scr 1.[address] Lanza (6) Hypocalcemia Status: Acute Improving. Vitamin D WNL and elevated PTH. continue supplements Subjective Principal diagnosis: jeovany/ckd Interval history: Interim noted with improving JEOVANY, pt seen and examined feeling better and denies any diarrhea in the past 2 days. Objective - Vital Signs Vital signs: Vital Signs Temp Pulse Resp BP Pulse Ox 11/05/18 11:39 97.6 F 18 105/71 11/05/18 08:02 78 11/05/18 06:44 97.9 F 73 18 111/74 91 11/05/18 04:13 98.2 F 67 19 105/72 91 11/05/18 00:36 71 11/05/18 00:11 98.1 F 71 18 93/56 93 11/04/18 20:25 65 11/04/18 19:06 97.9 F 76 18 104/72 95 Intake and Output 11/05/18 11/05/18 11/05/18 07:59 15:59 23:59 Intake Total 1622 / 1622 Output Total 300 / 300 Balance -300 / 1322 1622 / 1322 Intake: IV Fluids 1262 / 1262 0.9 % Sodium Chloride 1,000 ML 1212 / 1212 @ 100 mls/hr IVC .Q10H [facility] Rx#: [id number] Magnesium Sulfate Premix 2gm/ 50 / 50 50mL 2 gm In 50 ml @ 25 mls/hr IVPB Q6H PRN Rx#:[id number] Oral 360 / 360 Output: Urine 100 / 100 Urine/Stool Mix 200 / 200 Other: Meal Lunch Percent of Meal Consumed 5% # Voids 1 Blood Glucose* 78 78 - General Appearance General appearance: Present: chronically ill, fatigue, frail EENT: Present: ATNC, mucous membranes moist Neck: Present: no JVD, supple Respiratory: Present: clear Cardiology: Present: edema, normal S1, normal S2 Gastrointestinal: Present: no tenderness, no guarding Integumentary: Present: warm and dry Neurologic: Present: no focal deficit Musculoskeletal: Present: no deformities Psychiatric: Present: mood/affect appropriate, cooperative - Lab 11/05/18 08:53 11/05/18 04:25 Most recent lab results 11/05/18 11/05/18 06:18 06:18 Phosphorus 4.1 Magnesium 1.8 - VTE Reasons for not Prescribing Prophylaxis: Not indicated-Anticoagulated or INR therapeutic Consult Discharge Plan - Plan Instructions: Levothyroxine (By mouth), Warfarin (By mouth), Multivitamins, Adult Formula (By mouth), Calcium Supplement (By mouth), Atrial Fibrillation (DC), Acute Kidney Injury (DC), Urinary Tract Infection in Women (DC), Vitamin K in Foods (DC), Anemia (GEN) Referrals: Varinder Hamilton MD [Primary Care Provider] - (Patient is going to [facility] no PCP appointment) Maxx Sung MD [Partnered Physician] - (3-4 weeks) Adriana Thornton MD [Partnered Physician] - (2 weeks Sent Web request on 11-05-18 @ [phone]) Prescriptions: Levothyroxine Sodium 88 mcg PO DAILY #30 tablet Multivitamin [One Daily] 1 each PO DAILY #30 tablet Calcium Carbonate [Tums] 500 mg PO TID #90 tab.chew
== END 2018-11-05 16:18 | DRG 682 ==
LOC: EMEROOARM 14:39 → ICNU 18:42 → SUATTDRO 18:42 → ICNU 19:40 → 2NNU 10-31 17:15
PROVIDERS: ADMIT Internal Medicine; ATTEND Internal Medicine
PROC: ENDOCBX (2018-11-04 13:00)
PROC: ENDOEBX (2018-11-04 13:00)

== ENCOUNTER 2018-11-25 11:10 | Inpatient (IN) ==
[2018-11-25 13:20] LABS: INR 6.9; Prothrombin Time 78.7 Seconds (9.4-12.1)
[2018-11-25 13:28] LABS: Bilirubin,Urine Negative (Negative); Blood,Urine Negative (Negative); Clarity,Urine Turbid (Clear); Color,Urine Yellow (Yellow); Glucose,Urine (UA) Normal (Normal); Ketones,Urine Negative (Negative); Leukocyte Esterase,Urine Small (Negative); Nitrite,Urine Negative (Negative); Protein,Urine Trace mg/dL (Neg-Trace); Specific Gravity,Urine 1.016 (1.010-1.025); Urobilinogen,Urine Normal (Normal)
[2018-11-25 13:30] LABS: Bacteria,Urine Few per hpf (None-Few); Hyaline Casts,Urine Few per lpf (None-Few); Squamous Epithelial Cell,Urine Many per lpf (None-Few); WBC,Urine 15-30 per hpf (0-3)
[2018-11-25 13:30] LABS: BUN/Creatinine Ratio 10 (6-26); Blood Urea Nitrogen 38 mg/dL (8-23); Calcium 8.5 mg/dL (8.6-10.3); Carbon Dioxide 11 mEq/L (23-29); Chloride 121 mEq/L (98-107); Glucose 96 mg/dL (70-105); Magnesium 1.3 mg/dL (1.6-2.6); Osmolality,Calculated 299 (280-300); Phosphorous 4.3 mg/dL (2.7-4.5); Sodium 140 mEq/L (136-145); Troponin I < 0.03 ng/mL (< 0.04); eGFR For African Americans 15 (> 60); eGFR For Non-African Americans 12 (> 60)
[2018-11-25 13:41] LABS: Thyroid Stimulating Hormone 8.545 mcIU/mL (0.340-5.600)
[2018-11-25 13:55] LABS: Calcium Oxalate Crystals,Urine Present
[2018-11-25 14:00] LABS: Hematocrit 25.6 % (35.3-44.9); Hemoglobin 8.2 g/dL (11.5-15.4); Mean Corpuscular Hemoglobin 27.2 pg (28.0-33.3); Mean Corpuscular Volume 84.8 fL (83.0-100.0); Mean Platelet Volume 12.2 fL (9.4-12.4); Platelet Count 277 K/mcL (140-400); Red Blood Count 3.02 M/mcL (3.82-4.97); Red Cell Distribution Width 16.8 % (11.5-14.5); White Blood Count 25.9 K/mcL (4.3-11.1)
[2018-11-25] MEDS ORDERED: 0.9 % Sodium Chloride 500 ML IVC ONE ×2 (14:55→15:15)
[2018-11-25] MEDS ORDERED: Sodium Bicarbonate 150 MEQ in D5% in Water 1,000 ML IVC SCH (16:15)
[2018-11-25] MEDS ORDERED: Acetaminophen 325 MG TABLET PO PRN (16:25)
[2018-11-25] MEDS ORDERED: Ondansetron 4 MG/2 ML VIAL IVP PRN (16:25)
[2018-11-25 16:47] LABS: VBG HCO3 8 mEq/L (21-27); VBG PCO2 19 mmHg (41-51); VBG PH 7.24 pH Units (7.32-7.42); VBG PO2 167 mmHg (25-50)
[2018-11-25] MEDS ORDERED: Warfarin perPT PO PRN (18:00)
[2018-11-25] MEDS ORDERED: Saline Nasal Spray 44 ML BOTTLE NS PRN (19:31)
[2018-11-25] MEDS ORDERED: NON-FORMULARY MEDICATION 1 EACH EACH (Ipratropium Bromide 2 SPRAY) NS SCH (21:00)
[2018-11-25] MEDS: Fluticasone Propionate Nasal 50 MCG/SPRAY BOTTLE NS SCH (22:59)
[2018-11-26 04:31] LABS: Basophils % 0.1 %; Hematocrit 24.3 % (35.3-44.9); Hemoglobin 7.9 g/dL (11.5-15.4); Immature Granulocytes % 0.8 % (0-4); Lymphocytes % 4.9 %; Mean Corpuscular HGB Conc 32.5 g/dL (31.6-35.5); Mean Corpuscular Hemoglobin 27.4 pg (28.0-33.3); Mean Corpuscular Volume 84.4 fL (83.0-100.0); Mean Platelet Volume 12.3 fL (9.4-12.4); Monocytes # 0.4 K/mcL (0.0-1.3); Monocytes % 1.7 %; Nucleated Red Blood Cells 0.1 /100 WBC (0); Platelet Count 244 K/mcL (140-400); Red Blood Count 2.88 M/mcL (3.82-4.97); Red Cell Distribution Width 16.7 % (11.5-14.5); Segmented Neutrophils % 92.5 %; White Blood Count 23.3 K/mcL (4.3-11.1)
[2018-11-26 04:32] LABS: VBG HCO3 10 mEq/L (21-27); VBG PCO2 27 mmHg (41-51); VBG PH 7.18 pH Units (7.32-7.42); VBG PO2 65 mmHg (25-50)
[2018-11-26 04:39] LABS: Lymphocytes # 1.1 K/mcL (0.6-4.6); Neutrophils # 21.6 K/mcL (1.6-8.9)
[2018-11-26 04:50] LABS: INR 6.9; Prothrombin Time 78.3 Seconds (9.4-12.1)
[2018-11-26 04:51] LABS: Albumin 1.8 g/dL (3.5-5.7); Albumin/Globulin Ratio 0.8 (1.1-2.2); Bilirubin,Direct 0.2 mg/dL (0.0-0.2); Bilirubin,Indirect 0.2 mg/dL (0.0-1.2); Bilirubin,Total 0.4 mg/dL (0.3-1.0); Calcium 8.7 mg/dL (8.6-10.3); Globulin 2.2 g/dL (2.4-3.5); Magnesium 2.3 mg/dL (1.6-2.6); Potassium 4.1 mEq/L (3.5-5.1)
[2018-11-26 05:04] LABS: Hypochromasia Present (Not Present); Platelet Estimate Normal (Normal); Poikilocytosis 1+ (Not Present)
[2018-11-26 05:05] LABS: Burr Cells 1+ (Not Present); Ovalocytes 1+ (Not Present)
[2018-11-26] MEDS: Fluticasone Propionate Nasal 50 MCG/SPRAY BOTTLE NS SCH (10:10)
[2018-11-26] MEDS ORDERED: Furosemide 20 MG/2 ML VIAL IVP ONE (14:58)
[2018-11-26 15:55] LABS: Uric Acid 7.6 mg/dL (2.3-7.6)
[2018-11-26] MEDS: Albumin 25% 25gram/100mL 25 GM/100 ML IV.SOLN IVC SCH ×3 (17:52→22:48)
[2018-11-26] MEDS ORDERED: *HR* Phytonadione 5 MG TABLET PO ONE (20:00)
[2018-11-26] MEDS ORDERED: cefTRIAXone 2,000 MG in Water for inj. (sterile) 20 ML IVP SCH (20:00)
[2018-11-27] MEDS ORDERED: Furosemide 20 MG/2 ML VIAL IVP ONE (00:24)
[2018-11-27 00:25] LABS: ABG Base Excess -13 mEq/L (-2 to 3); ABG HCO3 12 mEq/L (21-27); ABG Oxygen Saturation 98 % (95-98); ABG PCO2 25 mmHg (35-45); ABG PH 7.28 pH Units (7.32-7.45); ABG PO2 122 mmHg (85-104); ABG TCO2 13 mEq/L (20-26)
[2018-11-27] MEDS: Albumin 25% 25gram/100mL 25 GM/100 ML IV.SOLN IVC SCH (00:28)
[2018-11-27 01:01] LABS: Hematocrit 18.1 % (35.3-44.9); Mean Corpuscular HGB Conc 33.1 g/dL (31.6-35.5); Mean Corpuscular Hemoglobin 27.1 pg (28.0-33.3); Mean Corpuscular Volume 81.9 fL (83.0-100.0); Mean Platelet Volume 11.3 fL (9.4-12.4); Platelet Count 171 K/mcL (140-400); Red Blood Count 2.21 M/mcL (3.82-4.97); Red Cell Distribution Width 16.3 % (11.5-14.5); White Blood Count 19.1 K/mcL (4.3-11.1)
[2018-11-27 01:21] LABS: Calcium 8.9 mg/dL (8.6-10.3); Magnesium 2.2 mg/dL (1.6-2.6); Potassium 3.9 mEq/L (3.5-5.1)
[2018-11-27 01:22] LABS: Albumin 2.8 g/dL (3.5-5.7); Phosphorous 4.6 mg/dL (2.7-4.5); Potassium 4.1 mEq/L (3.5-5.1)
[2018-11-27 01:34] LABS: INR 10.7; Prothrombin Time 122.2 Seconds (9.4-12.1)
[2018-11-27] MEDS ORDERED: *HR* Phytonadione 5 MG TABLET PO ONE (01:36)
[2018-11-27] MEDS ORDERED: 0.9 % Sodium Chloride 250 ML ONE ×4 (01:49→07:27)
[2018-11-27] MEDS ORDERED: Levalbuterol Neb 1.25 MG/3 ML IH ONE (04:21)
[2018-11-27] MEDS ORDERED: Levalbuterol Neb 1.25 MG/3 ML ONE (04:23)
[2018-11-27] MEDS ORDERED: Furosemide 40 MG/4 ML VIAL IVP ONE (04:53)
[2018-11-27] MEDS ORDERED: 0.9 % Sodium Chloride 250 ML IVC SCH (07:45)
[2018-11-27] MEDS ORDERED: Bumetanide 1 MG/4 ML VIAL IVP ONE (08:04)
[2018-11-27] MEDS ORDERED: Artificial Tears SOLN 15 ML BOTTLE BOTH EYES PRN (09:10)
[2018-11-27] MEDS ORDERED: *HR* Midazolam HCl 5 MG/5 ML VIAL IVP ONE (09:14)
[2018-11-27] MEDS ORDERED: *HR* Midazolam HCl 2 MG/2 ML VIAL IV ONE (09:14)
[2018-11-27] MEDS ORDERED: *HR* Rocuronium Bromide 100 MG/10 ML VIAL IVC ONE (09:14)
[2018-11-27] MEDS ORDERED: *HR* Etomidate 20 MG/10 ML AMPUL IVP ONE (09:14)
[2018-11-27 09:57] LABS: ABG Base Excess -14 mEq/L (-2 to 3); ABG HCO3 16 mEq/L (21-27); ABG Oxygen Saturation 94 % (95-98); ABG PCO2 63 mmHg (35-45); ABG PH 7.03 pH Units (7.32-7.45); ABG PO2 105 mmHg (85-104); ABG TCO2 18 mEq/L (20-26); Blood Gas Modality AF; Blood Gas VT 400 cc
[2018-11-27] MEDS ORDERED: *HR* Norepinephrine 4 MG/4 ML VIAL IVC ONE (09:59)
[2018-11-27] MEDS ORDERED: D5% in Water 250 ML IV BAG IV ONE (09:59)
[2018-11-27] MEDS: FentaNYL (PF) 1,000 MCG in 0.9 % Sodium Chloride 80 ML IVC SCH (10:00)
[2018-11-27 10:01] LABS: Basophils % 0.1 %; Eosinophils % 0.2 %; Hematocrit 28.9 % (35.3-44.9); Immature Granulocytes % 0.4 % (0-4); Lymphocytes % 7.7 %; Mean Corpuscular HGB Conc 31.5 g/dL (31.6-35.5); Mean Corpuscular Hemoglobin 26.1 pg (28.0-33.3); Mean Platelet Volume 12.1 fL (9.4-12.4); Monocytes # 0.1 K/mcL (0.0-1.3); Monocytes % 0.6 %; Neutrophils # 12.2 K/mcL (1.6-8.9); Nucleated Red Blood Cells 0.2 /100 WBC (0); Platelet Count 187 K/mcL (140-400); Red Blood Count 3.48 M/mcL (3.82-4.97); Red Cell Distribution Width 17.5 % (11.5-14.5); White Blood Count 13.4 K/mcL (4.3-11.1)
[2018-11-27 10:17] LABS: Fibrinogen 152 mg/dL (169-393)
[2018-11-27 10:19] LABS: Activated Partial Thrombo Time 44.7 Seconds (26.0-36.0)
[2018-11-27 10:22] LABS: Calcium 9.1 mg/dL (8.6-10.3); Potassium 3.7 mEq/L (3.5-5.1)
[2018-11-27 10:26] LABS: INR 2.2; Prothrombin Time 25.1 Seconds (9.4-12.1)
[2018-11-27 10:27] LABS: D-Dimer 2441 ng/mLFEU (0-500)
[2018-11-27 10:39] LABS: Hemoglobin 9.1 g/dL (11.5-15.4)
[2018-11-27 11:00] LABS: Anisocytosis 1+ (Not Present); Burr Cells 1+ (Not Present); Platelet Estimate Normal (Normal); Poikilocytosis 1+ (Not Present); Schistocytes 1+ (Not Present)
[2018-11-27 11:01] LABS: Hypochromasia Present (Not Present)
[2018-11-27] MEDS ORDERED: *HR* FentaNYL (PF) 100 MCG/2 ML VIAL IVP ONE (11:36)
[2018-11-27] MEDS: Budesonide/Formoterol 160/4.5 1 PUFF INH IH SCH ×2 (11:41→20:03)
[2018-11-27] MEDS: Pantoprazole 40 MG VIAL IVP SCH ×2 (12:25→19:54)
[2018-11-27] MEDS: Artificial Tears SOLN 15 ML BOTTLE BOTH EYES SCH ×4 (12:25→23:15)
[2018-11-27] MEDS: Chlorhexidine Rinse 15 ML MOUTHWASH MM SCH ×2 (12:25→19:54)
[2018-11-27 13:39] LABS: Hematocrit 31.1 % (35.3-44.9); Hemoglobin 9.9 g/dL (11.5-15.4)
[2018-11-27] MEDS: Norepinephrine 4 MG in 0.9 % Sodium Chloride 250 ML IVC SCH ×4 (13:42→23:19)
[2018-11-27] MEDS: Fluticasone Propionate Nasal 50 MCG/SPRAY BOTTLE NS SCH (14:52)
[2018-11-27] MEDS: Piperacillin/Tazobactam 3.375 GM in 0.9 % Sodium Chloride Mini Bag 100 ML IVPB SCH ×2 (14:52→23:15)
[2018-11-27 16:09] LABS: ABG Base Excess -16 mEq/L (-2 to 3); ABG HCO3 14 mEq/L (21-27); ABG Oxygen Saturation 100 % (95-98); ABG PCO2 48 mmHg (35-45); ABG PH 7.07 pH Units (7.32-7.45); ABG PO2 366 mmHg (85-104); ABG TCO2 15 mEq/L (20-26); Blood Gas VT 430 cc
[2018-11-27] MEDS ORDERED: Sodium Bicarbonate 50 MEQ/50 ML VIAL IVP STA (16:09)
[2018-11-27] MEDS ORDERED: Sodium Bicarbonate 50 MEQ/50 ML VIAL ONE (16:13)
[2018-11-27] MEDS: Sodium Bicarbonate 150 MEQ in D5% in Water 1,000 ML IVC SCH ×2 (16:51→23:17)
[2018-11-27 16:59] LABS: VBG Ionized Calcium 1.43 mmol/L (1.15-1.35)
[2018-11-27] MEDS: PrismaSATE BGK 4/2.5 5,000 ML CRRT SCH ×4 (17:07→22:24)
[2018-11-27] MEDS: 0.9 % Sodium Chloride 1,000 ML PRIME SCH ×9 (17:48→23:50)
[2018-11-27] MEDS: Vasopressin 40 UNIT in D5% in Water 100 ML IVC SCH (18:00)
[2018-11-27 20:24] LABS: Hematocrit 26.8 % (35.3-44.9); Hemoglobin 8.7 g/dL (11.5-15.4)
[2018-11-27] MEDS ORDERED: *HR* Heparin 5,000 UNIT/ML VIAL ONE (22:26)
[2018-11-27] MEDS: *HR* Heparin 5,000 UNIT/ML VIAL IVP PRN (23:23)
[2018-11-28] MEDS: Norepinephrine 4 MG in 0.9 % Sodium Chloride 250 ML IVC SCH ×5 (02:11→22:04)
[2018-11-28] MEDS: 0.9 % Sodium Chloride 1,000 ML PRIME SCH ×10 (03:24→22:57)
[2018-11-28 03:44] LABS: Lymphocytes % 4.4 %; Monocytes % 0.5 %; Nucleated Red Blood Cells 0.4 /100 WBC (0)
[2018-11-28 03:45] LABS: Basophils % 0.1 %; Eosinophils % 0.2 %; Hematocrit 25.6 % (35.3-44.9); Hemoglobin 8.6 g/dL (11.5-15.4); Immature Granulocytes % 0.9 % (0-4); Immature Platelets 14.2 % (1.1-6.1); Lymphocytes # 0.8 K/mcL (0.6-4.6); Mean Corpuscular HGB Conc 33.6 g/dL (31.6-35.5); Mean Corpuscular Volume 80.3 fL (83.0-100.0); Monocytes # 0.1 K/mcL (0.0-1.3); Neutrophils # 16.3 K/mcL (1.6-8.9); Red Blood Count 3.19 M/mcL (3.82-4.97); Red Cell Distribution Width 17.7 % (11.5-14.5); Segmented Neutrophils % 93.9 %; White Blood Count 17.4 K/mcL (4.3-11.1)
[2018-11-28 03:58] LABS: Calcium 7.7 mg/dL (8.6-10.3); Potassium 3.7 mEq/L (3.5-5.1)
[2018-11-28] MEDS: Artificial Tears SOLN 15 ML BOTTLE BOTH EYES SCH ×6 (03:59→23:01)
[2018-11-28 04:17] LABS: Prothrombin Time 22.9 Seconds (9.4-12.1)
[2018-11-28 04:33] LABS: Platelet Count 87 K/mcL (140-400)
[2018-11-28 04:37] LABS: Acanthocytes 1+ (Not Present); Anisocytosis 1+ (Not Present); Platelet Estimate Decreased (Normal); Target Cells 1+ (Not Present)
[2018-11-28 05:09] LABS: ABG Base Excess -5 mEq/L (-2 to 3); ABG HCO3 22 mEq/L (21-27); ABG Oxygen Saturation 96 % (95-98); ABG PCO2 49 mmHg (35-45); ABG PH 7.26 pH Units (7.32-7.45); ABG PO2 99 mmHg (85-104); ABG TCO2 23 mEq/L (20-26); Blood Gas Modality ASSIST CONTROL; Blood Gas VT 430 cc
[2018-11-28] MEDS: PrismaSATE BGK 4/2.5 5,000 ML CRRT SCH ×8 (05:14→21:23)
[2018-11-28] MEDS: Fluticasone Propionate Nasal 50 MCG/SPRAY BOTTLE NS SCH (07:37)
[2018-11-28] MEDS: Budesonide/Formoterol 160/4.5 1 PUFF INH IH SCH ×2 (07:40→21:30)
[2018-11-28] MEDS ORDERED: *HR* Heparin 5,000 UNIT/ML VIAL ONE (08:05)
[2018-11-28] MEDS: Chlorhexidine Rinse 15 ML MOUTHWASH MM SCH ×2 (08:50→19:50)
[2018-11-28] MEDS: Piperacillin/Tazobactam 3.375 GM in 0.9 % Sodium Chloride Mini Bag 100 ML IVPB SCH ×3 (08:50→23:01)
[2018-11-28] MEDS: Pantoprazole 40 MG VIAL IVP SCH ×2 (08:51→19:50)
[2018-11-28] MEDS ORDERED: Levothyroxine Sodium 100 MCG VIAL IVP SCH (09:00)
[2018-11-28] MEDS: Albumin 25% 25gram/100mL 25 GM/100 ML IV.SOLN IVPB SCH ×2 (10:01→17:20)
[2018-11-28 10:36] LABS: ABG Base Excess -5 mEq/L (-2 to 3); ABG HCO3 21 mEq/L (21-27); ABG Oxygen Saturation 89 % (95-98); ABG PCO2 39 mmHg (35-45); ABG PH 7.33 pH Units (7.32-7.45); ABG PO2 61 mmHg (85-104); ABG TCO2 22 mEq/L (20-26); Blood Gas Modality AF; Blood Gas VT 430 cc
[2018-11-28 12:12] LABS: Phosphorous 3.6 mg/dL (2.7-4.5)
[2018-11-28 12:19] LABS: VBG Base Excess -7 mEq/L; VBG Chloride 109 mEq/L (98-107); VBG Glucose 99 mg/dl (65-95); VBG HCO3 20 mEq/L (21-27); VBG Oxygen Saturation 98 %; VBG PCO2 43 mmHg (41-51); VBG PH 7.27 pH Units (7.32-7.42); VBG PO2 116 mmHg (25-50); VBG Total CO2 21 mEq/L
[2018-11-28] MEDS: Vasopressin 40 UNIT in D5% in Water 100 ML IVC SCH (19:22)
[2018-11-28] MEDS: FentaNYL (PF) 1,000 MCG in 0.9 % Sodium Chloride 80 ML IVC SCH ×2 (19:22→19:27)
[2018-11-28] MEDS: Sodium Bicarbonate 150 MEQ in D5% in Water 1,000 ML IVC SCH (19:23)
[2018-11-29] MEDS: 0.9 % Sodium Chloride 1,000 ML PRIME SCH ×10 (00:10→21:19)
[2018-11-29] MEDS: Albumin 25% 25gram/100mL 25 GM/100 ML IV.SOLN IVPB SCH ×3 (00:27→23:03)
[2018-11-29] MEDS: PrismaSATE BGK 4/2.5 5,000 ML CRRT SCH ×10 (02:18→21:05)
[2018-11-29] MEDS: Artificial Tears SOLN 15 ML BOTTLE BOTH EYES SCH ×6 (03:41→23:03)
[2018-11-29] MEDS ORDERED: *HR* Heparin 5,000 UNIT/ML VIAL ONE (03:49)
[2018-11-29 03:58] LABS: Hematocrit 17.6 % (35.3-44.9); Mean Corpuscular HGB Conc 33.5 g/dL (31.6-35.5); Mean Corpuscular Hemoglobin 26.5 pg (28.0-33.3); Mean Corpuscular Volume 78.9 fL (83.0-100.0); Nucleated Red Blood Cells 0.4 /100 WBC (0); Red Blood Count 2.23 M/mcL (3.82-4.97); Red Cell Distribution Width 17.2 % (11.5-14.5); White Blood Count 18.1 K/mcL (4.3-11.1)
[2018-11-29 04:04] LABS: INR 2.2; Prothrombin Time 24.8 Seconds (9.4-12.1)
[2018-11-29 04:12] LABS: Calcium 7.6 mg/dL (8.6-10.3); Magnesium 2.1 mg/dL (1.6-2.6); Phosphorous 1.3 mg/dL (2.7-4.5); Potassium 3.7 mEq/L (3.5-5.1)
[2018-11-29 04:28] LABS: Platelet Count 45 K/mcL (140-400)
[2018-11-29 04:30] LABS: Hemoglobin 5.9 g/dL (11.5-15.4)
[2018-11-29 04:41] LABS: Lymphocytes # 0.7 K/mcL (0.6-4.6); Monocytes # 0.4 K/mcL (0.0-1.3); Neutrophils # 16.7 K/mcL (1.6-8.9); Platelet Estimate Decreased (Normal)
[2018-11-29 04:42] LABS: Anisocytosis 1+ (Not Present)
[2018-11-29] MEDS: Norepinephrine 4 MG in 0.9 % Sodium Chloride 250 ML IVC SCH ×3 (04:57→17:13)
[2018-11-29 05:36] LABS: ABG Base Excess 1 mEq/L (-2 to 3); ABG HCO3 27 mEq/L (21-27); ABG Oxygen Saturation 93 % (95-98); ABG PCO2 51 mmHg (35-45); ABG PH 7.33 pH Units (7.32-7.45); ABG PO2 72 mmHg (85-104); ABG TCO2 29 mEq/L (20-26); Blood Gas Modality AF; Blood Gas VT 430 cc
[2018-11-29] MEDS: Budesonide/Formoterol 160/4.5 1 PUFF INH IH SCH ×2 (07:19→21:25)
[2018-11-29] MEDS: Pantoprazole 40 MG VIAL IVP SCH ×2 (08:47→20:03)
[2018-11-29] MEDS: Chlorhexidine Rinse 15 ML MOUTHWASH MM SCH ×2 (08:47→20:04)
[2018-11-29] MEDS: Levothyroxine Sodium 100 MCG VIAL IVP SCH (08:47)
[2018-11-29] MEDS: Fluticasone Propionate Nasal 50 MCG/SPRAY BOTTLE NS SCH (08:49)
[2018-11-29] MEDS: Piperacillin/Tazobactam 3.375 GM in 0.9 % Sodium Chloride Mini Bag 100 ML IVPB SCH ×3 (08:49→23:04)
[2018-11-29 09:06] LABS: Albumin/Globulin Ratio 2.5 (1.1-2.2); Bilirubin,Direct 1.3 mg/dL (0.0-0.2); Bilirubin,Indirect 0.5 mg/dL (0.0-1.2); Bilirubin,Total 1.8 mg/dL (0.3-1.0); Globulin 1.2 g/dL (2.4-3.5); Total Protein 4.2 g/dL (6.4-8.9)
[2018-11-29] MEDS: FentaNYL (PF) 1,000 MCG in 0.9 % Sodium Chloride 80 ML IVC SCH ×2 (12:33→21:05)
[2018-11-29] MEDS: Vasopressin 40 UNIT in D5% in Water 100 ML IVC SCH (18:51)
[2018-11-30] MEDS: Norepinephrine 4 MG in 0.9 % Sodium Chloride 250 ML IVC SCH ×3 (00:08→20:00)
[2018-11-30] MEDS: PrismaSATE BGK 4/2.5 5,000 ML CRRT SCH ×10 (02:25→20:40)
[2018-11-30] MEDS: Artificial Tears SOLN 15 ML BOTTLE BOTH EYES SCH ×6 (03:07→23:41)
[2018-11-30 03:25] LABS: Basophils % 0.1 %; Monocytes % 0.8 %
[2018-11-30 03:27] LABS: Hematocrit 24.1 % (35.3-44.9); Hemoglobin 7.9 g/dL (11.5-15.4); Immature Granulocytes % 1.6 % (0-4); Immature Platelets 30.5 % (1.1-6.1); Lymphocytes % 4.1 %; Mean Corpuscular HGB Conc 32.8 g/dL (31.6-35.5); Mean Corpuscular Hemoglobin 26.6 pg (28.0-33.3); Mean Corpuscular Volume 81.1 fL (83.0-100.0); Monocytes # 0.1 K/mcL (0.0-1.3); Red Blood Count 2.97 M/mcL (3.82-4.97); Red Cell Distribution Width 17.5 % (11.5-14.5); Segmented Neutrophils % 91.3 %; White Blood Count 14.5 K/mcL (4.3-11.1)
[2018-11-30 03:28] LABS: Eosinophils # 0.3 K/mcL (0.0-0.6); Eosinophils % 2.1 %; Lymphocytes # 0.6 K/mcL (0.6-4.6); Neutrophils # 13.2 K/mcL (1.6-8.9); Nucleated Red Blood Cells 1.1 /100 WBC (0)
[2018-11-30 03:42] LABS: INR 1.8; Prothrombin Time 20.9 Seconds (9.4-12.1)
[2018-11-30 03:45] LABS: Alanine Aminotransferase 20 Units/L (7-52); Albumin 3.3 g/dL (3.5-5.7); Alkaline Phosphatase 66 Units/L (34-104); Aspartate Amino Transferase 27 Units/L (13-39); BUN/Creatinine Ratio 9 (6-26); Bilirubin,Total 2.1 mg/dL (0.3-1.0); Blood Urea Nitrogen 9 mg/dL (8-23); Calcium 7.3 mg/dL (8.6-10.3); Carbon Dioxide 27 mEq/L (23-29); Chloride 108 mEq/L (98-107); Globulin 1.1 g/dL (2.4-3.5); Glucose 102 mg/dL (70-105); Osmolality,Calculated 289 (280-300); Phosphorous 1.3 mg/dL (2.7-4.5); Potassium 3.5 mEq/L (3.5-5.1); Sodium 140 mEq/L (136-145); Total Protein 4.4 g/dL (6.4-8.9); eGFR For African Americans > 60 (> 60); eGFR For Non-African Americans 58 (> 60)
[2018-11-30 04:06] LABS: Platelet Count 16 K/mcL (140-400)
[2018-11-30 04:09] LABS: Anisocytosis 1+ (Not Present); Hypochromasia Present (Not Present); Platelet Estimate Marked Decrease (Normal)
[2018-11-30 05:40] LABS: ABG Base Excess 3 mEq/L (-2 to 3); ABG HCO3 30 mEq/L (21-27); ABG Oxygen Saturation 91 % (95-98); ABG PCO2 60 mmHg (35-45); ABG PO2 69 mmHg (85-104); ABG TCO2 31 mEq/L (20-26); Blood Gas Modality AF; Blood Gas VT 430 cc
[2018-11-30] MEDS: Budesonide/Formoterol 160/4.5 1 PUFF INH IH SCH ×2 (07:28→19:46)
[2018-11-30] MEDS: 0.9 % Sodium Chloride 1,000 ML PRIME SCH ×15 (07:41→23:00)
[2018-11-30] MEDS: Fluticasone Propionate Nasal 50 MCG/SPRAY BOTTLE NS SCH (07:42)
[2018-11-30] MEDS: Chlorhexidine Rinse 15 ML MOUTHWASH MM SCH ×2 (08:16→20:26)
[2018-11-30] MEDS: Levothyroxine Sodium 100 MCG VIAL IVP SCH (08:16)
[2018-11-30] MEDS: Pantoprazole 40 MG VIAL IVP SCH (08:16)
[2018-11-30] MEDS: Piperacillin/Tazobactam 3.375 GM in 0.9 % Sodium Chloride Mini Bag 100 ML IVPB SCH (08:16)
[2018-11-30] MEDS: Albumin 25% 25gram/100mL 25 GM/100 ML IV.SOLN IVPB SCH (08:18)
[2018-11-30] MEDS ORDERED: Pantoprazole 40 MG VIAL IVP SCH (09:00)
[2018-11-30] MEDS: Dexmedetomidine HCl 400 MCG/100 ML MLS IVC SCH (09:17)
[2018-11-30] MEDS: Ertapenem 1,000 MG in 0.9 % Sodium Chloride Mini Bag 100 ML IVPB SCH (09:17)
[2018-11-30] MEDS: Vasopressin 40 UNIT in D5% in Water 100 ML IVC SCH (09:39)
[2018-11-30] MEDS: FentaNYL (PF) 1,000 MCG in 0.9 % Sodium Chloride 80 ML IVC SCH (18:50)
[2018-11-30] MEDS ORDERED: *HR* Heparin 5,000 UNIT/ML VIAL ONE (19:33)
[2018-11-30] MEDS: *HR* Heparin 5,000 UNIT/ML VIAL IVP PRN (23:00)
[2018-12-01] MEDS: 0.9 % Sodium Chloride 1,000 ML PRIME SCH ×20 (00:02→22:26)
[2018-12-01] MEDS ORDERED: *HR* Heparin 5,000 UNIT/ML VIAL ONE ×2 (00:10→17:02)
[2018-12-01] MEDS: PrismaSATE BGK 4/2.5 5,000 ML CRRT SCH ×6 (02:00→11:53)
[2018-12-01] MEDS: Norepinephrine 4 MG in 0.9 % Sodium Chloride 250 ML IVC SCH ×5 (02:00→21:10)
[2018-12-01] MEDS: Artificial Tears SOLN 15 ML BOTTLE BOTH EYES SCH ×5 (03:12→21:10)
[2018-12-01 05:03] LABS: Hematocrit 25.3 % (35.3-44.9); Hemoglobin 8.4 g/dL (11.5-15.4); Immature Platelets 41.9 % (1.1-6.1); Mean Corpuscular HGB Conc 33.2 g/dL (31.6-35.5); Mean Corpuscular Hemoglobin 26.9 pg (28.0-33.3); Mean Corpuscular Volume 81.1 fL (83.0-100.0); Nucleated Red Blood Cells 1.2 /100 WBC (0); Red Blood Count 3.12 M/mcL (3.82-4.97); Red Cell Distribution Width 18.3 % (11.5-14.5); White Blood Count 18.4 K/mcL (4.3-11.1)
[2018-12-01 05:04] LABS: BUN/Creatinine Ratio 10 (6-26); Blood Urea Nitrogen 8 mg/dL (8-23); Calcium 7.6 mg/dL (8.6-10.3); Carbon Dioxide 28 mEq/L (23-29); Chloride 108 mEq/L (98-107); Glucose 102 mg/dL (70-105); Magnesium 2.1 mg/dL (1.6-2.6); Osmolality,Calculated 291 (280-300); Phosphorous 1.4 mg/dL (2.7-4.5); Potassium 4.1 mEq/L (3.5-5.1); Sodium 141 mEq/L (136-145); eGFR For African Americans > 60 (> 60); eGFR For Non-African Americans > 60 (> 60)
[2018-12-01 05:08] LABS: Platelet Count 7 K/mcL (140-400)
[2018-12-01 05:20] LABS: Anisocytosis 1+ (Not Present); Hypochromasia Present (Not Present); Lymphocytes # 1.8 K/mcL (0.6-4.6); Monocytes # 0.4 K/mcL (0.0-1.3); Neutrophils # 16.2 K/mcL (1.6-8.9); Target Cells 1+ (Not Present)
[2018-12-01 05:21] LABS: Microcytosis Present (Not Present); Platelet Estimate Marked Decrease (Normal)
[2018-12-01 05:35] LABS: ABG Base Excess 1 mEq/L (-2 to 3); ABG HCO3 29 mEq/L (21-27); ABG Oxygen Saturation 99 % (95-98); ABG PCO2 59 mmHg (35-45); ABG PH 7.29 pH Units (7.32-7.45); ABG PO2 135 mmHg (85-104); ABG TCO2 30 mEq/L (20-26); Blood Gas Modality ASSIST CONTROL; Blood Gas VT 430 cc
[2018-12-01] MEDS ORDERED: 0.9 % Sodium Chloride 250 ML ONE ×2 (06:24→12:13)
[2018-12-01] MEDS: Ertapenem 1,000 MG in 0.9 % Sodium Chloride Mini Bag 100 ML IVPB SCH (07:42)
[2018-12-01] MEDS: Pantoprazole 40 MG VIAL IVP SCH (07:42)
[2018-12-01] MEDS: Levothyroxine Sodium 100 MCG VIAL IVP SCH (07:42)
[2018-12-01] MEDS: Chlorhexidine Rinse 15 ML MOUTHWASH MM SCH ×2 (07:42→20:55)
[2018-12-01] MEDS: Fluticasone Propionate Nasal 50 MCG/SPRAY BOTTLE NS SCH (07:44)
[2018-12-01] MEDS: Budesonide/Formoterol 160/4.5 1 PUFF INH IH SCH ×2 (07:55→21:24)
[2018-12-01 08:42] LABS: INR 1.8; Prothrombin Time 20.6 Seconds (9.4-12.1)
[2018-12-01 08:44] LABS: Activated Partial Thrombo Time 46.1 Seconds (26.0-36.0)
[2018-12-01] MEDS: Dexmedetomidine HCl 400 MCG/100 ML MLS IVC SCH (09:26)
[2018-12-01] MEDS: Vasopressin 40 UNIT in D5% in Water 100 ML IVC SCH (09:50)
[2018-12-01] MEDS: Sennosides/Docusate Sodium TABLET PO SCH ×2 (14:23→20:55)
[2018-12-01] MEDS: Meropenem 1,000 MG in 0.9 % Sodium Chloride Mini Bag 100 ML IVPB SCH (16:12)
[2018-12-01 20:34] LABS: Basophils % 0.2 %; Eosinophils % 0.9 %
[2018-12-01 20:36] LABS: Hematocrit 21.6 % (35.3-44.9); Hemoglobin 7.2 g/dL (11.5-15.4); Immature Granulocytes % 1.7 % (0-4); Mean Corpuscular HGB Conc 33.3 g/dL (31.6-35.5); Mean Corpuscular Hemoglobin 27.6 pg (28.0-33.3); Mean Corpuscular Volume 82.8 fL (83.0-100.0); Mean Platelet Volume 10.5 fL (9.4-12.4); Monocytes # 0.4 K/mcL (0.0-1.3); Monocytes % 2.5 %; Neutrophils # 14.4 K/mcL (1.6-8.9); Nucleated Red Blood Cells 0.8 /100 WBC (0); Red Blood Count 2.61 M/mcL (3.82-4.97); Segmented Neutrophils % 88.7 %; White Blood Count 16.2 K/mcL (4.3-11.1)
[2018-12-01 20:39] LABS: Eosinophils # 0.2 K/mcL (0.0-0.6)
[2018-12-01 20:41] LABS: Platelet Count 22 K/mcL (140-400)
[2018-12-01 20:49] LABS: INR 1.3; Prothrombin Time 14.9 Seconds (9.4-12.1)
[2018-12-01 21:04] LABS: Anisocytosis 1+ (Not Present); Hypochromasia Present (Not Present); Platelet Estimate Marked Decrease (Normal)
[2018-12-01 23:21] LABS: Protein/Creatinine Ratio,Urine 10.65 mg/mg (0.00-0.20); Sodium, Urine 78.1 mEq/L
[2018-12-02] MEDS: Meropenem 1,000 MG in 0.9 % Sodium Chloride Mini Bag 100 ML IVPB SCH ×2 (00:14→11:32)
[2018-12-02] MEDS: 0.9 % Sodium Chloride 1,000 ML PRIME SCH ×3 (00:14→00:28)
[2018-12-02] MEDS: Artificial Tears SOLN 15 ML BOTTLE BOTH EYES SCH ×6 (00:15→20:08)
[2018-12-02] MEDS: *HR* Dextrose 50 % in Water (Syg) 50 ML SYRINGE IVP PRN ×5 (00:29→23:30)
[2018-12-02 04:24] LABS: ABG Base Excess 6 mEq/L (-2 to 3); ABG HCO3 32 mEq/L (21-27); ABG Oxygen Saturation 93 % (95-98); ABG PCO2 56 mmHg (35-45); ABG PH 7.36 pH Units (7.32-7.45); ABG PO2 72 mmHg (85-104); ABG TCO2 33 mEq/L (20-26); Blood Gas Modality ASSIST CONTROL; Blood Gas VT 430 cc
[2018-12-02 04:48] LABS: Basophils % 0.1 %; Immature Granulocytes % 1.8 % (0-4); Nucleated Red Blood Cells 0.8 /100 WBC (0)
[2018-12-02 04:50] LABS: Eosinophils # 0.1 K/mcL (0.0-0.6); Eosinophils % 0.5 %; Hematocrit 20.2 % (35.3-44.9); Hemoglobin 6.6 g/dL (11.5-15.4); Immature Platelets 24.3 % (1.1-6.1); Lymphocytes # 0.7 K/mcL (0.6-4.6); Lymphocytes % 5.6 %; Mean Corpuscular HGB Conc 32.7 g/dL (31.6-35.5); Mean Corpuscular Hemoglobin 27.5 pg (28.0-33.3); Mean Corpuscular Volume 84.2 fL (83.0-100.0); Monocytes % 4.1 %; Neutrophils # 11.7 K/mcL (1.6-8.9); Segmented Neutrophils % 87.9 %; White Blood Count 13.3 K/mcL (4.3-11.1)
[2018-12-02 04:59] LABS: INR 1.4; Prothrombin Time 15.8 Seconds (9.4-12.1)
[2018-12-02 05:07] LABS: Monocytes # 0.6 K/mcL (0.0-1.3)
[2018-12-02 05:09] LABS: Calcium 8.9 mg/dL (8.6-10.3); Platelet Count 18 K/mcL (140-400)
[2018-12-02 05:26] LABS: Anisocytosis 1+ (Not Present)
[2018-12-02 05:27] LABS: Hypochromasia Present (Not Present); Macrocytosis Present (Not Present); Microcytosis Present (Not Present); Platelet Estimate Marked Decrease (Normal); Target Cells 1+ (Not Present)
[2018-12-02] MEDS: Budesonide/Formoterol 160/4.5 1 PUFF INH IH SCH ×2 (07:28→21:40)
[2018-12-02] MEDS: Vasopressin 40 UNIT in D5% in Water 100 ML IVC SCH (08:21)
[2018-12-02] MEDS: Dexmedetomidine HCl 400 MCG/100 ML MLS IVC SCH (08:33)
[2018-12-02] MEDS: Sennosides/Docusate Sodium TABLET PO SCH ×2 (08:52→21:21)
[2018-12-02] MEDS: Chlorhexidine Rinse 15 ML MOUTHWASH MM SCH ×2 (08:52→20:11)
[2018-12-02] MEDS: Levothyroxine Sodium 100 MCG VIAL IVP SCH (08:52)
[2018-12-02] MEDS: Pantoprazole 40 MG VIAL IVP SCH (08:52)
[2018-12-02] MEDS: Fluticasone Propionate Nasal 50 MCG/SPRAY BOTTLE NS SCH (08:54)
[2018-12-02 09:02] LABS: Magnesium 2.3 mg/dL (1.6-2.6); Phosphorous 3.8 mg/dL (2.7-4.5)
[2018-12-02] MEDS: FentaNYL (PF) 1,000 MCG in 0.9 % Sodium Chloride 80 ML IVC SCH (09:22)
[2018-12-02] MEDS ORDERED: 0.9 % Sodium Chloride 250 ML ONE (10:35)
[2018-12-02] MEDS: Metoclopramide 10 MG/10 ML UD.LIQ GTUBE SCH ×2 (11:37→16:49)
[2018-12-02] MEDS ORDERED: *HR* Midazolam HCl 2 MG/2 ML VIAL IVP PRN (16:33)
[2018-12-02 16:46] LABS: Calcium 9.3 mg/dL (8.6-10.3); Potassium 4.1 mEq/L (3.5-5.1)
[2018-12-02 17:28] LABS: INR 1.4; Prothrombin Time 15.9 Seconds (9.4-12.1)
[2018-12-02 18:30] LABS: Basophils % 0.3 %; Red Cell Distribution Width 17.8 % (11.5-14.5)
[2018-12-02 18:32] LABS: Basophils # 0.1 K/mcL (0.0-0.2); Eosinophils # 0.1 K/mcL (0.0-0.6); Eosinophils % 0.6 %; Hematocrit 24.5 % (35.3-44.9); Hemoglobin 7.9 g/dL (11.5-15.4); Immature Granulocytes % 2.4 % (0-4); Immature Platelets 14.4 % (1.1-6.1); Lymphocytes # 0.9 K/mcL (0.6-4.6); Lymphocytes % 5.9 %; Mean Corpuscular HGB Conc 32.2 g/dL (31.6-35.5); Mean Corpuscular Hemoglobin 27.6 pg (28.0-33.3); Mean Corpuscular Volume 85.7 fL (83.0-100.0); Mean Platelet Volume 10.2 fL (9.4-12.4); Monocytes % 3.6 %; Nucleated Red Blood Cells 0.5 /100 WBC (0); Red Blood Count 2.86 M/mcL (3.82-4.97); Segmented Neutrophils % 87.2 %; White Blood Count 15.2 K/mcL (4.3-11.1)
[2018-12-02 18:41] LABS: Monocytes # 0.6 K/mcL (0.0-1.3); Neutrophils # 13.3 K/mcL (1.6-8.9); Platelet Count 43 K/mcL (140-400)
[2018-12-02 19:06] LABS: Anisocytosis 1+ (Not Present); Hypochromasia Present (Not Present); Platelet Estimate Decreased (Normal)
[2018-12-03] MEDS: Nystatin Cream 15 GM TUBE TP SCH ×4 (00:04→20:11)
[2018-12-03] MEDS: Artificial Tears SOLN 15 ML BOTTLE BOTH EYES SCH ×7 (00:05→23:16)
[2018-12-03] MEDS: Metoclopramide 10 MG/10 ML UD.LIQ GTUBE SCH ×5 (00:27→23:16)
[2018-12-03] MEDS: Meropenem 1,000 MG in 0.9 % Sodium Chloride Mini Bag 100 ML IVPB SCH ×4 (00:30→23:16)
[2018-12-03] MEDS: *HR* Dextrose 50 % in Water (Syg) 50 ML SYRINGE IVP PRN ×2 (03:20→08:45)
[2018-12-03] MEDS: Vasopressin 40 UNIT in D5% in Water 100 ML IVC SCH ×2 (03:28→23:57)
[2018-12-03 03:51] LABS: Basophils % 0.2 %; Red Blood Count 2.77 M/mcL (3.82-4.97)
[2018-12-03 03:53] LABS: Eosinophils # 0.1 K/mcL (0.0-0.6); Eosinophils % 0.6 %; Hematocrit 23.4 % (35.3-44.9); Hemoglobin 7.6 g/dL (11.5-15.4); Immature Granulocytes % 4.1 % (0-4); Immature Platelets 27.8 % (1.1-6.1); Lymphocytes # 0.8 K/mcL (0.6-4.6); Mean Corpuscular HGB Conc 32.5 g/dL (31.6-35.5); Mean Corpuscular Hemoglobin 27.4 pg (28.0-33.3); Mean Corpuscular Volume 84.5 fL (83.0-100.0); Monocytes # 0.6 K/mcL (0.0-1.3); Monocytes % 4.8 %; Nucleated Red Blood Cells 0.3 /100 WBC (0); Red Cell Distribution Width 17.7 % (11.5-14.5); Segmented Neutrophils % 84.3 %
[2018-12-03 03:56] LABS: Platelet Count 19 K/mcL (140-400)
[2018-12-03 04:00] LABS: INR 1.5; Prothrombin Time 17.4 Seconds (9.4-12.1)
[2018-12-03 04:10] LABS: Albumin 2.5 g/dL (3.5-5.7); Albumin/Globulin Ratio 1.3 (1.1-2.2); Bilirubin,Total 1.9 mg/dL (0.3-1.0); Calcium 9.6 mg/dL (8.6-10.3); Magnesium 2.3 mg/dL (1.6-2.6); Phosphorous 4.4 mg/dL (2.7-4.5); Potassium 3.8 mEq/L (3.5-5.1); Total Protein 4.5 g/dL (6.4-8.9)
[2018-12-03 04:27] LABS: Hypochromasia Present (Not Present); Platelet Estimate Marked Decrease (Normal)
[2018-12-03 04:41] LABS: ABG Base Excess 7 mEq/L (-2 to 3); ABG HCO3 32 mEq/L (21-27); ABG Oxygen Saturation 95 % (95-98); ABG PCO2 48 mmHg (35-45); ABG PH 7.43 pH Units (7.32-7.45); ABG PO2 74 mmHg (85-104); ABG TCO2 33 mEq/L (20-26); Blood Gas Modality ASSIST CONTROL; Blood Gas VT 430 cc
[2018-12-03] MEDS ORDERED: Aminoglycoside Consult 1 EACH MC ONE (07:51)
[2018-12-03] MEDS: Budesonide/Formoterol 160/4.5 1 PUFF INH IH SCH ×2 (07:55→19:54)
[2018-12-03] MEDS: Dexmedetomidine HCl 400 MCG/100 ML MLS IVC SCH ×2 (08:00→17:57)
[2018-12-03] MEDS ORDERED: 0.9 % Sodium Chloride 250 ML ONE (08:15)
[2018-12-03] MEDS: Sennosides/Docusate Sodium TABLET PO SCH ×2 (08:38→20:10)
[2018-12-03] MEDS: Levothyroxine Sodium 100 MCG VIAL IVP SCH (08:39)
[2018-12-03] MEDS: Pantoprazole 40 MG VIAL IVP SCH (08:39)
[2018-12-03] MEDS: Chlorhexidine Rinse 15 ML MOUTHWASH MM SCH ×2 (08:39→20:10)
[2018-12-03] MEDS ORDERED: Vancomycin 1 EACH in 0.9 % Sodium Chloride 250 ML IVPB PRN (09:00)
[2018-12-03] MEDS: Fluticasone Propionate Nasal 50 MCG/SPRAY BOTTLE NS SCH (11:53)
[2018-12-03 12:54] LABS: Basophils % 0.2 %; Eosinophils % 0.7 %; Nucleated Red Blood Cells 0.4 /100 WBC (0); Red Cell Distribution Width 17.8 % (11.5-14.5)
[2018-12-03 12:55] LABS: Eosinophils # 0.1 K/mcL (0.0-0.6); Hematocrit 24.2 % (35.3-44.9); Hemoglobin 7.9 g/dL (11.5-15.4); Immature Granulocytes % 4.7 % (0-4); Immature Platelets 21.7 % (1.1-6.1); Lymphocytes # 0.8 K/mcL (0.6-4.6); Lymphocytes % 6.5 %; Mean Corpuscular HGB Conc 32.6 g/dL (31.6-35.5); Mean Corpuscular Volume 85.8 fL (83.0-100.0); Monocytes # 0.6 K/mcL (0.0-1.3); Monocytes % 5.1 %; Neutrophils # 10.1 K/mcL (1.6-8.9); Red Blood Count 2.82 M/mcL (3.82-4.97); Segmented Neutrophils % 82.8 %; White Blood Count 12.2 K/mcL (4.3-11.1)
[2018-12-03 12:57] LABS: Platelet Count 32 K/mcL (140-400)
[2018-12-03] MEDS ORDERED: Bisacodyl 10 MG RECTAL SUPPOSITORY RC PRN (15:42)
[2018-12-03 18:22] LABS: Calcium 9.9 mg/dL (8.6-10.3)
[2018-12-03 20:42] LABS: Hematocrit 24.3 % (35.3-44.9); Hemoglobin 7.9 g/dL (11.5-15.4)
[2018-12-04 04:09] LABS: Immature Granulocytes % 4.9 % (0-4); Mean Corpuscular HGB Conc 32.9 g/dL (31.6-35.5); Mean Corpuscular Hemoglobin 28.4 pg (28.0-33.3); Nucleated Red Blood Cells 0.3 /100 WBC (0)
[2018-12-04 04:11] LABS: Basophils % 0.3 %; Eosinophils # 0.1 K/mcL (0.0-0.6); Eosinophils % 0.9 %; Hematocrit 24.3 % (35.3-44.9); Immature Platelets 30.8 % (1.1-6.1); Lymphocytes % 9.3 %; Mean Corpuscular Volume 86.2 fL (83.0-100.0); Monocytes # 0.6 K/mcL (0.0-1.3); Neutrophils # 8.4 K/mcL (1.6-8.9); Red Blood Count 2.82 M/mcL (3.82-4.97); Red Cell Distribution Width 17.9 % (11.5-14.5); Segmented Neutrophils % 78.6 %; White Blood Count 10.7 K/mcL (4.3-11.1)
[2018-12-04 04:15] LABS: Platelet Count 28 K/mcL (140-400)
[2018-12-04] MEDS: Artificial Tears SOLN 15 ML BOTTLE BOTH EYES SCH ×6 (04:15→23:52)
[2018-12-04] MEDS: Desitin (Zinc Oxide) 56 GM TUBE TP PRN ×2 (04:16→08:37)
[2018-12-04 04:24] LABS: Magnesium 2.3 mg/dL (1.6-2.6); Phosphorous 5.4 mg/dL (2.7-4.5)
[2018-12-04 04:25] LABS: Calcium 9.8 mg/dL (8.6-10.3); Potassium 3.5 mEq/L (3.5-5.1)
[2018-12-04 04:27] LABS: INR 1.4; Prothrombin Time 16.3 Seconds (9.4-12.1)
[2018-12-04 04:53] LABS: ABG Base Excess 4 mEq/L (-2 to 3); ABG HCO3 29 mEq/L (21-27); ABG Oxygen Saturation 96 % (95-98); ABG PCO2 41 mmHg (35-45); ABG PH 7.46 pH Units (7.32-7.45); ABG PO2 77 mmHg (85-104); ABG TCO2 30 mEq/L (20-26); Blood Gas Modality AF; Blood Gas VT 430 cc
[2018-12-04] MEDS: Dexmedetomidine HCl 400 MCG/100 ML MLS IVC SCH ×2 (05:07→22:25)
[2018-12-04] MEDS: Metoclopramide 10 MG/10 ML UD.LIQ GTUBE SCH (05:08)
[2018-12-04] MEDS: Budesonide/Formoterol 160/4.5 1 PUFF INH IH SCH ×2 (07:18→19:53)
[2018-12-04] MEDS: Fluticasone Propionate Nasal 50 MCG/SPRAY BOTTLE NS SCH (08:37)
[2018-12-04] MEDS: Pantoprazole 40 MG VIAL IVP SCH ×2 (08:38→17:28)
[2018-12-04] MEDS: Chlorhexidine Rinse 15 ML MOUTHWASH MM SCH ×2 (08:38→21:14)
[2018-12-04] MEDS: Sennosides/Docusate Sodium TABLET PO SCH ×2 (08:39→21:14)
[2018-12-04] MEDS: Levothyroxine Sodium 100 MCG VIAL IVP SCH (08:39)
[2018-12-04] MEDS: Nystatin Cream 15 GM TUBE TP SCH ×3 (08:40→21:15)
[2018-12-04] MEDS ORDERED: D10% in Water 500 ML IVC PRN (10:59)
[2018-12-04] MEDS: FentaNYL (PF) 1,000 MCG in 0.9 % Sodium Chloride 80 ML IVC SCH (11:33)
[2018-12-04] MEDS: Thiamine (B-1) 100 MG in 0.9 % Sodium Chloride 50 ML IVPB SCH (11:48)
[2018-12-04] MEDS: Meropenem 1,000 MG in 0.9 % Sodium Chloride Mini Bag 100 ML IVPB SCH ×2 (11:48→23:52)
[2018-12-04 12:24] LABS: Basophils % 0.2 %; Eosinophils # 0.1 K/mcL (0.0-0.6); Hematocrit 23.8 % (35.3-44.9); Hemoglobin 7.9 g/dL (11.5-15.4); Immature Granulocytes % 4.8 % (0-4); Lymphocytes # 1.1 K/mcL (0.6-4.6); Lymphocytes % 9.4 %; Mean Corpuscular HGB Conc 33.2 g/dL (31.6-35.5); Mean Corpuscular Hemoglobin 27.6 pg (28.0-33.3); Mean Corpuscular Volume 83.2 fL (83.0-100.0); Monocytes # 0.8 K/mcL (0.0-1.3); Monocytes % 6.7 %; Neutrophils # 8.8 K/mcL (1.6-8.9); Nucleated Red Blood Cells 0.2 /100 WBC (0); Red Blood Count 2.86 M/mcL (3.82-4.97); Red Cell Distribution Width 18.2 % (11.5-14.5); Segmented Neutrophils % 77.9 %; White Blood Count 11.3 K/mcL (4.3-11.1)
[2018-12-04 12:31] LABS: Platelet Count 28 K/mcL (140-400)
[2018-12-04] MEDS ORDERED: Clinimix E 5%-15% SOLUTION 2,000 ML with MVI, adult with vitamin K 10 ML IVC SCH (17:00)
[2018-12-04 17:39] LABS: Calcium 9.7 mg/dL (8.6-10.3); Potassium 3.3 mEq/L (3.5-5.1)
[2018-12-04] MEDS: Norepinephrine 4 MG in 0.9 % Sodium Chloride 250 ML IVC SCH (22:23)
[2018-12-04] MEDS: Vasopressin 40 UNIT in D5% in Water 100 ML IVC SCH (23:52)
[2018-12-05] MEDS: Artificial Tears SOLN 15 ML BOTTLE BOTH EYES SCH ×5 (03:25→21:20)
[2018-12-05 04:00] LABS: Basophils % 0.1 %; Nucleated Red Blood Cells 0.3 /100 WBC (0); Red Cell Distribution Width 18.8 % (11.5-14.5)
[2018-12-05 04:02] LABS: Eosinophils # 0.2 K/mcL (0.0-0.6); Eosinophils % 1.7 %; Hematocrit 22.7 % (35.3-44.9); Hemoglobin 7.6 g/dL (11.5-15.4); Immature Granulocytes % 3.5 % (0-4); Lymphocytes # 0.9 K/mcL (0.6-4.6); Lymphocytes % 9.5 %; Mean Corpuscular HGB Conc 33.5 g/dL (31.6-35.5); Mean Corpuscular Hemoglobin 28.3 pg (28.0-33.3); Mean Corpuscular Volume 84.4 fL (83.0-100.0); Monocytes # 0.6 K/mcL (0.0-1.3); Monocytes % 6.3 %; Neutrophils # 7.1 K/mcL (1.6-8.9); Red Blood Count 2.69 M/mcL (3.82-4.97); Segmented Neutrophils % 78.9 %
[2018-12-05 04:05] LABS: Platelet Count 28 K/mcL (140-400)
[2018-12-05 04:11] LABS: INR 1.4
[2018-12-05 04:20] LABS: Calcium 9.5 mg/dL (8.6-10.3); Potassium 3.4 mEq/L (3.5-5.1)
[2018-12-05 04:21] LABS: Magnesium 2.4 mg/dL (1.6-2.6); Phosphorous 5.2 mg/dL (2.7-4.5)
[2018-12-05] MEDS: Pantoprazole 40 MG VIAL IVP SCH ×2 (05:03→18:41)
[2018-12-05 05:41] LABS: ABG Base Excess 4 mEq/L (-2 to 3); ABG HCO3 28 mEq/L (21-27); ABG Oxygen Saturation 95 % (95-98); ABG PCO2 39 mmHg (35-45); ABG PH 7.47 pH Units (7.32-7.45); ABG PO2 73 mmHg (85-104); ABG TCO2 29 mEq/L (20-26); Blood Gas Modality AF; Blood Gas VT 430 cc
[2018-12-05] MEDS: Budesonide/Formoterol 160/4.5 1 PUFF INH IH SCH ×2 (07:07→19:50)
[2018-12-05] MEDS: Chlorhexidine Rinse 15 ML MOUTHWASH MM SCH ×2 (07:55→21:20)
[2018-12-05] MEDS: Levothyroxine Sodium 100 MCG VIAL IVP SCH (07:55)
[2018-12-05] MEDS: Sennosides/Docusate Sodium TABLET PO SCH ×2 (07:55→21:21)
[2018-12-05] MEDS: Nystatin Cream 15 GM TUBE TP SCH ×3 (07:56→21:20)
[2018-12-05] MEDS: Thiamine (B-1) 100 MG in 0.9 % Sodium Chloride 50 ML IVPB SCH (09:05)
[2018-12-05] MEDS ORDERED: Potassium Chloride 40 MEQ/200 ML BAG IVPB ONE (10:53)
[2018-12-05] MEDS ORDERED: 0.9 % Sodium Chloride 250 ML IVC PRN (11:16)
[2018-12-05] MEDS ORDERED: 0.9 % Sodium Chloride 1,000 ML PRIME SCH (11:30)
[2018-12-05] MEDS: Meropenem 1,000 MG in 0.9 % Sodium Chloride Mini Bag 100 ML IVPB SCH (12:35)
[2018-12-05] MEDS: FentaNYL (PF) 1,000 MCG in 0.9 % Sodium Chloride 80 ML IVC SCH (12:36)
[2018-12-05] MEDS ORDERED: *HR* FentaNYL (PF) 100 MCG/2 ML VIAL EP ONE (13:03)
[2018-12-05] MEDS ORDERED: *HR* FentaNYL (PF) 100 MCG/2 ML VIAL ONE (13:04)
[2018-12-05] MEDS ORDERED: *HR* FentaNYL (PF) 100 MCG/2 ML VIAL IVP ONE (13:48)
[2018-12-05] MEDS: Dexmedetomidine HCl 400 MCG/100 ML MLS IVC SCH ×2 (15:18→22:58)
[2018-12-05] MEDS ORDERED: Ondansetron 4 MG/2 ML VIAL IVP PRN (15:29)
[2018-12-05 16:29] LABS: Basophils % 0.2 %; Mean Corpuscular HGB Conc 33.3 g/dL (31.6-35.5)
[2018-12-05 16:30] LABS: Eosinophils # 0.2 K/mcL (0.0-0.6); Eosinophils % 1.3 %; Immature Granulocytes % 2.2 % (0-4); Lymphocytes # 1.3 K/mcL (0.6-4.6); Lymphocytes % 9.3 %; Mean Corpuscular Hemoglobin 28.1 pg (28.0-33.3); Mean Corpuscular Volume 84.2 fL (83.0-100.0); Monocytes # 0.8 K/mcL (0.0-1.3); Monocytes % 6.1 %; Neutrophils # 10.9 K/mcL (1.6-8.9); Nucleated Red Blood Cells 0.2 /100 WBC (0); Red Blood Count 2.85 M/mcL (3.82-4.97); Red Cell Distribution Width 18.9 % (11.5-14.5); Segmented Neutrophils % 80.9 %; White Blood Count 13.5 K/mcL (4.3-11.1)
[2018-12-05 16:41] LABS: Platelet Count 36 K/mcL (140-400)
[2018-12-05 16:46] LABS: Calcium 9.6 mg/dL (8.6-10.3); Potassium 4.2 mEq/L (3.5-5.1)
[2018-12-05] MEDS ORDERED: Clinimix E 5%-15% SOLUTION 2,000 ML, Parenteral Amino Acid 10% 0 ML with MVI, adult wi... IVC SCH (17:00)
[2018-12-05] MEDS ORDERED: Clinimix E 5%-15% SOLUTION 2,000 ML with MVI, adult with vitamin K 10 ML IVC SCH (17:00)
[2018-12-06] MEDS: Meropenem 500 MG in Water for inj. (sterile) 10 ML IVP SCH ×3 (01:09→23:19)
[2018-12-06] MEDS: Artificial Tears SOLN 15 ML BOTTLE BOTH EYES SCH ×3 (01:10→09:47)
[2018-12-06 05:24] LABS: INR 1.4; Nucleated Red Blood Cells 0.2 /100 WBC (0); Prothrombin Time 15.9 Seconds (9.4-12.1)
[2018-12-06 05:26] LABS: Basophils % 0.2 %; Eosinophils # 0.2 K/mcL (0.0-0.6); Eosinophils % 1.9 %; Hematocrit 21.7 % (35.3-44.9); Hemoglobin 7.3 g/dL (11.5-15.4); Immature Granulocytes % 2.1 % (0-4); Immature Platelets 38.8 % (1.1-6.1); Lymphocytes # 1.1 K/mcL (0.6-4.6); Lymphocytes % 9.8 %; Mean Corpuscular HGB Conc 33.6 g/dL (31.6-35.5); Mean Corpuscular Hemoglobin 28.7 pg (28.0-33.3); Mean Corpuscular Volume 85.4 fL (83.0-100.0); Monocytes # 0.6 K/mcL (0.0-1.3); Monocytes % 5.6 %; Neutrophils # 8.6 K/mcL (1.6-8.9); Red Blood Count 2.54 M/mcL (3.82-4.97); Segmented Neutrophils % 80.4 %; White Blood Count 10.7 K/mcL (4.3-11.1)
[2018-12-06 05:43] LABS: Albumin 2.2 g/dL (3.5-5.7); Albumin/Globulin Ratio 1.2 (1.1-2.2); Bilirubin,Total 0.8 mg/dL (0.3-1.0); Calcium 9.1 mg/dL (8.6-10.3); Globulin 1.9 g/dL (2.4-3.5); Magnesium 2.2 mg/dL (1.6-2.6); Phosphorous 4.6 mg/dL (2.7-4.5); Platelet Count 22 K/mcL (140-400); Potassium 4.2 mEq/L (3.5-5.1); Total Protein 4.1 g/dL (6.4-8.9)
[2018-12-06] MEDS: Pantoprazole 40 MG VIAL IVP SCH ×2 (06:16→16:11)
[2018-12-06] MEDS: Budesonide/Formoterol 160/4.5 1 PUFF INH IH SCH ×2 (07:57→20:03)
[2018-12-06] MEDS: Levothyroxine Sodium 100 MCG VIAL IVP SCH (09:46)
[2018-12-06] MEDS: Thiamine (B-1) 100 MG in 0.9 % Sodium Chloride 50 ML IVPB SCH (09:46)
[2018-12-06] MEDS: Furosemide 40 MG/4 ML VIAL IVP SCH (09:46)
[2018-12-06] MEDS: Chlorhexidine Rinse 15 ML MOUTHWASH MM SCH ×2 (09:46→20:23)
[2018-12-06] MEDS: Sennosides/Docusate Sodium TABLET PO SCH ×2 (09:47→20:23)
[2018-12-06] MEDS: Nystatin Cream 15 GM TUBE TP SCH ×3 (09:47→20:23)
[2018-12-06] MEDS: Dexmedetomidine HCl 400 MCG/100 ML MLS IVC SCH ×2 (10:02→21:19)
[2018-12-06 16:48] LABS: Basophils % 0.1 %; Eosinophils % 1.2 %; Mean Corpuscular Hemoglobin 27.9 pg (28.0-33.3)
[2018-12-06 16:50] LABS: Eosinophils # 0.2 K/mcL (0.0-0.6); Hematocrit 22.8 % (35.3-44.9); Hemoglobin 7.6 g/dL (11.5-15.4); Immature Granulocytes % 1.9 % (0-4); Immature Platelets 33.9 % (1.1-6.1); Lymphocytes # 1.5 K/mcL (0.6-4.6); Lymphocytes % 10.4 %; Mean Corpuscular HGB Conc 33.3 g/dL (31.6-35.5); Mean Corpuscular Volume 83.8 fL (83.0-100.0); Monocytes % 5.1 %; Nucleated Red Blood Cells 0.1 /100 WBC (0); Red Blood Count 2.72 M/mcL (3.82-4.97); Red Cell Distribution Width 19.3 % (11.5-14.5); Segmented Neutrophils % 81.3 %; White Blood Count 14.6 K/mcL (4.3-11.1)
[2018-12-06 16:51] LABS: Monocytes # 0.7 K/mcL (0.0-1.3); Neutrophils # 11.9 K/mcL (1.6-8.9); Platelet Count 34 K/mcL (140-400)
[2018-12-06] MEDS ORDERED: Clinimix E 5%-15% SOLUTION 2,000 ML with MVI, adult with vitamin K 10 ML IVC SCH (17:00)
[2018-12-06 17:18] LABS: Platelet Estimate Marked Decrease (Normal)
[2018-12-06] MEDS: *HR* FentaNYL (PF) 100 MCG/2 ML VIAL IVP PRN ×2 (18:13→22:14)
[2018-12-06 22:21] LABS: ABG Base Excess 4 mEq/L (-2 to 3); ABG HCO3 28 mEq/L (21-27); ABG Oxygen Saturation 95 % (95-98); ABG PCO2 37 mmHg (35-45); ABG PH 7.48 pH Units (7.32-7.45); ABG PO2 72 mmHg (85-104); ABG TCO2 29 mEq/L (20-26)
[2018-12-07 03:41] LABS: Basophils % 0.2 %; Eosinophils % 1.1 %; Hematocrit 20.7 % (35.3-44.9); Hemoglobin 6.8 g/dL (11.5-15.4); Mean Corpuscular HGB Conc 32.9 g/dL (31.6-35.5)
[2018-12-07 03:42] LABS: Eosinophils # 0.2 K/mcL (0.0-0.6); Immature Platelets 28.2 % (1.1-6.1); Lymphocytes # 1.6 K/mcL (0.6-4.6); Lymphocytes % 11.8 %; Mean Corpuscular Hemoglobin 28.2 pg (28.0-33.3); Mean Corpuscular Volume 85.9 fL (83.0-100.0); Monocytes # 0.7 K/mcL (0.0-1.3); Monocytes % 5.5 %; Neutrophils # 10.6 K/mcL (1.6-8.9); Red Blood Count 2.41 M/mcL (3.82-4.97); Red Cell Distribution Width 19.5 % (11.5-14.5); Segmented Neutrophils % 79.4 %; White Blood Count 13.3 K/mcL (4.3-11.1)
[2018-12-07 03:45] LABS: Platelet Count 42 K/mcL (140-400)
[2018-12-07 03:48] LABS: INR 1.3; Prothrombin Time 14.8 Seconds (9.4-12.1)
[2018-12-07 04:00] LABS: Calcium 8.9 mg/dL (8.6-10.3); Magnesium 2.2 mg/dL (1.6-2.6); Phosphorous 5.7 mg/dL (2.7-4.5); Potassium 4.4 mEq/L (3.5-5.1)
[2018-12-07] MEDS: Pantoprazole 40 MG VIAL IVP SCH ×2 (05:09→16:29)
[2018-12-07] MEDS: *HR* FentaNYL (PF) 100 MCG/2 ML VIAL IVP PRN ×3 (07:35→23:47)
[2018-12-07] MEDS: Chlorhexidine Rinse 15 ML MOUTHWASH MM SCH ×2 (07:35→20:29)
[2018-12-07] MEDS: Sennosides/Docusate Sodium TABLET PO SCH ×2 (07:36→20:29)
[2018-12-07] MEDS: Furosemide 40 MG/4 ML VIAL IVP SCH (07:36)
[2018-12-07] MEDS: Levothyroxine Sodium 100 MCG VIAL IVP SCH (07:36)
[2018-12-07] MEDS: Nystatin Cream 15 GM TUBE TP SCH ×3 (07:36→20:30)
[2018-12-07] MEDS ORDERED: Haloperidol Lactate 5 MG/ML VIAL IM PRN (08:10)
[2018-12-07 08:32] LABS: Hepatitis B Surface Antigen Nonreactive (Nonreactive)
[2018-12-07] MEDS: Thiamine (B-1) 100 MG in 0.9 % Sodium Chloride 50 ML IVPB SCH (09:17)
[2018-12-07] MEDS: Budesonide/Formoterol 160/4.5 1 PUFF INH IH SCH ×2 (10:54→21:05)
[2018-12-07] MEDS: Meropenem 500 MG in Water for inj. (sterile) 10 ML IVP SCH ×2 (12:50→23:46)
[2018-12-07] MEDS ORDERED: Clinimix E 5%-15% SOLUTION 2,000 ML, Parenteral Amino Acid 10% 0 ML with MVI, adult wi... IVC SCH (17:00)
[2018-12-07] MEDS ORDERED: Clinimix E 5%-15% SOLUTION 2,000 ML with MVI, adult with vitamin K 10 ML IVC SCH (17:00)
[2018-12-07] MEDS: 0.9 % Sodium Chloride 250 ML IVC SCH (20:29)
[2018-12-07 20:39] LABS: Red Blood Count 3.27 M/mcL (3.82-4.97)
[2018-12-07 20:41] LABS: Hematocrit 28.1 % (35.3-44.9); Hemoglobin 9.4 g/dL (11.5-15.4); Mean Corpuscular HGB Conc 33.5 g/dL (31.6-35.5); Mean Corpuscular Hemoglobin 28.7 pg (28.0-33.3); Mean Corpuscular Volume 85.9 fL (83.0-100.0); Red Cell Distribution Width 19.2 % (11.5-14.5); White Blood Count 20.7 K/mcL (4.3-11.1)
[2018-12-07 20:43] LABS: Platelet Count 65 K/mcL (140-400)
[2018-12-08 04:21] LABS: Calcium 9.2 mg/dL (8.6-10.3); Magnesium 2.3 mg/dL (1.6-2.6); Phosphorous 7.2 mg/dL (2.7-4.5); Potassium 4.5 mEq/L (3.5-5.1)
[2018-12-08] MEDS: 0.9 % Sodium Chloride 250 ML IVC SCH ×2 (04:33→12:03)
[2018-12-08] MEDS: Pantoprazole 40 MG VIAL IVP SCH (05:52)
[2018-12-08] MEDS: Chlorhexidine Rinse 15 ML MOUTHWASH MM SCH ×2 (07:27→21:36)
[2018-12-08] MEDS: Furosemide 40 MG/4 ML VIAL IVP SCH (07:27)
[2018-12-08] MEDS: Sennosides/Docusate Sodium TABLET PO SCH ×2 (07:27→21:37)
[2018-12-08] MEDS: Levothyroxine Sodium 100 MCG VIAL IVP SCH (07:27)
[2018-12-08] MEDS: Budesonide/Formoterol 160/4.5 1 PUFF INH IH SCH ×2 (07:45→19:27)
[2018-12-08] MEDS: Thiamine (B-1) 100 MG in 0.9 % Sodium Chloride 50 ML IVPB SCH (08:46)
[2018-12-08] MEDS: Desitin (Zinc Oxide) 56 GM TUBE TP PRN (08:47)
[2018-12-08] MEDS: Nystatin Cream 15 GM TUBE TP SCH ×3 (08:48→21:37)
[2018-12-08 11:16] LABS: Basophils % 0.2 %; Eosinophils # 0.2 K/mcL (0.0-0.6); Eosinophils % 0.8 %; Hemoglobin 9.2 g/dL (11.5-15.4); Immature Platelets 22.7 % (1.1-6.1); Lymphocytes # 1.3 K/mcL (0.6-4.6); Lymphocytes % 6.1 %; Mean Corpuscular HGB Conc 31.7 g/dL (31.6-35.5); Mean Corpuscular Hemoglobin 28.5 pg (28.0-33.3); Mean Corpuscular Volume 89.8 fL (83.0-100.0); Monocytes # 1.2 K/mcL (0.0-1.3); Monocytes % 5.6 %; Red Blood Count 3.23 M/mcL (3.82-4.97); Segmented Neutrophils % 86.3 %; White Blood Count 20.8 K/mcL (4.3-11.1)
[2018-12-08 11:17] LABS: INR 1.2; Platelet Count 93 K/mcL (140-400); Prothrombin Time 13.9 Seconds (9.4-12.1)
[2018-12-08] MEDS: Meropenem 500 MG in Water for inj. (sterile) 10 ML IVP SCH (11:58)
[2018-12-08] MEDS ORDERED: [UNRECOGNIZED DRUG - OTHER] IVC SCH (17:00)
[2018-12-08] MEDS ORDERED: PARENTERAL AMINO ACID 10% IVC SCH (17:00)
[2018-12-08] MEDS ORDERED: CLINIMIX IVC SCH (17:00)
[2018-12-08] MEDS ORDERED: MVI IVC SCH (17:00)
[2018-12-09] MEDS: Meropenem 500 MG in Water for inj. (sterile) 10 ML IVP SCH ×2 (00:20→12:30)
[2018-12-09] MEDS: 0.9 % Sodium Chloride 250 ML IVC SCH (01:22)
[2018-12-09 05:20] LABS: Calcium 9.4 mg/dL (8.6-10.3); Magnesium 2.4 mg/dL (1.6-2.6); Phosphorous 7.3 mg/dL (2.7-4.5); Potassium 4.7 mEq/L (3.5-5.1)
[2018-12-09 05:52] LABS: Basophils # 0.1 K/mcL (0.0-0.2); Basophils % 0.3 %; Eosinophils # 0.3 K/mcL (0.0-0.6); Eosinophils % 1.5 %; Immature Granulocytes % 0.8 % (0-4); Immature Platelets 22.4 % (1.1-6.1); Lymphocytes # 1.4 K/mcL (0.6-4.6); Lymphocytes % 7.8 %; Mean Corpuscular HGB Conc 33.3 g/dL (31.6-35.5); Mean Corpuscular Hemoglobin 28.5 pg (28.0-33.3); Mean Corpuscular Volume 85.4 fL (83.0-100.0); Monocytes # 1.1 K/mcL (0.0-1.3); Neutrophils # 15.2 K/mcL (1.6-8.9); Platelet Count 104 K/mcL (140-400); Red Blood Count 3.16 M/mcL (3.82-4.97); Red Cell Distribution Width 18.9 % (11.5-14.5); Segmented Neutrophils % 83.6 %; White Blood Count 18.2 K/mcL (4.3-11.1)
[2018-12-09 06:34] LABS: Platelet Estimate Decreased (Normal)
[2018-12-09] MEDS: Budesonide/Formoterol 160/4.5 1 PUFF INH IH SCH ×3 (07:15→21:33)
[2018-12-09] MEDS ORDERED: Famotidine 20 MG/2 ML VIAL IVP SCH (09:00)
[2018-12-09] MEDS: Thiamine (B-1) 100 MG in 0.9 % Sodium Chloride 50 ML IVPB SCH (09:24)
[2018-12-09] MEDS: Levothyroxine Sodium 100 MCG VIAL IVP SCH (09:26)
[2018-12-09] MEDS: Sennosides/Docusate Sodium TABLET PO SCH ×2 (09:37→20:35)
[2018-12-09] MEDS: Chlorhexidine Rinse 15 ML MOUTHWASH MM SCH ×2 (09:37→20:35)
[2018-12-09] MEDS ORDERED: Acetaminophen 325 MG TABLET PO PRN (09:38)
[2018-12-09] MEDS ORDERED: *HR* FentaNYL (PF) 100 MCG/2 ML VIAL IVP PRN (09:38)
[2018-12-09] MEDS ORDERED: Saline Nasal Spray 44 ML BOTTLE NS PRN (09:38)
[2018-12-09] MEDS ORDERED: Bisacodyl 10 MG RECTAL SUPPOSITORY RC PRN (09:38)
[2018-12-09] MEDS ORDERED: PARENTERAL AMINO ACID 10% IVC SCH ×2 (09:38→17:00)
[2018-12-09] MEDS ORDERED: CLINIMIX IVC SCH ×2 (09:38→17:00)
[2018-12-09] MEDS ORDERED: *HR* Dextrose 50 % in Water (Syg) 50 ML SYRINGE IVP PRN (09:38)
[2018-12-09] MEDS ORDERED: MVI IVC SCH ×2 (09:38→17:00)
[2018-12-09] MEDS ORDERED: D10% in Water 500 ML IVC PRN (09:38)
[2018-12-09] MEDS ORDERED: [UNRECOGNIZED DRUG - OTHER] IVC SCH ×2 (09:38→17:00)
[2018-12-09] MEDS ORDERED: 0.9 % Sodium Chloride 250 ML IVC SCH (09:38)
[2018-12-09] MEDS ORDERED: 0.9 % Sodium Chloride 1,000 ML PRIME SCH (09:38)
[2018-12-09] MEDS ORDERED: Desitin (Zinc Oxide) 56 GM TUBE TP PRN (09:38)
[2018-12-09] MEDS ORDERED: E-Z-PAQUE (BARIUM SULF) SUSP 1 BOTTLE PO ONE (15:33)
[2018-12-09] MEDS ORDERED: E-Z-HD (BARIUM SULF) SUSPENSION PO ONE (15:33)
[2018-12-09] MEDS: Dexmedetomidine HCl 400 MCG/100 ML MLS IVC SCH (16:12)
[2018-12-09] MEDS: Nystatin Cream 15 GM TUBE TP SCH ×2 (16:37→20:36)
[2018-12-10] MEDS: Meropenem 500 MG in Water for inj. (sterile) 10 ML IVP SCH ×2 (01:33→13:31)
[2018-12-10 02:23] LABS: Calcium 9.8 mg/dL (8.6-10.3); Magnesium 2.3 mg/dL (1.6-2.6); Phosphorous 7.6 mg/dL (2.7-4.5); Potassium 5.1 mEq/L (3.5-5.1)
[2018-12-10] MEDS ORDERED: D5% in Water 1,000 ML IVC PRN (04:57)
[2018-12-10] MEDS ORDERED: Dextrose Gel 15 GM/37.5 ML TUBE PO PRN ×2 (04:57)
[2018-12-10] MEDS ORDERED: *HR* Dextrose 50 % in Water (Syg) 50 ML SYRINGE IVP PRN (04:57)
[2018-12-10] MEDS: Budesonide/Formoterol 160/4.5 1 PUFF INH IH SCH ×2 (08:05→21:43)
[2018-12-10] MEDS ORDERED: 0.9 % Sodium Chloride 250 ML IVC PRN (08:09)
[2018-12-10 08:44] LABS: Basophils # 0.1 K/mcL (0.0-0.2); Basophils % 0.4 %; Eosinophils # 0.1 K/mcL (0.0-0.6); Eosinophils % 0.5 %; Hematocrit 28.2 % (35.3-44.9); Hemoglobin 9.5 g/dL (11.5-15.4); Immature Granulocytes % 0.7 % (0-4); Immature Platelets 23.6 % (1.1-6.1); Lymphocytes # 1.2 K/mcL (0.6-4.6); Lymphocytes % 6.4 %; Mean Corpuscular HGB Conc 33.7 g/dL (31.6-35.5); Mean Corpuscular Hemoglobin 29.4 pg (28.0-33.3); Mean Corpuscular Volume 87.3 fL (83.0-100.0); Monocytes # 1.1 K/mcL (0.0-1.3); Monocytes % 5.6 %; Neutrophils # 16.6 K/mcL (1.6-8.9); Nucleated Red Blood Cells 0.1 /100 WBC (0); Platelet Count 139 K/mcL (140-400); Red Blood Count 3.23 M/mcL (3.82-4.97); Red Cell Distribution Width 19.3 % (11.5-14.5); Segmented Neutrophils % 86.4 %; White Blood Count 19.2 K/mcL (4.3-11.1)
[2018-12-10] MEDS ORDERED: Levothyroxine Sodium 100 MCG VIAL IVP SCH (09:00)
[2018-12-10] MEDS ORDERED: Furosemide 40 MG TABLET PO SCH (09:00)
[2018-12-10] MEDS ORDERED: Famotidine 20 MG/2 ML VIAL IVP SCH (09:00)
[2018-12-10] MEDS: Sennosides/Docusate Sodium TABLET PO SCH ×2 (09:06→20:45)
[2018-12-10] MEDS: Chlorhexidine Rinse 15 ML MOUTHWASH MM SCH ×2 (09:07→20:44)
[2018-12-10] MEDS: Furosemide 40 MG TABLET PO SCH (09:07)
[2018-12-10] MEDS: Dexmedetomidine HCl 400 MCG/100 ML MLS IVC SCH (11:35)
[2018-12-10] MEDS: Nystatin Cream 15 GM TUBE TP SCH ×3 (11:36→20:44)
[2018-12-10] MEDS ORDERED: *HR* Heparin 10,000 UNIT/10 ML VIAL IV PRN (12:01)
[2018-12-10] MEDS: Thiamine (B-1) 100 MG in 0.9 % Sodium Chloride 50 ML IVPB SCH (13:36)
[2018-12-10] MEDS: MVI IVC SCH (17:31)
[2018-12-10] MEDS: PARENTERAL AMINO ACID 10% IVC SCH (17:31)
[2018-12-10] MEDS: CLINIMIX IVC SCH (17:31)
[2018-12-10] MEDS: [UNRECOGNIZED DRUG - OTHER] IVC SCH (17:31)
[2018-12-11] MEDS: Meropenem 500 MG in Water for inj. (sterile) 10 ML IVP SCH ×2 (02:58→11:28)
[2018-12-11 04:30] LABS: Hemoglobin 8.8 g/dL (11.5-15.4)
[2018-12-11 04:35] LABS: Basophils # 0.1 K/mcL (0.0-0.2); Basophils % 0.5 %; Eosinophils # 0.1 K/mcL (0.0-0.6); Eosinophils % 0.7 %; Hematocrit 26.8 % (35.3-44.9); Immature Granulocytes % 0.6 % (0-4); Immature Platelets 19.1 % (1.1-6.1); Lymphocytes # 1.5 K/mcL (0.6-4.6); Mean Corpuscular HGB Conc 32.8 g/dL (31.6-35.5); Mean Corpuscular Hemoglobin 28.5 pg (28.0-33.3); Mean Corpuscular Volume 86.7 fL (83.0-100.0); Monocytes # 1.2 K/mcL (0.0-1.3); Monocytes % 11.2 %; Neutrophils # 7.6 K/mcL (1.6-8.9); Platelet Count 160 K/mcL (140-400); Red Blood Count 3.09 M/mcL (3.82-4.97); Red Cell Distribution Width 19.5 % (11.5-14.5); White Blood Count 10.4 K/mcL (4.3-11.1)
[2018-12-11 04:52] LABS: Calcium 9.3 mg/dL (8.6-10.3); Magnesium 2.1 mg/dL (1.6-2.6); Phosphorous 5.1 mg/dL (2.7-4.5); Potassium 4.1 mEq/L (3.5-5.1)
[2018-12-11 05:24] LABS: % Iron Saturation 15 % (15-50); Ferritin 1044 ng/mL (10-120); Iron 26 mcg/dL (50-170); Transferrin 124 mg/dL (203-362)
[2018-12-11] MEDS: Budesonide/Formoterol 160/4.5 1 PUFF INH IH SCH ×2 (07:58→20:34)
[2018-12-11] MEDS: Dexmedetomidine HCl 400 MCG/100 ML MLS IVC SCH (09:39)
[2018-12-11] MEDS: Sennosides/Docusate Sodium TABLET PO SCH ×2 (09:48→20:21)
[2018-12-11] MEDS: Famotidine 20 MG/2 ML VIAL IVP SCH (09:54)
[2018-12-11] MEDS: Chlorhexidine Rinse 15 ML MOUTHWASH MM SCH ×2 (09:54→20:20)
[2018-12-11] MEDS: Furosemide 40 MG TABLET PO SCH (09:54)
[2018-12-11] MEDS: Nystatin Cream 15 GM TUBE TP SCH ×3 (09:55→20:21)
[2018-12-11] MEDS: Thiamine (B-1) 100 MG in 0.9 % Sodium Chloride 50 ML IVPB SCH (10:01)
[2018-12-11 14:06] LABS: Hemoglobin 8.1 g/dL (11.5-15.4)
[2018-12-11] MEDS ORDERED: Clinimix 5%-20% SOLUTION 2,000 ML with MVI, adult with vitamin K 10 ML, Sodium Acetat... IVC SCH (17:00)
[2018-12-11] MEDS: [UNRECOGNIZED DRUG - OTHER] IVC SCH (17:26)
[2018-12-11] MEDS: PARENTERAL AMINO ACID 10% IVC SCH (17:26)
[2018-12-11] MEDS: CLINIMIX IVC SCH (17:26)
[2018-12-11] MEDS: MVI IVC SCH (17:26)
[2018-12-11] MEDS: Saliva Stimulant 100ml BOTTLE PO PRN (18:31)
[2018-12-11 22:14] LABS: Hematocrit 22.5 % (35.3-44.9); Hemoglobin 7.1 g/dL (11.5-15.4)
[2018-12-12] MEDS: Meropenem 500 MG in Water for inj. (sterile) 10 ML IVP SCH ×3 (00:08→23:43)
[2018-12-12 02:20] LABS: Calcium 9.3 mg/dL (8.6-10.3); Phosphorous 5.2 mg/dL (2.7-4.5); Potassium 3.8 mEq/L (3.5-5.1)
[2018-12-12] MEDS ORDERED: 0.9 % Sodium Chloride 500 ML ONE (03:46)
[2018-12-12] MEDS: Budesonide/Formoterol 160/4.5 1 PUFF INH IH SCH ×2 (07:57→19:59)
[2018-12-12] MEDS ORDERED: D5% in Water 1,000 ML IVC PRN (09:19)
[2018-12-12] MEDS ORDERED: Dextrose Gel 15 GM/37.5 ML TUBE PO PRN ×2 (09:19)
[2018-12-12] MEDS ORDERED: *HR* Dextrose 50 % in Water (Syg) 50 ML SYRINGE IVP PRN (09:19)
[2018-12-12] MEDS: Furosemide 40 MG TABLET PO SCH (09:40)
[2018-12-12] MEDS: Sennosides/Docusate Sodium TABLET PO SCH (09:40)
[2018-12-12] MEDS: Famotidine 20 MG/2 ML VIAL IVP SCH (09:41)
[2018-12-12] MEDS: Chlorhexidine Rinse 15 ML MOUTHWASH MM SCH ×2 (09:41→21:51)
[2018-12-12] MEDS: Dexmedetomidine HCl 400 MCG/100 ML MLS IVC SCH (09:42)
[2018-12-12] MEDS: Nystatin Cream 15 GM TUBE TP SCH ×3 (09:43→21:52)
[2018-12-12] MEDS: Thiamine (B-1) 100 MG in 0.9 % Sodium Chloride 50 ML IVPB SCH (09:47)
[2018-12-12 10:38] LABS: INR 1.1; Prothrombin Time 12.2 Seconds (9.4-12.1)
[2018-12-12 10:59] LABS: Basophils % 0.2 %; Eosinophils # 0.1 K/mcL (0.0-0.6); Eosinophils % 0.5 %; Hematocrit 26.1 % (35.3-44.9); Hemoglobin 8.1 g/dL (11.5-15.4); Immature Granulocytes % 0.5 % (0-4); Immature Platelets 12.9 % (1.1-6.1); Lymphocytes # 1.6 K/mcL (0.6-4.6); Lymphocytes % 14.5 %; Mean Corpuscular Hemoglobin 28.9 pg (28.0-33.3); Mean Platelet Volume 12.6 fL (9.4-12.4); Monocytes # 1.4 K/mcL (0.0-1.3); Monocytes % 13.2 %; Neutrophils # 7.7 K/mcL (1.6-8.9); Platelet Count 193 K/mcL (140-400); Red Cell Distribution Width 18.2 % (11.5-14.5); Segmented Neutrophils % 71.1 %; White Blood Count 10.8 K/mcL (4.3-11.1)
[2018-12-12 11:03] LABS: Mean Corpuscular Volume 93.2 fL (83.0-100.0)
[2018-12-12] MEDS: Insulin LISPRO 300 UNITS/3 ML VIAL SQ SCH ×3 (12:03→21:51)
[2018-12-12] MEDS: Saliva Stimulant 100ml BOTTLE PO PRN (14:35)
[2018-12-12] MEDS ORDERED: Clinimix 5%-20% SOLUTION 2,000 ML with MVI, adult with vitamin K 10 ML, Sodium Acetat... IVC SCH (17:00)
[2018-12-12] MEDS: Pantoprazole 40 MG VIAL IVP SCH (17:04)
[2018-12-12 19:06] LABS: Basophils # 0.1 K/mcL (0.0-0.2); Basophils % 0.5 %; Eosinophils # 0.1 K/mcL (0.0-0.6); Eosinophils % 0.9 %; Hemoglobin 8.4 g/dL (11.5-15.4); Immature Granulocytes % 0.4 % (0-4); Lymphocytes # 1.7 K/mcL (0.6-4.6); Lymphocytes % 15.4 %; Mean Corpuscular HGB Conc 32.3 g/dL (31.6-35.5); Mean Corpuscular Hemoglobin 28.8 pg (28.0-33.3); Mean Platelet Volume 13.3 fL (9.4-12.4); Monocytes # 1.4 K/mcL (0.0-1.3); Monocytes % 12.4 %; Neutrophils # 7.8 K/mcL (1.6-8.9); Platelet Count 203 K/mcL (140-400); Red Blood Count 2.92 M/mcL (3.82-4.97); Red Cell Distribution Width 18.4 % (11.5-14.5); Segmented Neutrophils % 70.4 %; White Blood Count 11.1 K/mcL (4.3-11.1)
[2018-12-12] MEDS ORDERED: Meropenem 500 MG VIAL ONE (23:39)
[2018-12-13 04:51] LABS: Hematocrit 24.5 % (35.3-44.9)
[2018-12-13 05:07] LABS: Calcium 9.1 mg/dL (8.6-10.3); Magnesium 2.1 mg/dL (1.6-2.6); Phosphorous 4.2 mg/dL (2.7-4.5); Potassium 4.2 mEq/L (3.5-5.1)
[2018-12-13] MEDS: Pantoprazole 40 MG VIAL IVP SCH (05:33)
[2018-12-13] MEDS ORDERED: Clinimix 5%-20% SOLUTION 2,000 ML with MVI, adult with vitamin K 10 ML, Sodium Acetat... IVC SCH (17:00)
[2018-12-13] MEDS: Budesonide/Formoterol 160/4.5 1 PUFF INH IH SCH (22:29)
[2018-12-13] MEDS: Insulin LISPRO 300 UNITS/3 ML VIAL SQ SCH ×3 (22:30→23:11)
[2018-12-14] MEDS: Nystatin Cream 15 GM TUBE TP SCH ×5 (04:09→21:13)
[2018-12-14] MEDS: Chlorhexidine Rinse 15 ML MOUTHWASH MM SCH ×3 (04:09→22:12)
[2018-12-14] MEDS: Thiamine (B-1) 100 MG in 0.9 % Sodium Chloride 50 ML IVPB SCH ×2 (04:10→09:33)
[2018-12-14] MEDS: Famotidine 20 MG/2 ML VIAL IVP SCH ×2 (04:10→09:33)
[2018-12-14] MEDS: Budesonide/Formoterol 160/4.5 1 PUFF INH IH SCH ×3 (04:11→20:00)
[2018-12-14] MEDS: Pantoprazole 40 MG VIAL IVP SCH ×3 (04:17→18:13)
[2018-12-14] MEDS: Haloperidol Lactate 5 MG/ML VIAL IM PRN (05:23)
[2018-12-14] MEDS: Meropenem 500 MG in Water for inj. (sterile) 10 ML IVP SCH ×2 (05:23→18:13)
[2018-12-14 07:02] LABS: Calcium 9.3 mg/dL (8.6-10.3); Phosphorous 3.9 mg/dL (2.7-4.5); Potassium 4.6 mEq/L (3.5-5.1)
[2018-12-14] MEDS: Insulin LISPRO 300 UNITS/3 ML VIAL SQ SCH ×4 (09:38→21:02)
[2018-12-14 10:56] LABS: Mean Corpuscular HGB Conc 30.8 g/dL (31.6-35.5); Mean Corpuscular Hemoglobin 28.9 pg (28.0-33.3); Mean Corpuscular Volume 93.9 fL (83.0-100.0); Mean Platelet Volume 12.7 fL (9.4-12.4); Platelet Count 224 K/mcL (140-400); Red Blood Count 2.77 M/mcL (3.82-4.97); Red Cell Distribution Width 18.3 % (11.5-14.5); White Blood Count 9.6 K/mcL (4.3-11.1)
[2018-12-14 11:16] LABS: Potassium 4.4 mEq/L (3.5-5.1)
[2018-12-14] MEDS ORDERED: Clinimix 5%-20% SOLUTION 2,000 ML with MVI, adult with vitamin K 10 ML, Sodium Acetat... IVC SCH (17:00)
[2018-12-15] MEDS: Meropenem 500 MG in Water for inj. (sterile) 10 ML IVP SCH ×3 (06:25→19:46)
[2018-12-15] MEDS: Pantoprazole 40 MG VIAL IVP SCH ×2 (06:26→17:02)
[2018-12-15 07:17] LABS: Basophils % 0.4 %; Eosinophils # 0.2 K/mcL (0.0-0.6); Eosinophils % 2.4 %; Hematocrit 24.5 % (35.3-44.9); Hemoglobin 7.8 g/dL (11.5-15.4); Immature Granulocytes % 0.4 % (0-4); Lymphocytes # 1.8 K/mcL (0.6-4.6); Lymphocytes % 19.2 %; Mean Corpuscular HGB Conc 31.8 g/dL (31.6-35.5); Mean Corpuscular Hemoglobin 28.8 pg (28.0-33.3); Mean Corpuscular Volume 90.4 fL (83.0-100.0); Mean Platelet Volume 13.6 fL (9.4-12.4); Monocytes % 11.2 %; Neutrophils # 6.1 K/mcL (1.6-8.9); Platelet Count 253 K/mcL (140-400); Red Blood Count 2.71 M/mcL (3.82-4.97); Red Cell Distribution Width 18.4 % (11.5-14.5); Segmented Neutrophils % 66.4 %; White Blood Count 9.2 K/mcL (4.3-11.1)
[2018-12-15] MEDS: Budesonide/Formoterol 160/4.5 1 PUFF INH IH SCH ×2 (07:34→20:40)
[2018-12-15 07:36] LABS: Albumin 2.5 g/dL (3.5-5.7); Calcium 9.2 mg/dL (8.6-10.3); Phosphorous 3.6 mg/dL (2.7-4.5); Potassium 4.6 mEq/L (3.5-5.1)
[2018-12-15] MEDS ORDERED: 0.9 % Sodium Chloride 250 ML IVC PRN (08:50)
[2018-12-15] MEDS ORDERED: *HR* Heparin 10,000 UNIT/10 ML VIAL IV PRN (08:50)
[2018-12-15] MEDS ORDERED: 0.9 % Sodium Chloride 1,000 ML PRIME SCH (09:00)
[2018-12-15] MEDS: Chlorhexidine Rinse 15 ML MOUTHWASH MM SCH ×2 (09:28→20:25)
[2018-12-15] MEDS: Nystatin Cream 15 GM TUBE TP SCH ×3 (09:29→21:42)
[2018-12-15] MEDS: Thiamine (B-1) 100 MG in 0.9 % Sodium Chloride 50 ML IVPB SCH (09:35)
[2018-12-15] MEDS: Insulin LISPRO 300 UNITS/3 ML VIAL SQ SCH ×4 (12:18→21:42)
[2018-12-15] MEDS ORDERED: *HR* Propofol 200 MG/20 ML VIAL IVP ONE (12:49)
[2018-12-15] MEDS ORDERED: Lidocaine -MPF 2% 2 ML VIAL ONE (12:49)
[2018-12-15] MEDS ORDERED: Clinimix E 5%-20% SOLUTION 2,000 ML with MVI, adult with vitamin K 10 ML IVC SCH (17:00)
[2018-12-15] MEDS: Fluconazole 100 MG TABLET PO SCH (17:02)
[2018-12-15] MEDS ORDERED: Famotidine 20 MG TABLET PO SCH (21:00)
[2018-12-16] MEDS: Haloperidol Lactate 5 MG/ML VIAL IM PRN (03:38)
[2018-12-16 04:09] LABS: Basophils # 0.1 K/mcL (0.0-0.2); Basophils % 0.6 %; Eosinophils # 0.3 K/mcL (0.0-0.6); Hematocrit 25.7 % (35.3-44.9); Hemoglobin 8.3 g/dL (11.5-15.4); Immature Granulocytes % 0.5 % (0-4); Lymphocytes % 20.1 %; Mean Corpuscular HGB Conc 32.3 g/dL (31.6-35.5); Mean Corpuscular Hemoglobin 29.3 pg (28.0-33.3); Mean Corpuscular Volume 90.8 fL (83.0-100.0); Mean Platelet Volume 13.1 fL (9.4-12.4); Monocytes # 0.9 K/mcL (0.0-1.3); Monocytes % 9.3 %; Neutrophils # 6.6 K/mcL (1.6-8.9); Platelet Count 322 K/mcL (140-400); Red Blood Count 2.83 M/mcL (3.82-4.97); Red Cell Distribution Width 18.3 % (11.5-14.5); Segmented Neutrophils % 66.5 %; White Blood Count 9.9 K/mcL (4.3-11.1)
[2018-12-16 04:13] LABS: VBG Ionized Calcium 1.35 mmol/L (1.15-1.35)
[2018-12-16 04:20] LABS: Calcium 9.2 mg/dL (8.6-10.3); Phosphorous 4.6 mg/dL (2.7-4.5); Potassium 4.4 mEq/L (3.5-5.1)
[2018-12-16] MEDS: Pantoprazole 40 MG VIAL IVP SCH ×2 (05:54→17:30)
[2018-12-16] MEDS: Budesonide/Formoterol 160/4.5 1 PUFF INH IH SCH ×2 (07:40→22:38)
[2018-12-16] MEDS: Insulin LISPRO 300 UNITS/3 ML VIAL SQ SCH ×4 (10:14→21:55)
[2018-12-16] MEDS: Nystatin Cream 15 GM TUBE TP SCH ×3 (10:15→21:55)
[2018-12-16] MEDS: Fluconazole 100 MG TABLET PO SCH (10:15)
[2018-12-16] MEDS: Chlorhexidine Rinse 15 ML MOUTHWASH MM SCH ×2 (10:15→21:55)
[2018-12-16] MEDS ORDERED: Clinimix 5%-20% SOLUTION 2,000 ML with MVI, adult with vitamin K 10 ML, Sodium Acetat... IVC SCH (17:00)
[2018-12-17 02:49] LABS: Basophils # 0.1 K/mcL (0.0-0.2); Basophils % 0.7 %; Eosinophils # 0.2 K/mcL (0.0-0.6); Eosinophils % 2.1 %; Hematocrit 23.4 % (35.3-44.9); Hemoglobin 7.5 g/dL (11.5-15.4); Immature Granulocytes % 0.4 % (0-4); Lymphocytes % 21.4 %; Mean Corpuscular HGB Conc 32.1 g/dL (31.6-35.5); Mean Corpuscular Hemoglobin 29.1 pg (28.0-33.3); Mean Corpuscular Volume 90.7 fL (83.0-100.0); Mean Platelet Volume 13.2 fL (9.4-12.4); Monocytes % 10.3 %; Platelet Count 309 K/mcL (140-400); Red Blood Count 2.58 M/mcL (3.82-4.97); Red Cell Distribution Width 17.8 % (11.5-14.5); Segmented Neutrophils % 65.1 %; White Blood Count 9.2 K/mcL (4.3-11.1)
[2018-12-17 03:04] LABS: Calcium 8.8 mg/dL (8.6-10.3); Magnesium 1.9 mg/dL (1.6-2.6); Phosphorous 4.5 mg/dL (2.7-4.5); Potassium 4.8 mEq/L (3.5-5.1)
[2018-12-17 03:17] LABS: Anisocytosis 1+ (Not Present); Hypochromasia Present (Not Present); Platelet Estimate Normal (Normal)
[2018-12-17] MEDS: Pantoprazole 40 MG VIAL IVP SCH ×2 (06:34→18:04)
[2018-12-17] MEDS: Budesonide/Formoterol 160/4.5 1 PUFF INH IH SCH ×2 (07:52→19:40)
[2018-12-17] MEDS: Chlorhexidine Rinse 15 ML MOUTHWASH MM SCH ×2 (09:52→22:28)
[2018-12-17] MEDS: Insulin LISPRO 300 UNITS/3 ML VIAL SQ SCH ×4 (09:52→23:17)
[2018-12-17] MEDS: Fluconazole 100 MG TABLET PO SCH (09:52)
[2018-12-17] MEDS: Nystatin Cream 15 GM TUBE TP SCH ×3 (09:52→23:17)
[2018-12-17 11:04] LABS: Hematocrit 24.2 % (35.3-44.9); Hemoglobin 7.8 g/dL (11.5-15.4)
[2018-12-17] MEDS ORDERED: *HR* Propofol 200 MG/20 ML VIAL IVP ONE (12:49)
[2018-12-17] MEDS ORDERED: *HR* PHENYLEPHRINE 1,000 MCG/10 ML SYRINGE IVP ONE (12:57)
[2018-12-17] MEDS ORDERED: Lidocaine -MPF 2% 2 ML VIAL ONE (13:29)
[2018-12-17] MEDS ORDERED: Clinimix 5%-20% SOLUTION 2,000 ML, Parenteral Amino Acid 10% 0 ML with MVI, adult with... IVC SCH (17:00)
[2018-12-17] MEDS: Clinimix 5%-20% SOLUTION 2,000 ML with MVI, adult with vitamin K 10 ML, Sodium Acetat... IVC SCH (18:09)
[2018-12-17] MEDS ORDERED: GuaiFENesin Liq 200 MG/10 ML UDC PO SCH (22:15)
[2018-12-17] MEDS: Ondansetron 4 MG/2 ML VIAL IVP PRN (22:28)
[2018-12-17 23:35] LABS: Hematocrit 23.6 % (35.3-44.9); Hemoglobin 7.6 g/dL (11.5-15.4)
[2018-12-18 05:36] LABS: Basophils # 0.1 K/mcL (0.0-0.2); Basophils % 0.8 %; Eosinophils # 0.2 K/mcL (0.0-0.6); Eosinophils % 2.3 %; Hematocrit 24.7 % (35.3-44.9); Hemoglobin 7.7 g/dL (11.5-15.4); Immature Granulocytes % 0.4 % (0-4); Lymphocytes # 2.1 K/mcL (0.6-4.6); Lymphocytes % 20.1 %; Mean Corpuscular HGB Conc 31.2 g/dL (31.6-35.5); Mean Corpuscular Hemoglobin 28.7 pg (28.0-33.3); Mean Corpuscular Volume 92.2 fL (83.0-100.0); Mean Platelet Volume 13.2 fL (9.4-12.4); Monocytes % 9.6 %; Neutrophils # 7.1 K/mcL (1.6-8.9); Platelet Count 373 K/mcL (140-400); Red Blood Count 2.68 M/mcL (3.82-4.97); Red Cell Distribution Width 18.2 % (11.5-14.5); Segmented Neutrophils % 66.8 %; White Blood Count 10.6 K/mcL (4.3-11.1)
[2018-12-18 05:46] LABS: Calcium 9.2 mg/dL (8.6-10.3); Magnesium 1.7 mg/dL (1.6-2.6); Phosphorous 4.7 mg/dL (2.7-4.5); Potassium 4.7 mEq/L (3.5-5.1)
[2018-12-18] MEDS ORDERED: GuaiFENesin Liq 200 MG/10 ML UDC PO SCH (06:15)
[2018-12-18] MEDS: Ondansetron 4 MG/2 ML VIAL IVP PRN (06:38)
[2018-12-18] MEDS: Pantoprazole 40 MG VIAL IVP SCH (06:38)
[2018-12-18] MEDS: Budesonide/Formoterol 160/4.5 1 PUFF INH IH SCH ×2 (07:43→22:11)
[2018-12-18] MEDS: Chlorhexidine Rinse 15 ML MOUTHWASH MM SCH ×2 (09:33→20:11)
[2018-12-18] MEDS: Nystatin Cream 15 GM TUBE TP SCH ×3 (09:33→20:11)
[2018-12-18] MEDS: Insulin LISPRO 300 UNITS/3 ML VIAL SQ SCH ×4 (09:33→20:18)
[2018-12-18] MEDS: Fluconazole 100 MG TABLET PO SCH (09:39)
[2018-12-18] MEDS: Clinimix 5%-20% SOLUTION 2,000 ML with MVI, adult with vitamin K 10 ML, Sodium Acetat... IVC SCH (10:20)
[2018-12-18] MEDS: GuaiFENesin Liq 200 MG/10 ML UDC PO SCH ×2 (15:53→20:10)
[2018-12-18] MEDS: Silvasorb 44.4 ML TUBE TP SCH (16:44)
[2018-12-19] MEDS: Budesonide/Formoterol 160/4.5 1 PUFF INH IH SCH (07:11)
[2018-12-19] MEDS: Insulin LISPRO 300 UNITS/3 ML VIAL SQ SCH ×3 (08:00→17:26)
[2018-12-19] MEDS: Chlorhexidine Rinse 15 ML MOUTHWASH MM SCH (09:27)
[2018-12-19] MEDS: GuaiFENesin Liq 200 MG/10 ML UDC PO SCH ×2 (09:27→14:21)
[2018-12-19] MEDS: Fluconazole 100 MG TABLET PO SCH (09:28)
[2018-12-19] MEDS: Silvasorb 44.4 ML TUBE TP SCH (09:28)
[2018-12-19] MEDS: Nystatin Cream 15 GM TUBE TP SCH ×2 (09:28→14:24)
[2018-12-19 16:14] VITALS: BP 113/69
== END 2018-12-19 19:30 | DRG 870 ==
LOC: 2ANU 11:10 → EMEROOARM 11:10 → SUATTDRO 15:39 → 2ANU 16:33 → SUATTDRO 18:34 → 2NNU 11-27 05:51 → ICNU 11-27 09:16 → 2NNU 12-09 18:43 → 2ANU 12-13 20:52
PROVIDERS: ADMIT Internal Medicine; ATTEND Internal Medicine

== ENCOUNTER 2019-09-15 02:07 | Inpatient (IN) ==
[2019-09-15] MEDS ORDERED: *HR* OxyCODONE/APAP 5/325 TABLET PO ONE (02:12)
[2019-09-15 03:03] LABS: Basophils % 0.2 %; Eosinophils # 0.1 K/mcL (0.0-0.6); Hemoglobin 8.8 g/dL (11.5-15.4); Immature Granulocytes % 0.3 % (0-4); Lymphocytes # 2.2 K/mcL (0.6-4.6); Lymphocytes % 17.7 %; Mean Corpuscular HGB Conc 30.3 g/dL (31.6-35.5); Mean Corpuscular Volume 95.7 fL (83.0-100.0); Mean Platelet Volume 12.6 fL (9.4-12.4); Monocytes # 1.4 K/mcL (0.0-1.3); Monocytes % 11.2 %; Neutrophils # 8.5 K/mcL (1.6-8.9); Platelet Count 188 K/mcL (140-400); Red Blood Count 3.03 M/mcL (3.82-4.97); Red Cell Distribution Width 13.6 % (11.5-14.5); Segmented Neutrophils % 69.6 %; White Blood Count 12.2 K/mcL (4.3-11.1)
[2019-09-15 03:22] LABS: Albumin 3.7 g/dL (3.5-5.7); Albumin/Globulin Ratio 1.4 (1.1-2.2); Bilirubin,Total 0.6 mg/dL (0.3-1.0); Calcium 8.5 mg/dL (8.6-10.3); Globulin 2.7 g/dL (2.4-3.5); Total Protein 6.4 g/dL (6.4-8.9)
[2019-09-15] MEDS ORDERED: Potassium Chloride Elixir 20 MEQ/15 ML UDC PO ONE (03:23)
[2019-09-15] MEDS ORDERED: Naloxone 0.4 MG/ML INJ IVP PRN (04:27)
[2019-09-15 06:31] LABS: INR 1.2; Magnesium 1.1 mg/dL (1.6-2.6); Prothrombin Time 13.1 Seconds (9.4-12.1)
[2019-09-15 06:34] LABS: Activated Partial Thrombo Time 30.9 Seconds (26.0-36.0)
[2019-09-15] MEDS ORDERED: Acetaminophen 325 MG TABLET PO PRN (14:10)
[2019-09-15] MEDS ORDERED: *HR* OxyCODONE/APAP 5/325 TABLET PO PRN ×2 (14:10→14:15)
[2019-09-16 04:36] LABS: Basophils % 0.4 %; Eosinophils # 0.2 K/mcL (0.0-0.6); Eosinophils % 2.2 %; Hematocrit 29.2 % (35.3-44.9); Hemoglobin 8.9 g/dL (11.5-15.4); Immature Granulocytes % 0.4 % (0-4); Lymphocytes # 2.1 K/mcL (0.6-4.6); Lymphocytes % 22.2 %; Mean Corpuscular HGB Conc 30.5 g/dL (31.6-35.5); Mean Corpuscular Hemoglobin 29.1 pg (28.0-33.3); Mean Corpuscular Volume 95.4 fL (83.0-100.0); Mean Platelet Volume 11.9 fL (9.4-12.4); Monocytes # 0.8 K/mcL (0.0-1.3); Monocytes % 8.6 %; Neutrophils # 6.3 K/mcL (1.6-8.9); Platelet Count 222 K/mcL (140-400); Red Blood Count 3.06 M/mcL (3.82-4.97); Red Cell Distribution Width 13.8 % (11.5-14.5); Segmented Neutrophils % 66.2 %; White Blood Count 9.5 K/mcL (4.3-11.1)
[2019-09-16 04:39] LABS: INR 1.1; Prothrombin Time 12.6 Seconds (9.4-12.1)
[2019-09-16 04:52] LABS: Magnesium 2.4 mg/dL (1.6-2.6); Phosphorous 2.7 mg/dL (2.7-4.5); Potassium 4.5 mEq/L (3.5-5.1)
[2019-09-16] MEDS ORDERED: Lidocaine -MPF 4% 5 ML AMPUL ONE (18:07)
[2019-09-16] MEDS ORDERED: *HR* Rocuronium Bromide 50 MG/5 ML VIAL ONE (18:09)
[2019-09-16] MEDS ORDERED: *HR* FentaNYL (PF) 100 MCG/2 ML VIAL ONE (18:09)
[2019-09-16] MEDS ORDERED: Dexamethasone 4 MG/ML VIAL ONE (18:09)
[2019-09-16] MEDS ORDERED: Lidocaine -MPF 2% 2 ML VIAL ONE (18:09)
[2019-09-16] MEDS ORDERED: Ondansetron 4 MG/2 ML VIAL ONE (18:09)
[2019-09-16] MEDS ORDERED: *HR* Propofol 200 MG/20 ML VIAL IVP ONE (18:09)
[2019-09-16] MEDS ORDERED: Acetaminophen IV 1,000 MG/100 ML BAG ONE (18:23)
[2019-09-16] MEDS ORDERED: Famotidine 20 MG/2 ML VIAL ONE (18:24)
[2019-09-16] MEDS ORDERED: *HR* PHENYLEPHRINE 1,000 MCG/10 ML SYRINGE IVP ONE (20:33)
[2019-09-16] MEDS ORDERED: Ondansetron 4 MG/2 ML VIAL IVP ONE (20:49)
[2019-09-16] MEDS: *HR* HYDROmorphone PF 0.5 MG/0.5 ML SYRINGE IVP PRN ×4 (20:58→21:26)
[2019-09-16] MEDS ORDERED: Mirtazapine 15 MG TABLET PO SCH (21:00)
[2019-09-16] MEDS ORDERED: NON-FORMULARY MEDICATION 1 EACH EACH (Ipratropium Bromide 2 SPRAY) NS SCH (21:00)
[2019-09-16] MEDS ORDERED: Naloxone 0.4 MG/ML INJ IVP PRN (21:58)
[2019-09-16] MEDS ORDERED: Acetaminophen 325 MG TABLET PO PRN (21:58)
[2019-09-17] MEDS: CeFAZolin 2 GM/120 ML BAG IVPB SCH ×2 (02:56→10:50)
[2019-09-17 03:44] LABS: Basophils % 0.2 %; Mean Platelet Volume 11.6 fL (9.4-12.4)
[2019-09-17 03:46] LABS: Hematocrit 28.3 % (35.3-44.9); Hemoglobin 8.3 g/dL (11.5-15.4); Immature Granulocytes % 0.8 % (0-4); Lymphocytes # 0.7 K/mcL (0.6-4.6); Lymphocytes % 4.4 %; Mean Corpuscular HGB Conc 29.3 g/dL (31.6-35.5); Mean Corpuscular Hemoglobin 29.4 pg (28.0-33.3); Mean Corpuscular Volume 100.4 fL (83.0-100.0); Monocytes # 0.5 K/mcL (0.0-1.3); Monocytes % 2.9 %; Neutrophils # 15.4 K/mcL (1.6-8.9); Platelet Count 224 K/mcL (140-400); Red Blood Count 2.82 M/mcL (3.82-4.97); Red Cell Distribution Width 13.9 % (11.5-14.5); Segmented Neutrophils % 91.7 %; White Blood Count 16.8 K/mcL (4.3-11.1)
[2019-09-17 04:06] LABS: Calcium 8.6 mg/dL (8.6-10.3)
[2019-09-17 04:15] LABS: Hypochromasia Present (Not Present); Platelet Estimate Normal (Normal)
[2019-09-17] MEDS: Aspirin Enteric Coated 325 MG Tablet PO SCH (09:18)
[2019-09-17] MEDS: *HR* OxyCODONE/APAP 5/325 TABLET PO PRN ×3 (09:23→21:42)
[2019-09-17] MEDS: Mirtazapine 15 MG TABLET PO SCH (21:39)
[2019-09-18 07:43] LABS: Hemoglobin 7.9 g/dL (11.5-15.4); White Blood Count 8.6 K/mcL (4.3-11.1)
[2019-09-18 07:45] LABS: Basophils % 0.3 %; Eosinophils # 0.1 K/mcL (0.0-0.6); Eosinophils % 1.3 %; Hematocrit 26.9 % (35.3-44.9); Immature Granulocytes % 0.2 % (0-4); Immature Platelets 6.8 % (1.1-6.1); Lymphocytes % 26.1 %; Mean Corpuscular HGB Conc 29.4 g/dL (31.6-35.5); Mean Corpuscular Hemoglobin 28.7 pg (28.0-33.3); Mean Corpuscular Volume 97.8 fL (83.0-100.0); Mean Platelet Volume 12.3 fL (9.4-12.4); Monocytes # 0.8 K/mcL (0.0-1.3); Monocytes % 9.2 %; Neutrophils # 5.4 K/mcL (1.6-8.9); Nucleated Red Blood Cells 0.2 /100 WBC (0); Platelet Count 183 K/mcL (140-400); Red Blood Count 2.75 M/mcL (3.82-4.97); Red Cell Distribution Width 13.8 % (11.5-14.5); Segmented Neutrophils % 62.9 %
[2019-09-18 07:47] LABS: Calcium 8.2 mg/dL (8.6-10.3); Potassium 4.7 mEq/L (3.5-5.1)
[2019-09-18 07:49] LABS: Lymphocytes # 2.2 K/mcL (0.6-4.6)
[2019-09-18] MEDS: *HR* OxyCODONE/APAP 5/325 TABLET PO PRN ×2 (07:58→13:57)
[2019-09-18] MEDS: Aspirin Enteric Coated 325 MG Tablet PO SCH (07:59)
[2019-09-18 08:08] LABS: Hypochromasia Present (Not Present)
[2019-09-18 08:09] LABS: Poikilocytosis 1+ (Not Present)
[2019-09-18 08:10] LABS: Acanthocytes 1+ (Not Present)
[2019-09-18 08:11] LABS: Platelet Estimate Normal (Normal)
[2019-09-18] MEDS ORDERED: 0.9 % Sodium Chloride 1,000 ML IVC SCH (10:30)
[2019-09-18] MEDS: Mirtazapine 15 MG TABLET PO SCH (19:41)
[2019-09-19] MEDS: *HR* OxyCODONE/APAP 5/325 TABLET PO PRN (08:21)
[2019-09-19] MEDS: Aspirin Enteric Coated 325 MG Tablet PO SCH (08:24)
[2019-09-19 10:07] LABS: Red Cell Distribution Width 13.7 % (11.5-14.5)
[2019-09-19 10:08] LABS: Basophils % 0.2 %; Eosinophils # 0.2 K/mcL (0.0-0.6); Hematocrit 30.5 % (35.3-44.9); Hemoglobin 8.7 g/dL (11.5-15.4); Immature Granulocytes % 0.5 % (0-4); Lymphocytes # 2.4 K/mcL (0.6-4.6); Lymphocytes % 23.7 %; Mean Corpuscular HGB Conc 28.5 g/dL (31.6-35.5); Mean Corpuscular Hemoglobin 28.3 pg (28.0-33.3); Mean Corpuscular Volume 99.3 fL (83.0-100.0); Mean Platelet Volume 11.8 fL (9.4-12.4); Monocytes # 0.8 K/mcL (0.0-1.3); Monocytes % 8.2 %; Platelet Count 242 K/mcL (140-400); Red Blood Count 3.07 M/mcL (3.82-4.97); Segmented Neutrophils % 65.4 %
[2019-09-19 10:11] LABS: Neutrophils # 6.5 K/mcL (1.6-8.9)
[2019-09-19 10:20] LABS: Platelet Estimate Normal (Normal)
[2019-09-19 10:21] LABS: Hypochromasia Present (Not Present)
[2019-09-19 10:23] LABS: Calcium 8.3 mg/dL (8.6-10.3); Potassium 4.7 mEq/L (3.5-5.1)
[2019-09-19 16:20] VITALS: BP 107/75
== END 2019-09-19 17:27 | DRG 480 ==
LOC: 3NENU 02:07 → EMEROOARM 02:07 → SUATTDRO 04:14 → 3NENU 04:36
PROVIDERS: ADMIT Family Medicine; ATTEND Family Medicine